=== PATIENT | female | born 1960 | race African-American/Black ===

== ENCOUNTER 2016-04-16 14:53 | Inpatient (IN) | payer MEDICARE, MEDICAID ==
[~2016-04-16] VITALS: Ht 165.1 cm; Wt 86.2 kg
[~2016-04-16 14:53] MED LIST: ALPR1TAB2 PO; AMLO5TAB4 PO; ASPI81TA9 PO; ATORVASTATIN CA80 MG PO; BENZ100C PO; CARV25TA PO; CLON0.1T PO; CLOP75TA PO; FURO40TA4 PO; HYDR-2869 PO; INSU100I13 SQ; INSU100I17 SQ; LEVO500T38 PO; LISI-334 PO; LISI1TAB5 PO; NAPR500T3 PO; NICO1PAT5 TD; OXYC5CAP3 PO; POLY17PO5 PO; PROM6.25 PO; TICA90TA PO
[2016-04-16] MEDS ORDERED: ONDANSETRON PF 4 MG/2 ML VIAL. IV ONE (15:45)
[2016-04-16] MEDS ORDERED: IPRATRPIUM/ALBUTEROL 0.5/2.5MG 3 ML NEBU. NEB ONE (15:45)
--- NOTE | 2016-04-16 15:47 | PHYS DOC ---
Past Medical History Past Medical History: Bronchitis, CHF, CVA, Diabetes-Type II, Hypertension, [place] , Sickle Cell Disease Additional Past Medical Histor: "peripheral vision is gone" Past Surgical History: Angioplasty, Hysterectomy, Other Additional Past Surgical Histo: Cardiac Stent Alcohol Use: Occasionally Drug Use: None Adult General Chief Complaint Chief Complaint: shortness of breath, chest pain HPI HPI Patient is a 55 year old female who presents with complaint of shortness of breath and chest pain. Patient states that she has been having symptoms for the past 3 weeks, however the past 3 days have been significantly worsening. Patient states that she is also had associated headaches, subjective fevers, chills, and body aches. Patient has history of congestive heart failure. Patient follows with Dr. Gardner of cardiology. The patient states that her chest pain has been substernal. Patient denies radiation of pain. Patient denies associated diaphoresis but has had nausea as well as shortness of breath. Review of Systems Review of Systems Constitutional: Subjective fever, chills [] Eyes: Denies change in visual acuity, redness, or eye pain [] HENT: Denies nasal congestion or sore throat [] Respiratory: Shortness of breath [] Cardiovascular: Chest pain [] GI: Denies abdominal pain, nausea, vomiting, bloody stools or diarrhea [] : Denies dysuria or hematuria [] Musculoskeletal: Body aches [] Integument: Denies rash or skin lesions [] Neurologic: Headache, denies focal weakness or sensory changes [] Current Medications Current Medications Current Medications Medications (Trade) Dose Ordered Sig/[place] Start Time Stop Time Status Last Admin Dose Admin Albuterol/ Ipratropium (Duoneb) 3 ml 1X ONCE 04/16/16 15:45 04/16/16 15:46 DC 04/16/16 16:04 3 ML Aspirin (Children'S Aspirin) 324 mg 1X ONCE 04/16/16 16:00 04/16/16 16:01 DC 04/16/16 16:17 324 MG Fentanyl Citrate (Fentanyl 2ml Vial) 50 mcg PRN Q15MIN PRN 04/16/16 15:45 04/17/16 15:44 04/16/16 17:41 50 MCG Hydralazine HCl (Apresoline) 10 mg 1X ONCE 04/16/16 16:45 04/16/16 16:46 DC 04/16/16 16:48 10 MG Ondansetron HCl (Zofran) 4 mg 1X ONCE 04/16/16 15:45 04/16/16 15:46 DC 04/16/16 16:17 4 MG Allergies Allergies Allergies Coded Allergies Type Severity Reaction Last Updated Verified sulfamethoxazole Allergy Intermediate 07/15/14 Yes trimethoprim Allergy Intermediate 07/15/14 Yes Physical Exam Physical Exam Constitutional: Alert, afebrile, appears in mild discomfort. [] HENT: Normocephalic, atraumatic, bilateral external ears normal, oropharynx moist, no oral exudates, nose normal. [] Eyes: PERRLA, EOMI, conjunctiva normal, no discharge. [] Neck: Normal range of motion, no tenderness, supple, no stridor. [] Cardiovascular:Heart rate regular rhythm, no murmur [] Lungs & Thorax: Mild to moderate restriction of air movement bilaterally, no wheezes or rales present, chest nontender to palpation Abdomen: Bowel sounds normal, soft, no tenderness, no masses, no pulsatile masses. [] Skin: Warm, dry, no erythema, no rash. [] Back: No tenderness, no CVA tenderness. [] Extremities: No tenderness, no cyanosis, no clubbing, ROM intact, trace pedal edema. [] Neurologic: Alert and oriented X 3, normal motor function, normal sensory function, no focal deficits noted. [] Current Patient Data Vital Signs Vital Signs Date Time Temp Pulse Resp B/P Pulse Ox O2 Delivery O2 Flow Rate FiO2 04/16/16 16:48 76 190/100 04/16/16 16:44 16 94 Room Air 04/16/16 15:31 98.7 98.7 Lab Values Laboratory Tests Test 04/16/16 16:02 White Blood Count 5.3x10^3/uL (4.0-11.0) Red Blood Count 4.69x10^6/uL (3.50-5.40) Hemoglobin 12.2g/dL (12.0-15.5) Hematocrit 38.6% (36.0-47.0) Mean Corpuscular Volume 82fL (79-100) Mean Corpuscular Hemoglobin 26pg (25-35) Mean Corpuscular Hemoglobin Concent 32g/dL (31-37) Red Cell Distribution Width 14.2% (11.5-14.5) Platelet Count 222x10^3/uL (140-400) Neutrophils (%) (Auto) 77% (31-73) H Lymphocytes (%) (Auto) 13% (24-48) L Monocytes (%) (Auto) 7% (0-9) Eosinophils (%) (Auto) 2% (0-3) Basophils (%) (Auto) 0% (0-3) Neutrophils # (Auto) 4.1x10^3uL (1.8-7.7) Lymphocytes # (Auto) 0.7x10^3/uL (1.0-4.8) L Monocytes # (Auto) 0.4x10^3/uL (0.0-1.1) Eosinophils # (Auto) 0.1x10^3/uL (0.0-0.7) Basophils # (Auto) 0.0x10^3/uL (0.0-0.2) Sodium Level 141mmol/L (136-145) Potassium Level 3.8mmol/L (3.5-5.1) Chloride Level 106mmol/L (98-107) Carbon Dioxide Level 27mmol/L (21-32) Anion Gap 8 (6-14) Blood Urea Nitrogen 18mg/dL (7-20) Creatinine 0.9mg/dL (0.6-1.0) Estimated GFR (Cockcroft-Gault) 79.3 BUN/Creatinine Ratio 20 (6-20) Glucose Level 121mg/dL (70-99) H Calcium Level 8.9mg/dL (8.5-10.1) Total Bilirubin 0.4mg/dL (0.2-1.0) Aspartate Amino Transferase (AST) 22U/L (15-37) Alanine Aminotransferase (ALT) 21U/L (14-59) Alkaline Phosphatase 157U/L (46-116) H Creatine Kinase 94U/L (26-192) Creatine Kinase MB (Mass) 1.4ng/mL (0.0-3.6) Creatine Kinase MB Relative Index 1.5% (0-4) Troponin I Quantitative < 0.017ng/mL (0.000-0.055) MB-Dic-S-Type Natriuretic Peptide 2263pg/mL (0-124) H Total Protein 6.9g/dL (6.4-8.2) Albumin 2.7g/dL (3.4-5.0) L Albumin/Globulin Ratio 0.6 (1.0-1.7) L Influenza Type A Antigen Negative (NEGATIVE) Influenza Type B Antigen Negative (NEGATIVE) Laboratory Tests 04/16/16 16:02 Laboratory Tests 04/16/16 16:02 EKG EKG Interpreted by me: Heart rate 78, sinus rhythm, prolonged QT interval, no acute ST/T-wave abnormalities present Radiology/Procedures Radiology/Procedures [facility] [address] [place] [address] IMAGING REPORT Signed PATIENT: ZORAN HONG ACCOUNT: [id number] : 1960 LOCATION: ER AGE: 55 SEX: F EXAM STATUS: REG ER ORD. PHYSICIAN: JANNET VANG MD REASON: chest pain, shortness of breath PROCEDURE: PORTABLE CHEST 1V INDICATION: chest pain, shortness of breath COMPARISON: 07/18/2014 FINDINGS: Single view of chest obtained. Enlarged cardiac silhouette. Probable calcified granuloma right midlung. Linear opacities lower lungs. Fullness of bilateral hilum again seen which could be from engorged pulmonary arteries. IMPRESSION: Enlarged cardiac silhouette and prominent hilum bilaterally is again seen. Mild linear opacities lower lungs could be atelectasis. DICTATED and SIGNED BY: HONG TEJADA MD DATE: 04/16/16 1614 CC: JANNET VANG MD; YOSELIN GARCÍA MD ~ [] Course & Med Decision Making Course & Med Decision Making Pertinent Labs and Imaging studies reviewed. (See chart for details) Patient was given fentanyl, Zofran, and hydralazine in the emergency department. The patient had a critically elevated blood pressure which may be the primary cause of patient's symptoms. Due to patient's history of coronary artery disease and presence of CHF, the patient will need to be admitted for further treatment and to rule out myocardial infarction. I spoke with Dr. Helm who accepted care patient in hospital. Dragon Disclaimer Dragon Disclaimer This electronic medical record was generated, in whole or in part, using a voice recognition dictation system. Departure Departure Impression: Primary Impression: Chest pain Additional Impressions: Acute on chronic diastolic CHF (congestive heart failure) Accelerated hypertension Disposition: 09 ADMITTED INPATIENT Admitting Physician: Lenora Helm Condition: STABLE Referrals: YOSELIN GARCÍA MD (PCP) Problem Qualifiers Primary Impression: Chest pain Chest pain type: unspecified Qualified Code: R07.9 - Chest pain, unspecified JANNET VANG MD Apr 16, 2016 15:47
[2016-04-16] MEDS ORDERED: ASPIRIN 81 MG TAB.CHEW PO ONE (16:00)
--- NOTE | 2016-04-16 16:00 | EKG ---
[facility] [address] [place] [address] Test Date: 2016-04-16 Test Time: 15:10:48 Pat Name: ZORAN HONG Department: Room: Gender: F [employer]: : 1960 Requested By: JANNET VANG Order Number: [id number] Reading MD: Measurements Intervals [place] Rate: 78 P: 31 AL: 168 QRS: 0 QRSD: 80 T: 145 QT: 430 QTc: 494 Interpretive Statements SINUS RHYTHM LEFTWARD AXIS R-S TRANSITION ZONE IN V LEADS DISPLACED TO THE LEFT QRS(T) CONTOUR ABNORMALITY CONSIDER ANTEROLATERAL MYOCARDIAL DAMAGE PROLONGED QT POSSIBLY ABNORMAL ECG RI6.01 No previous ECG available for comparison
[2016-04-16 16:10] LABS: BASO % 0 % (0-3); EOS % 2 % (0-3); HEMATOCRIT 38.6 % (36.0-47.0); HEMOGLOBIN 12.2 g/dL (12.0-15.5); LYMPH # 0.7 x10^3/uL (1.0-4.8); LYMPH % 13 % (24-48); MEAN CORPUSCULAR HEMOGLOBIN 26 pg (25-35); MEAN CORPUSCULAR HGB CONC 32 g/dL (31-37); MEAN CORPUSCULAR VOLUME 82 fL (79-100); MONO % 7 % (0-9); NEUT % 77 % (31-73); PLATELET COUNT 222 x10^3/uL (140-400); RED BLOOD COUNT 4.69 x10^6/uL (3.50-5.40); RED CELL DISTRIBUTION WIDTH 14.2 % (11.5-14.5); WHITE BLOOD COUNT 5.3 x10^3/uL (4.0-11.0)
[2016-04-16] MEDS: FENTANYL PF 100 MCG/2 ML VIAL. IV PRN ×2 (16:18→17:41)
--- NOTE | 2016-04-16 16:19 | RAD ---
INDICATION: chest pain, shortness of breath COMPARISON: 07/18/2014 FINDINGS: Single view of chest obtained. Enlarged cardiac silhouette. Probable calcified granuloma right midlung. Linear opacities lower lungs. Fullness of bilateral hilum again seen which could be from engorged pulmonary arteries. IMPRESSION: Enlarged cardiac silhouette and prominent hilum bilaterally is again seen. Mild linear opacities lower lungs could be atelectasis.
[2016-04-16 16:23] LABS: CALCIUM 8.9 mg/dL (8.5-10.1); CREATININE 0.9 mg/dL (0.6-1.0); GFR 79.3; POTASSIUM 3.8 mmol/L (3.5-5.1)
[2016-04-16 16:29] LABS: ALBUMIN 2.7 g/dL (3.4-5.0); ALBUMIN/GLOBULIN RATIO 0.6 (1.0-1.7); TOTAL BILIRUBIN 0.4 mg/dL (0.2-1.0); TOTAL PROTEIN 6.9 g/dL (6.4-8.2)
[2016-04-16 16:37] LABS: CKMB INDEX 1.5 % (0-4); CKMB MASS 1.4 ng/mL (0.0-3.6); OBC FLU VALID
[2016-04-16] MEDS ORDERED: hydrALAZINE 20 MG/ML VIAL. IVP ONE (16:45)
[2016-04-16] MEDS ORDERED: FENTANYL PF 100 MCG/2 ML VIAL. IV PRN (17:30)
[2016-04-16] MEDS ORDERED: ONDANSETRON PF 4 MG/2 ML VIAL. IV PRN (17:30)
[2016-04-16] MEDS ORDERED: ACETAMINOPHEN 325 MG TABLET. PO PRN (17:30)
[2016-04-16] MEDS ORDERED: FUROSEMIDE 40 MG/4 ML VIAL IVP ONE (17:30)
[2016-04-16] MEDS ORDERED: POLYETHYLENE GLYCOL 3350 17 GM PACKET. PO PRN (19:00)
[2016-04-16] MEDS ORDERED: AMLODIPINE BESYLATE 5 MG TABLET PO ONE (19:00)
[2016-04-16] MEDS ORDERED: DEXTROSE 50% 25 GM / 50ML DISP.SYRIN. IV PRN (19:00)
[2016-04-16] MEDS ORDERED: MAGNESIUM HYDROXIDE 2,400 MG/30 ML ORAL.SUSP. PO ONE (19:00)
--- NOTE | 2016-04-16 19:00 | PDOC1 ---
History and Physical Date of Admission Date of Admission DATE: 04/16/16 TIME: 18:51 Identification/Chief Complaint Chief Complaint dyspnea, myalgia, abd distention Source Source: Chart review, Patient History of Present Illness History of Present Illness Ms. Rogers, is a 55 year old female admit from ER, with worsening shortness of breath and chest pain. worsening for 3 weeks, however the past 3 days with myalgia, weakness, abd pain and nausea, abd distention, constipation and dyspnea She has many complaints, alsoo headaches, subjective fevers, chills, and body aches. FLU SWAB NEG in ER chest pain is substernal, not reproducible, not worse with exertion, right sided, Patient has history of congestive heart failure. Dr. Gardner She reported compliance with fluid and diet, but her elicited that she has been eating Doritos,. Past Medical History Cardiovascular: CAD, CHF, HTN, Hyperlipidemia Pulmonary: Pneumonia, Other CENTRAL NERVOUS SYSTEM: CVA GI: No pertinent hx Heme/Onc: Sickle cell disease Musculoskeletal: Osteoarthritis Renal/: No pertinent hx Endocrine: Diabetes Past Surgical History Past Surgical History: Hysterectomy, Other Family History Family History: Heart Disease Social History Smoke: Quit (?) ALCOHOL: none Drugs: None Current Medications Current Medications Current Medications Albuterol/ Ipratropium (Duoneb) 3 ml 1X ONCE NEB Last administered on 16:04; Start 04/16/16 at 15:45; Stop 04/16/16 at 15:46; Status DC Fentanyl Citrate (Fentanyl 2ml Vial) 50 mcg PRN Q15MIN PRN IV PAIN GREATER THAN 3/10 Last administered on 04/16/16 17:41; Start 04/16/16 at 15:45; Stop at 15:44 Ondansetron HCl (Zofran) 4 mg 1X ONCE IV Last administered on 04/16/16 16:17 ; Start 04/16/16 at 15:45; Stop 04/16/16 at 15:46; Status DC Aspirin (Children'S Aspirin) 324 mg 1X ONCE PO Last administered on 04/16/16 16:17; Start 04/16/16 at 16:00; Stop 04/16/16 at 16:01; Status DC Hydralazine HCl (Apresoline) 10 mg 1X ONCE IVP Last administered on 04/16/16 16:48; Start 04/16/16 at 16:45; Stop 04/16/16 at 16:46; Status DC Ondansetron HCl (Zofran) 4 mg PRN Q8HRS PRN IV NAUSEA/VOMITING; Start 04/16/16 at 17:30; Stop 04/17/16 at 17:29 Fentanyl Citrate (Fentanyl 2ml Vial) 50 mcg PRN Q2HR PRN IV PAIN; Start at 17:30; Stop 04/17/16 at 17:29 Acetaminophen (Tylenol) 650 mg PRN Q4HRS PRN PO FEVER; Start 04/16/16 at 17:30 ; Stop 04/17/16 at 17:29 Furosemide (Lasix) 60 mg 1X ONCE IVP Last administered on 04/16/16 18:30; Start 04/16/16 at 17:30; Stop 04/16/16 at 17:31; Status DC Active Scripts Active Reported Miralax (Polyethylene Glycol 3350) 17 Gm Powd.pack 1 Pkt PO PRN DAILY PRN Lantus Solostar (Insulin Glargine,Hum.rec.anlog) 100 Unit/1 Ml Insuln.pen 10 Unit SQ QHS Clonidine Hcl 0.1 Mg Tablet 0.1 Mg PO TID Nicotine Patch (Nicotine) 1 Each Patch.dysq 1 Each TD Oxycodone Hcl 5 Mg Capsule 5 Mg PO PRN Q6HRS PRN Aspirin Ec (Aspirin) 81 Mg Tablet.dr 81 Mg PO DAILY Atorvastatin Calcium 80 Mg Tablet 80 Mg PO HS Lisinopril 20 Mg Tablet 20 Mg PO BID Novolog Flexpen (Insulin Aspart) 100 Unit/1 Ml Insuln.pen 5 Unit SQ TIDAFTMEAL Coreg (Carvedilol) 25 Mg Tablet 25 Mg PO BIDWMEALS Xanax (Alprazolam) 1 Mg Tablet 1 Mg PO BID PRN Furosemide 40 Mg Tablet 40 Mg PO DAILY Allergies Allergies: Coded Allergies: sulfamethoxazole (Verified Allergy, Intermediate, 07/15/14) trimethoprim (Verified Allergy, Intermediate, 07/15/14) ROS General: YES: Appetite, Chills, Fatigue, Malaise, No: Night Sweats, Other PSYCHOLOGICAL ROS: YES: Irritablity, No: Anxiety, Behavioral Disorder, Concentration difficultie, Decreased libido , Depression, Disorientation, Hallucinations, Hostility, Memory difficulties, Mood Swings, Obsessive thoughts, Other, Physical abuse, Sexual abuse, Sleep disturbances, Suicidal ideation Eyes: No Blurry vision, No Decreased vision, No Double vision, No Dry eyes, No Excessive tearing, No Eye Pain, No Itchy Eyes, No Loss of vision, No Other, No Photophobia, No Scotomata, No Uses contacts, No Uses glasses HEENT: YES: Heacaches, Nasal congestion, Sneezing, No: Epistaxis, Hearing change, Nasal discharge, Oral lesions, Other, Sinus pain, Snoring, Sore Throat, Tinnitus, Vertigo, Visual Changes, Vocal changes Respiratory: YES: Cough, No: Hemoptysis, Orthopnea, Other, Pleuritic Pain, SOB with excertion, Shortness of breath, Sputum Changes, Stridor, Tachypnea, Wheezing Cardiovascular: yes Chest Pain, No Edema, No Lt Headedness, No Orthopnea, No Other, No Palpitations, No Paroxysmal Noc. Dyspnea Gastrointestinal: Yes Constipation, Yes Nausea, No Abdominal Pain, No Diarrhea, No Hematochezia, No Melena, No Other, No Vomiting Genitourinary: No , No , No , No , No , No , No , No Discharge, No Dysuria, No Flank Pain, No Frequency, No Hematuria, No Incontinence, No Other, No Pain, No Retention, No Urgency Musculoskeletal: Yes Joint Stiffness, No Gait Disturbance, No Joint Pain, No Joint Swelling, No Muscle Pain, No Muscular Weakness, No Other, No Pain In:, No Swelling In: Neurological: No Behavorial Changes, No Bowel/Bladder ControlChng, No Confusion , No Dizziness, No Gait Disturbance, No Headaches, No Impaired Coord/balance, No Memory Loss, No Numbness/Tingling, No Other, No Seizures, No Speech Problems , No Tremors, No Visual Changes, No Weakness Skin: Yes Dry Skin, No Acne, No Eczema, No Hair Changes, No Lumps, No Mole Changes, No Mottling, No Nail Changes, No Other, No Pruritus, No Rash, No Skin Lesion Changes Physical Exam General: Alert, Oriented X3, Cooperative, mild distress HEENT: EOMI, Mucous membr. moist/pink Lungs: Clear to auscultation Heart: S1S2, no gallops Abdomen: Normal bowel sounds, Soft, No tenderness (min, no stool palpable, ) Extremities: Other (some edema to thigh, almost no pedal or pretibial edema) Skin: No significant lesion Neuro: Normal speech, Normal tone, Sensation intact Psych/Mental Status: Mental status NL, Mood NL Vitals Vitals Vital Signs Date Time Temp Pulse Resp B/P Pulse Ox O2 Delivery O2 Flow Rate FiO2 04/16/16 16:48 76 190/100 04/16/16 16:27 21 97 Room Air 04/16/16 15:31 98.7 98.7 Labs Labs Laboratory Tests Test 04/16/16 16:02 White Blood Count 5.3x10^3/uL (4.0-11.0) Red Blood Count 4.69x10^6/uL (3.50-5.40) Hemoglobin 12.2g/dL (12.0-15.5) Hematocrit 38.6% (36.0-47.0) Mean Corpuscular Volume 82fL (79-100) Mean Corpuscular Hemoglobin 26pg (25-35) Mean Corpuscular Hemoglobin Concent 32g/dL (31-37) Red Cell Distribution Width 14.2% (11.5-14.5) Platelet Count 222x10^3/uL (140-400) Neutrophils (%) (Auto) 77% (31-73) Lymphocytes (%) (Auto) 13% (24-48) Monocytes (%) (Auto) 7% (0-9) Eosinophils (%) (Auto) 2% (0-3) Basophils (%) (Auto) 0% (0-3) Neutrophils # (Auto) 4.1x10^3uL (1.8-7.7) Lymphocytes # (Auto) 0.7x10^3/uL (1.0-4.8) Monocytes # (Auto) 0.4x10^3/uL (0.0-1.1) Eosinophils # (Auto) 0.1x10^3/uL (0.0-0.7) Basophils # (Auto) 0.0x10^3/uL (0.0-0.2) Sodium Level 141mmol/L (136-145) Potassium Level 3.8mmol/L (3.5-5.1) Chloride Level 106mmol/L (98-107) Carbon Dioxide Level 27mmol/L (21-32) Anion Gap 8 (6-14) Blood Urea Nitrogen 18mg/dL (7-20) Creatinine 0.9mg/dL (0.6-1.0) Estimated GFR (Cockcroft-Gault) 79.3 BUN/Creatinine Ratio 20 (6-20) Glucose Level 121mg/dL (70-99) Calcium Level 8.9mg/dL (8.5-10.1) Total Bilirubin 0.4mg/dL (0.2-1.0) Aspartate Amino Transf (AST/SGOT) 22U/L (15-37) Alanine Aminotransferase (ALT/SGPT) 21U/L (14-59) Alkaline Phosphatase 157U/L (46-116) Creatine Kinase 94U/L (26-192) Creatine Kinase MB (Mass) 1.4ng/mL (0.0-3.6) Creatine Kinase MB Relative Index 1.5% (0-4) Troponin I Quantitative < 0.017ng/mL (0.000-0.055) YO-Tyf-G-Type Natriuretic Peptide 2263pg/mL (0-124) Total Protein 6.9g/dL (6.4-8.2) Albumin 2.7g/dL (3.4-5.0) Albumin/Globulin Ratio 0.6 (1.0-1.7) Influenza Type A Antigen Negative (NEGATIVE) Influenza Type B Antigen Negative (NEGATIVE) Laboratory Tests Test 04/16/16 16:02 White Blood Count 5.3x10^3/uL (4.0-11.0) Red Blood Count 4.69x10^6/uL (3.50-5.40) Hemoglobin 12.2g/dL (12.0-15.5) Hematocrit 38.6% (36.0-47.0) Mean Corpuscular Volume 82fL (79-100) Mean Corpuscular Hemoglobin 26pg (25-35) Mean Corpuscular Hemoglobin Concent 32g/dL (31-37) Red Cell Distribution Width 14.2% (11.5-14.5) Platelet Count 222x10^3/uL (140-400) Neutrophils (%) (Auto) 77% (31-73) Lymphocytes (%) (Auto) 13% (24-48) Monocytes (%) (Auto) 7% (0-9) Eosinophils (%) (Auto) 2% (0-3) Basophils (%) (Auto) 0% (0-3) Neutrophils # (Auto) 4.1x10^3uL (1.8-7.7) Lymphocytes # (Auto) 0.7x10^3/uL (1.0-4.8) Monocytes # (Auto) 0.4x10^3/uL (0.0-1.1) Eosinophils # (Auto) 0.1x10^3/uL (0.0-0.7) Basophils # (Auto) 0.0x10^3/uL (0.0-0.2) Sodium Level 141mmol/L (136-145) Potassium Level 3.8mmol/L (3.5-5.1) Chloride Level 106mmol/L (98-107) Carbon Dioxide Level 27mmol/L (21-32) Anion Gap 8 (6-14) Blood Urea Nitrogen 18mg/dL (7-20) Creatinine 0.9mg/dL (0.6-1.0) Estimated GFR (Cockcroft-Gault) 79.3 BUN/Creatinine Ratio 20 (6-20) Glucose Level 121mg/dL (70-99) Calcium Level 8.9mg/dL (8.5-10.1) Total Bilirubin 0.4mg/dL (0.2-1.0) Aspartate Amino Transf (AST/SGOT) 22U/L (15-37) Alanine Aminotransferase (ALT/SGPT) 21U/L (14-59) Alkaline Phosphatase 157U/L (46-116) Creatine Kinase 94U/L (26-192) Creatine Kinase MB (Mass) 1.4ng/mL (0.0-3.6) Creatine Kinase MB Relative Index 1.5% (0-4) Troponin I Quantitative < 0.017ng/mL (0.000-0.055) PA-Dus-N-Type Natriuretic Peptide 2263pg/mL (0-124) Total Protein 6.9g/dL (6.4-8.2) Albumin 2.7g/dL (3.4-5.0) Albumin/Globulin Ratio 0.6 (1.0-1.7) Influenza Type A Antigen Negative (NEGATIVE) Influenza Type B Antigen Negative (NEGATIVE) VTE Prophylaxis Ordered VTE Prophylaxis Devices: No VTE Pharmacological Prophylaxi: Yes Assessment/Plan Assessment/Plan CHF exacerbation, acute diastolic failure, some swelling of thighs, not lalita anasarca Accelerated htn, start norvasc, coreg, lasix, Lasix, Htn meds chronic longstanding HTN, mult agents may benefit from norvasc for diastolic failure, will check echo, CV consult, Dr. Gardner follows nausea, abd distention, constipation, Miralax, milk of mag, colace, prior tobaccoism Dm, insulin req. ZARINA QUINTANILLA MD Apr 16, 2016 19:00
[2016-04-16] MEDS: MORPHINE SULFATE 4 MG/ML DISP.SYRIN. IV PRN ×2 (19:57→23:31)
--- NOTE | 2016-04-16 20:03 | ACF ---
Admission Forms Criteria HEART FAILURE: COMMON COMPLICATIONS Clinical Indications for Inpatient Care (Place 'X' for any and all applicable criteria): Ongoing inpatient care may be indicated for heart failure with ANY ONE of the following (1)(2)(3)(4)(5): [ ]I. Ongoing need for care for primary condition requiring frequent therapy adjustments because of changes in cardiac function (eg, drug dosage changes for drugs that are renally metabolized) [ ]II. New-onset heart failure [ ]III. Heart failure with decreased urine output not responsive to attempts to optimize volume status [ ]IV. Acute cardiac ischemia causing or associated with failure [X]V. Complications of heart failure, including ANY ONE of the following: [ ]a) Pericardial effusion [ ]b) Symptomatic pleural effusion [ ]c) O2 saturation <90% or PO2 < 60 mm Hg (8.0 kPa) on room air or require baseline supplemental O2 [ ]d) Tachypnea [X]e) Dyspnea [ ]f) Syncope [ ]g) Change in mental status [ ]h) Acute renal insufficiency that is severe (reduction of more than 50% in estimated glomerular filtration rate from baseline) or progressive reduction of more than 25% in estimated glomerular filtration rate from baseline, with creatinine continuing to rise) [ ]i) Hemodynamic instability [ ]j) Anasarca [ ]k) Clinically significant metabolic abnormalities due to heart failure (eg, new-onset metabolic acidosis) Extended stay beyond goal length of stay for primary condition may be needed until ALL of the following are present(1)(3): [ ]a) Stable and effective diuretic regimen established (or patient on stable dialysis regimen if in chronic renal failure) [ ]b) Breathing comfortably at rest [ ]c) Saturation of arterial oxygen greater than 90% or at acceptable baseline [ ]d) Pulmonary edema absent or improved [ ]e) Hemodynamic stability [ ]f) Volume status acceptable on oral medication [ ]g) Peripheral or sacral edema absent or improved [ ]h) Renal function stable and manageable at a lower level of care [ ]i) Complications (eg, pleural effusion) resolved or manageable at a lower level of care [ ]j) Patient or caregiver has received written discharge instructions or educational material addressing activity level, diet, discharge medications, follow-up appointment, weight monitoring, and what to do if symptoms worsen The original [employer] [facility] content created by [employer] has been revised. The portions of the content which have been revised are identified through the use of italic text or in bold, and [facility] has neither reviewed nor approved the modified material.All other unmodified content is copyright [facility]. Please see references footnoted in the original [facility] edition 2016 Admission Criteria Met?: Yes LASHA MARTINEZ Apr 16, 2016 20:03
[2016-04-16 20:51] VITALS: BP 172/97
[2016-04-16] MEDS: ALBUTEROL SULFATE 2.5 MG/3 ML NEBU. NEB SCH (21:49)
[2016-04-16] MEDS: ASPIRIN ENTERIC COATED 81 MG TABLET.DR. PO SCH (22:03)
[2016-04-16] MEDS: ATORVASTATIN CALCIUM 40 MG TABLET. PO SCH (22:03)
[2016-04-16] MEDS: FUROSEMIDE 40 MG TABLET PO SCH (22:04)
[2016-04-16] MEDS: ALPRAZOLAM 1 MG TABLET PO PRN (22:05)
[2016-04-16] MEDS: CLONIDINE HCL 0.1 MG TABLET PO SCH (22:05)
[2016-04-16] MEDS: LISINOPRIL 20 MG TABLET PO SCH (22:06)
[2016-04-16] MEDS: OXYCODONE IR 5 MG TABLET. PO PRN (22:06)
[2016-04-16] MEDS: DOCUSATE SODIUM 100 MG CAPSULE PO SCH (22:07)
[2016-04-16] MEDS: INSULIN DETEMIR 300 UNITS/3 ML INSULN.PEN. SQ SCH (22:17)
[2016-04-16] MEDS ORDERED: NICOTINE POLACRILEX 2MG GUM PACKAGE of 12. BC PRN (23:00)
[2016-04-16 23:11] VITALS: BP 172/97
[2016-04-16 23:19] VITALS: BP 129/100
[2016-04-16] MEDS: PROMETH/CODEINE 6.25/10MG 5 ML SYRUP. PO PRN (23:24)
[2016-04-17] MEDS: MORPHINE SULFATE 4 MG/ML DISP.SYRIN. IV PRN ×3 (03:03→23:04)
[2016-04-17 03:24] VITALS: BP 175/113
[2016-04-17 07:00] VITALS: BP 147/93
[2016-04-17] MEDS: ALBUTEROL SULFATE 2.5 MG/3 ML NEBU. NEB SCH ×4 (07:19→20:33)
[2016-04-17] MEDS: INSULIN ASPART 300 UNITS/3 ML INSULN.PEN SQ SCH ×6 (08:00→17:14)
[2016-04-17] MEDS: POLYETHYLENE GLYCOL 3350 17 GM PACKET. PO SCH (08:19)
[2016-04-17] MEDS: LISINOPRIL 20 MG TABLET PO SCH ×2 (08:20→20:51)
[2016-04-17] MEDS: CARVEDILOL 12.5 MG TABLET PO SCH ×2 (08:20→17:02)
[2016-04-17] MEDS: CLONIDINE HCL 0.1 MG TABLET PO SCH ×3 (08:21→20:50)
[2016-04-17] MEDS: FUROSEMIDE 40 MG TABLET PO SCH (08:21)
[2016-04-17] MEDS: ASPIRIN ENTERIC COATED 81 MG TABLET.DR. PO SCH (08:21)
[2016-04-17] MEDS: OXYCODONE IR 5 MG TABLET. PO PRN ×2 (08:21→17:02)
[2016-04-17] MEDS: DOCUSATE SODIUM 100 MG CAPSULE PO SCH ×3 (08:22→20:51)
[2016-04-17] MEDS: PROMETH/CODEINE 6.25/10MG 5 ML SYRUP. PO PRN ×3 (08:22→23:04)
--- NOTE | 2016-04-17 09:25 | PDOC2 ---
JEREMY RASHEED SPECIAL LIBRARIAN 04/17/16 0925: CARDIAC CONSULT DATE OF CONSULT Date of Consult DATE: 04/17/16 TIME: 09:21 REASON FOR CONSULT Reason for Consult: chest pain, CHF REFERRING PHYSICIAN Referring Physician: Dr. Tyree Owen SOURCE Source: Chart review, Patient HISTORY OF PRESENT ILLNESS HISTORY OF PRESENT ILLNESS 55 year old admitted through the ER with complaints of right sided chest pain associated with cough, dyspnea with exertion and cough, a bloated sensation and 9 pound weight gain in the last month. NT-proBNP was 2263 and patient readily admits to non-compliance with sodium restriction and has been eating Doritos. SBP > 190 POA. EKG without acute changes and troponin levels not consistent with AMI. Influenza negative. Reason for Visit: CP PAST MEDICAL HISTORY Cardiovascular: CAD (with PCI/ANISHA to LAD), CHF (diastolic), HTN, OR, Hyperlipidemia Pulmonary: Bronchitis CENTRAL NERVOUS SYSTEM: CVA GI: Diverticulosis Heme/Onc: No pertinent hx Hepatobiliary: No pertinent hx Psych: No pertinent hx Musculoskeletal: Osteoarthritis Rheumatologic: No pertinent hx Infectious disease: No pertinent hx ENT: No pertinent hx Renal/: No pertinent hx Endocrine: Diabetes (type II) Dermatology: No pertinent hx PAST SURGICAL HISTORY Past Surgical History: Hysterectomy FAMILY HISTORY Family History: Diabetes, Heart Disease, Hypertension SOCIAL HISTORY Smoke: <1 pack per day (states she quit but admits to smoking occasionally) ALCOHOL: occassional Drugs: None CURRENT MEDICATIONS CURRENT MEDICATIONS Current Medications Medications (Trade) Dose Ordered Sig/Grayson Route PRN Reason Start Time Stop Time Status Last Admin Dose Admin Albuterol/ Ipratropium (Duoneb) 3 ml 1X ONCE NEB 04/16/16 15:45 04/16/16 15:46 DC 04/16/16 16:04 Fentanyl Citrate (Fentanyl 2ml Vial) 50 mcg PRN Q15MIN PRN IV PAIN GREATER THAN 3/10 04/16/16 15:45 04/17/16 15:44 04/16/16 17:41 Ondansetron HCl (Zofran) 4 mg 1X ONCE IV 04/16/16 15:45 04/16/16 15:46 DC 04/16/16 16:17 Aspirin (Children'S Aspirin) 324 mg 1X ONCE PO 04/16/16 16:00 04/16/16 16:01 DC 04/16/16 16:17 Hydralazine HCl (Apresoline) 10 mg 1X ONCE IVP 04/16/16 16:45 04/16/16 16:46 DC 04/16/16 16:48 Furosemide (Lasix) 60 mg 1X ONCE IVP 04/16/16 17:30 04/16/16 17:31 DC 04/16/16 18:30 Docusate Sodium (Colace) 100 mg BID PO 04/16/16 21:00 04/17/16 08:22 Polyethylene Glycol (miraLAX PACKET) 17 gm DAILY PO 04/17/16 09:00 04/17/16 08:19 Magnesium Hydroxide (Milk Of Magnesia) 2,400 mg 1X ONCE PO 04/16/16 19:00 04/16/16 19:01 DC 04/16/16 22:02 Alprazolam (Xanax) 1 mg PRN BID PRN PO ANXIETY / AGITATION 04/16/16 19:00 04/16/16 22:05 Aspirin (Ecotrin) 81 mg DAILY08 PO 04/16/16 20:00 04/17/16 08:21 Clonidine HCl (Catapres) 0.1 mg TID PO 04/16/16 21:00 04/17/16 08:21 Furosemide (Lasix) 40 mg DAILY PO 04/16/16 20:00 04/17/16 08:21 Lisinopril (Prinivil) 20 mg BID PO 04/16/16 21:00 04/17/16 08:20 Atorvastatin Calcium (Lipitor) 80 mg QHS PO 04/16/16 21:00 04/16/16 22:03 Carvedilol (Coreg) 25 mg BIDWMEALS PO 04/17/16 08:00 04/17/16 08:20 Insulin Detemir (Levemir) 10 units QHS SQ 04/16/16 21:00 04/16/16 22:17 Oxycodone HCl (Roxicodone) 5 mg PRN Q6HRS PRN PO PAIN 04/16/16 20:00 04/17/16 08:21 Amlodipine Besylate (Norvasc) 5 mg 1X ONCE PO 04/16/16 19:00 04/16/16 19:44 DC 04/16/16 22:07 Morphine Sulfate 4 mg PRN Q2HR PRN IV pain 04/16/16 19:15 04/17/16 03:03 Albuterol Sulfate (Ventolin Neb Soln) 2.5 mg RTQID NEB 04/16/16 20:30 04/17/16 07:19 Nicotine Polacrilex (Nicorette Gum) 1 each PRN Q1HR PRN BC SMOKING CESSATION 04/16/16 23:00 04/16/16 23:24 Promethazine HCl/ Codeine (Phenergan With Codeine) 5 ml PRN Q6HRS PRN PO COUGH 04/16/16 23:15 04/17/16 08:22 ALLERGIES ALLERGIES: Coded Allergies: sulfamethoxazole (Verified Allergy, Intermediate, 07/15/14) trimethoprim (Verified Allergy, Intermediate, 07/15/14) ROS General: YES: Fatigue, Malaise PSYCHOLOGICAL ROS: No: Anxiety, Behavioral Disorder, Concentration difficultie , Decreased libido, Depression, Disorientation, Hallucinations, Hostility, Irritablity, Memory difficulties, Mood Swings, Obsessive thoughts, Other, Physical abuse, Sexual abuse, Sleep disturbances, Suicidal ideation Eyes: No Blurry vision, No Decreased vision, No Double vision, No Dry eyes, No Excessive tearing, No Eye Pain, No Itchy Eyes, No Loss of vision, No Other, No Photophobia, No Scotomata, No Uses contacts, No Uses glasses HEENT: YES: Nasal congestion, Visual Changes ALLERGY AND IMMUNOLOGY: No: Hives, Insect Bite Sensitivity, Itchy/Watery Eyes, Nasal Congestion, Other, Post Nasal Drip, Seasonal Allergies Hematological and Lymphatic: No: Bleeding Problems, Blood Clots, Blood Transfusions, Brusing, Night Sweats, Other, Pallor, Swollen Lymph Nodes ENDOCRINE: No: Breast Changes, Galactorrhea, Hair Pattern Changes, Hot Flashes , Malaise/lethargy, Mood Swings, Other, Palpitations, Polydipsia/polyuria, Skin Changes, Temperature Intolerance, Unexpected Weight Changes Respiratory: YES: Cough, Pleuritic Pain, SOB with excertion, Shortness of breath Cardiovascular: No Chest Pain, No Edema, No Lt Headedness, No Orthopnea, No Other, No Palpitations, No Paroxysmal Noc. Dyspnea Gastrointestinal: No Abdominal Pain, No Constipation, No Diarrhea, No Hematochezia, No Melena, No Nausea, No Other, No Vomiting Genitourinary: No , No , No , No , No , No , No , No Discharge, No Dysuria, No Flank Pain, No Frequency, No Hematuria, No Incontinence, No Other, No Pain, No Retention, No Urgency Musculoskeletal: Yes Joint Pain, Yes Other (fractures in LE bilaterally previously) Neurological: No Behavorial Changes, No Bowel/Bladder ControlChng, No Confusion , No Dizziness, No Gait Disturbance, No Headaches, No Impaired Coord/balance, No Memory Loss, No Numbness/Tingling, No Other, No Seizures, No Speech Problems , No Tremors, No Visual Changes, No Weakness Skin: No Acne, No Dry Skin, No Eczema, No Hair Changes, No Lumps, No Mole Changes, No Mottling, No Nail Changes, No Other, No Pruritus, No Rash, No Skin Lesion Changes PHYSICAL EXAM General: Alert, Oriented X3, Cooperative, No acute distress HEENT: Atraumatic, PERRLA Lungs: Clear to auscultation Heart: Regular rate, Normal S1, Normal S2, No murmurs, Other (no carotid bruits ) Abdomen: Normal bowel sounds, Soft, No tenderness Extremities: No edema, Normal pulses Skin: No rashes Neuro: Normal speech Psych/Mental Status: Mental status NL, Mood NL MUSCULOSKELETAL: No joint tenderness VITALS VITALS Vital Signs Date Time Temp Pulse Resp B/P Pulse Ox O2 Delivery O2 Flow Rate FiO2 04/17/16 08:21 Room Air 04/17/16 08:21 94 147/93 04/17/16 07:00 98.1 18 92 2.0 98.1 LABS Lab: Laboratory Tests Test 04/16/16 16:02 04/16/16 20:57 04/16/16 23:30 04/17/16 05:15 White Blood Count 5.3x10^3/uL (4.0-11.0) Red Blood Count 4.69x10^6/uL (3.50-5.40) Hemoglobin 12.2g/dL (12.0-15.5) Hematocrit 38.6% (36.0-47.0) Mean Corpuscular Volume 82fL (79-100) Mean Corpuscular Hemoglobin 26pg (25-35) Mean Corpuscular Hemoglobin Concent 32g/dL (31-37) Red Cell Distribution Width 14.2% (11.5-14.5) Platelet Count 222x10^3/uL (140-400) Neutrophils (%) (Auto) 77% (31-73) Lymphocytes (%) (Auto) 13% (24-48) Monocytes (%) (Auto) 7% (0-9) Eosinophils (%) (Auto) 2% (0-3) Basophils (%) (Auto) 0% (0-3) Neutrophils # (Auto) 4.1x10^3uL (1.8-7.7) Lymphocytes # (Auto) 0.7x10^3/uL (1.0-4.8) Monocytes # (Auto) 0.4x10^3/uL (0.0-1.1) Eosinophils # (Auto) 0.1x10^3/uL (0.0-0.7) Basophils # (Auto) 0.0x10^3/uL (0.0-0.2) Sodium Level 141mmol/L (136-145) Potassium Level 3.8mmol/L (3.5-5.1) Chloride Level 106mmol/L (98-107) Carbon Dioxide Level 27mmol/L (21-32) Anion Gap 8 (6-14) Blood Urea Nitrogen 18mg/dL (7-20) Creatinine 0.9mg/dL (0.6-1.0) Estimated GFR (Cockcroft-Gault) 79.3 BUN/Creatinine Ratio 20 (6-20) Glucose Level 121mg/dL (70-99) Calcium Level 8.9mg/dL (8.5-10.1) Total Bilirubin 0.4mg/dL (0.2-1.0) Aspartate Amino Transf (AST/SGOT) 22U/L (15-37) Alanine Aminotransferase (ALT/SGPT) 21U/L (14-59) Alkaline Phosphatase 157U/L (46-116) Creatine Kinase 94U/L (26-192) Creatine Kinase MB (Mass) 1.4ng/mL (0.0-3.6) Creatine Kinase MB Relative Index 1.5% (0-4) Troponin I Quantitative < 0.017ng/mL (0.000-0.055) < 0.017ng/mL (0.000-0.055) < 0.017ng/mL (0.000-0.055) RR-Ski-Y-Type Natriuretic Peptide 2263pg/mL (0-124) Total Protein 6.9g/dL (6.4-8.2) Albumin 2.7g/dL (3.4-5.0) Albumin/Globulin Ratio 0.6 (1.0-1.7) Influenza Type A Antigen Negative (NEGATIVE) Influenza Type B Antigen Negative (NEGATIVE) Glucose (Fingerstick) 230mg/dL (70-99) Test 04/17/16 08:30 Glucose (Fingerstick) 109mg/dL (70-99) IMAGES IMAGES CXR: Enlarged cardiac silhouette and prominent hilum bilaterally is again seen. Mild linear opacities lower lungs could be atelectasis. EKG EKG no acute changes ECHOCARDIOGRAM ECHOCARDIOGRAM 07/18/2014: TTE: The left ventricle is normal size. Left ventricle systolic function is normal. The Ejection Fraction is 50-55%. There is mild concentric left ventricular hypertrophy. There is no significant aortic valvular stenosis. Doppler and Color Flow revealed no significant aortic regurgitation. Doppler and Color Flow revealed trace to mild mitral regurgitation. Doppler and Color Flow revealed mild tricuspid regurgitation. The PA pressure was estimated at 32 mmHg. There is a small pericardial effusion with no hemodynamic significance. HEART CATH HEART CATH 02/28/2014: 1. Severe thrombotic 99% stenosis of the distal PDA with an 80% mid LAD stenosis as noted above. 2. Successful stent of the mid LAD with a 3.0 x 12 mm integrity drug-eluting stent. 3. Successful angioplasty of the distal PDA with a 2.25 x 12 mm angioplasty balloon. 4. No LV gram was performed in order to conserve contrast, however, LVEDP is mildly elevated at 14. 5. Angio-Seal of the right femoral artery. 6. The patient will be monitored on telemetry for overnight and will receive an 18-hour Integrilin infusion. She was initiated on Brilinta and received 180 mg and will be put on 90 mg twice daily. ASSESSMENT/PLAN ASSESSMENT/PLAN 1. acute diastolic HF secondary to medical non-compliance continue usual diuretics echo pending limit fluid and sodium intake 2. malignant HTN increased sodium intake now controlled with resumption of meds 3. CP, non-cardiac musculoskeletal and associated with cough no indication for aggressive cardiac evaluation 4. CAD with previous LAD stent continue secondary prevention - check FLP continue BB, ASA and statin therapy 5. Hyperlipidemia FLP pending continue statin therapy weight loss recommended Problems: FEI DAVIS MD 04/17/16 1710: CARDIAC CONSULT ALLERGIES ALLERGIES: Coded Allergies: sulfamethoxazole (Verified Allergy, Intermediate, 07/15/14) trimethoprim (Verified Allergy, Intermediate, 07/15/14) ASSESSMENT/PLAN ASSESSMENT/PLAN Patient seen and examined. Agree with CAPACITY PLANNING ENGINEER's assessment and plan. Continue diuresis for mild acute on chronic diastolic heart failure. Blood pressure better controlled since admission. Chest pain musculoskeletal. CAD status appears stable. Continue current medications. Thank you for your consultation. Problems: JEREMY RASHEED APRN Apr 17, 2016 09:25 FEI DAVIS MD Apr 17, 2016 17:10
[2016-04-17 11:01] LABS: BASO % 0 % (0-3); EOS % 1 % (0-3); HEMATOCRIT 38.9 % (36.0-47.0); HEMOGLOBIN 12.5 g/dL (12.0-15.5); LYMPH # 0.6 x10^3/uL (1.0-4.8); LYMPH % 9 % (24-48); MEAN CORPUSCULAR HEMOGLOBIN 26 pg (25-35); MEAN CORPUSCULAR HGB CONC 32 g/dL (31-37); MEAN CORPUSCULAR VOLUME 81 fL (79-100); MONO % 5 % (0-9); NEUT % 85 % (31-73); PLATELET COUNT 245 x10^3/uL (140-400); RED BLOOD COUNT 4.83 x10^6/uL (3.50-5.40); RED CELL DISTRIBUTION WIDTH 14.4 % (11.5-14.5); WHITE BLOOD COUNT 6.2 x10^3/uL (4.0-11.0)
[2016-04-17 11:02] VITALS: BP 150/90
--- NOTE | 2016-04-17 11:09 | CARD ---
APPROVED REPORT EXAM: Two-dimensional and M-mode echocardiogram with Doppler and color Doppler. Other Information Quality : Average Rhythm : NSR INDICATION Congestive Heart Failure 2D DIMENSIONS RVDd2.6 (2.9-3.5cm)Left Atrium(2D)5.1 (1.6-4.0cm) IVSd1.3 (0.7-1.1cm)Aortic Root(2D)2.8 (2.0-3.7cm) LVDd4.5 (3.9-5.9cm)LVOT Diameter2.0 (1.8-2.4cm) PWd1.3 (0.7-1.1cm)LVDs3.2 (2.5-4.0cm) FS (%) 28.5 %SV50.2 ml LVEF(%)55.2 (>50%) Aortic Valve AoV Peak Rey.187.9cm/sAoV VTI33.7cm AO Peak GR.14.1mmHgLVOT Peak Rey.126.8cm/s AO Mean GR.7mmHgAVA (VMAX)2.05cm2 JENNIE (VTI)2.00cm2 Mitral Valve MV E Ivihkyrk70.5cm/sMV E Peak Gr.8mmHg MV DECEL [id number] A Dtucklun56.4cm/s MV E Mean Gr.2mmHgMV [id number] E/A Ratio2.1MV A [id number] MVA (PHT)5.06cm2 Tricuspid Valve TR P. Ezreleyd534ol/sRAP [id number] TR Peak Gr.[id number] LEFT VENTRICLE The left ventricle is normal size. There is borderline to mild concentric left ventricular hypertroph y. Left ventricle systolic function is normal. The Ejection Fraction is 50-55%. There is normal LV se gmental wall motion. Tissue Doppler imaging reveals moderate left ventricular diastolic dysfunction. RIGHT VENTRICLE The right ventricle is normal size. The right ventricular systolic function is normal. ATRIA The left atrium is moderately dilated. The right atrium size is normal. The interatrial septum is int act with no evidence for an atrial septal defect or patent foramen ovale as noted on 2-D or Doppler i maging. AORTIC VALVE The aortic valve is normal in structure and function. The aortic valve is trileaflet. Doppler and Col or Flow revealed no significant aortic regurgitation. There is no significant aortic valvular stenosi s. MITRAL VALVE Mitral annular calcification is mild. There is no mitral valve stenosis. Doppler and Color Flow revea led mild mitral regurgitation. TRICUSPID VALVE The tricuspid valve is normal in structure and function. Doppler and Color Flow revealed moderate tri cuspid regurgitation.There is moderate pulmonary hypertension.The PA pressure was estimated at 65 mmH g. There is no tricuspid valve stenosis. PULMONIC VALVE Doppler and Color Flow revealed no pulmonic valvular regurgitation. There is no pulmonic valvular costa nosis. GREAT VESSELS The aortic root is normal in size. Normal pulmonary venous flow (Doppler). The IVC is dilated and col lapses <50% with inspiration consistent with volume overload. PERICARDIAL EFFUSION There is a trace pericardial effusion. Critical Notification Critical Value: No <Conclusion> Left ventricle systolic function is normal. The Ejection Fraction is 50-55%. There is normal LV segmental wall motion. There is borderline to mild concentric left ventricular hypertrophy. Doppler and Color Flow revealed moderate tricuspid regurgitation.There is moderate pulmonary hyperten jhon.The PA pressure was estimated at 65 mmHg. The IVC is dilated and collapses <50% with inspiration consistent with volume overload. There is a trace pericardial effusion.
[2016-04-17 11:21] LABS: CALCIUM 8.9 mg/dL (8.5-10.1); CREATININE 0.9 mg/dL (0.6-1.0); GFR 79.3; MAGNESIUM 1.9 mg/dL (1.8-2.4); POTASSIUM 3.5 mmol/L (3.5-5.1)
[2016-04-17 11:23] LABS: CHOLESTEROL/HDL RATIO 1.8
--- NOTE | 2016-04-17 11:58 | PDOC ---
PROGRESS NOTES Chief Complaint Chief Complaint CHF, diastolic, acute on chronic Obesity Psychiatric issues, diabetes, hypertension, myocardial infarction, sickle cell disease, bronchitis, hysterectomy, angioplasty, cardiac stents, and marijuana use. History of Present Illness History of Present Illness Feels bloated SLeepy from the meds Got lasix- ? UO NO leg edema NO JVD LUngs dec BS sec to inc ap diam and poor inspiratory effort NO BM despite mOM yesterday 2 bites and full - likely bec of constipation/bloatedness, dec mobility Minimal ambulation PLAN: MOM again today COnt miralax Start colace Await echo - dr arriaga is her cards Add pT/OT Known ton me from past admit for tibial fx,,, Vitals Vitals Vital Signs Date Time Temp Pulse Resp B/P Pulse Ox O2 Delivery O2 Flow Rate FiO2 04/17/16 11:26 93 Nasal Cannula 2.0 04/17/16 11:02 97.9 92 18 150/90 97.9 Physical Exam General: Alert, Oriented X3, Cooperative, No acute distress Heart: Regular rate, Normal S1, Normal S2, No murmurs, Other (no carotid bruits ) Lungs: Clear, Wheezing, Other Abdomen: Normal bowel sounds, Soft, No tenderness Extremities: No edema, Normal pulses Skin: No rashes Labs LABS Laboratory Tests Test 04/16/16 16:02 04/16/16 20:57 04/16/16 23:30 04/17/16 05:15 White Blood Count 5.3x10^3/uL (4.0-11.0) Red Blood Count 4.69x10^6/uL (3.50-5.40) Hemoglobin 12.2g/dL (12.0-15.5) Hematocrit 38.6% (36.0-47.0) Mean Corpuscular Volume 82fL (79-100) Mean Corpuscular Hemoglobin 26pg (25-35) Mean Corpuscular Hemoglobin Concent 32g/dL (31-37) Red Cell Distribution Width 14.2% (11.5-14.5) Platelet Count 222x10^3/uL (140-400) Neutrophils (%) (Auto) 77% (31-73) Lymphocytes (%) (Auto) 13% (24-48) Monocytes (%) (Auto) 7% (0-9) Eosinophils (%) (Auto) 2% (0-3) Basophils (%) (Auto) 0% (0-3) Neutrophils # (Auto) 4.1x10^3uL (1.8-7.7) Lymphocytes # (Auto) 0.7x10^3/uL (1.0-4.8) Monocytes # (Auto) 0.4x10^3/uL (0.0-1.1) Eosinophils # (Auto) 0.1x10^3/uL (0.0-0.7) Basophils # (Auto) 0.0x10^3/uL (0.0-0.2) Sodium Level 141mmol/L (136-145) Potassium Level 3.8mmol/L (3.5-5.1) Chloride Level 106mmol/L (98-107) Carbon Dioxide Level 27mmol/L (21-32) Anion Gap 8 (6-14) Blood Urea Nitrogen 18mg/dL (7-20) Creatinine 0.9mg/dL (0.6-1.0) Estimated GFR (Cockcroft-Gault) 79.3 BUN/Creatinine Ratio 20 (6-20) Glucose Level 121mg/dL (70-99) Calcium Level 8.9mg/dL (8.5-10.1) Total Bilirubin 0.4mg/dL (0.2-1.0) Aspartate Amino Transf (AST/SGOT) 22U/L (15-37) Alanine Aminotransferase (ALT/SGPT) 21U/L (14-59) Alkaline Phosphatase 157U/L (46-116) Creatine Kinase 94U/L (26-192) Creatine Kinase MB (Mass) 1.4ng/mL (0.0-3.6) Creatine Kinase MB Relative Index 1.5% (0-4) Troponin I Quantitative < 0.017ng/mL (0.000-0.055) < 0.017ng/mL (0.000-0.055) < 0.017ng/mL (0.000-0.055) WZ-Htp-D-Type Natriuretic Peptide 2263pg/mL (0-124) Total Protein 6.9g/dL (6.4-8.2) Albumin 2.7g/dL (3.4-5.0) Albumin/Globulin Ratio 0.6 (1.0-1.7) Influenza Type A Antigen Negative (NEGATIVE) Influenza Type B Antigen Negative (NEGATIVE) Glucose (Fingerstick) 230mg/dL (70-99) Test 04/17/16 07:52 04/17/16 08:30 04/17/16 10:50 04/17/16 10:59 Glucose (Fingerstick) 96mg/dL (70-99) 109mg/dL (70-99) 125mg/dL (70-99) White Blood Count 6.2x10^3/uL (4.0-11.0) Red Blood Count 4.83x10^6/uL (3.50-5.40) Hemoglobin 12.5g/dL (12.0-15.5) Hematocrit 38.9% (36.0-47.0) Mean Corpuscular Volume 81fL (79-100) Mean Corpuscular Hemoglobin 26pg (25-35) Mean Corpuscular Hemoglobin Concent 32g/dL (31-37) Red Cell Distribution Width 14.4% (11.5-14.5) Platelet Count 245x10^3/uL (140-400) Neutrophils (%) (Auto) 85% (31-73) Lymphocytes (%) (Auto) 9% (24-48) Monocytes (%) (Auto) 5% (0-9) Eosinophils (%) (Auto) 1% (0-3) Basophils (%) (Auto) 0% (0-3) Neutrophils # (Auto) 5.3x10^3uL (1.8-7.7) Lymphocytes # (Auto) 0.6x10^3/uL (1.0-4.8) Monocytes # (Auto) 0.3x10^3/uL (0.0-1.1) Eosinophils # (Auto) 0.1x10^3/uL (0.0-0.7) Basophils # (Auto) 0.0x10^3/uL (0.0-0.2) Sodium Level 143mmol/L (136-145) Potassium Level 3.5mmol/L (3.5-5.1) Chloride Level 103mmol/L (98-107) Carbon Dioxide Level 34mmol/L (21-32) Anion Gap 6 (6-14) Blood Urea Nitrogen 15mg/dL (7-20) Creatinine 0.9mg/dL (0.6-1.0) Estimated GFR (Cockcroft-Gault) 79.3 Glucose Level 142mg/dL (70-99) Calcium Level 8.9mg/dL (8.5-10.1) Magnesium Level 1.9mg/dL (1.8-2.4) Triglycerides Level 122mg/dL (0-150) Cholesterol Level 254mg/dL (0-200) LDL Cholesterol, Calculated 86mg/dL (0-100) VLDL Cholesterol, Calculated 24mg/dL (0-40) HDL Cholesterol 144mg/dL (40-60) Cholesterol/HDL Ratio 1.8 Thyroid Stimulating Hormone (TSH) 3.277uIU/mL (0.358-3.74) Review of Systems Review of Systems bloated, constipated no soa no cp Assessment and Plan Assessmemt and Plan Problems Medical Problems: (1) Accelerated hypertension Status: Acute (2) Acute on chronic diastolic CHF (congestive heart failure) Status: Acute (3) Chest pain Status: Acute Problems: Comment Review of Relevant I have reviewed the following items lilliana (where applicable) has been applied. Labs Laboratory Tests Test 04/16/16 16:02 04/16/16 20:57 04/16/16 23:30 04/17/16 05:15 White Blood Count 5.3x10^3/uL (4.0-11.0) Red Blood Count 4.69x10^6/uL (3.50-5.40) Hemoglobin 12.2g/dL (12.0-15.5) Hematocrit 38.6% (36.0-47.0) Mean Corpuscular Volume 82fL (79-100) Mean Corpuscular Hemoglobin 26pg (25-35) Mean Corpuscular Hemoglobin Concent 32g/dL (31-37) Red Cell Distribution Width 14.2% (11.5-14.5) Platelet Count 222x10^3/uL (140-400) Neutrophils (%) (Auto) 77% (31-73) Lymphocytes (%) (Auto) 13% (24-48) Monocytes (%) (Auto) 7% (0-9) Eosinophils (%) (Auto) 2% (0-3) Basophils (%) (Auto) 0% (0-3) Neutrophils # (Auto) 4.1x10^3uL (1.8-7.7) Lymphocytes # (Auto) 0.7x10^3/uL (1.0-4.8) Monocytes # (Auto) 0.4x10^3/uL (0.0-1.1) Eosinophils # (Auto) 0.1x10^3/uL (0.0-0.7) Basophils # (Auto) 0.0x10^3/uL (0.0-0.2) Sodium Level 141mmol/L (136-145) Potassium Level 3.8mmol/L (3.5-5.1) Chloride Level 106mmol/L (98-107) Carbon Dioxide Level 27mmol/L (21-32) Anion Gap 8 (6-14) Blood Urea Nitrogen 18mg/dL (7-20) Creatinine 0.9mg/dL (0.6-1.0) Estimated GFR (Cockcroft-Gault) 79.3 BUN/Creatinine Ratio 20 (6-20) Glucose Level 121mg/dL (70-99) Calcium Level 8.9mg/dL (8.5-10.1) Total Bilirubin 0.4mg/dL (0.2-1.0) Aspartate Amino Transf (AST/SGOT) 22U/L (15-37) Alanine Aminotransferase (ALT/SGPT) 21U/L (14-59) Alkaline Phosphatase 157U/L (46-116) Creatine Kinase 94U/L (26-192) Creatine Kinase MB (Mass) 1.4ng/mL (0.0-3.6) Creatine Kinase MB Relative Index 1.5% (0-4) Troponin I Quantitative < 0.017ng/mL (0.000-0.055) < 0.017ng/mL (0.000-0.055) < 0.017ng/mL (0.000-0.055) EH-Eqd-U-Type Natriuretic Peptide 2263pg/mL (0-124) Total Protein 6.9g/dL (6.4-8.2) Albumin 2.7g/dL (3.4-5.0) Albumin/Globulin Ratio 0.6 (1.0-1.7) Influenza Type A Antigen Negative (NEGATIVE) Influenza Type B Antigen Negative (NEGATIVE) Glucose (Fingerstick) 230mg/dL (70-99) Test 04/17/16 07:52 04/17/16 08:30 04/17/16 10:50 04/17/16 10:59 Glucose (Fingerstick) 96mg/dL (70-99) 109mg/dL (70-99) 125mg/dL (70-99) White Blood Count 6.2x10^3/uL (4.0-11.0) Red Blood Count 4.83x10^6/uL (3.50-5.40) Hemoglobin 12.5g/dL (12.0-15.5) Hematocrit 38.9% (36.0-47.0) Mean Corpuscular Volume 81fL (79-100) Mean Corpuscular Hemoglobin 26pg (25-35) Mean Corpuscular Hemoglobin Concent 32g/dL (31-37) Red Cell Distribution Width 14.4% (11.5-14.5) Platelet Count 245x10^3/uL (140-400) Neutrophils (%) (Auto) 85% (31-73) Lymphocytes (%) (Auto) 9% (24-48) Monocytes (%) (Auto) 5% (0-9) Eosinophils (%) (Auto) 1% (0-3) Basophils (%) (Auto) 0% (0-3) Neutrophils # (Auto) 5.3x10^3uL (1.8-7.7) Lymphocytes # (Auto) 0.6x10^3/uL (1.0-4.8) Monocytes # (Auto) 0.3x10^3/uL (0.0-1.1) Eosinophils # (Auto) 0.1x10^3/uL (0.0-0.7) Basophils # (Auto) 0.0x10^3/uL (0.0-0.2) Sodium Level 143mmol/L (136-145) Potassium Level 3.5mmol/L (3.5-5.1) Chloride Level 103mmol/L (98-107) Carbon Dioxide Level 34mmol/L (21-32) Anion Gap 6 (6-14) Blood Urea Nitrogen 15mg/dL (7-20) Creatinine 0.9mg/dL (0.6-1.0) Estimated GFR (Cockcroft-Gault) 79.3 Glucose Level 142mg/dL (70-99) Calcium Level 8.9mg/dL (8.5-10.1) Magnesium Level 1.9mg/dL (1.8-2.4) Triglycerides Level 122mg/dL (0-150) Cholesterol Level 254mg/dL (0-200) LDL Cholesterol, Calculated 86mg/dL (0-100) VLDL Cholesterol, Calculated 24mg/dL (0-40) HDL Cholesterol 144mg/dL (40-60) Cholesterol/HDL Ratio 1.8 Thyroid Stimulating Hormone (TSH) 3.277uIU/mL (0.358-3.74) Laboratory Tests Test 04/16/16 16:02 04/16/16 20:57 04/16/16 23:30 04/17/16 05:15 White Blood Count 5.3x10^3/uL (4.0-11.0) Red Blood Count 4.69x10^6/uL (3.50-5.40) Hemoglobin 12.2g/dL (12.0-15.5) Hematocrit 38.6% (36.0-47.0) Mean Corpuscular Volume 82fL (79-100) Mean Corpuscular Hemoglobin 26pg (25-35) Mean Corpuscular Hemoglobin Concent 32g/dL (31-37) Red Cell Distribution Width 14.2% (11.5-14.5) Platelet Count 222x10^3/uL (140-400) Neutrophils (%) (Auto) 77% (31-73) Lymphocytes (%) (Auto) 13% (24-48) Monocytes (%) (Auto) 7% (0-9) Eosinophils (%) (Auto) 2% (0-3) Basophils (%) (Auto) 0% (0-3) Neutrophils # (Auto) 4.1x10^3uL (1.8-7.7) Lymphocytes # (Auto) 0.7x10^3/uL (1.0-4.8) Monocytes # (Auto) 0.4x10^3/uL (0.0-1.1) Eosinophils # (Auto) 0.1x10^3/uL (0.0-0.7) Basophils # (Auto) 0.0x10^3/uL (0.0-0.2) Sodium Level 141mmol/L (136-145) Potassium Level 3.8mmol/L (3.5-5.1) Chloride Level 106mmol/L (98-107) Carbon Dioxide Level 27mmol/L (21-32) Anion Gap 8 (6-14) Blood Urea Nitrogen 18mg/dL (7-20) Creatinine 0.9mg/dL (0.6-1.0) Estimated GFR (Cockcroft-Gault) 79.3 BUN/Creatinine Ratio 20 (6-20) Glucose Level 121mg/dL (70-99) Calcium Level 8.9mg/dL (8.5-10.1) Total Bilirubin 0.4mg/dL (0.2-1.0) Aspartate Amino Transf (AST/SGOT) 22U/L (15-37) Alanine Aminotransferase (ALT/SGPT) 21U/L (14-59) Alkaline Phosphatase 157U/L (46-116) Creatine Kinase 94U/L (26-192) Creatine Kinase MB (Mass) 1.4ng/mL (0.0-3.6) Creatine Kinase MB Relative Index 1.5% (0-4) Troponin I Quantitative < 0.017ng/mL (0.000-0.055) < 0.017ng/mL (0.000-0.055) < 0.017ng/mL (0.000-0.055) IV-Fnp-O-Type Natriuretic Peptide 2263pg/mL (0-124) Total Protein 6.9g/dL (6.4-8.2) Albumin 2.7g/dL (3.4-5.0) Albumin/Globulin Ratio 0.6 (1.0-1.7) Influenza Type A Antigen Negative (NEGATIVE) Influenza Type B Antigen Negative (NEGATIVE) Glucose (Fingerstick) 230mg/dL (70-99) Test 04/17/16 07:52 04/17/16 08:30 04/17/16 10:50 04/17/16 10:59 Glucose (Fingerstick) 96mg/dL (70-99) 109mg/dL (70-99) 125mg/dL (70-99) White Blood Count 6.2x10^3/uL (4.0-11.0) Red Blood Count 4.83x10^6/uL (3.50-5.40) Hemoglobin 12.5g/dL (12.0-15.5) Hematocrit 38.9% (36.0-47.0) Mean Corpuscular Volume 81fL (79-100) Mean Corpuscular Hemoglobin 26pg (25-35) Mean Corpuscular Hemoglobin Concent 32g/dL (31-37) Red Cell Distribution Width 14.4% (11.5-14.5) Platelet Count 245x10^3/uL (140-400) Neutrophils (%) (Auto) 85% (31-73) Lymphocytes (%) (Auto) 9% (24-48) Monocytes (%) (Auto) 5% (0-9) Eosinophils (%) (Auto) 1% (0-3) Basophils (%) (Auto) 0% (0-3) Neutrophils # (Auto) 5.3x10^3uL (1.8-7.7) Lymphocytes # (Auto) 0.6x10^3/uL (1.0-4.8) Monocytes # (Auto) 0.3x10^3/uL (0.0-1.1) Eosinophils # (Auto) 0.1x10^3/uL (0.0-0.7) Basophils # (Auto) 0.0x10^3/uL (0.0-0.2) Sodium Level 143mmol/L (136-145) Potassium Level 3.5mmol/L (3.5-5.1) Chloride Level 103mmol/L (98-107) Carbon Dioxide Level 34mmol/L (21-32) Anion Gap 6 (6-14) Blood Urea Nitrogen 15mg/dL (7-20) Creatinine 0.9mg/dL (0.6-1.0) Estimated GFR (Cockcroft-Gault) 79.3 Glucose Level 142mg/dL (70-99) Calcium Level 8.9mg/dL (8.5-10.1) Magnesium Level 1.9mg/dL (1.8-2.4) Triglycerides Level 122mg/dL (0-150) Cholesterol Level 254mg/dL (0-200) LDL Cholesterol, Calculated 86mg/dL (0-100) VLDL Cholesterol, Calculated 24mg/dL (0-40) HDL Cholesterol 144mg/dL (40-60) Cholesterol/HDL Ratio 1.8 Thyroid Stimulating Hormone (TSH) 3.277uIU/mL (0.358-3.74) Medications Current Medications Albuterol/ Ipratropium (Duoneb) 3 ml 1X ONCE NEB Last administered on 16:04; Start 04/16/16 at 15:45; Stop 04/16/16 at 15:46; Status DC Fentanyl Citrate (Fentanyl 2ml Vial) 50 mcg PRN Q15MIN PRN IV PAIN GREATER THAN 3/10 Last administered on 04/16/16 17:41; Start 04/16/16 at 15:45; Stop at 15:44 Ondansetron HCl (Zofran) 4 mg 1X ONCE IV Last administered on 04/16/16 16:17 ; Start 04/16/16 at 15:45; Stop 04/16/16 at 15:46; Status DC Aspirin (Children'S Aspirin) 324 mg 1X ONCE PO Last administered on 04/16/16 16:17; Start 04/16/16 at 16:00; Stop 04/16/16 at 16:01; Status DC Hydralazine HCl (Apresoline) 10 mg 1X ONCE IVP Last administered on 04/16/16 16:48; Start 04/16/16 at 16:45; Stop 04/16/16 at 16:46; Status DC Ondansetron HCl (Zofran) 4 mg PRN Q8HRS PRN IV NAUSEA/VOMITING; Start 04/16/16 at 17:30; Stop 04/17/16 at 17:29 Fentanyl Citrate (Fentanyl 2ml Vial) 50 mcg PRN Q2HR PRN IV PAIN; Start at 17:30; Stop 04/17/16 at 17:29 Acetaminophen (Tylenol) 650 mg PRN Q4HRS PRN PO FEVER; Start 04/16/16 at 17:30 ; Stop 04/17/16 at 17:29 Furosemide (Lasix) 60 mg 1X ONCE IVP Last administered on 04/16/16 18:30; Start 04/16/16 at 17:30; Stop 04/16/16 at 17:31; Status DC Docusate Sodium (Colace) 100 mg BID PO Last administered on 04/17/16 08:22; Start 04/16/16 at 21:00 Polyethylene Glycol (miraLAX PACKET) 17 gm DAILY PO Last administered on 08:19; Start 04/17/16 at 09:00 Magnesium Hydroxide (Milk Of Magnesia) 2,400 mg 1X ONCE PO Last administered on 04/16/16 22:02; Start 04/16/16 at 19:00; Stop 04/16/16 at 19:01; Status DC Alprazolam (Xanax) 1 mg PRN BID PRN PO ANXIETY / AGITATION Last administered on 04/16/16 22:05; Start 04/16/16 at 19:00 Aspirin (Ecotrin) 81 mg DAILY08 PO Last administered on 04/17/16 08:21; Start 04/16/16 at 20:00 Clonidine HCl (Catapres) 0.1 mg TID PO Last administered on 04/17/16 08:21; Start 04/16/16 at 21:00 Furosemide (Lasix) 40 mg DAILY PO Last administered on 04/17/16 08:21; Start 04/16/16 at 20:00 Insulin Aspart (Novolog) 5 units TIDWMEALS SQ ; Start 04/17/16 at 08:00 Lisinopril (Prinivil) 20 mg BID PO Last administered on 04/17/16 08:20; Start 04/16/16 at 21:00 Polyethylene Glycol (miraLAX PACKET) 17 gm PRN DAILY PRN PO CONSTIPATION; Start 04/16/16 at 19:00 Atorvastatin Calcium (Lipitor) 80 mg QHS PO Last administered on 04/16/16 22: 03; Start 04/16/16 at 21:00 Carvedilol (Coreg) 25 mg BIDWMEALS PO Last administered on 04/17/16 08:20; Start 04/17/16 at 08:00 Insulin Detemir (Levemir) 10 units QHS SQ Last administered on 04/16/16 22:17 ; Start 04/16/16 at 21:00 Oxycodone HCl (Roxicodone) 5 mg PRN Q6HRS PRN PO PAIN Last administered on 04/17 08:21; Start 04/16/16 at 20:00 Insulin Aspart (Novolog) 0-5 UNITS TIDWMEALS SQ ; Start 04/17/16 at 08:00 Dextrose 12.5 gm PRN Q15MIN PRN IV SEE COMMENTS; Start 04/16/16 at 19:00 Amlodipine Besylate (Norvasc) 5 mg 1X ONCE PO Last administered on 04/16/16 22:07; Start 04/16/16 at 19:00; Stop 04/16/16 at 19:44; Status DC Morphine Sulfate 4 mg PRN Q2HR PRN IV pain Last administered on 04/17/16 03:03 ; Start 04/16/16 at 19:15 Albuterol Sulfate (Ventolin Neb Soln) 2.5 mg RTQID NEB Last administered on 11:26; Start 04/16/16 at 20:30 Nicotine Polacrilex (Nicorette Gum) 1 each PRN Q1HR PRN BC SMOKING CESSATION Last administered on 04/16/16 23:24; Start 04/16/16 at 23:00 Promethazine HCl/ Codeine (Phenergan With Codeine) 5 ml PRN Q6HRS PRN PO COUGH Last administered on 04/17/16 08:22; Start 04/16/16 at 23:15 Active Scripts Active Reported Miralax (Polyethylene Glycol 3350) 17 Gm Powd.pack 1 Pkt PO PRN DAILY PRN Lantus Solostar (Insulin Glargine,Hum.rec.anlog) 100 Unit/1 Ml Insuln.pen 10 Unit SQ QHS Clonidine Hcl 0.1 Mg Tablet 0.1 Mg PO TID Nicotine Patch (Nicotine) 1 Each Patch.dysq 1 Each TD Oxycodone Hcl 5 Mg Capsule 5 Mg PO PRN Q6HRS PRN Aspirin Ec (Aspirin) 81 Mg Tablet.dr 81 Mg PO DAILY Atorvastatin Calcium 80 Mg Tablet 80 Mg PO HS Lisinopril 20 Mg Tablet 20 Mg PO BID Novolog Flexpen (Insulin Aspart) 100 Unit/1 Ml Insuln.pen 5 Unit SQ TIDAFTMEAL Coreg (Carvedilol) 25 Mg Tablet 25 Mg PO BIDWMEALS Xanax (Alprazolam) 1 Mg Tablet 1 Mg PO BID PRN Furosemide 40 Mg Tablet 40 Mg PO DAILY Vitals/I & O Vital Sign - Last 24 Hours 04/16/16 04/16/16 04/16/16 04/16/16 15:31 16:05 16:14 16:27 Temp 98.7 98.7 Pulse 77 74 78 Resp 18 22 21 B/P 197/107 188/112 196/111 Pulse Ox 96 97 97 O2 Delivery Room Air Room Air Room Air Room Air 04/16/16 04/16/16 04/16/16 04/16/16 16:44 16:48 17:37 18:47 Pulse 78 76 98 94 Resp 16 20 20 B/P 190/100 190/100 168/116 165/95 Pulse Ox 94 94 95 O2 Delivery Room Air Room Air Room Air 04/16/16 04/16/16 04/16/16 04/16/16 19:15 19:43 19:57 20:13 Pulse 104 94 94 Resp 25 24 20 22 B/P 184/90 177/82 170/95 Pulse Ox 91 96 94 93 O2 Delivery Room Air Room Air Room Air 04/16/16 04/16/16 04/16/16 04/16/16 20:51 21:53 22:05 22:06 Temp 99.2 99.2 Pulse 91 91 91 Resp 20 B/P 172/97 172/97 172/97 Pulse Ox 95 94 O2 Delivery Room Air Room Air 04/16/16 04/16/16 04/16/16 04/16/16 22:06 22:07 22:53 23:06 Pulse 91 Resp 20 20 B/P 172/97 O2 Delivery Room Air Room Air Room Air 04/16/16 04/16/16 04/16/16 04/17/16 23:11 23:19 23:31 03:03 Temp 98.7 98.4 98.7 98.4 Pulse 91 88 Resp 20 20 20 B/P 172/97 129/100 Pulse Ox 94 97 O2 Delivery Room Air Room Air Room Air Room Air 04/17/16 04/17/16 04/17/16 04/17/16 03:24 07:00 07:19 08:10 Temp 98.0 98.1 98.0 98.1 Pulse 81 94 Resp 20 18 B/P 175/113 147/93 Pulse Ox 93 92 O2 Delivery Room Air Nasal Cannula Room Air Room Air O2 Flow Rate 2.0 2.0 04/17/16 04/17/16 04/17/16 04/17/16 08:20 08:20 08:21 08:21 Pulse 94 94 94 B/P 147/93 147/93 147/93 O2 Delivery Room Air 04/17/16 04/17/16 11:02 11:26 Temp 97.9 97.9 Pulse 92 Resp 18 B/P 150/90 Pulse Ox 93 93 O2 Delivery Nasal Cannula Nasal Cannula O2 Flow Rate 2.0 2.0 Intake and Output 04/16/16 04/16/16 04/17/16 15:00 23:00 07:00 Intake Total 300 ml Output Total 650 ml Balance -350 ml BOGDAN WITT MD Apr 17, 2016 11:58
[2016-04-17] MEDS ORDERED: MAGNESIUM HYDROXIDE 2,400 MG/30 ML ORAL.SUSP. PO ONE (12:00)
[2016-04-17] MEDS: FENTANYL PF 100 MCG/2 ML VIAL. IV PRN (12:40)
[2016-04-17 14:40] VITALS: BP_SYST 115; BP_SYST 152; BP_DIAS 70; BP_DIAS 91
[2016-04-17 19:00] VITALS: BP 128/85
[2016-04-17] MEDS: ATORVASTATIN CALCIUM 40 MG TABLET. PO SCH (20:50)
[2016-04-17] MEDS: ALPRAZOLAM 1 MG TABLET PO PRN (20:56)
[2016-04-17] MEDS: INSULIN DETEMIR 300 UNITS/3 ML INSULN.PEN. SQ SCH (21:00)
[2016-04-17 23:52] VITALS: BP 134/84
[2016-04-18 03:00] VITALS: BP 136/79
[2016-04-18 06:27] LABS: CHOLESTEROL/HDL RATIO 1.8
[2016-04-18] MEDS: ALBUTEROL SULFATE 2.5 MG/3 ML NEBU. NEB SCH ×4 (06:49→20:03)
[2016-04-18 07:00] VITALS: BP 140/81
[2016-04-18] MEDS: DOCUSATE SODIUM 100 MG CAPSULE PO SCH ×2 (07:58→20:38)
[2016-04-18] MEDS: LISINOPRIL 20 MG TABLET PO SCH ×2 (07:58→20:39)
[2016-04-18] MEDS: CARVEDILOL 12.5 MG TABLET PO SCH ×2 (07:58→15:42)
[2016-04-18] MEDS: CLONIDINE HCL 0.1 MG TABLET PO SCH ×3 (07:59→20:38)
[2016-04-18] MEDS: ASPIRIN ENTERIC COATED 81 MG TABLET.DR. PO SCH (07:59)
[2016-04-18] MEDS: FUROSEMIDE 40 MG TABLET PO SCH (07:59)
[2016-04-18] MEDS: INSULIN ASPART 300 UNITS/3 ML INSULN.PEN SQ SCH ×6 (08:04→17:00)
[2016-04-18] MEDS: POLYETHYLENE GLYCOL 3350 17 GM PACKET. PO SCH (08:33)
[2016-04-18 11:00] VITALS: BP 141/79
[2016-04-18] MEDS ORDERED: MINERAL OIL 133 ML ENEMA. PR ONE (11:00)
--- NOTE | 2016-04-18 11:04 | PDOC ---
JEREMY RASHEED CONTROL OFFICER 04/18/16 1104: CARDIO Progress Notes Date and Time Date of Service 04/18/2016 Time of Evaluation 1101 Subjective Subjective: No Chest Pain, No shortness of breath, No Palpitations, No Dizziness Vitals Vitals Vital Signs Date Time Temp Pulse Resp B/P Pulse Ox O2 Delivery O2 Flow Rate FiO2 04/18/16 08:20 Room Air 04/18/16 07:59 66 140/81 04/18/16 07:00 97.9 18 93 2.0 97.9 Weight Weight [ ] Stability Assessment Stability Assess.: other (agreeable with discharge when planned by other services) Input and Output Intake and Output Intake and Output 04/18/16 07:00 Intake Total 480 ml Balance 480 ml Intake Oral 480 ml # Voids 4 Laboratory Labs Laboratory Tests Test 04/17/16 17:03 04/17/16 20:34 04/18/16 05:45 04/18/16 07:23 Glucose (Fingerstick) 246mg/dL (70-99) 85mg/dL (70-99) 228mg/dL (70-99) Triglycerides Level 84mg/dL (0-150) Cholesterol Level 219mg/dL (0-200) LDL Cholesterol, Calculated 82mg/dL (0-100) VLDL Cholesterol, Calculated 17mg/dL (0-40) HDL Cholesterol 120mg/dL (40-60) Cholesterol/HDL Ratio 1.8 Physical Exam Heart: S1S2, no gallops Diagnostic Tests Echocardiogram: Normal LVEF (50-55) Assessment Assessment 1. acute diastolic HF secondary to medical non-compliance continue usual diuretics LVEF preserved @ 50-55% with borderline LVH and moderate to severe pulm HTN with PA of 65 I and O inaccurate; ? weight gain of 20 # overnight no acute symptoms on physical exam 2. malignant HTN controlled 3. CP, non-cardiac musculoskeletal and associated with cough no indication for aggressive cardiac evaluation 4. CAD with previous LAD stent continue secondary prevention - check FLP continue BB, ASA and statin therapy 5. Hyperlipidemia LDLs = 82 continue statin therapy weight loss recommended 6. drug seeking behavior re: narcotics may discharge from cardiac perspective f/u in office in 4 weeks FEI DAVIS MD 04/19/16 0544: CARDIO Progress Notes Assessment Assessment Patient seen and examined 04/18/16. Agree with [facility] [employer] INTELLIGENCE OFFICER CHIEF's assessment and plan. Acute on chronic diast HF better compensated. BP better controlled. CAD stable. 2D echo showed normal LV function. Continue current medical regimen. JEREMY RASHEED APRN Apr 18, 2016 11:04 FEI DAVIS MD Apr 19, 2016 05:44
--- NOTE | 2016-04-18 11:06 | PDOC ---
PROGRESS NOTES Chief Complaint Chief Complaint CHF, diastolic, acute on chronic Pulm hTN Obesity Psychiatric issues, diabetes, hypertension, myocardial infarction, sickle cell disease, bronchitis, hysterectomy, angioplasty, cardiac stents, and marijuana use. Obstipation Obesity History of Present Illness History of Present Illness Feels bloated still HAs had 3 MOM, no BM yet LAst BM 2 weeks ago HAd c scope for same issues, > 5 yrs ago - neg findings Pt feels bloated, cant eat bec of it Ambulated fine with PT yesterday Echo done, shows high PA pressures 65, normal EF 50-55% and signs of vol overload with inspiratory collapse PLAn: Trial of linzess Finally agreeable to fleet enema GI consult COnt PO lasix and all home meds SIgnif counselling today, 30 mins in room alone re GI issues and heart issues/ meds Vitals Vitals Vital Signs Date Time Temp Pulse Resp B/P Pulse Ox O2 Delivery O2 Flow Rate FiO2 04/18/16 08:20 Room Air 04/18/16 07:59 66 140/81 04/18/16 07:00 97.9 18 93 2.0 97.9 Physical Exam General: Alert, Oriented X3, Cooperative, No acute distress Heart: Regular rate, Normal S1, Normal S2, No murmurs, Other (no carotid bruits ) Lungs: Clear, Wheezing, Other Abdomen: Normal bowel sounds, Soft, No tenderness Extremities: No edema, Normal pulses Skin: No rashes Labs LABS Laboratory Tests Test 04/17/16 17:03 04/17/16 20:34 04/18/16 05:45 04/18/16 07:23 Glucose (Fingerstick) 246mg/dL (70-99) 85mg/dL (70-99) 228mg/dL (70-99) Triglycerides Level 84mg/dL (0-150) Cholesterol Level 219mg/dL (0-200) LDL Cholesterol, Calculated 82mg/dL (0-100) VLDL Cholesterol, Calculated 17mg/dL (0-40) HDL Cholesterol 120mg/dL (40-60) Cholesterol/HDL Ratio 1.8 Review of Systems Review of Systems Blaoted, constipated, no inc in soa or cp Assessment and Plan Assessmemt and Plan Problems Medical Problems: (1) Accelerated hypertension Status: Acute (2) Acute on chronic diastolic CHF (congestive heart failure) Status: Acute (3) Chest pain Status: Acute Problems: Comment Review of Relevant I have reviewed the following items lilliana (where applicable) has been applied. Labs Laboratory Tests Test 04/16/16 16:02 04/16/16 20:57 04/16/16 23:30 04/17/16 05:15 White Blood Count 5.3x10^3/uL (4.0-11.0) Red Blood Count 4.69x10^6/uL (3.50-5.40) Hemoglobin 12.2g/dL (12.0-15.5) Hematocrit 38.6% (36.0-47.0) Mean Corpuscular Volume 82fL (79-100) Mean Corpuscular Hemoglobin 26pg (25-35) Mean Corpuscular Hemoglobin Concent 32g/dL (31-37) Red Cell Distribution Width 14.2% (11.5-14.5) Platelet Count 222x10^3/uL (140-400) Neutrophils (%) (Auto) 77% (31-73) Lymphocytes (%) (Auto) 13% (24-48) Monocytes (%) (Auto) 7% (0-9) Eosinophils (%) (Auto) 2% (0-3) Basophils (%) (Auto) 0% (0-3) Neutrophils # (Auto) 4.1x10^3uL (1.8-7.7) Lymphocytes # (Auto) 0.7x10^3/uL (1.0-4.8) Monocytes # (Auto) 0.4x10^3/uL (0.0-1.1) Eosinophils # (Auto) 0.1x10^3/uL (0.0-0.7) Basophils # (Auto) 0.0x10^3/uL (0.0-0.2) Sodium Level 141mmol/L (136-145) Potassium Level 3.8mmol/L (3.5-5.1) Chloride Level 106mmol/L (98-107) Carbon Dioxide Level 27mmol/L (21-32) Anion Gap 8 (6-14) Blood Urea Nitrogen 18mg/dL (7-20) Creatinine 0.9mg/dL (0.6-1.0) Estimated GFR (Cockcroft-Gault) 79.3 BUN/Creatinine Ratio 20 (6-20) Glucose Level 121mg/dL (70-99) Calcium Level 8.9mg/dL (8.5-10.1) Total Bilirubin 0.4mg/dL (0.2-1.0) Aspartate Amino Transf (AST/SGOT) 22U/L (15-37) Alanine Aminotransferase (ALT/SGPT) 21U/L (14-59) Alkaline Phosphatase 157U/L (46-116) Creatine Kinase 94U/L (26-192) Creatine Kinase MB (Mass) 1.4ng/mL (0.0-3.6) Creatine Kinase MB Relative Index 1.5% (0-4) Troponin I Quantitative < 0.017ng/mL (0.000-0.055) < 0.017ng/mL (0.000-0.055) < 0.017ng/mL (0.000-0.055) BK-Gws-Z-Type Natriuretic Peptide 2263pg/mL (0-124) Total Protein 6.9g/dL (6.4-8.2) Albumin 2.7g/dL (3.4-5.0) Albumin/Globulin Ratio 0.6 (1.0-1.7) Influenza Type A Antigen Negative (NEGATIVE) Influenza Type B Antigen Negative (NEGATIVE) Glucose (Fingerstick) 230mg/dL (70-99) Test 04/17/16 07:52 04/17/16 08:30 04/17/16 10:50 04/17/16 10:59 Glucose (Fingerstick) 96mg/dL (70-99) 109mg/dL (70-99) 125mg/dL (70-99) White Blood Count 6.2x10^3/uL (4.0-11.0) Red Blood Count 4.83x10^6/uL (3.50-5.40) Hemoglobin 12.5g/dL (12.0-15.5) Hematocrit 38.9% (36.0-47.0) Mean Corpuscular Volume 81fL (79-100) Mean Corpuscular Hemoglobin 26pg (25-35) Mean Corpuscular Hemoglobin Concent 32g/dL (31-37) Red Cell Distribution Width 14.4% (11.5-14.5) Platelet Count 245x10^3/uL (140-400) Neutrophils (%) (Auto) 85% (31-73) Lymphocytes (%) (Auto) 9% (24-48) Monocytes (%) (Auto) 5% (0-9) Eosinophils (%) (Auto) 1% (0-3) Basophils (%) (Auto) 0% (0-3) Neutrophils # (Auto) 5.3x10^3uL (1.8-7.7) Lymphocytes # (Auto) 0.6x10^3/uL (1.0-4.8) Monocytes # (Auto) 0.3x10^3/uL (0.0-1.1) Eosinophils # (Auto) 0.1x10^3/uL (0.0-0.7) Basophils # (Auto) 0.0x10^3/uL (0.0-0.2) Sodium Level 143mmol/L (136-145) Potassium Level 3.5mmol/L (3.5-5.1) Chloride Level 103mmol/L (98-107) Carbon Dioxide Level 34mmol/L (21-32) Anion Gap 6 (6-14) Blood Urea Nitrogen 15mg/dL (7-20) Creatinine 0.9mg/dL (0.6-1.0) Estimated GFR (Cockcroft-Gault) 79.3 Glucose Level 142mg/dL (70-99) Calcium Level 8.9mg/dL (8.5-10.1) Magnesium Level 1.9mg/dL (1.8-2.4) Triglycerides Level 122mg/dL (0-150) Cholesterol Level 254mg/dL (0-200) LDL Cholesterol, Calculated 86mg/dL (0-100) VLDL Cholesterol, Calculated 24mg/dL (0-40) HDL Cholesterol 144mg/dL (40-60) Cholesterol/HDL Ratio 1.8 Thyroid Stimulating Hormone (TSH) 3.277uIU/mL (0.358-3.74) Test 04/17/16 17:03 04/17/16 20:34 04/18/16 05:45 04/18/16 07:23 Glucose (Fingerstick) 246mg/dL (70-99) 85mg/dL (70-99) 228mg/dL (70-99) Triglycerides Level 84mg/dL (0-150) Cholesterol Level 219mg/dL (0-200) LDL Cholesterol, Calculated 82mg/dL (0-100) VLDL Cholesterol, Calculated 17mg/dL (0-40) HDL Cholesterol 120mg/dL (40-60) Cholesterol/HDL Ratio 1.8 Laboratory Tests Test 04/17/16 17:03 04/17/16 20:34 04/18/16 05:45 04/18/16 07:23 Glucose (Fingerstick) 246mg/dL (70-99) 85mg/dL (70-99) 228mg/dL (70-99) Triglycerides Level 84mg/dL (0-150) Cholesterol Level 219mg/dL (0-200) LDL Cholesterol, Calculated 82mg/dL (0-100) VLDL Cholesterol, Calculated 17mg/dL (0-40) HDL Cholesterol 120mg/dL (40-60) Cholesterol/HDL Ratio 1.8 Medications Current Medications Albuterol/ Ipratropium (Duoneb) 3 ml 1X ONCE NEB Last administered on 16:04; Start 04/16/16 at 15:45; Stop 04/16/16 at 15:46; Status DC Fentanyl Citrate (Fentanyl 2ml Vial) 50 mcg PRN Q15MIN PRN IV PAIN GREATER THAN 3/10 Last administered on 04/17/16 12:40; Start 04/16/16 at 15:45; Stop at 15:44; Status DC Ondansetron HCl (Zofran) 4 mg 1X ONCE IV Last administered on 04/16/16 16:17 ; Start 04/16/16 at 15:45; Stop 04/16/16 at 15:46; Status DC Aspirin (Children'S Aspirin) 324 mg 1X ONCE PO Last administered on 04/16/16 16:17; Start 04/16/16 at 16:00; Stop 04/16/16 at 16:01; Status DC Hydralazine HCl (Apresoline) 10 mg 1X ONCE IVP Last administered on 04/16/16 16:48; Start 04/16/16 at 16:45; Stop 04/16/16 at 16:46; Status DC Ondansetron HCl (Zofran) 4 mg PRN Q8HRS PRN IV NAUSEA/VOMITING; Start 04/16/16 at 17:30; Stop 04/17/16 at 17:29; Status DC Fentanyl Citrate (Fentanyl 2ml Vial) 50 mcg PRN Q2HR PRN IV PAIN; Start at 17:30; Stop 04/17/16 at 17:29; Status DC Acetaminophen (Tylenol) 650 mg PRN Q4HRS PRN PO FEVER; Start 04/16/16 at 17:30 ; Stop 04/17/16 at 17:29; Status DC Furosemide (Lasix) 60 mg 1X ONCE IVP Last administered on 04/16/16 18:30; Start 04/16/16 at 17:30; Stop 04/16/16 at 17:31; Status DC Docusate Sodium (Colace) 100 mg BID PO Last administered on 04/17/16 08:22; Start 04/16/16 at 21:00; Stop 04/17/16 at 12:00; Status DC Polyethylene Glycol (miraLAX PACKET) 17 gm DAILY PO Last administered on 08:19; Start 04/17/16 at 09:00 Magnesium Hydroxide (Milk Of Magnesia) 2,400 mg 1X ONCE PO Last administered on 04/16/16 22:02; Start 04/16/16 at 19:00; Stop 04/16/16 at 19:01; Status DC Alprazolam (Xanax) 1 mg PRN BID PRN PO ANXIETY / AGITATION Last administered on 04/17/16 20:56; Start 04/16/16 at 19:00 Aspirin (Ecotrin) 81 mg DAILY08 PO Last administered on 04/18/16 07:59; Start 04/16/16 at 20:00 Clonidine HCl (Catapres) 0.1 mg TID PO Last administered on 04/18/16 07:59; Start 04/16/16 at 21:00 Furosemide (Lasix) 40 mg DAILY PO Last administered on 04/18/16 07:59; Start 04/16/16 at 20:00 Insulin Aspart (Novolog) 5 units TIDWMEALS SQ Last administered on 04/18/16 08 :04; Start 04/17/16 at 08:00 Lisinopril (Prinivil) 20 mg BID PO Last administered on 04/18/16 07:58; Start 04/16/16 at 21:00 Polyethylene Glycol (miraLAX PACKET) 17 gm PRN DAILY PRN PO CONSTIPATION; Start 04/16/16 at 19:00; Stop 04/17/16 at 11:55; Status DC Atorvastatin Calcium (Lipitor) 80 mg QHS PO Last administered on 04/17/16 20: 50; Start 04/16/16 at 21:00 Carvedilol (Coreg) 25 mg BIDWMEALS PO Last administered on 04/18/16 07:58; Start 04/17/16 at 08:00 Insulin Detemir (Levemir) 10 units QHS SQ Last administered on 04/16/16 22:17 ; Start 04/16/16 at 21:00 Oxycodone HCl (Roxicodone) 5 mg PRN Q6HRS PRN PO PAIN Last administered on 04/17 17:02; Start 04/16/16 at 20:00 Insulin Aspart (Novolog) 0-5 UNITS TIDWMEALS SQ Last administered on 04/18/16 08:05; Start 04/17/16 at 08:00 Dextrose 12.5 gm PRN Q15MIN PRN IV SEE COMMENTS; Start 04/16/16 at 19:00 Amlodipine Besylate (Norvasc) 5 mg 1X ONCE PO Last administered on 04/16/16 22:07; Start 04/16/16 at 19:00; Stop 04/16/16 at 19:44; Status DC Morphine Sulfate 4 mg PRN Q2HR PRN IV pain Last administered on 04/17/16 23:04 ; Start 04/16/16 at 19:15 Albuterol Sulfate (Ventolin Neb Soln) 2.5 mg RTQID NEB Last administered on 06:49; Start 04/16/16 at 20:30 Nicotine Polacrilex (Nicorette Gum) 1 each PRN Q1HR PRN BC SMOKING CESSATION Last administered on 04/16/16 23:24; Start 04/16/16 at 23:00 Promethazine HCl/ Codeine (Phenergan With Codeine) 5 ml PRN Q6HRS PRN PO COUGH Last administered on 04/17/16 23:04; Start 04/16/16 at 23:15 Magnesium Hydroxide (Milk Of Magnesia) 2,400 mg 1X ONCE PO Last administered on 04/17/16 12:33; Start 04/17/16 at 12:00; Stop 04/17/16 at 12:01; Status DC Docusate Sodium (Colace) 100 mg BID PO Last administered on 04/18/16 07:58; Start 04/17/16 at 12:00 Active Scripts Active Reported Miralax (Polyethylene Glycol 3350) 17 Gm Powd.pack 1 Pkt PO PRN DAILY PRN Lantus Solostar (Insulin Glargine,Hum.rec.anlog) 100 Unit/1 Ml Insuln.pen 10 Unit SQ QHS Clonidine Hcl 0.1 Mg Tablet 0.1 Mg PO TID Nicotine Patch (Nicotine) 1 Each Patch.dysq 1 Each TD Oxycodone Hcl 5 Mg Capsule 5 Mg PO PRN Q6HRS PRN Aspirin Ec (Aspirin) 81 Mg Tablet.dr 81 Mg PO DAILY Atorvastatin Calcium 80 Mg Tablet 80 Mg PO HS Lisinopril 20 Mg Tablet 20 Mg PO BID Novolog Flexpen (Insulin Aspart) 100 Unit/1 Ml Insuln.pen 5 Unit SQ TIDAFTMEAL Coreg (Carvedilol) 25 Mg Tablet 25 Mg PO BIDWMEALS Xanax (Alprazolam) 1 Mg Tablet 1 Mg PO BID PRN Furosemide 40 Mg Tablet 40 Mg PO DAILY Vitals/I & O Vital Sign - Last 24 Hours 04/17/16 04/17/16 04/17/16 04/17/16 11:26 12:34 12:40 13:10 Pulse 92 B/P 150/90 Pulse Ox 93 93 93 O2 Delivery Nasal Cannula Room Air Room Air O2 Flow Rate 2.0 2.0 2.0 04/17/16 04/17/16 04/17/16 04/17/16 14:40 15:10 17:02 17:02 Temp 97.7 97.7 Pulse 92 92 Resp 18 B/P 152/91 152/91 Pulse Ox 93 93 O2 Delivery Nasal Cannula Room Air Room Air O2 Flow Rate 2.0 2.0 04/17/16 04/17/16 04/17/16 04/17/16 17:08 17:38 19:00 20:00 Temp 96.6 96.6 Pulse 68 Resp 18 B/P 128/85 Pulse Ox 93 93 99 O2 Delivery Room Air Room Air Room Air O2 Flow Rate 2.0 2.0 04/17/16 04/17/16 04/17/16 04/17/16 20:35 20:50 20:51 23:04 Pulse 92 92 Resp 18 B/P 152/91 152/91 Pulse Ox 95 O2 Delivery Room Air Room Air 04/17/16 04/17/16 04/18/16 04/18/16 23:34 23:52 03:00 06:51 Temp 98.2 97.0 98.2 97.0 Pulse 66 72 Resp 20 18 18 B/P 134/84 136/79 Pulse Ox 94 92 98 O2 Delivery Nasal Cannula Room Air Room Air Room Air 04/18/16 04/18/16 04/18/16 04/18/16 07:00 07:58 07:58 07:59 Temp 97.9 97.9 Pulse 66 66 66 66 Resp 18 B/P 140/81 140/81 140/81 140/81 Pulse Ox 93 O2 Delivery Nasal Cannula O2 Flow Rate 2.0 04/18/16 08:20 O2 Delivery Room Air Intake and Output 04/17/16 04/17/16 04/18/16 15:00 23:00 07:00 Intake Total 240 ml 240 ml Balance 240 ml 240 ml BOGDAN WITT MD Apr 18, 2016 11:06
[2016-04-18] MEDS: PROMETH/CODEINE 6.25/10MG 5 ML SYRUP. PO PRN ×2 (12:41→21:18)
[2016-04-18] MEDS: LINACLOTIDE 145 MCG CAPSULE. PO SCH (12:41)
--- NOTE | 2016-04-18 14:07 | PDOC2 ---
GI CONSULT Reason For Consult: Constipation HPI: HPI: 55 y/o AA female admitted 04/16/16 w/ multiple complaints. Has been followed by cardiology for CP w/ h/o CAD, CHF, and HTN. Was going to [place] home today but now complaining more of constipation and bloating. She reports a h/o constipation for >10 years. She says a colonoscopy was normal at ~10 years ago. Her normal bowel pattern is 1 stool every 4-7 days. On this occasion, she says she has not had a BM in 2 weeks. At home, she's "supposed to take" Miralax BID + Dulcolax; she says Miralax causes too much cramping so she doesn't like to take it. (Denies abd pain other than these occasional cramps.) She has also tried Senokot w/o relief. Here, she has tried docusate, Miralax (refused today), and Milk of Mag w/o relief. An enema was ordered earlier which she declined; however, she did take Linzess this afternoon. Regarding bloating, she's not sure when this started, but she is only about to eat a small amount (says "a couple bites") before feeling really bloated and full. Denies weight loss. She has vomited a few times (says last yesterday evening although not witnessed by staff) which might be related to coughing; emesis is usually clear. H/o GERD which has not been bothersome for awhile until last night. She previously took an Rx medication for this but has not continued. No previous EGD. Does takes ibuprofen most days for arthritis type pain in her hands and ankle. Has seen "some blood" in stools previously, none recently. Asks for a colon cleanse "with a tube to put up there." During my visit, her daughter called and the patient asked me to talk with her. Her daughter is concerned that "not all the fluid is gone" and feels the patient is too weak and sick to be discharged. She asked me to write her phone number down. PMH: PMH: CAD s/p PCI, CHF, HTN, NE, HLD, bronchitis, CVA, OA, CTS, DM, right leg fracture , left ankle fracture, hysterectomy FH: Family History: No pertinent hx (denies GI cancers), Other (father and sister have diverticulosis) Social History: Smoke: <1 pack per day ALCOHOL: occassional Drugs: None ROS: GEN: Denies fevers, chills, sweats HEENT: Denies blurred vision, sore throat CV: Denies chest pain RESP: +cough GI: Per HPI : Denies hematuria, dysuria ENDO: Denies weight changes NEURO: Denies confusion, dizziness MSK: +joint pain SKIN: Denies jaundice, pruritus VItals: Vitals: Vital Signs Date Time Temp Pulse Resp B/P Pulse Ox O2 Delivery O2 Flow Rate FiO2 04/18/16 11:24 Room Air 04/18/16 11:00 97.9 67 18 141/79 93 2.0 97.9 Labs: Labs: Laboratory Tests Test 04/17/16 17:03 04/17/16 20:34 04/18/16 05:45 04/18/16 07:23 Glucose (Fingerstick) 246mg/dL (70-99) 85mg/dL (70-99) 228mg/dL (70-99) Triglycerides Level 84mg/dL (0-150) Cholesterol Level 219mg/dL (0-200) LDL Cholesterol, Calculated 82mg/dL (0-100) VLDL Cholesterol, Calculated 17mg/dL (0-40) HDL Cholesterol 120mg/dL (40-60) Cholesterol/HDL Ratio 1.8 Test 04/18/16 11:15 Glucose (Fingerstick) 69mg/dL (70-99) Allergies: Coded Allergies: sulfamethoxazole (Verified Allergy, Intermediate, 07/15/14) trimethoprim (Verified Allergy, Intermediate, 07/15/14) Medications: Current Medications Medications (Trade) Dose Ordered Sig/Grayson Route PRN Reason Start Time Stop Time Status Last Admin Dose Admin Linaclotide (Linzess) 145 mcg DAILY07 PO 04/18/16 11:00 04/18/16 12:41 Imaging: Imaging: IMPRESSION: Enlarged cardiac silhouette and prominent hilum bilaterally is again seen. Mild linear opacities lower lungs could be atelectasis. PE: GEN: NAD HEENT: Atraumatic, PERRL LUNGS: insp wheezing bilaterally, dry coughing HEART: S1S2 ABD: BS+, non-tender, soft, some distention EXTREMITY: No edema SKIN: No rashes, no jaundice NEURO/PSYCH: A & O 3 A/P: A/P: Constipation ->10 year h/o constipation, previously advised to use Miralax BID at home which she doesn't like 2/2 cramping -last BM 2 weeks ago, normally 1 stool every 4-7 days -declined enema, tried Linzess this afternoon -reports normal colonoscopy for similar symptoms >10 years ago Post-prandial bloating -says only able to eat a few bites before feeling full -h/o GERD previously treated, but no longer bothersome off meds, no previous EGD -has had occasional vomiting of clear fluid, possibly related to coughing CAD, CHF, DM NSAID use -- Daughter had questions about heart issues - will defer to primary/cardiology. Will check KUB, await response to Linzess which seems like a good choice for her. Re: bloating and h/o GERD, might try PPI or H2 tiffany. Dr. Hopson will see this afternoon. TATY PAYTON Apr 18, 2016 14:07
--- NOTE | 2016-04-18 14:30 | RAD ---
Portable abdomen, 04/18/2016: History: Constipation, bloating There is gas and stool in the colon a nonspecific pattern. There is a moderate amount of stool in the right colon. There is no evidence of organomegaly. The right flank region and lower pelvis are not completely included on this exam. IMPRESSION: No acute abdominal abnormality is detected.
[2016-04-18 15:00] VITALS: BP 140/75
[2016-04-18] MEDS: OXYCODONE IR 5 MG TABLET. PO PRN ×2 (15:43→21:19)
[2016-04-18] MEDS: PANTOPRAZOLE 40 MG TABLET. PO SCH (16:30)
[2016-04-18 19:59] VITALS: BP 134/83
[2016-04-18] MEDS: ATORVASTATIN CALCIUM 40 MG TABLET. PO SCH (20:38)
[2016-04-18] MEDS: ALPRAZOLAM 1 MG TABLET PO PRN (20:38)
[2016-04-18] MEDS: INSULIN DETEMIR 300 UNITS/3 ML INSULN.PEN. SQ SCH (21:25)
[2016-04-18 23:00] VITALS: BP 154/94
[2016-04-19 03:59] VITALS: BP 120/80
[2016-04-19] MEDS: LINACLOTIDE 145 MCG CAPSULE. PO SCH (04:55)
[2016-04-19] MEDS: ALPRAZOLAM 1 MG TABLET PO PRN (04:55)
[2016-04-19] MEDS: PROMETH/CODEINE 6.25/10MG 5 ML SYRUP. PO PRN (04:55)
[2016-04-19] MEDS: OXYCODONE IR 5 MG TABLET. PO PRN (04:56)
[2016-04-19 07:00] VITALS: BP 158/94
[2016-04-19] MEDS: ALBUTEROL SULFATE 2.5 MG/3 ML NEBU. NEB SCH ×2 (07:10→11:36)
[2016-04-19] MEDS: POLYETHYLENE GLYCOL 3350 17 GM PACKET. PO SCH (08:26)
[2016-04-19] MEDS: DOCUSATE SODIUM 100 MG CAPSULE PO SCH (08:27)
[2016-04-19] MEDS: PANTOPRAZOLE 40 MG TABLET. PO SCH (08:27)
[2016-04-19] MEDS: FUROSEMIDE 40 MG TABLET PO SCH (08:27)
[2016-04-19] MEDS: ASPIRIN ENTERIC COATED 81 MG TABLET.DR. PO SCH (08:27)
[2016-04-19] MEDS: LISINOPRIL 20 MG TABLET PO SCH (08:28)
[2016-04-19] MEDS: CLONIDINE HCL 0.1 MG TABLET PO SCH ×2 (08:28→14:45)
[2016-04-19] MEDS: CARVEDILOL 12.5 MG TABLET PO SCH (08:36)
[2016-04-19] MEDS: INSULIN ASPART 300 UNITS/3 ML INSULN.PEN SQ SCH ×4 (08:43→11:51)
[2016-04-19 11:19] VITALS: BP 106/65
[2016-04-19] MEDS ORDERED: IPRATRPIUM/ALBUTEROL 0.5/2.5MG 3 ML NEBU. NEB ONE (13:30)
[2016-04-19] MEDS ORDERED: LINA145C PO (13:36)
--- NOTE | 2016-04-19 13:40 | PDOC3 ---
Discharge Summary Visit Information Date of Admission: Apr 16, 2016 Date of Discharge: Apr 19, 2016 Admitting Diagnosis Comment: CHF, diastolic, acute on chronic Pulm hTN Obesity Psychiatric issues, diabetes, hypertension, myocardial infarction, sickle cell disease, bronchitis, hysterectomy, angioplasty, cardiac stents, and marijuana use. Obstipation Obesity Final Diagnosis Problems Medical Problems: (1) Accelerated hypertension Status: Acute (2) Acute on chronic diastolic CHF (congestive heart failure) Status: Acute (3) Chest pain Status: Acute Brief Hospital Course Allergies Allergies Coded Allergies Type Severity Reaction Last Updated Verified sulfamethoxazole Allergy Intermediate 07/15/14 Yes trimethoprim Allergy Intermediate 07/15/14 Yes Vital Signs Vital Signs Date Time Temp Pulse Resp B/P Pulse Ox O2 Delivery O2 Flow Rate FiO2 04/19/16 11:39 Room Air 04/19/16 11:19 97.5 59 16 106/65 92 97.5 04/18/16 16:43 2.0 Lab Results Laboratory Tests Test 04/17/16 17:03 04/17/16 20:34 04/18/16 05:45 04/18/16 07:23 Glucose (Fingerstick) 246mg/dL (70-99) 85mg/dL (70-99) 228mg/dL (70-99) Triglycerides Level 84mg/dL (0-150) Cholesterol Level 219mg/dL (0-200) LDL Cholesterol, Calculated 82mg/dL (0-100) VLDL Cholesterol, Calculated 17mg/dL (0-40) HDL Cholesterol 120mg/dL (40-60) Cholesterol/HDL Ratio 1.8 Test 04/18/16 11:15 04/18/16 16:27 04/18/16 21:07 04/19/16 08:01 Glucose (Fingerstick) 69mg/dL (70-99) 130mg/dL (70-99) 296mg/dL (70-99) 172mg/dL (70-99) Test 04/19/16 11:02 04/19/16 11:34 04/19/16 12:38 Glucose (Fingerstick) 65mg/dL (70-99) 63mg/dL (70-99) 135mg/dL (70-99) Laboratory Tests Test 04/18/16 16:27 04/18/16 21:07 04/19/16 08:01 04/19/16 11:02 Glucose (Fingerstick) 130mg/dL (70-99) 296mg/dL (70-99) 172mg/dL (70-99) 65mg/dL (70-99) Test 04/19/16 11:34 04/19/16 12:38 Glucose (Fingerstick) 63mg/dL (70-99) 135mg/dL (70-99) Brief Hospital Course Ms. 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 Calmed down when offered robitussin with codeine, Claims gets headaches with coughing,. Heavy discussion about PCP and criteria to be inpt. Dw and RN at bedside Rx provided Pt left unhappy Consults: cards - has signed off 2 days prior to dc GI - trial of linzess- pt claims no BM per enema but does not want any other treatment Pt just lays around in bed, more mobility can be achieved at home Discharge Information Condition at Discharge: Improved, Stable Disposition/Orders: D/C to Home Scheduled Aspirin (Aspirin Ec) 81 MG PO DAILY (Reported) Atorvastatin Calcium (Atorvastatin Calcium) 80 MG PO HS (Reported) Carvedilol (Coreg) 25 MG PO BIDWMEALS (Reported) Clonidine Hcl (Clonidine Hcl) 0.1 MG PO TID (Reported) Furosemide (Furosemide) 40 MG PO DAILY (Reported) Insulin Aspart (Novolog Flexpen) 5 UNIT SQ TIDAFTMEAL (Reported) Insulin Glargine,Hum.rec.anlog (Lantus Solostar) 10 UNIT SQ QHS (Reported) Lisinopril (Lisinopril) 20 MG PO BID (Reported) Scheduled PRN Alprazolam (Xanax) 1 MG PO BID PRN PRN ANXIETY / AGITATION (Reported) Oxycodone Hcl (Oxycodone Hcl) 5 MG PO PRN Q6HRS PRN PRN PAIN (Reported) Polyethylene Glycol 3350 (Miralax) 1 PKT PO PRN DAILY PRN PRN CONSTIPATION ( Reported) Miscellaneous Medications Nicotine (Nicotine Patch) 1 EACH TD (Reported) BOGDAN WITT MD Apr 19, 2016 13:39
[2016-04-19 15:00] VITALS: BP 128/84
== END 2016-04-19 14:50 | disposition home or self-care (01) | DRG 292 ==
LOC: ER 14:53 → 5 SOUTH 17:00
PROVIDERS: ADMIT Internal Medicine; ATTEND Internal Medicine
DX: I50.33 Acute on chronic diastolic (congestive) heart failure (principal); E44.0 Moderate protein-calorie malnutrition; I11.0 Hypertensive heart disease with heart failure; E11.9 Type 2 diabetes mellitus without complications; E66.9 Obesity, unspecified; Z68.31 Body mass index [BMI] 31.0-31.9, adult; E78.5 Hyperlipidemia, unspecified; F17.200 Nicotine dependence, unspecified, uncomplicated; I25.10 Atherosclerotic heart disease of native coronary artery without angina pectoris; I27.2 Other secondary pulmonary hypertension; K21.9 Gastro-esophageal reflux disease without esophagitis; K59.00 Constipation, unspecified; M19.90 Unspecified osteoarthritis, unspecified site; Z79.899 Other long term (current) drug therapy; Z82.49 Family history of ischemic heart disease and other diseases of the circulatory system; Z88.8 Allergy status to other drugs, medicaments and biological substances; Z86.73 Personal history of transient ischemic attack (TIA), and cerebral infarction without residual deficits; Z83.3 Family history of diabetes mellitus; Z91.19 Patient's noncompliance with other medical treatment and regimen; Z95.5 Presence of coronary angioplasty implant and graft; Z90.710 Acquired absence of both cervix and uterus; D57.1 Sickle-cell disease without crisis; J40 Bronchitis, not specified as acute or chronic; R07.89 Other chest pain
CPT/HCPCS: 36415; 71010; 74000; 80048; 80053; 80061; 82553; 82947; 83735; 83880; 84443; 84484; 85027; 87804; 93005; 93306; 94250; 94640; 94760; 96374; 96375; J0360; J1815; J1940; J2270; J2405; J3010; J7620; 99285-25

== ENCOUNTER 2016-04-28 21:28 | Inpatient (IN) | payer MEDICARE, MEDICAID ==
[~2016-04-28] VITALS: Ht 165.1 cm; Wt 77.2 kg
[~2016-04-28 21:28] MED LIST changes: +LINA145C PO
[2016-04-28] MEDS ORDERED: IPRATRPIUM/ALBUTEROL 0.5/2.5MG 3 ML NEBU. NEB ONE (22:30)
[2016-04-28] MEDS ORDERED: LIDOCAINE 5% TOPICAL OINTMENT 35GM TUBE. TP ONE (22:30)
[2016-04-28 22:48] LABS: BASO # 0.1 x10^3/uL (0.0-0.2); BASO % 1 % (0-3); EOS % 2 % (0-3); HEMATOCRIT 34.3 % (36.0-47.0); HEMOGLOBIN 10.8 g/dL (12.0-15.5); LYMPH # 1.2 x10^3/uL (1.0-4.8); LYMPH % 21 % (24-48); MEAN CORPUSCULAR HEMOGLOBIN 26 pg (25-35); MEAN CORPUSCULAR HGB CONC 31 g/dL (31-37); MEAN CORPUSCULAR VOLUME 82 fL (79-100); MONO % 6 % (0-9); NEUT % 71 % (31-73); PLATELET COUNT 235 x10^3/uL (140-400); RED BLOOD COUNT 4.18 x10^6/uL (3.50-5.40); RED CELL DISTRIBUTION WIDTH 14.7 % (11.5-14.5); WHITE BLOOD COUNT 5.8 x10^3/uL (4.0-11.0)
[2016-04-28 22:57] LABS: CALCIUM 8.4 mg/dL (8.5-10.1); GFR 70.2; POTASSIUM 3.4 mmol/L (3.5-5.1)
[2016-04-28] MEDS ORDERED: LIDOCAINE 4% KIT 4 ML SOLUTION. TP ONE (23:15)
[2016-04-28] MEDS ORDERED: LIDOCAINE 1% PF 2 ML VIAL. NEB ONE (23:30)
[2016-04-29] MEDS ORDERED: ONDANSETRON PF 4 MG/2 ML VIAL. IV PRN ×2 (00:15→09:13)
[2016-04-29] MEDS ORDERED: FUROSEMIDE 40 MG/4 ML VIAL IVP ONE ×2 (00:30→13:00)
[2016-04-29] MEDS ORDERED: ACETAMINOPHEN 325 MG TABLET. PO ONE (00:30)
[2016-04-29 01:42] VITALS: BP 122/60
--- NOTE | 2016-04-29 02:01 | PHYS DOC ---
Past Medical History Past Medical History: Bronchitis, CHF, CVA, Diabetes-Type II, Hypertension, CO , Sickle Cell Disease Additional Past Medical Histor: "peripheral vision is gone" Past Surgical History: Angioplasty, Hysterectomy, Other Additional Past Surgical Histo: Cardiac Stent Alcohol Use: Occasionally Drug Use: None Adult General Chief Complaint Chief Complaint: COUGH HPI HPI 55-year-old female who's had worsening cough and mild shortness of breath for the last several days. Patient was recently just admitted for a CHF exacerbation. Patient states she has not really felt much better. She states she has had a flulike illness for the last several days as well. She states she still has continued swelling to her lower extremities that has not resolved. She denies any chest pain. She denies any myalgias. Review of Systems Review of Systems Constitutional: Denies fever or chills [] Eyes: Denies change in visual acuity, redness, or eye pain [] HENT: Denies nasal congestion or sore throat [] Respiratory: Has cough, has shortness of breath [] Cardiovascular: No additional information not addressed in HPI [] GI: Denies abdominal pain, nausea, vomiting, bloody stools or diarrhea [] : Denies dysuria or hematuria [] Musculoskeletal: Denies back pain or joint pain [] Integument: Denies rash or skin lesions [] Neurologic: Denies headache, focal weakness or sensory changes [] Endocrine: Denies polyuria or polydipsia [] Current Medications Current Medications Current Medications Medications (Trade) Dose Ordered Sig/Grayson Start Time Stop Time Status Last Admin Dose Admin Albuterol/ Ipratropium (Duoneb) 3 ml 1X ONCE 04/28/16 22:30 04/28/16 22:31 DC 04/28/16 23:35 3 ML Lidocaine (Xylocaine) 1 horace 1X ONCE 04/28/16 22:30 04/28/16 22:31 DC Lidocaine HCl (Lta Kit) 4 ml 1X ONCE 04/28/16 23:15 04/28/16 23:28 DC Lidocaine HCl (Xylocaine-Mpf 1% Vial) 2 ml ONCE ONCE 04/28/16 23:30 04/28/16 23:31 DC 04/28/16 23:34 2 ML Allergies Allergies Allergies Coded Allergies Type Severity Reaction Last Updated Verified sulfamethoxazole Allergy Intermediate 07/15/14 Yes trimethoprim Allergy Intermediate 07/15/14 Yes Physical Exam Physical Exam Constitutional: Well developed, well nourished, no acute distress, non-toxic appearance. [] HENT: Normocephalic, atraumatic, bilateral external ears normal, oropharynx moist, no oral exudates, nose normal. [] Eyes: PERRLA, EOMI, conjunctiva normal, no discharge. [] Neck: Normal range of motion, no tenderness, supple, no stridor. [] Cardiovascular:Heart rate regular rhythm, no murmur [] Lungs & Thorax: Bilateral breath sounds decreased bilaterally, no acute distress [] Abdomen: Bowel sounds normal, soft, no tenderness, no masses, no pulsatile masses. [] Skin: Warm, dry, no erythema, no rash. [] Back: No tenderness, no CVA tenderness. [] Extremities: No tenderness, no cyanosis, no clubbing, ROM intact, 2+ edema to bilateral lower extremities. [] Neurologic: Alert and oriented X 3, normal motor function, normal sensory function, no focal deficits noted. [] Psychologic: Affect normal, judgement normal, mood normal. [] Current Patient Data Vital Signs Vital Signs Date Time Temp Pulse Resp B/P Pulse Ox O2 Delivery O2 Flow Rate FiO2 04/28/16 23:38 72 20 155/89 100 Room Air 04/28/16 21:35 98.7 98.7 Lab Values Laboratory Tests Test 04/28/16 22:40 White Blood Count 5.8x10^3/uL (4.0-11.0) Red Blood Count 4.18x10^6/uL (3.50-5.40) Hemoglobin 10.8g/dL (12.0-15.5) L Hematocrit 34.3% (36.0-47.0) L Mean Corpuscular Volume 82fL (79-100) Mean Corpuscular Hemoglobin 26pg (25-35) Mean Corpuscular Hemoglobin Concent 31g/dL (31-37) Red Cell Distribution Width 14.7% (11.5-14.5) H Platelet Count 235x10^3/uL (140-400) Neutrophils (%) (Auto) 71% (31-73) Lymphocytes (%) (Auto) 21% (24-48) L Monocytes (%) (Auto) 6% (0-9) Eosinophils (%) (Auto) 2% (0-3) Basophils (%) (Auto) 1% (0-3) Neutrophils # (Auto) 4.1x10^3uL (1.8-7.7) Lymphocytes # (Auto) 1.2x10^3/uL (1.0-4.8) Monocytes # (Auto) 0.3x10^3/uL (0.0-1.1) Eosinophils # (Auto) 0.1x10^3/uL (0.0-0.7) Basophils # (Auto) 0.1x10^3/uL (0.0-0.2) Sodium Level 144mmol/L (136-145) Potassium Level 3.4mmol/L (3.5-5.1) L Chloride Level 106mmol/L (98-107) Carbon Dioxide Level 26mmol/L (21-32) Anion Gap 12 (6-14) Blood Urea Nitrogen 18mg/dL (7-20) Creatinine 1.0mg/dL (0.6-1.0) Estimated GFR (Cockcroft-Gault) 70.2 Glucose Level 326mg/dL (70-99) H Calcium Level 8.4mg/dL (8.5-10.1) L Troponin I Quantitative 0.028ng/mL (0.000-0.055) AZ-[id number]-T-Type Natriuretic Peptide 3145pg/mL (0-124) H Laboratory Tests 04/28/16 22:40 Laboratory Tests 04/28/16 22:40 EKG EKG EKG as interpreted by me shows a sinus rhythm with rate of 69 bpm. There are some T-wave inversions noted to the high lateral leads. EKG does not meet STEMI criteria. Radiology/Procedures Radiology/Procedures One view of the chest as interpreted by me continues to show some vascular congestion and cardiomegaly Course & Med Decision Making Course & Med Decision Making Pertinent Labs and Imaging studies reviewed. (See chart for details) 64-year-old female with continued cough and fast or congestion on her chest film has a BNP of 3145. This is much higher than her previous BNP on her last admission. I will be admitting her to the hospital for her persisting cough and CHF. A dose of Lasix was given. Patient was also given a nebulized lidocaine treatment. The patient is afebrile and has no elevated WBC count so antibiotics were withheld. Need for hospitalization was discussed with the hospitalist, Dr. Rose, who agreed to accept for further evaluation and treatment with cardiology consult placed. She was admitted without incident. Dragon Disclaimer Dragon Disclaimer This electronic medical record was generated, in whole or in part, using a voice recognition dictation system. Departure Departure Impression: Primary Impression: CHF exacerbation Additional Impression: Cough Disposition: ADMITTED INPATIENT Admitting Physician: Nora Rose Condition: STABLE Referrals: YOSELIN GARCÍA MD (PCP) Problem Qualifiers VANITA MENDEZ DO Apr 29, 2016 02:01
[2016-04-29 03:02] VITALS: BP 122/60
--- NOTE | 2016-04-29 05:15 | ACF ---
Admit Criteria Forms Admit Criteria Forms Admit Criteria Forms HEART FAILURE: COMMON COMPLICATIONS Clinical Indications for Inpatient Care (Place 'X' for any and all applicable criteria): Ongoing inpatient care may be indicated for heart failure with ANY ONE of the following (1)(2)(3)(4)(5): [ ]I. Ongoing need for care for primary condition requiring frequent therapy adjustments because of changes in cardiac function (eg, drug dosage changes for drugs that are renally metabolized) [ ]II. New-onset heart failure [ ]III. Heart failure with decreased urine output not responsive to attempts to optimize volume status [ ]IV. Acute cardiac ischemia causing or associated with failure [X]V. Complications of heart failure, including ANY ONE of the following: [ ]a) Pericardial effusion [ ]b) Symptomatic pleural effusion [ ]c) O2 saturation <90% or PO2 < 60 mm Hg (8.0 kPa) on room air or require baseline supplemental O2 [ ]d) Tachypnea [X]e) Dyspnea [ ]f) Syncope [ ]g) Change in mental status [ ]h) Acute renal insufficiency that is severe (reduction of more than 50% in estimated glomerular filtration rate from baseline) or progressive reduction of more than 25% in estimated glomerular filtration rate from baseline, with creatinine continuing to rise) [ ]i) Hemodynamic instability [ ]j) Anasarca [ ]k) Clinically significant metabolic abnormalities due to heart failure (eg, new-onset metabolic acidosis) Extended stay beyond goal length of stay for primary condition may be needed until ALL of the following are present(1)(3): [ ]a) Stable and effective diuretic regimen established (or patient on stable dialysis regimen if in chronic renal failure) [ ]b) Breathing comfortably at rest [ ]c) Saturation of arterial oxygen greater than 90% or at acceptable baseline [ ]d) Pulmonary edema absent or improved [ ]e) Hemodynamic stability [ ]f) Volume status acceptable on oral medication [ ]g) Peripheral or sacral edema absent or improved [ ]h) Renal function stable and manageable at a lower level of care [ ]i) Complications (eg, pleural effusion) resolved or manageable at a lower level of care [ ]j) Patient or caregiver has received written discharge instructions or educational material addressing activity level, diet, discharge medications, follow-up appointment, weight monitoring, and what to do if symptoms worsen The original [employer] content created by Millim[employer] Kaur has been revised. The portions of the content which have been revised are identified through the use of italic text or in bold, and [facility] has neither reviewed nor approved the modified material.All other unmodified content is copyright [facility]. Please see references footnoted in the original [facility] [employer] edition 2016 LUIS CARLOS ALEMAN Apr 29, 2016 05:15
--- NOTE | 2016-04-29 07:26 | EKG ---
[facility] [address] [place] [address] Test Date: 2016-04-28 Test Time: 21:38:31 Pat Name: ZORAN HOGN Department: Room: Gender: F Peg Driver: : 1960 Requested By: VANITA MENDEZ Order Number: [id number] Reading MD: Measurements Intervals [place] Rate: 69 P: 37 WV: 158 QRS: -4 QRSD: 80 T: 127 QT: 424 QTc: 456 Interpretive Statements No previous ECG available for comparison
[2016-04-29 07:50] VITALS: BP 138/83
--- NOTE | 2016-04-29 07:53 | RAD ---
Exam performed: One view chest. History: Chest pain, history of CHF. Date of service: 04/28/16. Comparison: 04/16/16. Single AP upright portable view chest findings: Mild cardiomegaly is stable. Pulmonary vascularity is unremarkable of the bilateral pulmonary arteries are somewhat prominent, however stable since previous exam. Linear opacities are seen in both lung bases without interval change since previous exam. Probable trace left pleural effusion. Calcified granulomata in the right lung. Impression: 1. Stable mild cardiomegaly and prominence of pulmonary arteries. 2. Linear bibasal opacities likely bibasilar atelectasis
[2016-04-29 08:27] LABS: BARBITURATES NEG (NEG); BENZODIAZEPINES NEG (NEG); CANNABINOIDS NEG (NEG); COCAINE NEG (NEG); METHADONE NEG (NEG); OPIATES NEG (NEG); PHENCYCLIDINE NEG (NEG)
[2016-04-29 08:33] LABS: ETHANOL, URINE POS (NEG)
[2016-04-29] MEDS ORDERED: POLYETHYLENE GLYCOL 3350 17 GM PACKET. PO PRN (09:15)
[2016-04-29] MEDS ORDERED: ACETAMINOPHEN 500 MG TABLET PO PRN (09:15)
[2016-04-29] MEDS ORDERED: NICOTINE 21MG PATCH. TD PRN (09:15)
[2016-04-29] MEDS ORDERED: ALPRAZOLAM 1 MG TABLET PO PRN (09:15)
[2016-04-29] MEDS ORDERED: DEXTROSE 50% 25 GM / 50ML DISP.SYRIN. IV PRN (09:15)
[2016-04-29] MEDS ORDERED: OXYCODONE IR 5 MG TABLET. PO PRN (09:30)
[2016-04-29] MEDS ORDERED: POTASSIUM CHLORIDE 20 MEQ TABLET.ER. PO ONE (10:00)
[2016-04-29] MEDS ORDERED: CARVEDILOL 12.5 MG TABLET PO SCH (10:00)
[2016-04-29] MEDS ORDERED: LISINOPRIL 20 MG TABLET PO SCH (10:00)
[2016-04-29] MEDS ORDERED: FUROSEMIDE 40 MG TABLET PO SCH (10:00)
[2016-04-29] MEDS ORDERED: CLONIDINE HCL 0.1 MG TABLET PO SCH (10:00)
[2016-04-29] MEDS ORDERED: ASPIRIN ENTERIC COATED 81 MG TABLET.DR. PO SCH (10:00)
[2016-04-29] MEDS ORDERED: LINACLOTIDE 145 MCG CAPSULE. PO SCH (10:00)
[2016-04-29 10:49] LABS: BILIRUBIN,URINE NEGATIVE (NEG); GLUCOSE,URINE 100 mg/dL (NEG); NITRITE,URINE NEGATIVE (NEG); PH,URINE 6.5; PROTEIN,URINE >=300 mg/dL (NEG-TRACE); UROBILINOGEN,URINE 0.2 mg/dL (0.2 mg/dL)
[2016-04-29 10:57] VITALS: BP 142/83
[2016-04-29 11:08] LABS: BACTERIA,URINE FEW /HPF (0-FEW); RBC,URINE RARE /HPF (0-2); SQUAMOUS EPITHELIAL CELL,UR MANY /LPF; WBC,URINE RARE /HPF (0-4)
[2016-04-29 11:32] VITALS: BP 142/83
[2016-04-29] MEDS: INSULIN ASPART 300 UNITS/3 ML INSULN.PEN SQ SCH ×2 (11:36→13:10)
--- NOTE | 2016-04-29 11:48 | PDOC2 ---
ERMA CASTRO OPERATING ROOM TECHNOLOGIST 04/29/16 1148: CARDIAC CONSULT DATE OF CONSULT Date of Consult DATE: 04/29/16 TIME: 11:38 REASON FOR CONSULT Reason for Consult: CHF exacerbation REFERRING PHYSICIAN Referring Physician: Khushi SOURCE Source: Chart review, Patient HISTORY OF PRESENT ILLNESS HISTORY OF PRESENT ILLNESS This is a 55 yo female admitted for complains of SOA. Reports of orthopnea and PND. Pt was recently discharged and verbalized that she has been taking her medications with compliance but denies any lasix prescription. She drinks ETOH occasionally but denies any further tobacco use. Denies any CP, palpitations. She does however has been feeling congested as well nasally and has been having intermittent coughing. Denies any fever or chills. Currently he is has been asking her PRN opioids for DC which she has been receiving and wanting morphine and fentanyl. She was noted in the past for drug seeking behavior. PAST MEDICAL HISTORY Past Medical History Cardiovascular: CAD (with PCI/ANISHA to LAD), CHF (diastolic), HTN, NH, Hyperlipidemia Pulmonary: Bronchitis CENTRAL NERVOUS SYSTEM: CVA GI: Diverticulosis Heme/Onc: No pertinent hx Hepatobiliary: No pertinent hx Psych: No pertinent hx Musculoskeletal: Osteoarthritis Rheumatologic: No pertinent hx Infectious disease: No pertinent hx ENT: No pertinent hx Renal/: No pertinent hx Endocrine: Diabetes (type II) Dermatology: No pertinent hx PAST SURGICAL HISTORY Past Surgical History: Hysterectomy, Other (PCI/ANISHA) FAMILY HISTORY Family History Diabetes, Heart Disease, Hypertension SOCIAL HISTORY Smoke: <1 pack per day Drugs: None Lives: with Family CURRENT MEDICATIONS CURRENT MEDICATIONS Current Medications Medications (Trade) Dose Ordered Sig/Grayson Route PRN Reason Start Time Stop Time Status Last Admin Dose Admin Albuterol/ Ipratropium (Duoneb) 3 ml 1X ONCE NEB 04/28/16 22:30 04/28/16 22:31 DC 04/28/16 23:35 Lidocaine HCl (Xylocaine-Mpf 1% Vial) 2 ml ONCE ONCE NEB 04/28/16 23:30 04/28/16 23:31 DC 04/28/16 23:34 Furosemide (Lasix) 40 mg 1X ONCE IVP 04/29/16 00:30 04/29/16 00:31 DC 04/29/16 01:00 Acetaminophen (Tylenol) 650 mg 1X ONCE PO 04/29/16 00:30 04/29/16 00:31 DC 04/29/16 01:00 ALLERGIES ALLERGIES: Coded Allergies: sulfamethoxazole (Verified Allergy, Intermediate, 07/15/14) trimethoprim (Verified Allergy, Intermediate, 07/15/14) ROS Review of System 14 point ROS evaluated with pertinent positives noted per HPI PHYSICAL EXAM General: Alert, Oriented X3, Cooperative, No acute distress HEENT: Atraumatic, Mucous membr. moist/pink, Other (nasal congestion) Lungs: Other (faint crackles) Heart: Regular rate (SR no significant ectopies), Normal S1, Normal S2, Other ( 3/6 systolic murmur to LLS border) Abdomen: Soft, No tenderness Extremities: No cyanosis, Other (1-2+ bilateral LE pitting edema) Skin: No breakdown, No significant lesion Neuro: Normal speech, Sensation intact Psych/Mental Status: Mood NL MUSCULOSKELETAL: Osteoarthritic changes both hands VITALS VITALS Vital Signs Date Time Temp Pulse Resp B/P Pulse Ox O2 Delivery O2 Flow Rate FiO2 04/29/16 10:57 98.3 70 18 142/83 97 Room Air 98.3 LABS Lab: Laboratory Tests Test 04/28/16 22:40 04/29/16 00:01 White Blood Count 5.8x10^3/uL (4.0-11.0) Red Blood Count 4.18x10^6/uL (3.50-5.40) Hemoglobin 10.8g/dL (12.0-15.5) Hematocrit 34.3% (36.0-47.0) Mean Corpuscular Volume 82fL (79-100) Mean Corpuscular Hemoglobin 26pg (25-35) Mean Corpuscular Hemoglobin Concent 31g/dL (31-37) Red Cell Distribution Width 14.7% (11.5-14.5) Platelet Count 235x10^3/uL (140-400) Neutrophils (%) (Auto) 71% (31-73) Lymphocytes (%) (Auto) 21% (24-48) Monocytes (%) (Auto) 6% (0-9) Eosinophils (%) (Auto) 2% (0-3) Basophils (%) (Auto) 1% (0-3) Neutrophils # (Auto) 4.1x10^3uL (1.8-7.7) Lymphocytes # (Auto) 1.2x10^3/uL (1.0-4.8) Monocytes # (Auto) 0.3x10^3/uL (0.0-1.1) Eosinophils # (Auto) 0.1x10^3/uL (0.0-0.7) Basophils # (Auto) 0.1x10^3/uL (0.0-0.2) Sodium Level 144mmol/L (136-145) Potassium Level 3.4mmol/L (3.5-5.1) Chloride Level 106mmol/L (98-107) Carbon Dioxide Level 26mmol/L (21-32) Anion Gap 12 (6-14) Blood Urea Nitrogen 18mg/dL (7-20) Creatinine 1.0mg/dL (0.6-1.0) Estimated GFR (Cockcroft-Gault) 70.2 Glucose Level 326mg/dL (70-99) Calcium Level 8.4mg/dL (8.5-10.1) Troponin I Quantitative 0.028ng/mL (0.000-0.055) ZQ-[id number]-A-Type Natriuretic Peptide 3145pg/mL (0-124) Urine Collection Type Unknown Urine Color Yellow Urine Clarity Clear Urine pH 6.5 Urine Specific [place] 1.015 Urine Protein >=300mg/dL (NEG-TRACE) Urine Glucose (UA) 100mg/dL (NEG) Urine Ketones (Stick) Negativemg/dL (NEG) Urine Blood Moderate (NEG) Urine Nitrite Negative (NEG) Urine Bilirubin Negative (NEG) Urine Urobilinogen Dipstick 0.2mg/dL (0.2 mg/dL) Urine Leukocyte Esterase Negative (NEG) Urine RBC Rare/HPF (0-2) Urine WBC Rare/HPF (0-4) Urine Squamous Epithelial Cells Many/LPF Urine Bacteria Few/HPF (0-FEW) Urine Hyaline Casts Many/HPF Urine Opiates Screen Neg (NEG) Urine Methadone Screen Neg (NEG) Urine Barbiturates Neg (NEG) Urine Phencyclidine Screen Neg (NEG) Urine Amphetamine/Methamphetamine Neg (NEG) Urine Benzodiazepines Screen Neg (NEG) Urine Cocaine Screen Neg (NEG) Urine Cannabinoids Screen Neg (NEG) Urine Ethyl Alcohol Pos (NEG) ECHOCARDIOGRAM ECHOCARDIOGRAM <Conclusion> Left ventricle systolic function is normal. The Ejection Fraction is 50-55%. There is normal LV segmental wall motion. There is borderline to mild concentric left ventricular hypertrophy. Doppler and Color Flow revealed moderate tricuspid regurgitation.There is moderate pulmonary hypertension.The PA pressure was estimated at 65 mmHg. The IVC is dilated and collapses <50% with inspiration consistent with volume overload. There is a trace pericardial effusion. DATE: 04/17/16 1109 HEART CATH HEART CATH CONCLUSIONS: PCI 1. Severe thrombotic 99% stenosis of the distal PDA with an 80% mid LAD stenosis as noted above. 2. Successful stent of the mid LAD with a 3.0 x 12 mm integrity drug-eluting stent. 3. Successful angioplasty of the distal PDA with a 2.25 x 12 mm angioplasty balloon. 4. No LV gram was performed in order to conserve contrast, however, LVEDP is mildly elevated at 14. 5. Angio-Seal of the right femoral artery. 02/28/2014 ASSESSMENT/PLAN ASSESSMENT/PLAN 1. Acute on chronic diastolic CHF: contributing noncompliance with missed lasix doses. Currently improved 2. URI with post nasal drip syndrome 3. CAD: PCI/stent 2013. stable 4. Positive for ETOH 5. HTN: controlled 6. HLP 7. DM2: uncontrolled 8. Drug seeking behavior 9. CKD2 Recommendations 1. Continue with po lasix therapy, lasix IV x1. 2. Maintain antiHTN control 3. Discussed adherence 4. Continue with secondary prevention. ASA 5. Replace K. 6. Lifestyle modification Problems: FEI DAVIS MD 04/30/16 0554: CARDIAC CONSULT ALLERGIES ALLERGIES: Coded Allergies: sulfamethoxazole (Verified Allergy, Intermediate, 07/15/14) trimethoprim (Verified Allergy, Intermediate, 07/15/14) ASSESSMENT/PLAN ASSESSMENT/PLAN Patient seen and examined 04/29/16. Agree with MANAGER CASH's assessment and plan. Acute on chronic diastolic HF prob from non compliance and improved since admission. CAD status stable. Replace K. Continue current medical regimen. Thank you for your consultation. Problems: ERMA CASTRO OPERATING ROOM TECHNOLOGIST Apr 29, 2016 11:48 FEI DAVIS MD Apr 30, 2016 05:54
[2016-04-29] MEDS ORDERED: INSULIN ASPART 300 UNITS/3 ML INSULN.PEN SQ SCH (12:00)
[2016-04-29 12:25] LABS: CALCIUM 8.6 mg/dL (8.5-10.1); GFR 70.2; MAGNESIUM 1.8 mg/dL (1.8-2.4)
--- NOTE | 2016-04-29 13:43 | PDOC ---
Provider Note Provider Note 23 hr note, [id number] nm today\NO change in meds'Take your lasix pls BOGDAN WITT MD Apr 29, 2016 13:42
--- NOTE | 2016-04-29 16:51 | SSS ---
ADMIT DATE: SUBJECTIVE: Chronic cough. HISTORY OF PRESENT ILLNESS: The patient is a 55-year-old -[place] female known to me because I just discharged her from 04/16/2016 to 04/19/2016 for CHF diastolic, acute on chronic, pulmonary hypertension, obesity, psych issues, diabetes, hypertension, GA, sickle cell, bronchitis, hysterectomy, angioplasty, cardiac stents, marijuana use, obesity, obstipation, chronic narcotic dependence. She comes in and was admitted because of "CHF." She is on Lasix 40 p.o. daily, but labs do not support an active flare up or decompensated CHF. Cardiology consulted. No change in meds. She already has complete workup recently and emphasized compliance. She blames that nobody gave her Lasix script that is why she is back again, doubt this. In any case, we wrote Lasix script. She requests some hydrocodone scripts for her headache. She requests some Phenergan with codeine. Multiple times discussing, she complains of a chronic cough. A chest x-ray has been normal. We did talk to her that sometimes CHF can do that, so she has to take her Lasix. I did give her a script for Phenergan with codeine. I did talk to her about seeing a factory laborer as an outpatient. Unfortunately, this patient loves the hospital. Case discussed with the patient and with the RN at the bedside. Finally, agreed to being discharged after we discussed with her that there is no more treatment or evaluation here at the hospital level. PAST MEDICAL HISTORY: CHF diastolic, pulmonary hypertension, obesity, diabetes, hypertension, GA, sickle cell, bronchitis. PAST SURGICAL HISTORY: Hysterectomy, angioplasty and cardiac stents. SOCIAL HISTORY: Previous smoker, occasional drinker and marijuana use in the past. ALLERGIES: OXYCODONE GETS HEADACHES, TRIMETHOPRIM AND SULFAMETHOXAZOLE. FAMILY HISTORY: Reviewed. Heart disease. REVIEW OF SYSTEMS: All 14-point system reviewed, admits only to chronic cough, irritability, fatigue, malaise, headache, nasal congestion and sneezing. PHYSICAL EXAMINATION: GENERAL: Awake, alert, oriented x 3, cooperative, not in acute distress. EOMI. Mucous membranes moist, pink. LUNGS: Clear to auscultation bilaterally. CARDIOVASCULAR: S1, S2. No gallops. ABDOMEN: Normal bowel sounds. Soft, nontender. No palpable masses. EXTREMITIES: Negative edema. Pulses full and equal. No pallor, cyanosis noted. SKIN: No significant lesions. NEUROLOGIC: Normal speech. Normal tone. Sensation intact. PSYCHIATRIC: Mental status, mood within normal limits. ASSESSMENT AND PLAN: 1. Congestive heart failure, diastolic, chronic, stable. 2. Pulmonary hypertension. 3. Obesity. 4. Hypertension. 5. GA, sickle cell, bronchitis, hysterectomy, angioplasty, cardiac stents, marijuana use, obstipation, obesity, narcotic dependence. PLAN OF CARE: Cardiology saw the patient. No further workup, home today with no new meds, I emphasized compliance with Lasix. HOSPITAL COURSE: The patient was admitted overnight. Loves the hospital, narcotic dependence. Some Scripts were given as per patient's request. I emphasized compliance to Lasix 40 p.o. daily, given also some KCl supplement as her potassium is low after she got Lasix at the ER. Significant time 40 minutes. Discussed with RN at the bedside. BOGDAN WITT MD DR: /nts JOB#: [id number] / [id number]
[2016-04-29] MEDS ORDERED: INSULIN DETEMIR 300 UNITS/3 ML INSULN.PEN. SQ SCH (21:00)
[2016-04-29] MEDS ORDERED: ATORVASTATIN CALCIUM 40 MG TABLET. PO SCH (21:00)
== END 2016-04-29 14:53 | disposition home or self-care (01) | DRG 292 ==
LOC: ER 21:28 → CVICU 23:49
PROVIDERS: ADMIT Internal Medicine; ATTEND Internal Medicine
DX: I50.33 Acute on chronic diastolic (congestive) heart failure (principal); I13.0 Hypertensive heart and chronic kidney disease with heart failure and stage 1 through stage 4 chronic kidney disease, or unspecified chronic kidney disease; F11.20 Opioid dependence, uncomplicated; N18.2 Chronic kidney disease, stage 2 (mild); F12.90 Cannabis use, unspecified, uncomplicated; D57.1 Sickle-cell disease without crisis; E11.65 Type 2 diabetes mellitus with hyperglycemia; E66.9 Obesity, unspecified; E11.22 Type 2 diabetes mellitus with diabetic chronic kidney disease; E78.5 Hyperlipidemia, unspecified; K57.90 Diverticulosis of intestine, part unspecified, without perforation or abscess without bleeding; M19.90 Unspecified osteoarthritis, unspecified site; J06.9 Acute upper respiratory infection, unspecified; K59.00 Constipation, unspecified; I25.10 Atherosclerotic heart disease of native coronary artery without angina pectoris; I27.2 Other secondary pulmonary hypertension; I25.2 Old myocardial infarction; Z86.73 Personal history of transient ischemic attack (TIA), and cerebral infarction without residual deficits; Z90.710 Acquired absence of both cervix and uterus; Z87.891 Personal history of nicotine dependence; Z95.5 Presence of coronary angioplasty implant and graft; Z88.2 Allergy status to sulfonamides; Z88.8 Allergy status to other drugs, medicaments and biological substances; Z88.5 Allergy status to narcotic agent; Z72.89 Other problems related to lifestyle; Z82.49 Family history of ischemic heart disease and other diseases of the circulatory system; Z83.3 Family history of diabetes mellitus; Z91.19 Patient's noncompliance with other medical treatment and regimen; Z91.14 Patient's other noncompliance with medication regimen; Z68.28 Body mass index [BMI] 28.0-28.9, adult; Z79.899 Other long term (current) drug therapy; Z79.82 Long term (current) use of aspirin
CPT/HCPCS: 36415; 71010; 80048; 81001; 82947; 83735; 83880; 84484; 85027; 93005; 94640; 96374; G0481; J1815; J1940; J7620; 99285-25

== ENCOUNTER 2016-05-31 14:17 | Emergency (ER) | payer MEDICARE, MEDICAID ==
[~2016-05-31] VITALS: Ht 165.1 cm; Wt 73.5 kg
[~2016-05-31 14:17] MED LIST changes: +ASPI-612 PO; -ASPI81TA9 PO; -LEVO500T38 PO; +LEVO500T59 PO; +OXYC5CAP PO; -OXYC5CAP3 PO; +POLY17PO29 PO; -POLY17PO5 PO
--- NOTE | 2016-05-31 15:02 | PHYS DOC ---
Past Medical History Past Medical History: Bronchitis, CHF, CVA, Diabetes-Type II, Hypertension, [place] , Sickle Cell Disease Additional Past Medical Histor: "peripheral vision is gone" Past Surgical History: Angioplasty, Hysterectomy, Other Additional Past Surgical Histo: Cardiac Stent Alcohol Use: Occasionally Drug Use: None Adult General Chief Complaint Chief Complaint: BLOOD SUGAR PROBLEM HPI HPI Patient is a 56 year old female brought by EMS from home with the complaint of low blood sugar. Patient was not acting right and family members called 911. EMS reported that blood sugar was 23 by fingerstick in the field. She was given IV D50 and on arrival to the ED the patient states she is fine. Patient states that she did take her insulin today but she has not eaten anything today. She's been on insulin about 15 years, she knows that when she takes insulin she is supposed to eat. It's unclear why she didn't eat anything today. She's had no nausea or vomiting, no abdominal pain. She feels constipated, has had no diarrhea. She lives at home with her parents and daughter. She does have food in the house. She has no kidney problems that she is aware of. She does have 2 complaints, #1 is that since yesterday she's had some urinary difficulty and pain. A couple of times yesterday she felt like she wanted to urinate but felt like she couldn't urinate. She ended up getting in the shower and was able to urinate. Also she has had some pain with urination. #2 is that she has some swelling and pain of her right upper eyelid on the medial aspect. PCP Dr. Amalia García Review of Systems Review of Systems Constitutional: Denies fever, she has had chills Eyes: As in history of present illness for right upper eyelid stye HENT: Denies nasal congestion or sore throat [] Respiratory: Denies cough or shortness of breath [] Cardiovascular: Denies chest pain GI: Denies abdominal pain, nausea, vomiting, bloody stools or diarrhea [] : As in history of present illness Musculoskeletal: She had a broken leg about 6 months ago and is really just getting over it. Integument: Denies rash or skin lesions [] Neurologic: Denies headache, focal weakness or sensory changes [] Allergies Allergies Allergies Coded Allergies Type Severity Reaction Last Updated Verified sulfamethoxazole Allergy Intermediate 07/15/14 Yes trimethoprim Allergy Intermediate 07/15/14 Yes Physical Exam Physical Exam Constitutional: Well developed, well nourished, no acute distress, non-toxic appearance. Alert, mentating normally on arrival to ED. HENT: Normocephalic, atraumatic, bilateral external ears normal, oropharynx moist, no oral exudates, nose normal. [] Eyes: Right eye has mild swelling of the upper lid on the medial aspect, appearance consistent with a stye, small amount of discharge. Neck: Normal range of motion, no stridor. [] Cardiovascular:Heart rate regular rhythm, no murmur [] Lungs & Thorax: Bilateral breath sounds clear to auscultation [] Abdomen: Bowel sounds normal, soft, no tenderness, no masses, no pulsatile masses. [] Skin: Warm, dry, no erythema, no rash. [] Extremities: No tenderness, no cyanosis, no clubbing, ROM intact, no edema. [] Neurologic: Alert and oriented X 3, normal motor function, normal sensory function, no focal deficits noted. [] Current Patient Data Vital Signs Vital Signs Date Time Temp Pulse Resp B/P Pulse Ox O2 Delivery O2 Flow Rate FiO2 05/31/16 14:17 97.5 62 13 126/84 100 Room Air 97.5 Lab Values Laboratory Tests Test 05/31/16 14:37 Glucose (Fingerstick) 78mg/dL (70-99) EKG EKG [] Radiology/Procedures Radiology/Procedures [] Course & Med Decision Making Course & Med Decision Making Pertinent Labs and Imaging studies reviewed. (See chart for details) 56-year-old female with a 15 year history of diabetes on insulin resents with hypoglycemia treated with D50 by EMS. She was never fully unresponsive, no report of seizure activity, she was just "out of it" by report at home. The reason for her hypoglycemia is that she took her insulin but did not eat although there is no GI disturbance to blame for that. On arrival to the ED, she was given a sandwich tray and a soda. She was able to eat without difficulty. She also complains of dysuria and urinalysis will be ordered. Also complains of right eye stye and I advised her to use warm compresses on that. I turned over care of the patient to at change of shift, he will check her labs, watch her after she eats, and check her urinalysis. [] Dragon Disclaimer Dragon Disclaimer This electronic medical record was generated, in whole or in part, using a voice recognition dictation system. Departure Departure Impression: Primary Impression: Hypoglycemia associated with diabetes Referrals: YOSELIN GARCÍA MD (PCP) MICHAEL COLLIER MD May 31, 2016 15:01
[2016-05-31 15:12] LABS: BASO % 1 % (0-3); EOS % 1 % (0-3); HEMATOCRIT 42.2 % (36.0-47.0); HEMOGLOBIN 13.5 g/dL (12.0-15.5); LYMPH # 0.7 x10^3/uL (1.0-4.8); LYMPH % 9 % (24-48); MEAN CORPUSCULAR HEMOGLOBIN 25 pg (25-35); MEAN CORPUSCULAR HGB CONC 32 g/dL (31-37); MEAN CORPUSCULAR VOLUME 79 fL (79-100); MONO % 3 % (0-9); NEUT % 87 % (31-73); PLATELET COUNT 182 x10^3/uL (140-400); RED BLOOD COUNT 5.32 x10^6/uL (3.50-5.40); RED CELL DISTRIBUTION WIDTH 14.7 % (11.5-14.5); WHITE BLOOD COUNT 7.6 x10^3/uL (4.0-11.0)
[2016-05-31 15:14] LABS: BILIRUBIN,URINE NEGATIVE (NEG); GLUCOSE,URINE NEGATIVE (NEG); NITRITE,URINE NEGATIVE (NEG); PROTEIN,URINE 100 mg/dL (NEG-TRACE); UROBILINOGEN,URINE 0.2 mg/dL (0.2 mg/dL)
[2016-05-31 15:20] LABS: BACTERIA,URINE FEW /HPF (0-FEW); RBC,URINE OCC /HPF (0-2); SQUAMOUS EPITHELIAL CELL,UR MANY /LPF; WBC,URINE RARE /HPF (0-4)
[2016-05-31 15:25] LABS: CALCIUM 8.9 mg/dL (8.5-10.1); CREATININE 0.9 mg/dL (0.6-1.0); POTASSIUM 3.9 mmol/L (3.5-5.1)
[2016-05-31 15:29] LABS: % BASOS 2 % (0-3)
[2016-05-31 15:31] LABS: ALBUMIN 2.5 g/dL (3.4-5.0); ALBUMIN/GLOBULIN RATIO 0.6 (1.0-1.7); PLT ESTIMATE ADEQUATE (ADEQUATE); TOTAL BILIRUBIN 0.1 mg/dL (0.2-1.0); TOTAL PROTEIN 6.9 g/dL (6.4-8.2)
[2016-05-31] MEDS ORDERED: CIPR500T94 PO (15:54)
[2016-05-31 16:09] VITALS: BP 144/85
[2016-06-09] MEDS ORDERED: PRED50TA PO (17:25)
[2016-06-09] MEDS ORDERED: PROAIR RESPICL90 MCG IH (17:25)
== END 2016-05-31 16:11 | disposition home or self-care (01) ==
LOC: ER 14:17
DX: E11.649 Type 2 diabetes mellitus with hypoglycemia without coma (principal); I11.0 Hypertensive heart disease with heart failure; I50.9 Heart failure, unspecified; Z79.4 Long term (current) use of insulin; Z86.73 Personal history of transient ischemic attack (TIA), and cerebral infarction without residual deficits; Z95.5 Presence of coronary angioplasty implant and graft; Z90.710 Acquired absence of both cervix and uterus; Z88.2 Allergy status to sulfonamides; Z88.8 Allergy status to other drugs, medicaments and biological substances
CPT/HCPCS: 36415; 80053; 81001; 82962; 85007; 85027; 99284

== ENCOUNTER 2016-07-11 08:52 | Outpatient (CLI) | payer MEDICARE ==
[~2016-07-11] VITALS: Ht 166.4 cm; Wt 76.2 kg
[2016-07-11] VITALS (12 sets, daily range): BP systolic 107–141; BP diastolic 67–92
[~2016-07-11 08:52] MED LIST changes: -ASPI-612 PO; +ASPI81TA9 PO; +CIPR500T94 PO; +LEVO500T38 PO; -LEVO500T59 PO; -OXYC5CAP PO; +OXYC5CAP3 PO; +PRED50TA PO; +PROAIR RESPICL90 MCG IH
[2016-07-11 09:30] LABS: HEMATOCRIT 34.6 % (36.0-47.0); HEMOGLOBIN 11.4 g/dL (12.0-15.5); RED BLOOD COUNT 4.45 x10^6/uL (3.50-5.40); RED CELL DISTRIBUTION WIDTH 16.2 % (11.5-14.5); WHITE BLOOD COUNT 6.7 x10^3/uL (4.0-11.0)
[2016-07-11 09:43] LABS: CALCIUM 9.1 mg/dL (8.5-10.1); CREATININE 1.2 mg/dL (0.6-1.0); GFR 56.6; INR 0.9 (0.8-1.1); POTASSIUM 3.9 mmol/L (3.5-5.1); PROTHROMBIN TIME PATIENT 11.8 SEC (11.7-14.0)
[2016-07-11] MEDS ORDERED: QUET200T4 PO (09:57)
[2016-07-11] MEDS ORDERED: POTA20TA4 PO (09:57)
[2016-07-11] MEDS ORDERED: METO5TAB4 PO (09:57)
[2016-07-11] MEDS ORDERED: HYDR-2762 PO (09:57)
[2016-07-11] MEDS ORDERED: CLOP75TA PO (09:57)
[2016-07-11] MEDS ORDERED: AMLO5TAB2 PO (09:57)
[2016-07-11] MEDS ORDERED: NITROGLYCERIN 200 MCG/2 ML SYRINGE FOR CATH/VASC LAB. ONE (10:11)
[2016-07-11] MEDS ORDERED: MIDAZOLAM HCL/PF 5 MG/5 ML VIAL. ONE (10:11)
[2016-07-11] MEDS ORDERED: fentaNYL PF VIAL 100 MCG/2 ML VIAL ONE (10:11)
[2016-07-11] MEDS ORDERED: VERAPAMIL 5 MG/2 ML VIAL. ONE (10:11)
[2016-07-11] MEDS ORDERED: HEPARIN for IV BOLUS 10,000 UNIT/10 ML VIAL. ONE (10:11)
[2016-07-11] MEDS ORDERED: IOHEXOL 300 MG/ML 100ML VIAL. ONE (10:17)
[2016-07-11] MEDS ORDERED: LIDOCAINE 2% 20 ML VIAL. ONE (10:17)
[2016-07-11] MEDS ORDERED: VERAPAMIL 5 MG/2 ML VIAL. IART ONE (10:30)
[2016-07-11] MEDS ORDERED: fentaNYL PF VIAL 100 MCG/2 ML VIAL IV ONE (10:30)
[2016-07-11] MEDS ORDERED: MIDAZOLAM HCL/PF 5 MG/5 ML VIAL. IV ONE (10:30)
[2016-07-11] MEDS ORDERED: IOHEXOL 300 MG/ML 100ML VIAL. IART ONE (10:30)
[2016-07-11] MEDS ORDERED: LIDOCAINE 2% 20 ML VIAL. IJ ONE (10:30)
[2016-07-11] MEDS ORDERED: HEPARIN for IV BOLUS 10,000 UNIT/10 ML VIAL. IART ONE (10:30)
[2016-07-11] MEDS ORDERED: NITROGLYCERIN 200 MCG/2 ML SYRINGE FOR CATH/VASC LAB. IART ONE (10:30)
--- NOTE | 2016-07-11 10:45 | PDOC ---
MODERATE SEDATION ASSESSMENT RISKS/ALTERNATIVES Risks/Alternatives Risks and alternatives of this type of sedation and procedure discussed with: RISK/ALTERNATIVES: Patient H & P ON CHART H & P H & P on chart and reviewed for co-morbid conditions and appropriate labs. H&P ON CHART: Yes STATUS PREG STATUS ASSESSED: N/A MEDS/ALLERGIES REVIEWED Meds/Allergies Reviewed Medications and Allergies including time and route of recently administered narcotics and sedatives. MEDS/ALLERGIES REVIEWED: Yes ASA RATING ASA RATING: II AIRWAY ASSESSMENT Airway Assessment Airway patency, oral function limitations, presence of caps, crowns, dentures, partials, and ability to extend neck assessed. AIRWAY ASSESSMENT: Yes MALLAMPATI SCORE MALLAMPATI SCORE: II PRE-SEDATION ASSESSMENT PRE-SEDATION ASSESSMENT: Yes FEI DAVIS MD July 11, 2016 10:45
[2016-07-11] MEDS ORDERED: IV 1/2 NORMAL SALINE 1,000 ML IV SCH (10:46)
--- NOTE | 2016-07-11 10:52 | CARD ---
APPROVED REPORT Procedure(s) performed: Left Heart Catheterization, selective coronary angiography and left ventricul ography via right transradial approach INDICATION The indication(s) include : unstable angina . PROCEDURE NARRATIVE After explaining the risks, benefits and alternative options, informed consent was obtained from hayley ent. Patient was brought to the cardiac Junior Marketing Associate and right wrist was prepped and draped in the usual fashion after confirming a positive modified Navin's test. Arterial access was obtained in the [facility] radial artery and a 6 Danish sheath was inserted. 6 Danish Mark catheter was used to perform shelly ective angiography of the left and right coronary arteries. 6 Danish pigtail catheter was used to pe rform left ventriculography. Patient tolerated the procedure well. Hemostasis was achieved using TR band. There were no immediate complications. The following findings were noted. FINDINGS 1. Hemodynamics: Left ventricular end-diastolic pressure of 20 mmHg. No pullback gradient across th e aortic valve. 2. Left ventriculography: Normal left ventricle systolic function with ejection fraction estimated at 70%. No significant mitral regurgitation seen. 3. Coronary angiography: a. The left main coronary artery arose from the left sinus of Valsalva, gave rise to the left anteri or descending and left circumflex arteries and did not show any significant stenosis. b. The left anterior descending artery widely patent stent in the midsegment. c. The left circumflex artery did not show any significant stenosis. d. The right coronary artery was a large and dominant vessel arising from the right sinus of Valsalv a that showed 40% stenosis in the mid to distal segment of the posterior descending branch. Conclusion 1. No significant coronary artery disease with widely patent previously placed stent in left anterio r descending artery 2. Normal left ventricle systolic function with ejection fraction estimated at 70% Recommendations Medical Therapy
== END 2016-07-11 13:12 | disposition home or self-care (01) ==
LOC: CCL 08:52
PROVIDERS: ATTEND Internal Medicine Cardiovascular Disease
DX: I20.0 Unstable angina (principal); I25.10 Atherosclerotic heart disease of native coronary artery without angina pectoris; Z86.73 Personal history of transient ischemic attack (TIA), and cerebral infarction without residual deficits; E78.00 Pure hypercholesterolemia, unspecified; I10 Essential (primary) hypertension; J44.9 Chronic obstructive pulmonary disease, unspecified; K21.9 Gastro-esophageal reflux disease without esophagitis; D64.9 Anemia, unspecified; M19.90 Unspecified osteoarthritis, unspecified site; F41.9 Anxiety disorder, unspecified; F32.9 Major depressive disorder, single episode, unspecified; Z90.710 Acquired absence of both cervix and uterus; Z87.01 Personal history of pneumonia (recurrent); Z72.0 Tobacco use
CPT/HCPCS: 36415; 80048; 85027; 85610; 93458; C1769; C1892; J2250; J3010; J3490; Q9967

== ENCOUNTER 2017-11-11 13:09 | Inpatient (IN) | payer MEDICARE ==
[~2017-11-11] VITALS: Ht 165.1 cm; Wt 91.4 kg
[~2017-11-11 13:09] MED LIST changes: +ALPR1TAB6 PO; +AMLO5TAB7 PO; +AMOX1TAB61 PO; +ASPI-612 PO; -ASPI81TA9 PO; +ATOR40TA59 PO; +CARV25TA2 PO; +HYDR-2762 PO; +HYDR25TA9 PO; -LEVO500T38 PO; +LEVO500T59 PO; +METF500T16 PO; +METO5TAB4 PO; +NAPR-514 PO; -NAPR500T3 PO; +OXYC10TA PO; +OXYC5CAP PO; -OXYC5CAP3 PO; +POTA20TA4 PO; +PRED20TA PO; -PROM6.25 PO; +PROM6.257 PO; +QUET200T4 PO
[2017-11-11] MEDS ORDERED: methylPREDNISolone SOD SUCC PF 125 MG/2 ML VIAL. IV ONE (13:15)
[2017-11-11] MEDS ORDERED: IPRATRPIUM/ALBUTEROL 0.5/2.5MG 3 ML NEBU. NEB ONE (13:15)
[2017-11-11 13:43] LABS: BASO % 0 % (0-3); EOS # 0.1 x10^3/uL (0.0-0.7); EOS % 2 % (0-3); HEMATOCRIT 34.5 % (36.0-47.0); HEMOGLOBIN 11.5 g/dL (12.0-15.5); LYMPH # 0.7 x10^3/uL (1.0-4.8); LYMPH % 17 % (24-48); MEAN CORPUSCULAR HEMOGLOBIN 28 pg (25-35); MEAN CORPUSCULAR HGB CONC 33 g/dL (31-37); MEAN CORPUSCULAR VOLUME 83 fL (79-100); MONO # 0.2 x10^3/uL (0.0-1.1); MONO % 5 % (0-9); NEUT # 2.9 x10^3uL (1.8-7.7); NEUT % 76 % (31-73); PLATELET COUNT 180 x10^3/uL (140-400); RED BLOOD COUNT 4.15 x10^6/uL (3.50-5.40); RED CELL DISTRIBUTION WIDTH 13.9 % (11.5-14.5); WHITE BLOOD COUNT 3.8 x10^3/uL (4.0-11.0)
--- NOTE | 2017-11-11 13:55 | RAD ---
Portable chest, 11/11/2017: HISTORY: Shortness of breath Comparison is made to a study from 06/12/2016. The heart is enlarged. The pulmonary vascularity appears congested. There are granulomatous calcifications in the right chest. No acute infiltrate is seen. There is no evidence of pleural fluid. IMPRESSION: Cardiomegaly with mild vascular congestion. Electronically signed by: Parag Munoz MD (11/11/2017 1:52 PM) [facility]
[2017-11-11 13:58] LABS: ALBUMIN/GLOBULIN RATIO 0.5 (1.0-1.7); CALCIUM 8.7 mg/dL (8.5-10.1); CREATININE 1.3 mg/dL (0.6-1.0); GFR 51.5; TOTAL BILIRUBIN 0.2 mg/dL (0.2-1.0); TOTAL PROTEIN 6.1 g/dL (6.4-8.2)
[2017-11-11 14:01] LABS: POTASSIUM 2.7 mmol/L (3.5-5.1)
--- NOTE | 2017-11-11 14:05 | PHYS DOC ---
Past Medical History Past Medical History: CAD, CHF, COPD, Diabetes-Type II, [place], Stroke Additional Past Medical Histor: Enlarged heart Past Surgical History: Angioplasty, Hysterectomy, Other Additional Past Surgical Histo: Broken (SPIRAL) RIGHT LEG; heart stent Alcohol Use: Occasionally Drug Use: Marijuana Adult General Chief Complaint Chief Complaint: DYSPNEA/RESPIRATOY DISTRESS HPI HPI 57-year-old female with a history of COPD and CHF presents with a 24-hour history of progressive shortness of breath. Nebulizer machine broke yesterday and she's not been able to use it and she is concerned that this is what made her worse. Today it got so bad that she called EMS and on EMS arrival her oxygen saturation was 82%. She was then started on CPAP by EMS and seemed to get better. She denied any fever chills or sweats. She's not had any hemoptysis. She denies any significant chest discomfort. She states she is unsure whether or not this is COPD or CHF.[] Review of Systems Review of Systems Constitutional: Denies fever or chills [] Eyes: Denies change in visual acuity, redness, or eye pain [] HENT: Denies nasal congestion or sore throat [] Respiratory: Per history of present illness] Cardiovascular: No additional information not addressed in HPI [] GI: Denies abdominal pain, nausea, vomiting, bloody stools or diarrhea [] : Denies dysuria or hematuria [] Musculoskeletal: Denies back pain or joint pain [] Integument: Denies rash or skin lesions [] Neurologic: Denies headache, focal weakness or sensory changes [] Endocrine: Denies polyuria or polydipsia [] All other systems were reviewed and found to be within normal limits, except as documented in this note. Current Medications Current Medications Current Medications Medications (Trade) Dose Ordered Sig/Grayson Start Time Stop Time Status Last Admin Dose Admin Albuterol/ Ipratropium (Duoneb) 6 ml 1X ONCE 11/11/17 13:15 11/11/17 13:18 DC 11/11/17 13:56 6 ML Methylprednisolone Sodium Succinate (SOLU-Medrol 125MG VIAL) 125 mg 1X ONCE 11/11/17 13:15 11/11/17 13:18 DC 11/11/17 13:35 125 MG Allergies Allergies Allergies Coded Allergies Type Severity Reaction Last Updated Verified sulfamethoxazole Allergy Intermediate 06/09/16 Yes trimethoprim Allergy Intermediate 06/09/16 Yes Physical Exam Physical Exam Constitutional: Well developed, well nourished, moderate distress, non-toxic appearance. [] HENT: Normocephalic, atraumatic, bilateral external ears normal, oropharynx moist, no oral exudates, nose normal. [] Eyes: PERRLA, EOMI, conjunctiva normal, no discharge. [] Neck: Normal range of motion, no tenderness, supple, no stridor. [] Cardiovascular:Heart rate regular rhythm, no murmur [] Lungs & Thorax: Bibasilar rales no wheezes[] Abdomen: Bowel sounds normal, soft, no tenderness, no masses, no pulsatile masses. [] Skin: Warm, dry, no erythema, no rash. [] Back: No tenderness, no CVA tenderness. [] Extremities: No tenderness, no cyanosis, no clubbing, ROM intact, no edema. [] Neurologic: Alert and oriented X 3, normal motor function, normal sensory function, no focal deficits noted. [] Psychologic: Anxious. [] Current Patient Data Vital Signs Vital Signs Date Time Temp Pulse Resp B/P (MAP) Pulse Ox O2 Delivery O2 Flow Rate FiO2 11/11/17 13:58 BiPAP/CPAP 11/11/17 13:27 97.5 87 22 167/94 (118) 95 97.5 Lab Values Laboratory Tests Test 11/11/17 13:35 White Blood Count 3.8 x10^3/uL (4.0-11.0) L Red Blood Count 4.15 x10^6/uL (3.50-5.40) Hemoglobin 11.5 g/dL (12.0-15.5) L Hematocrit 34.5 % (36.0-47.0) L Mean Corpuscular Volume 83 fL (79-100) Mean Corpuscular Hemoglobin 28 pg (25-35) Mean Corpuscular Hemoglobin Concent 33 g/dL (31-37) Red Cell Distribution Width 13.9 % (11.5-14.5) Platelet Count 180 x10^3/uL (140-400) Neutrophils (%) (Auto) 76 % (31-73) H Lymphocytes (%) (Auto) 17 % (24-48) L Monocytes (%) (Auto) 5 % (0-9) Eosinophils (%) (Auto) 2 % (0-3) Basophils (%) (Auto) 0 % (0-3) Neutrophils # (Auto) 2.9 x10^3uL (1.8-7.7) Lymphocytes # (Auto) 0.7 x10^3/uL (1.0-4.8) L Monocytes # (Auto) 0.2 x10^3/uL (0.0-1.1) Eosinophils # (Auto) 0.1 x10^3/uL (0.0-0.7) Basophils # (Auto) 0.0 x10^3/uL (0.0-0.2) Sodium Level 144 mmol/L (136-145) Potassium Level 2.7 mmol/L (3.5-5.1) *L Chloride Level 108 mmol/L (98-107) H Carbon Dioxide Level 26 mmol/L (21-32) Anion Gap 10 (6-14) Blood Urea Nitrogen 28 mg/dL (7-20) H Creatinine 1.3 mg/dL (0.6-1.0) H Estimated GFR (Cockcroft-Gault) 51.5 BUN/Creatinine Ratio 22 (6-20) H Glucose Level 192 mg/dL (70-99) H Calcium Level 8.7 mg/dL (8.5-10.1) Total Bilirubin 0.2 mg/dL (0.2-1.0) Aspartate Amino Transferase (AST) 19 U/L (15-37) Alanine Aminotransferase (ALT) 21 U/L (14-59) Alkaline Phosphatase 136 U/L (46-116) H Troponin I Quantitative 0.062 ng/mL (0.000-0.055) EL-Jyn-I-Type Natriuretic Peptide 3931 pg/mL (0-124) H Total Protein 6.1 g/dL (6.4-8.2) L Albumin 2.0 g/dL (3.4-5.0) L Albumin/Globulin Ratio 0.5 (1.0-1.7) L Laboratory Tests 11/11/17 13:35 Laboratory Tests 11/11/17 13:35 EKG EKG [] Radiology/Procedures Radiology/Procedures [] Impressions: REASON: SOA PROCEDURE: CHEST AP ONLY Portable chest, 11/11/2017: HISTORY: Shortness of breath Comparison is made to a study from 06/12/2016. The heart is enlarged. The pulmonary vascularity appears congested. There are granulomatous calcifications in the right chest. No acute infiltrate is seen. There is no evidence of pleural fluid. IMPRESSION: Cardiomegaly with mild vascular congestion. Course & Med Decision Making Course & Med Decision Making Pertinent Labs and Imaging studies reviewed. (See chart for details) [ED course: Evaluation reveals a 57-year-old female in moderate to severe respiratory distress. She was placed on BiPAP in the emergency department and did improve. She was also given 80 mg of Lasix and 40 mEq of potassium along with 125 Solu-Medrol and rwtt-ke-chmn DuoNeb's. I believe her symptoms are related to a combination of both COPD and CHF. Patient's oxygen saturation improved on BiPAP to the mid 90s and her effort was markedly decreased. I spoke with Dr. Murillo who agreed to admit the patient for further evaluation.] CRITICAL CARE: Time spent was 35 minutes. This includes medical management, evaluation, reevaluation, discussion with consultants and family. Critical Care does NOT include time spent on separately billed procedures. Dragon Disclaimer Dragon Disclaimer This electronic medical record was generated, in whole or in part, using a voice recognition dictation system. Departure Departure Impression: Primary Impression: Acute on chronic diastolic CHF (congestive heart failure) Additional Impressions: COPD exacerbation Hypokalemia Disposition: ADMITTED INPATIENT Admitting Physician: Racheal Murillo Condition: STABLE Referrals: HENNY GARCÍA MD (PCP) Problem Qualifiers ATTILA VIDAL DO Nov 11, 2017 14:05
--- NOTE | 2017-11-11 14:09 | EKG ---
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
[2017-11-11] MEDS ORDERED: POTASSIUM CHLORIDE 20 MEQ TABLET.ER. PO ONE ×2 (14:30→20:00)
[2017-11-11] MEDS ORDERED: FUROSEMIDE 100 MG/10 ML VIAL. IVP ONE (14:30)
[2017-11-11 14:35] LABS: BASE EXCESS ABG -3 mmol/L (-3-3); HCO3 ABG 23 mmol/L (21-28); PCO2 ABG 44 mmHg (35-46); PO2 ABG 105 mmHg (75-108); SAT O2 ABG 97 % (92-99)
[2017-11-11] MEDS ORDERED: QUET100T PO (15:03)
[2017-11-11] MEDS ORDERED: IBUP-1007 PO (15:06)
[2017-11-11] MEDS ORDERED: PROM25TA10 PO (15:08)
[2017-11-11] MEDS ORDERED: BUPR150T6 PO (15:09)
[2017-11-11] MEDS ORDERED: CYCL10TA2 PO (15:12)
[2017-11-11] MEDS: fentaNYL PF VIAL 100 MCG/2 ML VIAL IV PRN ×4 (15:13→23:43)
[2017-11-11] MEDS ORDERED: MAGNESIUM SULFATE 2GM 50 ML IV ONE (15:45)
--- NOTE | 2017-11-11 16:08 | PDOC2 ---
WILIJEREMY Jama CALL TAKER 11/11/17 1608: CARDIAC CONSULT DATE OF CONSULT Date of Consult DATE: 11/11/17 TIME: 15:48 REASON FOR CONSULT Reason for Consult: CHF REFERRING PHYSICIAN Referring Physician: Kishore SOURCE Source: Chart review, Patient HISTORY OF PRESENT ILLNESS HISTORY OF PRESENT ILLNESS 57 year old female admitted through ER with c/o dyspnea starting yesterday and becoming worse today. Was smoking cigars and thinks that is why she got worse. NT-proBNP > 3K with CXR demonstrating mild CHF. ? 21 # weight gain recently with lower extremity edema. + PND and orthopnea as well. Occasional right sided chest pain with normal troponin level in ER and no acute changes in EKG. Reason for Visit: CHF PAST MEDICAL HISTORY Cardiovascular: CAD (PCI/ANISHA to LAD), HTN, [place], Hyperlipidemia Pulmonary: COPD CENTRAL NERVOUS SYSTEM: CVA GI: No pertinent hx Heme/Onc: No pertinent hx Hepatobiliary: No pertinent hx Psych: No pertinent hx Musculoskeletal: No pain Rheumatologic: No pertinent hx Infectious disease: No pertinent hx ENT: No pertinent hx Renal/: No pertinent hx Endocrine: Diabetes PAST SURGICAL HISTORY Past Surgical History: Hysterectomy FAMILY HISTORY Family History: Diabetes, Heart Disease, Hypertension SOCIAL HISTORY Smoke: 2 packs per day (+ cigars) CURRENT MEDICATIONS CURRENT MEDICATIONS Current Medications Medications (Trade) Dose Ordered Sig/Grayson Route PRN Reason Start Time Stop Time Status Last Admin Dose Admin Albuterol/ Ipratropium (Duoneb) 6 ml 1X ONCE NEB 11/11/17 13:15 11/11/17 13:18 DC 11/11/17 13:56 Methylprednisolone Sodium Succinate (SOLU-Medrol 125MG VIAL) 125 mg 1X ONCE IV 11/11/17 13:15 11/11/17 13:18 DC 11/11/17 13:35 Potassium Chloride (Klor-Con) 40 meq 1X ONCE PO 11/11/17 14:30 11/11/17 14:31 DC 11/11/17 15:07 Furosemide (Lasix) 80 mg 1X ONCE IVP 11/11/17 14:30 11/11/17 14:31 DC 11/11/17 15:07 Fentanyl Citrate (Fentanyl 2ml Vial) 50 mcg PRN Q2HR PRN IV PAIN 11/11/17 14:30 11/12/17 14:29 9/12/18 15:13 ALLERGIES ALLERGIES: Coded Allergies: sulfamethoxazole (Verified Allergy, Intermediate, 06/09/16) trimethoprim (Verified Allergy, Intermediate, 06/09/16) ROS Review of System 10 point review with pertinent positives in HPI PHYSICAL EXAM General: Alert, Oriented X3, Cooperative HEENT: Atraumatic Lungs: Clear to auscultation, Other (no crackles posteriorly) Heart: Normal S1, Normal S2, No murmurs Abdomen: Normal bowel sounds, Soft Extremities: No edema, Normal pulses Skin: No rashes Neuro: Normal speech Psych/Mental Status: Mental status NL, Mood NL MUSCULOSKELETAL: No deformity VITALS VITALS Vital Signs Date Time Temp Pulse Resp B/P (MAP) Pulse Ox O2 Delivery O2 Flow Rate FiO2 11/11/17 15:00 72 24 155/90 (111) 98 BiPAP/CPAP 11/11/17 13:27 97.5 97.5 LABS Lab: Laboratory Tests Test 11/11/17 13:35 11/11/17 14:30 White Blood Count 3.8 x10^3/uL (4.0-11.0) Red Blood Count 4.15 x10^6/uL (3.50-5.40) Hemoglobin 11.5 g/dL (12.0-15.5) Hematocrit 34.5 % (36.0-47.0) Mean Corpuscular Volume 83 fL (79-100) Mean Corpuscular Hemoglobin 28 pg (25-35) Mean Corpuscular Hemoglobin Concent 33 g/dL (31-37) Red Cell Distribution Width 13.9 % (11.5-14.5) Platelet Count 180 x10^3/uL (140-400) Neutrophils (%) (Auto) 76 % (31-73) Lymphocytes (%) (Auto) 17 % (24-48) Monocytes (%) (Auto) 5 % (0-9) Eosinophils (%) (Auto) 2 % (0-3) Basophils (%) (Auto) 0 % (0-3) Neutrophils # (Auto) 2.9 x10^3uL (1.8-7.7) Lymphocytes # (Auto) 0.7 x10^3/uL (1.0-4.8) Monocytes # (Auto) 0.2 x10^3/uL (0.0-1.1) Eosinophils # (Auto) 0.1 x10^3/uL (0.0-0.7) Basophils # (Auto) 0.0 x10^3/uL (0.0-0.2) Sodium Level 144 mmol/L (136-145) Potassium Level 2.7 mmol/L (3.5-5.1) Chloride Level 108 mmol/L (98-107) Carbon Dioxide Level 26 mmol/L (21-32) Anion Gap 10 (6-14) Blood Urea Nitrogen 28 mg/dL (7-20) Creatinine 1.3 mg/dL (0.6-1.0) Estimated GFR (Cockcroft-Gault) 51.5 BUN/Creatinine Ratio 22 (6-20) Glucose Level 192 mg/dL (70-99) Calcium Level 8.7 mg/dL (8.5-10.1) Magnesium Level 1.7 mg/dL (1.8-2.4) Total Bilirubin 0.2 mg/dL (0.2-1.0) Aspartate Amino Transf (AST/SGOT) 19 U/L (15-37) Alanine Aminotransferase (ALT/SGPT) 21 U/L (14-59) Alkaline Phosphatase 136 U/L (46-116) Troponin I Quantitative 0.062 ng/mL (0.000-0.055) VX-Kqs-M-Type Natriuretic Peptide 3931 pg/mL (0-124) Total Protein 6.1 g/dL (6.4-8.2) Albumin 2.0 g/dL (3.4-5.0) Albumin/Globulin Ratio 0.5 (1.0-1.7) Thyroid Stimulating Hormone (TSH) 2.102 uIU/mL (0.358-3.74) O2 Saturation 97 % (92-99) Arterial Blood pH 7.34 (7.35-7.45) Arterial Blood pCO2 at Patient Temp 44 mmHg (35-46) Arterial Blood pO2 at Patient Temp 105 mmHg (75-108) Arterial Blood HCO3 23 mmol/L (21-28) Arterial Blood Base Excess -3 mmol/L (-3-3) FiO2 40.0 IMAGES IMAGES mild CHF EKG EKG no acute changes ECHOCARDIOGRAM ECHOCARDIOGRAM 04/2016: TTE: Left ventricle systolic function is normal. The Ejection Fraction is 50-55%. There is normal LV segmental wall motion. There is borderline to mild concentric left ventricular hypertrophy. Doppler and Color Flow revealed moderate tricuspid regurgitation.There is moderate pulmonary hypertension.The PA pressure was estimated at 65 mmHg. The IVC is dilated and collapses <50% with inspiration consistent with volume overload. There is a trace pericardial effusion. HEART CATH HEART CATH 06/2016: FINDINGS 1. Hemodynamics: Left ventricular end-diastolic pressure of 20 mmHg. No pullback gradient across the aortic valve. 2. Left ventriculography: Normal left ventricle systolic function with ejection fraction estimated at 70%. No significant mitral regurgitation seen. 3. Coronary angiography: a. The left main coronary artery arose from the left sinus of Valsalva, gave rise to the left anterior descending and left circumflex arteries and did not show any significant stenosis. b. The left anterior descending artery widely patent stent in the midsegment. c. The left circumflex artery did not show any significant stenosis. d. The right coronary artery was a large and dominant vessel arising from the right sinus of Valsalva that showed 40% stenosis in the mid to distal segment of the posterior descending branch. Conclusion 1. No significant coronary artery disease with widely patent previously placed stent in left anterior descending artery 2. Normal left ventricle systolic function with ejection fraction estimated at 70% ASSESSMENT/PLAN ASSESSMENT/PLAN 1. acute on chronic diastolic HF --LVEF preserved 04/2016; repeat echo tomorrow to re-evaluate --IV diuretics --suspect symptoms exacerbated by recent diagnosis of COPD 2. COPD --recent diagnosis by PCP --may benefit from pulm evaluation 3. hypokalemia and hypomagnesemia --both to repleted --re-evaluation in a.m 4. HTN --continue home meds 5. HLD --continue statin therapy 5. CAD --atypical CP --treated with DAPT & asking about d/c plavix; will need to research date of last stent implant --continue secondary prevention 6. DM, II --per primary service FEI DAVIS MD 11/11/17 1633: CARDIAC CONSULT ASSESSMENT/PLAN ASSESSMENT/PLAN Patient seen and examined. Agree with GRANULATING BLENDER's assessment and plan. Acute respiratory failure probably secondary to combination of acute on chronic diastolic heart failure and acute COPD exacerbation Symptoms improved with diuresis Check 2-D echo to assess LV systolic function Chest pain with atypical features CAD status clinically stable Replace potassium and magnesium levels Thank you for your consultation JEREMY RASHEED APRN Nov 11, 2017 16:08 FEI DAVIS MD Nov 11, 2017 16:33
[2017-11-11] MEDS: IPRATRPIUM/ALBUTEROL 0.5/2.5MG 3 ML NEBU. NEB SCH ×2 (16:19→20:00)
[2017-11-11] MEDS ORDERED: INSU100I13 SQ (16:42)
[2017-11-11 19:00] VITALS: BP 144/104
[2017-11-11] MEDS ORDERED: DEXTROSE 50% 25 GM / 50ML DISP.SYRIN. IV PRN (21:15)
[2017-11-11] MEDS: methylPREDNISolone SOD SUCC PF 40 MG/ML VIAL. IV SCH (21:26)
[2017-11-11] MEDS: ATORVASTATIN CALCIUM 40 MG TABLET. PO SCH (21:27)
[2017-11-11] MEDS: cloNIDine HCL 0.1 MG TABLET PO SCH (21:30)
[2017-11-11] MEDS ORDERED: PROMETHAZINE 12.5 MG TABLET. PO PRN (21:30)
[2017-11-11] MEDS ORDERED: INSULIN LISPRO 300 UNITS/3 ML INSULN.PEN. SQ ONE (21:30)
[2017-11-11] MEDS: INSULIN GLARGINE 300 UNITS/3 ML INSULN.PEN. SQ SCH (21:31)
[2017-11-11] MEDS: CYCLOBENZAPRINE 10 MG TABLET. PO SCH (21:32)
[2017-11-11] MEDS: QUEtiapine 100 MG TABLET. PO SCH (21:32)
[2017-11-11 23:00] VITALS: BP 183/110
[2017-11-12] MEDS ORDERED: METOPROLOL TART IMMED RELEASE 50 MG TABLET. PO ONE (01:00)
[2017-11-12] MEDS ORDERED: METOPROLOL TART IMMED RELEASE 50 MG TABLET. PO SCH (01:00)
--- NOTE | 2017-11-12 01:30 | HP ---
ADMIT DATE: 11/11/2017 CHIEF COMPLAINT: Shortness of breath and cough. HISTORY OF PRESENT ILLNESS: The patient is a pleasant 57-year-old female who I admitted several times in the past. She keeps telling me she has quit smoking, but then when she comes back in, she states she never could quite quit. We have been trying to help her. Now, she is smoking cigars. Again, she presents with shortness of breath and cough. Chest x-ray is showing vascular congestion. She also has COPD exacerbation. I have discussed the case with ER physician. We are going to admit the patient and consult Cardiology and Pulmonary. PAST MEDICAL HISTORY: Continued tobacco abuse, CAD, noncompliance, hyperlipidemia, myocardial infarction, hypertension, CAD drug-eluting stent, stroke, diabetes. ALLERGIES: BACTRIM. FAMILY HISTORY: Diabetes. SOCIAL HISTORY: She smokes. Drinks socially. No drugs. MEDICATIONS: Reviewed, please refer to the MRAD. REVIEW OF SYSTEMS: GENERAL: No history of weight change, weakness or fevers. SKIN: No bruising, hair changes or rashes. EYES: No blurred, double or loss of vision. NOSE AND THROAT: No history of nosebleeds, hoarseness or sore throat. HEART: No history of palpitations, chest pain or shortness of breath on exertion. LUNGS: She complains of shortness of breath and cough. GASTROINTESTINAL: Denies changes in appetite, nausea, vomiting, diarrhea or constipation. GENITOURINARY: No history of frequency, urgency, hesitancy or nocturia. NEUROLOGIC: Denies history of numbness, tingling, tremor or weakness. PSYCHIATRIC: No history of panic, anxiety or depression. ENDOCRINE: No history of heat or cold intolerance, polyuria or polydipsia. EXTREMITIES: Denies muscle weakness, joint pain, pain on walking or stiffness. PHYSICAL EXAMINATION: VITAL SIGNS: Temperature afebrile, pulse 80, respirations 20, blood pressure 144/104. GENERAL: She is alert, cooperative. HEART: Tachycardic, S1, S2 with a soft S3. LUNGS: Coarse. ABDOMEN: Soft. EXTREMITIES: Trace edema. SKIN: No rashes. ENDOCRINE: No thyromegaly. LYMPHATICS: No cervical nodes. HEMATOPOIETIC: No bruising. LABORATORY DATA: White count 3.8, hemoglobin 11.5. Electrolytes are pending. Troponin is 0.05. Chest x-ray shows vascular congestion and cardiomegaly. ASSESSMENT AND PLAN: Acute on chronic systolic and diastolic heart failure, cardiomegaly and chronic obstructive pulmonary disease exacerbation and overall respiratory failure. The patient is being admitted. We will start IV Lasix, DuoNeb, IV steroids, O2 per nasal cannula, p.r.n. BiPAP. Continue home meds, cigarette cessation education and I did talk to her about this, frequent labs. PROGNOSIS: Guarded. VIMAL FERNÁNDEZ DO DR: BHUMI/kim JOB#: [id number] / [id number]
[2017-11-12] MEDS: fentaNYL PF VIAL 100 MCG/2 ML VIAL IV PRN ×3 (02:51→12:28)
[2017-11-12 03:02] VITALS: BP 150/89
[2017-11-12 06:01] LABS: CALCIUM 8.6 mg/dL (8.5-10.1); CREATININE 1.4 mg/dL (0.6-1.0); GFR 47.2; MAGNESIUM 2.1 mg/dL (1.8-2.4); POTASSIUM 3.1 mmol/L (3.5-5.1)
[2017-11-12 06:03] LABS: CHOLESTEROL/HDL RATIO 2.4
[2017-11-12 07:00] VITALS: BP 142/98
[2017-11-12] MEDS: IPRATRPIUM/ALBUTEROL 0.5/2.5MG 3 ML NEBU. NEB SCH ×3 (07:54→19:30)
[2017-11-12] MEDS ORDERED: POTASSIUM CHLORIDE 20 MEQ TABLET.ER. PO ONE ×2 (08:00→13:00)
[2017-11-12] MEDS: INSULIN LISPRO 300 UNITS/3 ML INSULN.PEN. SQ SCH ×4 (08:18→22:02)
[2017-11-12] MEDS: CARVEDILOL 12.5 MG TABLET. PO SCH ×2 (08:22→16:30)
[2017-11-12] MEDS: methylPREDNISolone SOD SUCC PF 40 MG/ML VIAL. IV SCH ×2 (08:23→21:52)
[2017-11-12] MEDS: cloNIDine HCL 0.1 MG TABLET PO SCH ×3 (08:24→21:52)
[2017-11-12] MEDS: CYCLOBENZAPRINE 10 MG TABLET. PO SCH ×3 (08:24→21:00)
[2017-11-12] MEDS: CLOPIDOGREL BISULFATE 75 MG TABLET PO SCH (08:25)
[2017-11-12] MEDS: QUEtiapine 100 MG TABLET. PO SCH ×3 (08:27→21:00)
[2017-11-12] MEDS: LISINOPRIL 20 MG TABLET PO SCH (08:27)
[2017-11-12] MEDS: buPROPion XL 150 MG TAB.ER.24H. PO SCH (08:27)
[2017-11-12] MEDS: metOLazone 2.5 MG TABLET PO SCH (08:28)
[2017-11-12] MEDS ORDERED: hydroCHLOROthiazide 25 MG TABLET PO SCH (09:00)
[2017-11-12 11:00] VITALS: BP 155/99
[2017-11-12] MEDS ORDERED: FUROSEMIDE 40 MG TABLET. PO ONE (11:15)
--- NOTE | 2017-11-12 11:17 | PDOC ---
ERMA CASTRO LEASE ANALYST 11/12/17 1117: CARDIO Progress Notes Date and Time Date of Service 11/12/2017 Time of Evaluation 1040 Subjective Subjective: No Chest Pain, No Palpitations, No Dizziness, Other (SOA better) Vitals Vitals Vital Signs Date Time Temp Pulse Resp B/P (MAP) Pulse Ox O2 Delivery O2 Flow Rate FiO2 11/12/17 08:27 71 149/98 11/12/17 07:55 Room Air 11/12/17 07:00 97.4 20 100 97.4 Weight Weight [ ] Input and Output Intake and Output Intake and Output 11/12/17 07:00 Intake Total 2030 ml Balance 2030 ml Intake Oral 1980 ml IV Total 50 ml # Voids 2 Laboratory Labs Laboratory Tests Test 11/11/17 13:35 11/11/17 14:30 11/11/17 17:16 11/11/17 17:20 White Blood Count 3.8 x10^3/uL (4.0-11.0) Red Blood Count 4.15 x10^6/uL (3.50-5.40) Hemoglobin 11.5 g/dL (12.0-15.5) Hematocrit 34.5 % (36.0-47.0) Mean Corpuscular Volume 83 fL (79-100) Mean Corpuscular Hemoglobin 28 pg (25-35) Mean Corpuscular Hemoglobin Concent 33 g/dL (31-37) Red Cell Distribution Width 13.9 % (11.5-14.5) Platelet Count 180 x10^3/uL (140-400) Neutrophils (%) (Auto) 76 % (31-73) Lymphocytes (%) (Auto) 17 % (24-48) Monocytes (%) (Auto) 5 % (0-9) Eosinophils (%) (Auto) 2 % (0-3) Basophils (%) (Auto) 0 % (0-3) Neutrophils # (Auto) 2.9 x10^3uL (1.8-7.7) Lymphocytes # (Auto) 0.7 x10^3/uL (1.0-4.8) Monocytes # (Auto) 0.2 x10^3/uL (0.0-1.1) Eosinophils # (Auto) 0.1 x10^3/uL (0.0-0.7) Basophils # (Auto) 0.0 x10^3/uL (0.0-0.2) Sodium Level 144 mmol/L (136-145) Potassium Level 2.7 mmol/L (3.5-5.1) Chloride Level 108 mmol/L (98-107) Carbon Dioxide Level 26 mmol/L (21-32) Anion Gap 10 (6-14) Blood Urea Nitrogen 28 mg/dL (7-20) Creatinine 1.3 mg/dL (0.6-1.0) Estimated GFR (Cockcroft-Gault) 51.5 BUN/Creatinine Ratio 22 (6-20) Glucose Level 192 mg/dL (70-99) Calcium Level 8.7 mg/dL (8.5-10.1) Magnesium Level 1.7 mg/dL (1.8-2.4) Total Bilirubin 0.2 mg/dL (0.2-1.0) Aspartate Amino Transf (AST/SGOT) 19 U/L (15-37) Alanine Aminotransferase (ALT/SGPT) 21 U/L (14-59) Alkaline Phosphatase 136 U/L (46-116) Troponin I Quantitative 0.062 ng/mL (0.000-0.055) 0.055 ng/mL (0.000-0.055) LQ-Eiz-L-Type Natriuretic Peptide 3931 pg/mL (0-124) Total Protein 6.1 g/dL (6.4-8.2) Albumin 2.0 g/dL (3.4-5.0) Albumin/Globulin Ratio 0.5 (1.0-1.7) Thyroid Stimulating Hormone (TSH) 2.102 uIU/mL (0.358-3.74) O2 Saturation 97 % (92-99) Arterial Blood pH 7.34 (7.35-7.45) Arterial Blood pCO2 at Patient Temp 44 mmHg (35-46) Arterial Blood pO2 at Patient Temp 105 mmHg (75-108) Arterial Blood HCO3 23 mmol/L (21-28) Arterial Blood Base Excess -3 mmol/L (-3-3) FiO2 40.0 Glucose (Fingerstick) 111 mg/dL (70-99) Test 11/11/17 20:30 11/11/17 20:35 11/12/17 04:05 11/12/17 07:30 Troponin I Quantitative 0.023 ng/mL (0.000-0.055) Glucose (Fingerstick) 392 mg/dL (70-99) 294 mg/dL (70-99) Sodium Level 135 mmol/L (136-145) Potassium Level 3.1 mmol/L (3.5-5.1) Chloride Level 98 mmol/L (98-107) Carbon Dioxide Level 24 mmol/L (21-32) Anion Gap 13 (6-14) Blood Urea Nitrogen 28 mg/dL (7-20) Creatinine 1.4 mg/dL (0.6-1.0) Estimated GFR (Cockcroft-Gault) 47.2 Glucose Level 399 mg/dL (70-99) Calcium Level 8.6 mg/dL (8.5-10.1) Magnesium Level 2.1 mg/dL (1.8-2.4) Triglycerides Level 94 mg/dL (0-150) Cholesterol Level 254 mg/dL (0-200) LDL Cholesterol, Calculated 129 mg/dL (0-100) VLDL Cholesterol, Calculated 19 mg/dL (0-40) Non-HDL Cholesterol Calculated 148 mg/dL (0-129) HDL Cholesterol 106 mg/dL (40-60) Cholesterol/HDL Ratio 2.4 Physical Exam HEENT: Neck Supple W Full Motion Chest: Symmetric LUNGS: Other (faint basilar crackles) Heart: RRR (SR) Abdomen: Soft N/T Extremities: No Edema, No Calf Tenderness Neurology: alert, oriented, follow commands Assessment Assessment 1. Acute on chronic diastolic CHF: induced by uncontrolled HTN/DM, ETOH abuse and diet noncompliance. 2. COPD with continued tobaccoism 3. Hypokalemia and hypomagnesemia 4. HTN: improved 5. HLD: not on goal 6. CAD: clinically stable. Recent C 06/2016 with patent LAD stent 7. DM2: BG uncontrolled per PCP and noncompliant with diet. 8. Hx of CVA 9. ETOH abuse: (2 beer, 2 glasses of wine and gin at times daily) Recommendations 1. Continue with ASA and plavix. 2. Discussed treatment compliance. Continue secondary prevention measures. 3. Replaced K. TTE pending 4. Smoking cessation. Decrease ETOH ingestion. 5. Continue lasix therapy. Dietitian consult 6. Noted with 198/110 at home, Discussed home BP daily monitoring and parameters. PASNOORI,FEI R MD 11/12/17 1614: CARDIO Progress Notes Assessment Assessment Patient seen and examined. Agree with [employer]'s assessment and plan. Acute on chronic diastolic heart failure better compensated with diuresis 2-D echo showed normal LV function without any wall motion abnormalities Continue current medical regimen ERMA CASTRO APRN Nov 12, 2017 11:17 FEI DAVIS MD Nov 12, 2017 16:14
--- NOTE | 2017-11-12 11:30 | PDOC ---
PROGRESS NOTES History of Present Illness History of Present Illness ASSESSMENT AND PLAN: Acute on chronic systolic and diastolic heart failure, cardiomegaly chronic obstructive pulmonary disease exacerbation respiratory failure. hypokalemia plan admitted. replace k IV Lasix, DuoNeb, IV steroids, O2 support BiPAP. cigarette cessation education done cardiology consult pulm consult. Vitals Vitals Vital Signs Date Time Temp Pulse Resp B/P (MAP) Pulse Ox O2 Delivery O2 Flow Rate FiO2 11/12/17 08:27 71 149/98 11/12/17 07:55 Room Air 11/12/17 07:00 97.4 20 100 97.4 Physical Exam General: Alert, Oriented X3, Cooperative, mild distress Heart: Normal S1, Normal S2, No murmurs Lungs: Clear, Other Abdomen: Normal bowel sounds, Soft Extremities: No cyanosis, No edema, Normal pulses Skin: No rashes Labs LABS Portable chest, 11/11/2017: HISTORY: Shortness of breath Comparison is made to a study from 06/12/2016. The heart is enlarged. The pulmonary vascularity appears congested. There are granulomatous calcifications in the right chest. No acute infiltrate is seen. There is no evidence of pleural fluid. IMPRESSION: Cardiomegaly with mild vascular congestion. Electronically signed by: Parag Munoz MD (11/11/2017 1:52 PM) [facility] Laboratory Tests Test 11/11/17 13:35 11/11/17 14:30 11/11/17 17:16 11/11/17 17:20 White Blood Count 3.8 x10^3/uL (4.0-11.0) Red Blood Count 4.15 x10^6/uL (3.50-5.40) Hemoglobin 11.5 g/dL (12.0-15.5) Hematocrit 34.5 % (36.0-47.0) Mean Corpuscular Volume 83 fL (79-100) Mean Corpuscular Hemoglobin 28 pg (25-35) Mean Corpuscular Hemoglobin Concent 33 g/dL (31-37) Red Cell Distribution Width 13.9 % (11.5-14.5) Platelet Count 180 x10^3/uL (140-400) Neutrophils (%) (Auto) 76 % (31-73) Lymphocytes (%) (Auto) 17 % (24-48) Monocytes (%) (Auto) 5 % (0-9) Eosinophils (%) (Auto) 2 % (0-3) Basophils (%) (Auto) 0 % (0-3) Neutrophils # (Auto) 2.9 x10^3uL (1.8-7.7) Lymphocytes # (Auto) 0.7 x10^3/uL (1.0-4.8) Monocytes # (Auto) 0.2 x10^3/uL (0.0-1.1) Eosinophils # (Auto) 0.1 x10^3/uL (0.0-0.7) Basophils # (Auto) 0.0 x10^3/uL (0.0-0.2) Sodium Level 144 mmol/L (136-145) Potassium Level 2.7 mmol/L (3.5-5.1) Chloride Level 108 mmol/L (98-107) Carbon Dioxide Level 26 mmol/L (21-32) Anion Gap 10 (6-14) Blood Urea Nitrogen 28 mg/dL (7-20) Creatinine 1.3 mg/dL (0.6-1.0) Estimated GFR (Cockcroft-Gault) 51.5 BUN/Creatinine Ratio 22 (6-20) Glucose Level 192 mg/dL (70-99) Calcium Level 8.7 mg/dL (8.5-10.1) Magnesium Level 1.7 mg/dL (1.8-2.4) Total Bilirubin 0.2 mg/dL (0.2-1.0) Aspartate Amino Transf (AST/SGOT) 19 U/L (15-37) Alanine Aminotransferase (ALT/SGPT) 21 U/L (14-59) Alkaline Phosphatase 136 U/L (46-116) Troponin I Quantitative 0.062 ng/mL (0.000-0.055) 0.055 ng/mL (0.000-0.055) HI-Xsz-J-Type Natriuretic Peptide 3931 pg/mL (0-124) Total Protein 6.1 g/dL (6.4-8.2) Albumin 2.0 g/dL (3.4-5.0) Albumin/Globulin Ratio 0.5 (1.0-1.7) Thyroid Stimulating Hormone (TSH) 2.102 uIU/mL (0.358-3.74) O2 Saturation 97 % (92-99) Arterial Blood pH 7.34 (7.35-7.45) Arterial Blood pCO2 at Patient Temp 44 mmHg (35-46) Arterial Blood pO2 at Patient Temp 105 mmHg (75-108) Arterial Blood HCO3 23 mmol/L (21-28) Arterial Blood Base Excess -3 mmol/L (-3-3) FiO2 40.0 Glucose (Fingerstick) 111 mg/dL (70-99) Test 11/11/17 20:30 11/11/17 20:35 11/12/17 04:05 11/12/17 07:30 Troponin I Quantitative 0.023 ng/mL (0.000-0.055) Glucose (Fingerstick) 392 mg/dL (70-99) 294 mg/dL (70-99) Sodium Level 135 mmol/L (136-145) Potassium Level 3.1 mmol/L (3.5-5.1) Chloride Level 98 mmol/L (98-107) Carbon Dioxide Level 24 mmol/L (21-32) Anion Gap 13 (6-14) Blood Urea Nitrogen 28 mg/dL (7-20) Creatinine 1.4 mg/dL (0.6-1.0) Estimated GFR (Cockcroft-Gault) 47.2 Glucose Level 399 mg/dL (70-99) Calcium Level 8.6 mg/dL (8.5-10.1) Magnesium Level 2.1 mg/dL (1.8-2.4) Triglycerides Level 94 mg/dL (0-150) Cholesterol Level 254 mg/dL (0-200) LDL Cholesterol, Calculated 129 mg/dL (0-100) VLDL Cholesterol, Calculated 19 mg/dL (0-40) Non-HDL Cholesterol Calculated 148 mg/dL (0-129) HDL Cholesterol 106 mg/dL (40-60) Cholesterol/HDL Ratio 2.4 Assessment and Plan Assessmemt and Plan Problems Medical Problems: (1) Acute on chronic diastolic CHF (congestive heart failure) Status: Acute (2) COPD exacerbation Status: Acute (3) Hypokalemia Status: Acute Comment Review of Relevant I have reviewed the following items lilliana (where applicable) has been applied. Labs Laboratory Tests Test 11/11/17 13:35 11/11/17 14:30 11/11/17 17:16 11/11/17 17:20 White Blood Count 3.8 x10^3/uL (4.0-11.0) Red Blood Count 4.15 x10^6/uL (3.50-5.40) Hemoglobin 11.5 g/dL (12.0-15.5) Hematocrit 34.5 % (36.0-47.0) Mean Corpuscular Volume 83 fL (79-100) Mean Corpuscular Hemoglobin 28 pg (25-35) Mean Corpuscular Hemoglobin Concent 33 g/dL (31-37) Red Cell Distribution Width 13.9 % (11.5-14.5) Platelet Count 180 x10^3/uL (140-400) Neutrophils (%) (Auto) 76 % (31-73) Lymphocytes (%) (Auto) 17 % (24-48) Monocytes (%) (Auto) 5 % (0-9) Eosinophils (%) (Auto) 2 % (0-3) Basophils (%) (Auto) 0 % (0-3) Neutrophils # (Auto) 2.9 x10^3uL (1.8-7.7) Lymphocytes # (Auto) 0.7 x10^3/uL (1.0-4.8) Monocytes # (Auto) 0.2 x10^3/uL (0.0-1.1) Eosinophils # (Auto) 0.1 x10^3/uL (0.0-0.7) Basophils # (Auto) 0.0 x10^3/uL (0.0-0.2) Sodium Level 144 mmol/L (136-145) Potassium Level 2.7 mmol/L (3.5-5.1) Chloride Level 108 mmol/L (98-107) Carbon Dioxide Level 26 mmol/L (21-32) Anion Gap 10 (6-14) Blood Urea Nitrogen 28 mg/dL (7-20) Creatinine 1.3 mg/dL (0.6-1.0) Estimated GFR (Cockcroft-Gault) 51.5 BUN/Creatinine Ratio 22 (6-20) Glucose Level 192 mg/dL (70-99) Calcium Level 8.7 mg/dL (8.5-10.1) Magnesium Level 1.7 mg/dL (1.8-2.4) Total Bilirubin 0.2 mg/dL (0.2-1.0) Aspartate Amino Transf (AST/SGOT) 19 U/L (15-37) Alanine Aminotransferase (ALT/SGPT) 21 U/L (14-59) Alkaline Phosphatase 136 U/L (46-116) Troponin I Quantitative 0.062 ng/mL (0.000-0.055) 0.055 ng/mL (0.000-0.055) YG-Uqj-P-Type Natriuretic Peptide 3931 pg/mL (0-124) Total Protein 6.1 g/dL (6.4-8.2) Albumin 2.0 g/dL (3.4-5.0) Albumin/Globulin Ratio 0.5 (1.0-1.7) Thyroid Stimulating Hormone (TSH) 2.102 uIU/mL (0.358-3.74) O2 Saturation 97 % (92-99) Arterial Blood pH 7.34 (7.35-7.45) Arterial Blood pCO2 at Patient Temp 44 mmHg (35-46) Arterial Blood pO2 at Patient Temp 105 mmHg (75-108) Arterial Blood HCO3 23 mmol/L (21-28) Arterial Blood Base Excess -3 mmol/L (-3-3) FiO2 40.0 Glucose (Fingerstick) 111 mg/dL (70-99) Test 11/11/17 20:30 11/11/17 20:35 11/12/17 04:05 11/12/17 07:30 Troponin I Quantitative 0.023 ng/mL (0.000-0.055) Glucose (Fingerstick) 392 mg/dL (70-99) 294 mg/dL (70-99) Sodium Level 135 mmol/L (136-145) Potassium Level 3.1 mmol/L (3.5-5.1) Chloride Level 98 mmol/L (98-107) Carbon Dioxide Level 24 mmol/L (21-32) Anion Gap 13 (6-14) Blood Urea Nitrogen 28 mg/dL (7-20) Creatinine 1.4 mg/dL (0.6-1.0) Estimated GFR (Cockcroft-Gault) 47.2 Glucose Level 399 mg/dL (70-99) Calcium Level 8.6 mg/dL (8.5-10.1) Magnesium Level 2.1 mg/dL (1.8-2.4) Triglycerides Level 94 mg/dL (0-150) Cholesterol Level 254 mg/dL (0-200) LDL Cholesterol, Calculated 129 mg/dL (0-100) VLDL Cholesterol, Calculated 19 mg/dL (0-40) Non-HDL Cholesterol Calculated 148 mg/dL (0-129) HDL Cholesterol 106 mg/dL (40-60) Cholesterol/HDL Ratio 2.4 Laboratory Tests Test 11/11/17 13:35 11/11/17 14:30 11/11/17 17:16 11/11/17 17:20 White Blood Count 3.8 x10^3/uL (4.0-11.0) Red Blood Count 4.15 x10^6/uL (3.50-5.40) Hemoglobin 11.5 g/dL (12.0-15.5) Hematocrit 34.5 % (36.0-47.0) Mean Corpuscular Volume 83 fL (79-100) Mean Corpuscular Hemoglobin 28 pg (25-35) Mean Corpuscular Hemoglobin Concent 33 g/dL (31-37) Red Cell Distribution Width 13.9 % (11.5-14.5) Platelet Count 180 x10^3/uL (140-400) Neutrophils (%) (Auto) 76 % (31-73) Lymphocytes (%) (Auto) 17 % (24-48) Monocytes (%) (Auto) 5 % (0-9) Eosinophils (%) (Auto) 2 % (0-3) Basophils (%) (Auto) 0 % (0-3) Neutrophils # (Auto) 2.9 x10^3uL (1.8-7.7) Lymphocytes # (Auto) 0.7 x10^3/uL (1.0-4.8) Monocytes # (Auto) 0.2 x10^3/uL (0.0-1.1) Eosinophils # (Auto) 0.1 x10^3/uL (0.0-0.7) Basophils # (Auto) 0.0 x10^3/uL (0.0-0.2) Sodium Level 144 mmol/L (136-145) Potassium Level 2.7 mmol/L (3.5-5.1) Chloride Level 108 mmol/L (98-107) Carbon Dioxide Level 26 mmol/L (21-32) Anion Gap 10 (6-14) Blood Urea Nitrogen 28 mg/dL (7-20) Creatinine 1.3 mg/dL (0.6-1.0) Estimated GFR (Cockcroft-Gault) 51.5 BUN/Creatinine Ratio 22 (6-20) Glucose Level 192 mg/dL (70-99) Calcium Level 8.7 mg/dL (8.5-10.1) Magnesium Level 1.7 mg/dL (1.8-2.4) Total Bilirubin 0.2 mg/dL (0.2-1.0) Aspartate Amino Transf (AST/SGOT) 19 U/L (15-37) Alanine Aminotransferase (ALT/SGPT) 21 U/L (14-59) Alkaline Phosphatase 136 U/L (46-116) Troponin I Quantitative 0.062 ng/mL (0.000-0.055) 0.055 ng/mL (0.000-0.055) TX-Fxm-N-Type Natriuretic Peptide 3931 pg/mL (0-124) Total Protein 6.1 g/dL (6.4-8.2) Albumin 2.0 g/dL (3.4-5.0) Albumin/Globulin Ratio 0.5 (1.0-1.7) Thyroid Stimulating Hormone (TSH) 2.102 uIU/mL (0.358-3.74) O2 Saturation 97 % (92-99) Arterial Blood pH 7.34 (7.35-7.45) Arterial Blood pCO2 at Patient Temp 44 mmHg (35-46) Arterial Blood pO2 at Patient Temp 105 mmHg (75-108) Arterial Blood HCO3 23 mmol/L (21-28) Arterial Blood Base Excess -3 mmol/L (-3-3) FiO2 40.0 Glucose (Fingerstick) 111 mg/dL (70-99) Test 11/11/17 20:30 11/11/17 20:35 11/12/17 04:05 11/12/17 07:30 Troponin I Quantitative 0.023 ng/mL (0.000-0.055) Glucose (Fingerstick) 392 mg/dL (70-99) 294 mg/dL (70-99) Sodium Level 135 mmol/L (136-145) Potassium Level 3.1 mmol/L (3.5-5.1) Chloride Level 98 mmol/L (98-107) Carbon Dioxide Level 24 mmol/L (21-32) Anion Gap 13 (6-14) Blood Urea Nitrogen 28 mg/dL (7-20) Creatinine 1.4 mg/dL (0.6-1.0) Estimated GFR (Cockcroft-Gault) 47.2 Glucose Level 399 mg/dL (70-99) Calcium Level 8.6 mg/dL (8.5-10.1) Magnesium Level 2.1 mg/dL (1.8-2.4) Triglycerides Level 94 mg/dL (0-150) Cholesterol Level 254 mg/dL (0-200) LDL Cholesterol, Calculated 129 mg/dL (0-100) VLDL Cholesterol, Calculated 19 mg/dL (0-40) Non-HDL Cholesterol Calculated 148 mg/dL (0-129) HDL Cholesterol 106 mg/dL (40-60) Cholesterol/HDL Ratio 2.4 Medications Current Medications Albuterol/ Ipratropium (Duoneb) 6 ml 1X ONCE NEB Last administered on at 13:56; Start 11/11/17 at 13:15; Stop 11/11/17 at 13:18; Status DC Methylprednisolone Sodium Succinate (SOLU-Medrol 125MG VIAL) 125 mg 1X ONCE IV Last administered on 11/11/17at 13:35; Start 11/11/17 at 13:15; Stop 11/11/17 at 13:18; Status DC Potassium Chloride (Klor-Con) 40 meq 1X ONCE PO Last administered on at 15:07; Start 11/11/17 at 14:30; Stop 11/11/17 at 14:31; Status DC Furosemide (Lasix) 80 mg 1X ONCE IVP Last administered on 11/11/17at 15:07; Start 11/11/17 at 14:30; Stop 11/11/17 at 14:31; Status DC Fentanyl Citrate (Fentanyl 2ml Vial) 50 mcg PRN Q2HR PRN IV PAIN Last administered on 11/12/17at 06:28; Start 11/11/17 at 14:30; Stop 11/12/17 at 14:29 Albuterol/ Ipratropium (Duoneb) 3 ml RTQID NEB Last administered on 11/12/17at 07:54; Start 11/11/17 at 16:00; Stop 11/12/17 at 15:59 Potassium Chloride (Klor-Con) 40 meq 1X ONCE PO Last administered on at 20:36; Start 11/11/17 at 20:00; Stop 11/11/17 at 20:01; Status DC Magnesium Sulfate 50 ml @ 25 mls/hr 1X ONCE IV Last administered on 11/11/17at 17:35; Start 11/11/17 at 15:45; Stop 11/11/17 at 17:44; Status DC Methylprednisolone Sodium Succinate (SOLU-Medrol 40MG VIAL) 30 mg Q12HR IV Last administered on 11/12/17 08:23; Start 11/11/17 at 21:30 Insulin Human Lispro (HumaLOG) 0-9 UNITS TIDACHC SQ Last administered on 08:18; Start 11/12/17 at 07:30 Dextrose (Dextrose 50%-Water Syringe) 12.5 gm PRN Q15MIN PRN IV SEE COMMENTS; Start 11/11/17 at 21:15 Insulin Human Lispro (HumaLOG) 10 units 1X ONCE SQ Last administered on at 21:32; Start 11/11/17 at 21:30; Stop 11/11/17 at 21:31; Status DC Insulin Glargine (Lantus) 15 units QHS SQ Last administered on 11/11/17at 21:31 ; Start 11/11/17 at 21:30 Atorvastatin Calcium (Lipitor) 40 mg QHS PO Last administered on 11/11/17at 21: 27; Start 11/11/17 at 22:00 Bupropion HCl (Wellbutrin Xl) 150 mg DAILY PO Last administered on 11/12/17 08 :27; Start 11/12/17 at 09:00 Clonidine HCl (Catapres) 0.1 mg TID PO Last administered on 11/12/17 08:24; Start 11/11/17 at 22:00 Clopidogrel Bisulfate (Plavix) 75 mg DAILY PO Last administered on 11/12/17 08 :25; Start 11/12/17 at 09:00 Cyclobenzaprine HCl (Flexeril) 10 mg TID PO Last administered on 11/12/17at 08: 24; Start 11/11/17 at 22:00 Hydrochlorothiazide (Hydrodiuril) 37.5 mg DAILY PO ; Start 11/12/17 at 09:00; Stop 11/12/17 at 09:00; Status DC Insulin Glargine (Lantus) 15 units QHS SQ ; Start 11/12/17 at 21:00; Status UNV Lisinopril (Prinivil) 40 mg DAILY PO Last administered on 11/12/17at 08:27; Start 11/12/17 at 09:00 Carvedilol (Coreg) 25 mg BIDWMEALS PO Last administered on 11/12/17at 08:22; Start 11/12/17 at 08:00 Ibuprofen (Motrin) 600 mg PRN Q8HRS PRN PO INFLAMMATION; Start 11/11/17 at 21: 30 Metolazone (Zaroxolyn) 5 mg DAILY PO Last administered on 11/12/17at 08:28; Start 11/12/17 at 09:00 Promethazine HCl (Phenergan) 25 mg PRN TID PRN PO NAUSEA/VOMITING 1ST CHOICE; Start 11/11/17 at 21:30 Quetiapine Fumarate (SEROquel) 100 mg TID PO Last administered on 11/12/17at 08: 27; Start 11/11/17 at 21:30 Albuterol Sulfate (Ventolin Neb Soln) 2.5 mg PRN Q4HRS PRN NEB SHORTNESS OF BREATH; Start 11/11/17 at 23:00 Metoprolol Tartrate (Lopressor) 50 mg BID PO ; Start 11/12/17 at 01:00; Stop at 01:00; Status DC Metoprolol Tartrate (Lopressor) 50 mg 1X ONCE PO Last administered on at 00:49; Start 11/12/17 at 01:00; Stop 11/12/17 at 01:01; Status DC Potassium Chloride (Klor-Con) 40 meq 1X ONCE PO Last administered on at 08:22; Start 11/12/17 at 08:00; Stop 11/12/17 at 08:01; Status DC Furosemide (Lasix) 40 mg DAILY PO ; Start 11/13/17 at 09:00 Furosemide (Lasix) 40 mg 1X ONCE PO ; Start 11/12/17 at 11:15; Stop 11/12/17 at 11:23; Status DC Potassium Chloride (Klor-Con) 20 meq DAILYWBKFT PO ; Start 11/13/17 at 08:00 Potassium Chloride (Klor-Con) 40 meq 1X ONCE PO ; Start 11/12/17 at 13:00; Stop 11/12/17 at 13:01 Active Scripts Active Reported Lantus Solostar (Insulin Glargine,Hum.rec.anlog) 100 Unit/1 Ml Insuln.pen 15 Unit SQ QHS Cyclobenzaprine Hcl 10 Mg Tablet 10 Mg PO TID Bupropion Xl (Bupropion Hcl) 150 Mg Tab.er.24h 150 Mg PO Promethazine Hcl 25 Mg Tablet 25 Mg PO TID PRN Ibuprofen 600 Mg Tablet 600 Mg PO PRN Q8HRS PRN Quetiapine Fumarate 100 Mg Tablet 100 Mg PO TID Metolazone 5 Mg Tablet 5 Mg PO DAILY Carvedilol 25 Mg Tablet 1 Tab PO BID Hydrochlorothiazide Tablet (Hydrochlorothiazide) 25 Mg Tablet 1.5 Tab PO DAILY Atorvastatin Calcium 40 Mg Tablet 1 Tab PO QHS Clopidogrel (Clopidogrel Bisulfate) 75 Mg Tablet 1 Tab PO DAILY Clonidine Hcl 0.1 Mg Tablet 0.1 Mg PO TID Lisinopril 20 Mg Tablet 40 Mg PO DAILY Vitals/I & O Vital Sign - Last 24 Hours 11/11/17 11/11/17 11/11/17 11/11/17 13:15 13:27 13:58 14:00 Temp 97.5 97.5 Pulse 87 70 Resp 22 26 B/P (MAP) 167/94 (118) 176/89 (118) Pulse Ox 99 95 100 O2 Delivery BiPAP/CPAP BiPAP/CPAP BiPAP/CPAP BiPAP/CPAP 11/11/17 11/11/17 11/11/17 11/11/17 14:30 15:00 16:48 19:00 Temp 97.1 97.1 Pulse 78 72 86 Resp 28 24 20 B/P (MAP) 177/89 (118) 155/90 (111) 144/104 (117) Pulse Ox 100 98 95 O2 Delivery BiPAP/CPAP BiPAP/CPAP Room Air Room Air 11/11/17 11/11/17 11/11/17 11/11/17 19:13 20:05 21:26 21:30 Pulse 86 B/P (MAP) 144/104 Pulse Ox 98 98 O2 Delivery Room Air Room Air Room Air 11/11/17 11/11/17 11/12/17 11/12/17 23:00 23:43 00:49 02:51 Temp 97.5 97.5 Pulse 61 61 Resp 20 B/P (MAP) 183/110 (134) 183/110 Pulse Ox 94 94 O2 Delivery Nasal Cannula Room Air Room Air 11/12/17 11/12/17 11/12/17 11/12/17 03:02 06:28 06:58 07:00 Temp 97.0 97.4 97.0 97.4 Pulse 78 71 Resp 20 20 B/P (MAP) 150/89 (109) 142/98 (113) Pulse Ox 99 99 99 100 O2 Delivery Nasal Cannula Room Air Room Air Nasal Cannula 11/12/17 11/12/17 11/12/17 11/12/17 07:55 08:22 08:24 08:27 Pulse 71 71 71 B/P (MAP) 149/98 149/98 149/98 O2 Delivery Room Air Intake and Output 11/11/17 11/11/17 11/12/17 15:00 23:00 07:00 Intake Total 300 ml 1730 ml Balance 300 ml 1730 ml SUSAN WHITE MD Nov 12, 2017 11:30
[2017-11-12] MEDS ORDERED: INSULIN LISPRO 300 UNITS/3 ML INSULN.PEN. SQ ONE ×2 (12:30→17:15)
[2017-11-12] MEDS ORDERED: cloNIDine HCL 0.1 MG TABLET PO PRN (13:15)
[2017-11-12] MEDS ORDERED: LORazepam 1 MG TABLET PO PRN (13:15)
[2017-11-12] MEDS ORDERED: diphenhydrAMINE 50 MG/ML VIAL IVP PRN (13:15)
[2017-11-12] MEDS ORDERED: HALOPERIDOL LACTATE 5 MG/ML VIAL. IVP PRN (13:15)
[2017-11-12] MEDS: LORazepam 1 MG TABLET PO SCH ×2 (14:01→19:00)
[2017-11-12 15:00] VITALS: BP 102/81
[2017-11-12] MEDS: MULTIVIT INFUSN,ADULT 4,VIT K 10 ML, THIAMINE INJ 100 MG, FOLIC ACID INJ 1 MG in IV NOR... IV SCH (15:34)
[2017-11-12] MEDS: ALBUTEROL SULFATE 2.5 MG/3 ML NEBU. NEB PRN (15:41)
--- NOTE | 2017-11-12 15:56 | CARD ---
MR#: [id number] Date of Study: 11/12/2017 Ordering Physician: ERMA CASTRO, Referring Physician: Fernanda IGNACIO: ROBI Rosen APPROVED REPORT EXAM: Two-dimensional and M-mode echocardiogram with Doppler and color Doppler. Other Information Quality : AverageHR: 76bpm INDICATION Congestive Heart Failure 2D DIMENSIONS RVDd3.2 (2.9-3.5cm)Left Atrium(2D)4.0 (1.6-4.0cm) IVSd1.5 (0.7-1.1cm)Aortic Root(2D)3.1 (2.0-3.7cm) LVDd4.6 (3.9-5.9cm)LVOT Diameter1.9 (1.8-2.4cm) PWd1.3 (0.7-1.1cm)IVSs1.8 (0.8-1.2cm) LVDs3.2 (2.5-4.0cm)FS (%) 31.4 % PWs1.8 (0.8-1.2cm)SV57.4 ml LVEF(%)59.3 (>50%) M-Mode DIMENSIONS Left Atrium(MM)5.40 (2.5-4.0cm)IVSd1.56 (0.7-1.1cm) Aortic Root3.24 (2.2-3.7cm)LVDd3.91 (4.0-5.6cm) PWd1.81 (0.7-1.1cm)IVSs1.85 cm FS (%) 40 %LVDs2.35 (2.0-3.8cm) PWs2.35 cmLVEF(%)71 (>50%) Aortic Valve AoV Peak Rey.147.5cm/sAoV VTI27.1cm AO Peak GR.8.7mmHgLVOT Peak Rey.96.2cm/s LVOT VTI 17.49cmAO Mean GR.5mmHg JENNIE (VMAX)1.84vf0RXV (VTI)1.87cm2 Mitral Valve MV DECEL [id number] NKT56yj MVA (PHT)3.50cm2 Pulmonary Valve PV Peak Svyqjnfa282.6cm/sPV Peak Grad.7mmHg Tricuspid Valve TR P. Pfhgsfsp268pa/sRAP THPBZPEM45msSo TR Peak Gr.12mpEpLIHH87msIb LEFT VENTRICLE The left ventricle is normal size. There is mild to moderate concentric left ventricular hypertrophy. The left ventricular systolic function is normal. The ejection fraction is estimated at 60-65%. Ther e is normal LV segmental wall motion. RIGHT VENTRICLE The right ventricle is normal size. The right ventricular systolic function is normal. ATRIA The left atrium is borderline dilated. The right atrium size is normal. The interatrial septum is int act with no evidence for an atrial septal defect or patent foramen ovale as noted on 2-D or Doppler i maging. AORTIC VALVE The aortic valve is mildly thickened but opens well. Doppler and Color Flow revealed no significant a ortic regurgitation. There is no significant aortic valvular stenosis. There is no aortic valvular ve getation. MITRAL VALVE The mitral valve is thickened but opens well. There is no evidence of mitral valve prolapse. There is no mitral valve stenosis. Doppler and Color-flow revealed trace mitral regurgitation. TRICUSPID VALVE The tricuspid valve is not well visualized. Doppler and Color Flow revealed trace to mild tricuspid r egurgitation. There is no tricuspid valve prolapse or vegetation. There is no tricuspid valve stenosi s. PULMONIC VALVE The pulmonic valve is not well visualized. Doppler and Color Flow revealed mild pulmonic valvular reg urgitation. There is no pulmonic valvular stenosis. GREAT VESSELS The aortic root is normal in size. The IVC is dilated and collapses <50% with inspiration. PERICARDIAL EFFUSION There is no pleural effusion. There is no evidence of significant pericardial effusion. Critical Notification Critical Value: No <Conclusion> The left ventricular systolic function is normal. The ejection fraction is estimated at 60-65%. There is mild to moderate concentric left ventricular hypertrophy. There is normal LV segmental wall motion. Trace mitral regurgitation. Trace to mild tricuspid regurgitation. There is no evidence of significant pericardial effusion. Signed by : Justice Gardner, Electronically Approved : 11/12/2017 15:55:45
--- NOTE | 2017-11-12 17:00 | PDOC ---
PULMONARY PROGRESS NOTES Vitals Vital Signs Date Time Temp Pulse Resp B/P (MAP) Pulse Ox O2 Delivery O2 Flow Rate FiO2 11/12/17 16:30 64 155/99 11/12/17 15:42 Room Air 11/12/17 12:58 16 96 11/12/17 11:00 93.0 93.0 General: Alert Lungs: Clear, Other Cardiovascular: S1, S2 Abdomen: Soft Extremities: No Edema Labs Laboratory Tests Test 11/11/17 13:35 11/11/17 14:30 11/11/17 17:16 11/11/17 17:20 White Blood Count 3.8 x10^3/uL (4.0-11.0) Red Blood Count 4.15 x10^6/uL (3.50-5.40) Hemoglobin 11.5 g/dL (12.0-15.5) Hematocrit 34.5 % (36.0-47.0) Mean Corpuscular Volume 83 fL (79-100) Mean Corpuscular Hemoglobin 28 pg (25-35) Mean Corpuscular Hemoglobin Concent 33 g/dL (31-37) Red Cell Distribution Width 13.9 % (11.5-14.5) Platelet Count 180 x10^3/uL (140-400) Neutrophils (%) (Auto) 76 % (31-73) Lymphocytes (%) (Auto) 17 % (24-48) Monocytes (%) (Auto) 5 % (0-9) Eosinophils (%) (Auto) 2 % (0-3) Basophils (%) (Auto) 0 % (0-3) Neutrophils # (Auto) 2.9 x10^3uL (1.8-7.7) Lymphocytes # (Auto) 0.7 x10^3/uL (1.0-4.8) Monocytes # (Auto) 0.2 x10^3/uL (0.0-1.1) Eosinophils # (Auto) 0.1 x10^3/uL (0.0-0.7) Basophils # (Auto) 0.0 x10^3/uL (0.0-0.2) Sodium Level 144 mmol/L (136-145) Potassium Level 2.7 mmol/L (3.5-5.1) Chloride Level 108 mmol/L (98-107) Carbon Dioxide Level 26 mmol/L (21-32) Anion Gap 10 (6-14) Blood Urea Nitrogen 28 mg/dL (7-20) Creatinine 1.3 mg/dL (0.6-1.0) Estimated GFR (Cockcroft-Gault) 51.5 BUN/Creatinine Ratio 22 (6-20) Glucose Level 192 mg/dL (70-99) Calcium Level 8.7 mg/dL (8.5-10.1) Magnesium Level 1.7 mg/dL (1.8-2.4) Total Bilirubin 0.2 mg/dL (0.2-1.0) Aspartate Amino Transf (AST/SGOT) 19 U/L (15-37) Alanine Aminotransferase (ALT/SGPT) 21 U/L (14-59) Alkaline Phosphatase 136 U/L (46-116) Troponin I Quantitative 0.062 ng/mL (0.000-0.055) 0.055 ng/mL (0.000-0.055) AO-Ywt-X-Type Natriuretic Peptide 3931 pg/mL (0-124) Total Protein 6.1 g/dL (6.4-8.2) Albumin 2.0 g/dL (3.4-5.0) Albumin/Globulin Ratio 0.5 (1.0-1.7) Thyroid Stimulating Hormone (TSH) 2.102 uIU/mL (0.358-3.74) O2 Saturation 97 % (92-99) Arterial Blood pH 7.34 (7.35-7.45) Arterial Blood pCO2 at Patient Temp 44 mmHg (35-46) Arterial Blood pO2 at Patient Temp 105 mmHg (75-108) Arterial Blood HCO3 23 mmol/L (21-28) Arterial Blood Base Excess -3 mmol/L (-3-3) FiO2 40.0 Glucose (Fingerstick) 111 mg/dL (70-99) Test 11/11/17 20:30 11/11/17 20:35 11/12/17 04:05 11/12/17 07:30 Troponin I Quantitative 0.023 ng/mL (0.000-0.055) Glucose (Fingerstick) 392 mg/dL (70-99) 294 mg/dL (70-99) Sodium Level 135 mmol/L (136-145) Potassium Level 3.1 mmol/L (3.5-5.1) Chloride Level 98 mmol/L (98-107) Carbon Dioxide Level 24 mmol/L (21-32) Anion Gap 13 (6-14) Blood Urea Nitrogen 28 mg/dL (7-20) Creatinine 1.4 mg/dL (0.6-1.0) Estimated GFR (Cockcroft-Gault) 47.2 Glucose Level 399 mg/dL (70-99) Calcium Level 8.6 mg/dL (8.5-10.1) Magnesium Level 2.1 mg/dL (1.8-2.4) Triglycerides Level 94 mg/dL (0-150) Cholesterol Level 254 mg/dL (0-200) LDL Cholesterol, Calculated 129 mg/dL (0-100) VLDL Cholesterol, Calculated 19 mg/dL (0-40) Non-HDL Cholesterol Calculated 148 mg/dL (0-129) HDL Cholesterol 106 mg/dL (40-60) Cholesterol/HDL Ratio 2.4 Test 11/12/17 11:52 11/12/17 16:25 Glucose (Fingerstick) 423 mg/dL (70-99) 374 mg/dL (70-99) Laboratory Tests Test 11/11/17 17:16 11/11/17 17:20 11/11/17 20:30 11/11/17 20:35 Glucose (Fingerstick) 111 mg/dL (70-99) 392 mg/dL (70-99) Troponin I Quantitative 0.055 ng/mL (0.000-0.055) 0.023 ng/mL (0.000-0.055) Test 11/12/17 04:05 11/12/17 07:30 11/12/17 11:52 11/12/17 16:25 Sodium Level 135 mmol/L (136-145) Potassium Level 3.1 mmol/L (3.5-5.1) Chloride Level 98 mmol/L (98-107) Carbon Dioxide Level 24 mmol/L (21-32) Anion Gap 13 (6-14) Blood Urea Nitrogen 28 mg/dL (7-20) Creatinine 1.4 mg/dL (0.6-1.0) Estimated GFR (Cockcroft-Gault) 47.2 Glucose Level 399 mg/dL (70-99) Calcium Level 8.6 mg/dL (8.5-10.1) Magnesium Level 2.1 mg/dL (1.8-2.4) Triglycerides Level 94 mg/dL (0-150) Cholesterol Level 254 mg/dL (0-200) LDL Cholesterol, Calculated 129 mg/dL (0-100) VLDL Cholesterol, Calculated 19 mg/dL (0-40) Non-HDL Cholesterol Calculated 148 mg/dL (0-129) HDL Cholesterol 106 mg/dL (40-60) Cholesterol/HDL Ratio 2.4 Glucose (Fingerstick) 294 mg/dL (70-99) 423 mg/dL (70-99) 374 mg/dL (70-99) Medications Active Scripts Medications Dose Route/Sig Max Daily Dose Days Date Category Lantus Solostar (Insulin Glargine,Hum.rec.anlog) 100 Unit/1 Ml Insuln.pen 15 Unit SQ QHS 11/11/17 Reported Cyclobenzaprine Hcl 10 Mg Tablet 10 Mg PO TID 11/11/17 Reported Bupropion Xl (Bupropion Hcl) 150 Mg Tab.er.24h 150 Mg PO 11/11/17 Reported Promethazine Hcl 25 Mg Tablet 25 Mg PO TID PRN 11/11/17 Reported Ibuprofen 600 Mg Tablet 600 Mg PO PRN Q8HRS PRN 11/11/17 Reported Quetiapine Fumarate 100 Mg Tablet 100 Mg PO TID 11/11/17 Reported Metolazone 5 Mg Tablet 5 Mg PO DAILY 07/11/16 Reported Carvedilol 25 Mg Tablet 1 Tab PO BID 04/15/15 Reported Hydrochlorothiazide Tablet (Hydrochlorothiazide) 25 Mg Tablet 1.5 Tab PO DAILY 04/15/15 Reported Atorvastatin Calcium 40 Mg Tablet 1 Tab PO QHS 04/15/15 Reported Clopidogrel (Clopidogrel Bisulfate) 75 Mg Tablet 1 Tab PO DAILY 04/15/15 Reported Clonidine Hcl 0.1 Mg Tablet 0.1 Mg PO TID 04/01/14 Reported Lisinopril 20 Mg Tablet 40 Mg PO DAILY 03/01/14 Reported Impression . ACUTE RESP FAILURE SEC TO CHF AND AECOPD CONCUR WITH MANAGEMENT THANKS MAICO YANG MD Nov 12, 2017 17:00
[2017-11-12 19:00] VITALS: BP 144/92
--- NOTE | 2017-11-12 20:59 | CONS ---
DATE OF CONSULTATION: 11/12/2017 ATTENDING PHYSICIAN: Racheal Murillo D.O. CONSULTING PHYSICIAN: Maico Yang M.D. REASON FOR CONSULTATION: The patient is seen in Pulmonary consultation at the request of Dr. Murillo for progressive dyspnea and shortness of breath. HISTORY OF PRESENT ILLNESS: The patient is a 57-year-old with a history of chronic diastolic heart failure, who presented with increasing shortness of breath and cough productive of discolored sputum. She continues to smoke. She was severely short of breath and found to have oxygen saturation in the Emergency Room of 82%. She was placed on CPAP, was transported to the floor. I reviewed her x-ray revealing vascular congestion. PAST MEDICAL HISTORY: Remarkable for COPD, chronic bronchitis, tobacco dependence, chronic heart failure, CVA, type 2 diabetes, hypertension and sickle cell trait. PAST SURGICAL HISTORY: Status post hysterectomy. She has had previous cardiac stenting. ALLERGIES: Listed to SULFAMETHOXAZOLE and TRIMETHOPRIM. REVIEW OF SYSTEMS: CONSTITUTIONAL: No fever or chills. EYES: No change in visual acuity. HEENT: No nasal congestion. No sore throat. PULMONARY: As indicated above. CARDIOVASCULAR: As indicated above. GASTROINTESTINAL: No nausea, vomiting or diarrhea. GENITOURINARY: No dysuria or frequency. MUSCULOSKELETAL: No localized muscle aches or joint pains. SKIN: No new skin rashes. NEUROLOGICAL: No headaches, diplopia or blurred vision. MEDICATIONS: List was reviewed. HOME MEDICATIONS: List was reviewed. SOCIAL HISTORY: Socially, she smokes and occasionally uses marijuana. PHYSICAL EXAMINATION: GENERAL: The patient was in no respiratory distress. VITAL SIGNS: Stable. O2 saturation currently on room air was 96%. HEENT: Eyes, the sclerae were nonicteric. NECK: Jugular venous distention was not elevated. No lymphadenopathy. CHEST: Full expansion. LUNGS: Crackles throughout both lung [place]. CARDIOVASCULAR: Regular rate and rhythm with S1 and S2. No S3. ABDOMEN: Soft, nontender and nondistended. EXTREMITIES: No clubbing or cyanosis. Some edema. NEUROLOGICAL: The patient was awake, alert and following commands. A detailed neuro exam was not performed. LABORATORY DATA: Arterial blood gas revealed a pH of 7.34, PaCO2 of 44 and pO2 of 105. White count was slightly low. Electrolytes were noted. BUN and creatinine was elevated. BNP was elevated. Albumin was low. RADIOLOGICAL DATA: Chest x-ray as indicated above. IMPRESSION: 1. Acute respiratory failure secondary to [id number]-ht-qkchbwg diastolic heart failure. 2. Acute exacerbation of chronic obstructive pulmonary disease. 3. Tobacco dependent. 4. Acute nonspecific bronchitis. 5. Hypertension. 6. Hypokalemia. 7. Chronic kidney disease/acute kidney injury. 8. Atypical chest pain. 9. Moderate protein malnutrition, present upon admission. PLAN: 1. Continue IV Lasix. 2. Steroids. 3. Nebulized treatments. 4. Follow Cardiology input. 5. Replace potassium and magnesium. 6. The patient instructed on the importance of discontinuing her tobacco use. 7. Discontinue all illicit drugs. 8. Consult dietitian for nutritional support. MAICO YANG MD DR: CARIDAD/nts JOB#: [id number] / [id number]
[2017-11-12] MEDS ORDERED: INSULIN GLARGINE 300 UNITS/3 ML INSULN.PEN. SQ SCH (21:00)
[2017-11-12] MEDS: ATORVASTATIN CALCIUM 40 MG TABLET. PO SCH (21:52)
[2017-11-12] MEDS: INSULIN GLARGINE 300 UNITS/3 ML INSULN.PEN. SQ SCH (22:03)
[2017-11-12 23:00] VITALS: BP 122/78
[2017-11-13] MEDS: LORazepam 1 MG TABLET PO SCH ×3 (01:00→08:36)
[2017-11-13 03:00] VITALS: BP 135/70
[2017-11-13] MEDS: IBUPROFEN 600 MG TABLET. PO PRN ×2 (03:09→21:01)
[2017-11-13 07:00] VITALS: BP 144/93
[2017-11-13] MEDS: IPRATRPIUM/ALBUTEROL 0.5/2.5MG 3 ML NEBU. NEB SCH ×4 (08:00→19:31)
[2017-11-13] MEDS: CYCLOBENZAPRINE 10 MG TABLET. PO SCH (08:33)
[2017-11-13] MEDS: buPROPion XL 150 MG TAB.ER.24H. PO SCH (08:33)
[2017-11-13] MEDS: LISINOPRIL 20 MG TABLET PO SCH (08:34)
[2017-11-13] MEDS: QUEtiapine 100 MG TABLET. PO SCH (08:34)
[2017-11-13] MEDS: CLOPIDOGREL BISULFATE 75 MG TABLET PO SCH (08:34)
[2017-11-13] MEDS: FUROSEMIDE 40 MG TABLET. PO SCH (08:34)
[2017-11-13] MEDS: POTASSIUM CHLORIDE 20 MEQ TABLET.ER. PO SCH (08:34)
[2017-11-13] MEDS: cloNIDine HCL 0.1 MG TABLET PO SCH ×3 (08:35→21:01)
[2017-11-13] MEDS: CARVEDILOL 12.5 MG TABLET. PO SCH ×2 (08:36→17:57)
[2017-11-13] MEDS: methylPREDNISolone SOD SUCC PF 40 MG/ML VIAL. IV SCH ×2 (08:36→21:00)
[2017-11-13] MEDS: metOLazone 2.5 MG TABLET PO SCH (08:36)
--- NOTE | 2017-11-13 08:46 | PDOC ---
PULMONARY PROGRESS NOTES Subjective SLEEPY NOT MORE SOA Vitals Vital Signs Date Time Temp Pulse Resp B/P (MAP) Pulse Ox O2 Delivery O2 Flow Rate FiO2 11/13/17 07:00 97.3 63 17 144/93 (110) 95 Nasal Cannula 97.3 11/12/17 20:00 2.0 ROS: No Nausea, No Chest Pain, No Abdominal Pain, No Increase Cough General: Alert Lungs: Clear, Other Cardiovascular: S1, S2 Abdomen: Soft Neuro Exam: Alert Extremities: No Edema Skin: Warm Labs Laboratory Tests Test 11/11/17 13:35 11/11/17 14:30 11/11/17 17:16 11/11/17 17:20 White Blood Count 3.8 x10^3/uL (4.0-11.0) Red Blood Count 4.15 x10^6/uL (3.50-5.40) Hemoglobin 11.5 g/dL (12.0-15.5) Hematocrit 34.5 % (36.0-47.0) Mean Corpuscular Volume 83 fL (79-100) Mean Corpuscular Hemoglobin 28 pg (25-35) Mean Corpuscular Hemoglobin Concent 33 g/dL (31-37) Red Cell Distribution Width 13.9 % (11.5-14.5) Platelet Count 180 x10^3/uL (140-400) Neutrophils (%) (Auto) 76 % (31-73) Lymphocytes (%) (Auto) 17 % (24-48) Monocytes (%) (Auto) 5 % (0-9) Eosinophils (%) (Auto) 2 % (0-3) Basophils (%) (Auto) 0 % (0-3) Neutrophils # (Auto) 2.9 x10^3uL (1.8-7.7) Lymphocytes # (Auto) 0.7 x10^3/uL (1.0-4.8) Monocytes # (Auto) 0.2 x10^3/uL (0.0-1.1) Eosinophils # (Auto) 0.1 x10^3/uL (0.0-0.7) Basophils # (Auto) 0.0 x10^3/uL (0.0-0.2) Sodium Level 144 mmol/L (136-145) Potassium Level 2.7 mmol/L (3.5-5.1) Chloride Level 108 mmol/L (98-107) Carbon Dioxide Level 26 mmol/L (21-32) Anion Gap 10 (6-14) Blood Urea Nitrogen 28 mg/dL (7-20) Creatinine 1.3 mg/dL (0.6-1.0) Estimated GFR (Cockcroft-Gault) 51.5 BUN/Creatinine Ratio 22 (6-20) Glucose Level 192 mg/dL (70-99) Calcium Level 8.7 mg/dL (8.5-10.1) Magnesium Level 1.7 mg/dL (1.8-2.4) Total Bilirubin 0.2 mg/dL (0.2-1.0) Aspartate Amino Transf (AST/SGOT) 19 U/L (15-37) Alanine Aminotransferase (ALT/SGPT) 21 U/L (14-59) Alkaline Phosphatase 136 U/L (46-116) Troponin I Quantitative 0.062 ng/mL (0.000-0.055) 0.055 ng/mL (0.000-0.055) SC-Hfe-Y-Type Natriuretic Peptide 3931 pg/mL (0-124) Total Protein 6.1 g/dL (6.4-8.2) Albumin 2.0 g/dL (3.4-5.0) Albumin/Globulin Ratio 0.5 (1.0-1.7) Thyroid Stimulating Hormone (TSH) 2.102 uIU/mL (0.358-3.74) O2 Saturation 97 % (92-99) Arterial Blood pH 7.34 (7.35-7.45) Arterial Blood pCO2 at Patient Temp 44 mmHg (35-46) Arterial Blood pO2 at Patient Temp 105 mmHg (75-108) Arterial Blood HCO3 23 mmol/L (21-28) Arterial Blood Base Excess -3 mmol/L (-3-3) FiO2 40.0 Glucose (Fingerstick) 111 mg/dL (70-99) Test 11/11/17 20:30 11/11/17 20:35 11/12/17 04:05 11/12/17 07:30 Troponin I Quantitative 0.023 ng/mL (0.000-0.055) Glucose (Fingerstick) 392 mg/dL (70-99) 294 mg/dL (70-99) Sodium Level 135 mmol/L (136-145) Potassium Level 3.1 mmol/L (3.5-5.1) Chloride Level 98 mmol/L (98-107) Carbon Dioxide Level 24 mmol/L (21-32) Anion Gap 13 (6-14) Blood Urea Nitrogen 28 mg/dL (7-20) Creatinine 1.4 mg/dL (0.6-1.0) Estimated GFR (Cockcroft-Gault) 47.2 Glucose Level 399 mg/dL (70-99) Calcium Level 8.6 mg/dL (8.5-10.1) Magnesium Level 2.1 mg/dL (1.8-2.4) Triglycerides Level 94 mg/dL (0-150) Cholesterol Level 254 mg/dL (0-200) LDL Cholesterol, Calculated 129 mg/dL (0-100) VLDL Cholesterol, Calculated 19 mg/dL (0-40) Non-HDL Cholesterol Calculated 148 mg/dL (0-129) HDL Cholesterol 106 mg/dL (40-60) Cholesterol/HDL Ratio 2.4 Test 11/12/17 11:52 11/12/17 16:25 11/12/17 19:47 11/13/17 07:52 Glucose (Fingerstick) 423 mg/dL (70-99) 374 mg/dL (70-99) 203 mg/dL (70-99) 302 mg/dL (70-99) Laboratory Tests Test 11/12/17 11:52 11/12/17 16:25 11/12/17 19:47 11/13/17 07:52 Glucose (Fingerstick) 423 mg/dL (70-99) 374 mg/dL (70-99) 203 mg/dL (70-99) 302 mg/dL (70-99) Medications Active Scripts Medications Dose Route/Sig Max Daily Dose Days Date Category Lantus Solostar (Insulin Glargine,Hum.rec.anlog) 100 Unit/1 Ml Insuln.pen 15 Unit SQ QHS 11/11/17 Reported Cyclobenzaprine Hcl 10 Mg Tablet 10 Mg PO TID 11/11/17 Reported Bupropion Xl (Bupropion Hcl) 150 Mg Tab.er.24h 150 Mg PO 11/11/17 Reported Promethazine Hcl 25 Mg Tablet 25 Mg PO TID PRN 11/11/17 Reported Ibuprofen 600 Mg Tablet 600 Mg PO PRN Q8HRS PRN 11/11/17 Reported Quetiapine Fumarate 100 Mg Tablet 100 Mg PO TID 11/11/17 Reported Metolazone 5 Mg Tablet 5 Mg PO DAILY 07/11/16 Reported Carvedilol 25 Mg Tablet 1 Tab PO BID 04/15/15 Reported Hydrochlorothiazide Tablet (Hydrochlorothiazide) 25 Mg Tablet 1.5 Tab PO DAILY 04/15/15 Reported Atorvastatin Calcium 40 Mg Tablet 1 Tab PO QHS 04/15/15 Reported Clopidogrel (Clopidogrel Bisulfate) 75 Mg Tablet 1 Tab PO DAILY 04/15/15 Reported Clonidine Hcl 0.1 Mg Tablet 0.1 Mg PO TID 04/01/14 Reported Lisinopril 20 Mg Tablet 40 Mg PO DAILY 03/01/14 Reported Impression . IMPRESSION: 1. Acute respiratory failure secondary to xombl-qg-tesobar diastolic heart failure. 2. Acute exacerbation of chronic obstructive pulmonary disease. 3. Tobacco dependent. 4. Acute nonspecific bronchitis. 5. Hypertension. 6. Hypokalemia. 7. Chronic kidney disease/acute kidney injury. 8. Atypical chest pain. 9. Moderate protein malnutrition, present upon admission. Plan . PRN BIPAP AVOID EXCESSIVE SEDATION 1. Continue IV Lasix. 2. Steroids. 3. Nebulized treatments. 4. Follow Cardiology input. 5. Replace potassium and magnesium. 6. The patient instructed on the importance of discontinuing her tobacco use. 7. Discontinue all illicit drugs. 8. Consult dietitian for nutritional support. MAICO YANG MD Nov 13, 2017 08:46
[2017-11-13] MEDS: INSULIN LISPRO 300 UNITS/3 ML INSULN.PEN. SQ SCH ×7 (08:52→21:10)
[2017-11-13] MEDS ORDERED: THIAMINE INJ 100 MG in IV DEXTROSE 5% 50 ML IV SCH (09:00)
[2017-11-13] MEDS ORDERED: guaiFENesin DM 200MG/20MG 10 ML SYRUP PO PRN (09:15)
[2017-11-13] MEDS: MULTIVIT INFUSN,ADULT 4,VIT K 10 ML, THIAMINE INJ 100 MG, FOLIC ACID INJ 1 MG in IV NOR... IV SCH (09:30)
[2017-11-13 09:40] LABS: BASO % 0 % (0-3); EOS % 0 % (0-3); HEMATOCRIT 36.8 % (36.0-47.0); HEMOGLOBIN 12.3 g/dL (12.0-15.5); LYMPH # 0.9 x10^3/uL (1.0-4.8); LYMPH % 8 % (24-48); MEAN CORPUSCULAR HEMOGLOBIN 28 pg (25-35); MEAN CORPUSCULAR HGB CONC 34 g/dL (31-37); MEAN CORPUSCULAR VOLUME 84 fL (79-100); MONO # 0.3 x10^3/uL (0.0-1.1); MONO % 3 % (0-9); NEUT # 9.5 x10^3uL (1.8-7.7); NEUT % 89 % (31-73); PLATELET COUNT 204 x10^3/uL (140-400); RED BLOOD COUNT 4.39 x10^6/uL (3.50-5.40); RED CELL DISTRIBUTION WIDTH 14.3 % (11.5-14.5); WHITE BLOOD COUNT 10.6 x10^3/uL (4.0-11.0)
[2017-11-13 09:56] LABS: ALBUMIN 2.1 g/dL (3.4-5.0); ALBUMIN/GLOBULIN RATIO 0.5 (1.0-1.7); CALCIUM 8.7 mg/dL (8.5-10.1); POTASSIUM 4.1 mmol/L (3.5-5.1); TOTAL BILIRUBIN 0.2 mg/dL (0.2-1.0); TOTAL PROTEIN 6.3 g/dL (6.4-8.2)
[2017-11-13 10:01] LABS: CREATININE 1.4 mg/dL (0.6-1.0); GFR 47.2
[2017-11-13 11:00] VITALS: BP 165/103
--- NOTE | 2017-11-13 11:08 | PDOC ---
ERMA CASTRO BIOFUELS RESEARCH SCIENTIST 11/13/17 1108: CARDIO Progress Notes Date and Time Date of Service 11/13/2017 Time of Evaluation 1030 Subjective Subjective: No Chest Pain, No shortness of breath, No Palpitations, Other ( drowsy) Vitals Vitals Vital Signs Date Time Temp Pulse Resp B/P (MAP) Pulse Ox O2 Delivery O2 Flow Rate FiO2 11/13/17 08:36 63 144/93 11/13/17 07:00 97.3 17 95 Nasal Cannula 97.3 11/12/17 20:00 2.0 Weight Weight [ ] Input and Output Intake and Output Intake and Output 11/13/17 07:00 Intake Total 300 ml Balance 300 ml Intake Oral 300 ml # Voids 6 Laboratory Labs Laboratory Tests Test 11/12/17 11:52 11/12/17 16:25 11/12/17 19:47 11/13/17 07:52 Glucose (Fingerstick) 423 mg/dL (70-99) 374 mg/dL (70-99) 203 mg/dL (70-99) 302 mg/dL (70-99) Test 11/13/17 09:10 White Blood Count 10.6 x10^3/uL (4.0-11.0) Red Blood Count 4.39 x10^6/uL (3.50-5.40) Hemoglobin 12.3 g/dL (12.0-15.5) Hematocrit 36.8 % (36.0-47.0) Mean Corpuscular Volume 84 fL (79-100) Mean Corpuscular Hemoglobin 28 pg (25-35) Mean Corpuscular Hemoglobin Concent 34 g/dL (31-37) Red Cell Distribution Width 14.3 % (11.5-14.5) Platelet Count 204 x10^3/uL (140-400) Neutrophils (%) (Auto) 89 % (31-73) Lymphocytes (%) (Auto) 8 % (24-48) Monocytes (%) (Auto) 3 % (0-9) Eosinophils (%) (Auto) 0 % (0-3) Basophils (%) (Auto) 0 % (0-3) Neutrophils # (Auto) 9.5 x10^3uL (1.8-7.7) Lymphocytes # (Auto) 0.9 x10^3/uL (1.0-4.8) Monocytes # (Auto) 0.3 x10^3/uL (0.0-1.1) Eosinophils # (Auto) 0.0 x10^3/uL (0.0-0.7) Basophils # (Auto) 0.0 x10^3/uL (0.0-0.2) Sodium Level 136 mmol/L (136-145) Potassium Level 4.1 mmol/L (3.5-5.1) Chloride Level 103 mmol/L (98-107) Carbon Dioxide Level 22 mmol/L (21-32) Anion Gap 11 (6-14) Blood Urea Nitrogen 36 mg/dL (7-20) Creatinine 1.4 mg/dL (0.6-1.0) Estimated GFR (Cockcroft-Gault) 47.2 BUN/Creatinine Ratio 26 (6-20) Glucose Level 319 mg/dL (70-99) Calcium Level 8.7 mg/dL (8.5-10.1) Magnesium Level 2.2 mg/dL (1.8-2.4) Total Bilirubin 0.2 mg/dL (0.2-1.0) Aspartate Amino Transf (AST/SGOT) 18 U/L (15-37) Alanine Aminotransferase (ALT/SGPT) 21 U/L (14-59) Alkaline Phosphatase 127 U/L (46-116) Total Protein 6.3 g/dL (6.4-8.2) Albumin 2.1 g/dL (3.4-5.0) Albumin/Globulin Ratio 0.5 (1.0-1.7) Physical Exam HEENT: Neck Supple W Full Motion Chest: Symmetric LUNGS: Other (upper wheeze) Heart: RRR (off monitor HR 60s) Abdomen: Soft N/T Extremities: No Calf Tenderness, Other (trace LE edema) Neurology: oriented, follow commands, other (lethargic/drowsy, periods of confusion overnight) Assessment Assessment 1. Encephalopathy: occurred overnight. No arrhythmias and O2 sat within mean at 95% 2. Acute on chronic diastolic CHF: induced by uncontrolled HTN/DM, ETOH abuse and diet noncompliance. EF and WM nml with LVH. 2. COPD with continued tobaccoism 3. Hypokalemia and hypomagnesemia: resolved 4. HTN: controlled 5. HLD: not on goal 6. CAD: clinically stable. Recent [facility] 06/2016 with patent LAD stent 7. DM2: BG uncontrolled per PCP and noncompliant with diet. 8. Hx of CVA 9. ETOH abuse: (2 beer, 2 glasses of wine and gin at times daily), per PCP 10. CKD3: Cr stable Recommendations 1. CT without contrast. NH3 level. PCXR. Albuterol treatment. UDS pending. Hold flexeril, benzo. 2. Continue secondary prevention measures. May hold clonidine if adding to decreased mentation. Hydralazine PO PRN. 3. Smoking cessation. Decrease ETOH ingestion. 4. Continue lasix therapy. Dietitian consult. Replace heart monitor 5. Consult neurology FEI DAVIS MD 11/13/17 1319: CARDIO Progress Notes Assessment Assessment Patient seen and examined. Agree with [facility]ONE DERRICKMAN AND RIGGER's assessment and plan. Acute on chronic diastolic heart failure better compensated 2-D echo showed normal LV systolic function Continue workup and treatment for mental status changes per primary team ERMA CASTRO APRN Nov 13, 2017 11:08 FEI DAVIS MD Nov 13, 2017 13:19
[2017-11-13 11:23] LABS: % LYMPHS 5 % (24-48); % MONOS 1 % (0-10); % SEGS 94 % (35-66); PLT ESTIMATE ADEQUATE (ADEQUATE)
--- NOTE | 2017-11-13 11:48 | RAD ---
Portable chest, 11/13/2017: HISTORY: Congestive heart failure Comparison is made to a study from 11/11/2017. The heart is enlarged. The pulmonary vascularity has improved with better visualization of the vascular margins. There is minimal linear atelectasis or scarring laterally in the left lower chest. Granulomatous calcifications are again noted in the right chest. No pulmonary consolidation is seen. There is no evidence of pleural fluid. IMPRESSION: 1. Cardiomegaly with resolution of the previously seen vascular congestion. 2. No acute infiltrates. Electronically signed by: Parag Munoz MD (11/13/2017 11:44 AM) [facility]
--- NOTE | 2017-11-13 11:58 | PDOC ---
PROGRESS NOTES Chief Complaint Chief Complaint Acute on chronic systolic and diastolic heart failure, cardiomegaly chronic obstructive pulmonary disease exacerbation respiratory failure. hypokalemia obesity hx of alcoholism History of Present Illness History of Present Illness Being treated for COPD, with 30 IV every 12 steroids - BS high 300s Being treated for diastolic heart failure with Lasix when necessary However very drowsy today, unable to even eat at bedside Blood sugars in the 300s Sats was 82% on arrival, needing CPAP, comanage with pulmonary Plan: Hold Seroquel and Wellbutrin for now, can be resumed once mentation improves DC scheduled Ativan Continue the rest of Ativan which is when necessary for the CIWA - hx etoh Start some NovoLog 10 3 times a day with meals Increase Levemir to 15 units at bedtime secondary to hyperglycemia at bedtime PT/OT Vitals Vitals Vital Signs Date Time Temp Pulse Resp B/P (MAP) Pulse Ox O2 Delivery O2 Flow Rate FiO2 11/13/17 11:29 97 Room Air 11/13/17 08:36 63 144/93 11/13/17 07:00 97.3 17 97.3 11/12/17 20:00 2.0 Physical Exam General: mild distress, Other (drowsy) Heart: Normal S1, Normal S2, No murmurs Lungs: Clear, Other Abdomen: Normal bowel sounds, Soft Extremities: No cyanosis, No edema, Normal pulses Skin: No rashes Labs LABS Laboratory Tests Test 11/12/17 16:25 11/12/17 19:47 11/13/17 07:52 11/13/17 09:10 Glucose (Fingerstick) 374 mg/dL (70-99) 203 mg/dL (70-99) 302 mg/dL (70-99) White Blood Count 10.6 x10^3/uL (4.0-11.0) Red Blood Count 4.39 x10^6/uL (3.50-5.40) Hemoglobin 12.3 g/dL (12.0-15.5) Hematocrit 36.8 % (36.0-47.0) Mean Corpuscular Volume 84 fL (79-100) Mean Corpuscular Hemoglobin 28 pg (25-35) Mean Corpuscular Hemoglobin Concent 34 g/dL (31-37) Red Cell Distribution Width 14.3 % (11.5-14.5) Platelet Count 204 x10^3/uL (140-400) Neutrophils (%) (Auto) 89 % (31-73) Lymphocytes (%) (Auto) 8 % (24-48) Monocytes (%) (Auto) 3 % (0-9) Eosinophils (%) (Auto) 0 % (0-3) Basophils (%) (Auto) 0 % (0-3) Neutrophils # (Auto) 9.5 x10^3uL (1.8-7.7) Lymphocytes # (Auto) 0.9 x10^3/uL (1.0-4.8) Monocytes # (Auto) 0.3 x10^3/uL (0.0-1.1) Eosinophils # (Auto) 0.0 x10^3/uL (0.0-0.7) Basophils # (Auto) 0.0 x10^3/uL (0.0-0.2) Segmented Neutrophils % 94 % (35-66) Lymphocytes % 5 % (24-48) Monocytes % 1 % (0-10) Platelet Estimate Adequate (ADEQUATE) Sodium Level 136 mmol/L (136-145) Potassium Level 4.1 mmol/L (3.5-5.1) Chloride Level 103 mmol/L (98-107) Carbon Dioxide Level 22 mmol/L (21-32) Anion Gap 11 (6-14) Blood Urea Nitrogen 36 mg/dL (7-20) Creatinine 1.4 mg/dL (0.6-1.0) Estimated GFR (Cockcroft-Gault) 47.2 BUN/Creatinine Ratio 26 (6-20) Glucose Level 319 mg/dL (70-99) Calcium Level 8.7 mg/dL (8.5-10.1) Magnesium Level 2.2 mg/dL (1.8-2.4) Total Bilirubin 0.2 mg/dL (0.2-1.0) Aspartate Amino Transf (AST/SGOT) 18 U/L (15-37) Alanine Aminotransferase (ALT/SGPT) 21 U/L (14-59) Alkaline Phosphatase 127 U/L (46-116) Total Protein 6.3 g/dL (6.4-8.2) Albumin 2.1 g/dL (3.4-5.0) Albumin/Globulin Ratio 0.5 (1.0-1.7) Test 9/14/18 11:36 Glucose (Fingerstick) 199 mg/dL (70-99) Review of Systems Review of Systems Drowsy limited ROS Assessment and Plan Assessmemt and Plan Problems Medical Problems: (1) Acute on chronic diastolic CHF (congestive heart failure) Status: Acute (2) COPD exacerbation Status: Acute (3) Hypokalemia Status: Acute Comment Review of Relevant I have reviewed the following items lilliana (where applicable) has been applied. Labs Laboratory Tests Test 11/11/17 13:35 11/11/17 14:30 11/11/17 17:16 11/11/17 17:20 White Blood Count 3.8 x10^3/uL (4.0-11.0) Red Blood Count 4.15 x10^6/uL (3.50-5.40) Hemoglobin 11.5 g/dL (12.0-15.5) Hematocrit 34.5 % (36.0-47.0) Mean Corpuscular Volume 83 fL (79-100) Mean Corpuscular Hemoglobin 28 pg (25-35) Mean Corpuscular Hemoglobin Concent 33 g/dL (31-37) Red Cell Distribution Width 13.9 % (11.5-14.5) Platelet Count 180 x10^3/uL (140-400) Neutrophils (%) (Auto) 76 % (31-73) Lymphocytes (%) (Auto) 17 % (24-48) Monocytes (%) (Auto) 5 % (0-9) Eosinophils (%) (Auto) 2 % (0-3) Basophils (%) (Auto) 0 % (0-3) Neutrophils # (Auto) 2.9 x10^3uL (1.8-7.7) Lymphocytes # (Auto) 0.7 x10^3/uL (1.0-4.8) Monocytes # (Auto) 0.2 x10^3/uL (0.0-1.1) Eosinophils # (Auto) 0.1 x10^3/uL (0.0-0.7) Basophils # (Auto) 0.0 x10^3/uL (0.0-0.2) Sodium Level 144 mmol/L (136-145) Potassium Level 2.7 mmol/L (3.5-5.1) Chloride Level 108 mmol/L (98-107) Carbon Dioxide Level 26 mmol/L (21-32) Anion Gap 10 (6-14) Blood Urea Nitrogen 28 mg/dL (7-20) Creatinine 1.3 mg/dL (0.6-1.0) Estimated GFR (Cockcroft-Gault) 51.5 BUN/Creatinine Ratio 22 (6-20) Glucose Level 192 mg/dL (70-99) Calcium Level 8.7 mg/dL (8.5-10.1) Magnesium Level 1.7 mg/dL (1.8-2.4) Total Bilirubin 0.2 mg/dL (0.2-1.0) Aspartate Amino Transf (AST/SGOT) 19 U/L (15-37) Alanine Aminotransferase (ALT/SGPT) 21 U/L (14-59) Alkaline Phosphatase 136 U/L (46-116) Troponin I Quantitative 0.062 ng/mL (0.000-0.055) 0.055 ng/mL (0.000-0.055) IC-Gvl-K-Type Natriuretic Peptide 3931 pg/mL (0-124) Total Protein 6.1 g/dL (6.4-8.2) Albumin 2.0 g/dL (3.4-5.0) Albumin/Globulin Ratio 0.5 (1.0-1.7) Thyroid Stimulating Hormone (TSH) 2.102 uIU/mL (0.358-3.74) O2 Saturation 97 % (92-99) Arterial Blood pH 7.34 (7.35-7.45) Arterial Blood pCO2 at Patient Temp 44 mmHg (35-46) Arterial Blood pO2 at Patient Temp 105 mmHg (75-108) Arterial Blood HCO3 23 mmol/L (21-28) Arterial Blood Base Excess -3 mmol/L (-3-3) FiO2 40.0 Glucose (Fingerstick) 111 mg/dL (70-99) Test 11/11/17 20:30 11/11/17 20:35 11/12/17 04:05 11/12/17 07:30 Troponin I Quantitative 0.023 ng/mL (0.000-0.055) Glucose (Fingerstick) 392 mg/dL (70-99) 294 mg/dL (70-99) Sodium Level 135 mmol/L (136-145) Potassium Level 3.1 mmol/L (3.5-5.1) Chloride Level 98 mmol/L (98-107) Carbon Dioxide Level 24 mmol/L (21-32) Anion Gap 13 (6-14) Blood Urea Nitrogen 28 mg/dL (7-20) Creatinine 1.4 mg/dL (0.6-1.0) Estimated GFR (Cockcroft-Gault) 47.2 Glucose Level 399 mg/dL (70-99) Calcium Level 8.6 mg/dL (8.5-10.1) Magnesium Level 2.1 mg/dL (1.8-2.4) Triglycerides Level 94 mg/dL (0-150) Cholesterol Level 254 mg/dL (0-200) LDL Cholesterol, Calculated 129 mg/dL (0-100) VLDL Cholesterol, Calculated 19 mg/dL (0-40) Non-HDL Cholesterol Calculated 148 mg/dL (0-129) HDL Cholesterol 106 mg/dL (40-60) Cholesterol/HDL Ratio 2.4 Test 11/12/17 11:52 11/12/17 16:25 11/12/17 19:47 11/13/17 07:52 Glucose (Fingerstick) 423 mg/dL (70-99) 374 mg/dL (70-99) 203 mg/dL (70-99) 302 mg/dL (70-99) Test 11/13/17 09:10 11/13/17 11:36 White Blood Count 10.6 x10^3/uL (4.0-11.0) Red Blood Count 4.39 x10^6/uL (3.50-5.40) Hemoglobin 12.3 g/dL (12.0-15.5) Hematocrit 36.8 % (36.0-47.0) Mean Corpuscular Volume 84 fL (79-100) Mean Corpuscular Hemoglobin 28 pg (25-35) Mean Corpuscular Hemoglobin Concent 34 g/dL (31-37) Red Cell Distribution Width 14.3 % (11.5-14.5) Platelet Count 204 x10^3/uL (140-400) Neutrophils (%) (Auto) 89 % (31-73) Lymphocytes (%) (Auto) 8 % (24-48) Monocytes (%) (Auto) 3 % (0-9) Eosinophils (%) (Auto) 0 % (0-3) Basophils (%) (Auto) 0 % (0-3) Neutrophils # (Auto) 9.5 x10^3uL (1.8-7.7) Lymphocytes # (Auto) 0.9 x10^3/uL (1.0-4.8) Monocytes # (Auto) 0.3 x10^3/uL (0.0-1.1) Eosinophils # (Auto) 0.0 x10^3/uL (0.0-0.7) Basophils # (Auto) 0.0 x10^3/uL (0.0-0.2) Segmented Neutrophils % 94 % (35-66) Lymphocytes % 5 % (24-48) Monocytes % 1 % (0-10) Platelet Estimate Adequate (ADEQUATE) Sodium Level 136 mmol/L (136-145) Potassium Level 4.1 mmol/L (3.5-5.1) Chloride Level 103 mmol/L (98-107) Carbon Dioxide Level 22 mmol/L (21-32) Anion Gap 11 (6-14) Blood Urea Nitrogen 36 mg/dL (7-20) Creatinine 1.4 mg/dL (0.6-1.0) Estimated GFR (Cockcroft-Gault) 47.2 BUN/Creatinine Ratio 26 (6-20) Glucose Level 319 mg/dL (70-99) Calcium Level 8.7 mg/dL (8.5-10.1) Magnesium Level 2.2 mg/dL (1.8-2.4) Total Bilirubin 0.2 mg/dL (0.2-1.0) Aspartate Amino Transf (AST/SGOT) 18 U/L (15-37) Alanine Aminotransferase (ALT/SGPT) 21 U/L (14-59) Alkaline Phosphatase 127 U/L (46-116) Total Protein 6.3 g/dL (6.4-8.2) Albumin 2.1 g/dL (3.4-5.0) Albumin/Globulin Ratio 0.5 (1.0-1.7) Glucose (Fingerstick) 199 mg/dL (70-99) Laboratory Tests Test 11/12/17 16:25 11/12/17 19:47 11/13/17 07:52 11/13/17 09:10 Glucose (Fingerstick) 374 mg/dL (70-99) 203 mg/dL (70-99) 302 mg/dL (70-99) White Blood Count 10.6 x10^3/uL (4.0-11.0) Red Blood Count 4.39 x10^6/uL (3.50-5.40) Hemoglobin 12.3 g/dL (12.0-15.5) Hematocrit 36.8 % (36.0-47.0) Mean Corpuscular Volume 84 fL (79-100) Mean Corpuscular Hemoglobin 28 pg (25-35) Mean Corpuscular Hemoglobin Concent 34 g/dL (31-37) Red Cell Distribution Width 14.3 % (11.5-14.5) Platelet Count 204 x10^3/uL (140-400) Neutrophils (%) (Auto) 89 % (31-73) Lymphocytes (%) (Auto) 8 % (24-48) Monocytes (%) (Auto) 3 % (0-9) Eosinophils (%) (Auto) 0 % (0-3) Basophils (%) (Auto) 0 % (0-3) Neutrophils # (Auto) 9.5 x10^3uL (1.8-7.7) Lymphocytes # (Auto) 0.9 x10^3/uL (1.0-4.8) Monocytes # (Auto) 0.3 x10^3/uL (0.0-1.1) Eosinophils # (Auto) 0.0 x10^3/uL (0.0-0.7) Basophils # (Auto) 0.0 x10^3/uL (0.0-0.2) Segmented Neutrophils % 94 % (35-66) Lymphocytes % 5 % (24-48) Monocytes % 1 % (0-10) Platelet Estimate Adequate (ADEQUATE) Sodium Level 136 mmol/L (136-145) Potassium Level 4.1 mmol/L (3.5-5.1) Chloride Level 103 mmol/L (98-107) Carbon Dioxide Level 22 mmol/L (21-32) Anion Gap 11 (6-14) Blood Urea Nitrogen 36 mg/dL (7-20) Creatinine 1.4 mg/dL (0.6-1.0) Estimated GFR (Cockcroft-Gault) 47.2 BUN/Creatinine Ratio 26 (6-20) Glucose Level 319 mg/dL (70-99) Calcium Level 8.7 mg/dL (8.5-10.1) Magnesium Level 2.2 mg/dL (1.8-2.4) Total Bilirubin 0.2 mg/dL (0.2-1.0) Aspartate Amino Transf (AST/SGOT) 18 U/L (15-37) Alanine Aminotransferase (ALT/SGPT) 21 U/L (14-59) Alkaline Phosphatase 127 U/L (46-116) Total Protein 6.3 g/dL (6.4-8.2) Albumin 2.1 g/dL (3.4-5.0) Albumin/Globulin Ratio 0.5 (1.0-1.7) Test 11/13/17 11:36 Glucose (Fingerstick) 199 mg/dL (70-99) Medications Current Medications Albuterol/ Ipratropium (Duoneb) 6 ml 1X ONCE NEB Last administered on at 13:56; Start 11/11/17 at 13:15; Stop 11/11/17 at 13:18; Status DC Methylprednisolone Sodium Succinate (SOLU-Medrol 125MG VIAL) 125 mg 1X ONCE IV Last administered on 11/11/17at 13:35; Start 11/11/17 at 13:15; Stop 11/11/17 at 13:18; Status DC Potassium Chloride (Klor-Con) 40 meq 1X ONCE PO Last administered on at 15:07; Start 11/11/17 at 14:30; Stop 11/11/17 at 14:31; Status DC Furosemide (Lasix) 80 mg 1X ONCE IVP Last administered on 11/11/17at 15:07; Start 11/11/17 at 14:30; Stop 11/11/17 at 14:31; Status DC Fentanyl Citrate (Fentanyl 2ml Vial) 50 mcg PRN Q2HR PRN IV PAIN Last administered on 11/12/17at 12:28; Start 11/11/17 at 14:30; Stop 11/12/17 at 14:29 ; Status DC Albuterol/ Ipratropium (Duoneb) 3 ml RTQID NEB Last administered on 11/12/17at 11:33; Start 11/11/17 at 16:00; Stop 11/12/17 at 15:59; Status DC Potassium Chloride (Klor-Con) 40 meq 1X ONCE PO Last administered on 20:36; Start 11/11/17 at 20:00; Stop 11/11/17 at 20:01; Status DC Magnesium Sulfate 50 ml @ 25 mls/hr 1X ONCE IV Last administered on 11/11/17at 17:35; Start 11/11/17 at 15:45; Stop 11/11/17 at 17:44; Status DC Methylprednisolone Sodium Succinate (SOLU-Medrol 40MG VIAL) 30 mg Q12HR IV Last administered on 11/13/17at 08:36; Start 11/11/17 at 21:30 Insulin Human Lispro (HumaLOG) 0-9 UNITS TIDACHC SQ Last administered on 08:52; Start 11/12/17 at 07:30 Dextrose (Dextrose 50%-Water Syringe) 12.5 gm PRN Q15MIN PRN IV SEE COMMENTS; Start 11/11/17 at 21:15 Insulin Human Lispro (HumaLOG) 10 units 1X ONCE SQ Last administered on at 21:32; Start 11/11/17 at 21:30; Stop 11/11/17 at 21:31; Status DC Insulin Glargine (Lantus) 15 units QHS SQ Last administered on 11/12/17at 22:03 ; Start 11/11/17 at 21:30; Stop 11/13/17 at 09:09; Status DC Atorvastatin Calcium (Lipitor) 40 mg QHS PO Last administered on 11/12/17at 21: 52; Start 11/11/17 at 22:00 Bupropion HCl (Wellbutrin Xl) 150 mg DAILY PO Last administered on 11/13/17at 08 :33; Start 11/12/17 at 09:00 Clonidine HCl (Catapres) 0.1 mg TID PO Last administered on 11/13/17 08:35; Start 11/11/17 at 22:00 Clopidogrel Bisulfate (Plavix) 75 mg DAILY PO Last administered on 11/13/17at 08 :34; Start 11/12/17 at 09:00 Cyclobenzaprine HCl (Flexeril) 10 mg TID PO Last administered on 11/13/17at 08: 33; Start 11/11/17 at 22:00 Hydrochlorothiazide (Hydrodiuril) 37.5 mg DAILY PO ; Start 11/12/17 at 09:00; Stop 11/12/17 at 09:00; Status DC Insulin Glargine (Lantus) 15 units QHS SQ ; Start 11/12/17 at 21:00; Status UNV Lisinopril (Prinivil) 40 mg DAILY PO Last administered on 11/13/17at 08:34; Start 11/12/17 at 09:00 Carvedilol (Coreg) 25 mg BIDWMEALS PO Last administered on 11/13/17at 08:36; Start 11/12/17 at 08:00 Ibuprofen (Motrin) 600 mg PRN Q8HRS PRN PO INFLAMMATION Last administered on at 03:09; Start 11/11/17 at 21:30 Metolazone (Zaroxolyn) 5 mg DAILY PO Last administered on 11/13/17at 08:36; Start 11/12/17 at 09:00 Promethazine HCl (Phenergan) 25 mg PRN TID PRN PO NAUSEA/VOMITING 1ST CHOICE; Start 11/11/17 at 21:30 Quetiapine Fumarate (SEROquel) 100 mg TID PO Last administered on 11/13/17at 08: 34; Start 11/11/17 at 21:30 Albuterol Sulfate (Ventolin Neb Soln) 2.5 mg PRN Q4HRS PRN NEB SHORTNESS OF BREATH Last administered on 11/12/17at 15:41; Start 11/11/17 at 23:00 Metoprolol Tartrate (Lopressor) 50 mg BID PO ; Start 11/12/17 at 01:00; Stop at 01:00; Status DC Metoprolol Tartrate (Lopressor) 50 mg 1X ONCE PO Last administered on at 00:49; Start 11/12/17 at 01:00; Stop 11/12/17 at 01:01; Status DC Potassium Chloride (Klor-Con) 40 meq 1X ONCE PO Last administered on at 08:22; Start 11/12/17 at 08:00; Stop 11/12/17 at 08:01; Status DC Furosemide (Lasix) 40 mg DAILY PO Last administered on 11/13/17at 08:34; Start 11/13/17 at 09:00 Furosemide (Lasix) 40 mg 1X ONCE PO Last administered on 11/12/17at 12:10; Start 11/12/17 at 11:15; Stop 11/12/17 at 11:23; Status DC Potassium Chloride (Klor-Con) 20 meq DAILYWBKFT PO Last administered on at 08:34; Start 11/13/17 at 08:00 Potassium Chloride (Klor-Con) 40 meq 1X ONCE PO Last administered on at 12:11; Start 11/12/17 at 13:00; Stop 11/12/17 at 13:01; Status DC Insulin Human Lispro (HumaLOG) 3 units 1X ONCE SQ Last administered on at 12:35; Start 11/12/17 at 12:30; Stop 11/12/17 at 12:31; Status DC Multivitamins 10 ml/Thiamine HCl 100 mg/Folic Acid 1 mg/Sodium Chloride 1,011.2 ml @ 100 mls/ hr DAILY IV Last administered on 11/13/17at 09:30; Start at 14:00; Stop 11/16/17 at 19:07 Multivitamins (Thera M Plus) 1 tab DAILY PO ; Start 11/17/17 at 09:00 Folic Acid (Folic Acid) 1 mg DAILY PO ; Start 11/17/17 at 09:00 Thiamine HCl 100 mg/Dextrose 51 ml @ 100 mls/hr DAILY IV ; Start 11/13/17 at 09 :00; Stop 11/13/17 at 09:00; Status DC Lorazepam (Ativan) 2 mg Q6H PO Last administered on 11/13/17at 08:36; Start at 13:00; Stop 11/13/17 at 19:01 Lorazepam (Ativan) 4 mg PRN Q1HR PRN PO For CIWA 8-14; Start 11/12/17 at 13:15 Haloperidol Lactate (Haldol Inj) 5 mg PRN Q4HRS PRN IVP Hallucinatns,Confusn, Delirium; Start 11/12/17 at 13:15 Diphenhydramine HCl (Benadryl) 25 mg PRN Q15MIN PRN IVP EPS symptoms 2'Haldol admin; Start 11/12/17 at 13:15 Clonidine HCl (Catapres) 0.1 mg PRN Q1HR PRN PO SBP > 180 or DBP > 100, MRX3; Start 11/12/17 at 13:15 Lorazepam (Ativan) 2 mg PRN Q15MIN PRN IV ANXIETY / AGITATION; Start 11/12/17 at 13:15 Thiamine Mononitrate (Vitamin B-1) 100 mg DAILY PO ; Start 11/17/17 at 09:00 Albuterol/ Ipratropium (Duoneb) 3 ml RTQID NEB Last administered on 11/13/17at 11:29; Start 11/12/17 at 20:00 Insulin Human Lispro (HumaLOG) 12 units 1X ONCE SQ Last administered on at 17:10; Start 11/12/17 at 17:15; Stop 11/12/17 at 17:16; Status DC Insulin Glargine (Lantus) 25 units QHS SQ ; Start 11/13/17 at 21:00 Insulin Human Lispro (HumaLOG) 10 units TIDWMEALS SQ ; Start 11/13/17 at 09:30 Guaifenesin (Robitussin Dm) 10 ml PRN Q6HRS PRN PO COUGH; Start 11/13/17 at 09: 15 Active Scripts Active Reported Lantus Solostar (Insulin Glargine,Hum.rec.anlog) 100 Unit/1 Ml Insuln.pen 15 Unit SQ QHS Cyclobenzaprine Hcl 10 Mg Tablet 10 Mg PO TID Bupropion Xl (Bupropion Hcl) 150 Mg Tab.er.24h 150 Mg PO Promethazine Hcl 25 Mg Tablet 25 Mg PO TID PRN Ibuprofen 600 Mg Tablet 600 Mg PO PRN Q8HRS PRN Quetiapine Fumarate 100 Mg Tablet 100 Mg PO TID Metolazone 5 Mg Tablet 5 Mg PO DAILY Carvedilol 25 Mg Tablet 1 Tab PO BID Hydrochlorothiazide Tablet (Hydrochlorothiazide) 25 Mg Tablet 1.5 Tab PO DAILY Atorvastatin Calcium 40 Mg Tablet 1 Tab PO QHS Clopidogrel (Clopidogrel Bisulfate) 75 Mg Tablet 1 Tab PO DAILY Clonidine Hcl 0.1 Mg Tablet 0.1 Mg PO TID Lisinopril 20 Mg Tablet 40 Mg PO DAILY Vitals/I & O Vital Sign - Last 24 Hours 11/12/17 11/12/17 11/12/17 11/12/17 12:28 12:58 14:02 15:00 Temp 98.1 98.1 Pulse 69 69 Resp 20 16 20 B/P (MAP) 155/99 102/81 (88) Pulse Ox 97 96 97 O2 Delivery Room Air Room Air Nasal Cannula 11/12/17 11/12/17 11/12/17 11/12/17 15:42 16:30 19:00 19:17 Temp 97.5 97.5 Pulse 64 65 Resp 20 B/P (MAP) 155/99 144/92 (109) Pulse Ox 99 97 O2 Delivery Room Air Nasal Cannula Room Air 11/12/17 11/12/17 11/12/17 11/13/17 20:00 21:52 23:00 03:00 Temp 97.5 97.5 97.5 97.5 Pulse 65 67 59 Resp 20 20 B/P (MAP) 144/92 122/78 (93) 135/70 (91) Pulse Ox 98 96 O2 Delivery Nasal Cannula Nasal Cannula Nasal Cannula O2 Flow Rate 2.0 11/13/17 11/13/17 11/13/17 11/13/17 07:00 08:34 08:35 08:36 Temp 97.3 97.3 Pulse 63 63 63 63 Resp 17 B/P (MAP) 144/93 (110) 144/93 144/93 144/93 Pulse Ox 95 O2 Delivery Nasal Cannula 11/13/17 11:29 Pulse Ox 97 O2 Delivery Room Air Intake and Output 11/12/17 11/12/17 11/13/17 15:00 23:00 07:00 Intake Total 300 ml Balance 300 ml BOGDAN WITT MD Nov 13, 2017 11:58
--- NOTE | 2017-11-13 12:11 | RAD ---
CT of the head without contrast, 11/13/2017: HISTORY: Encephalopathy Comparison is made to a study from 04/01/2014. There is unchanged encephalomalacia medially in the right occipital lobe compatible with an old infarct. There are minimal additional patchy lucencies in the deep white matter bilaterally compatible with chronic ischemic change. The ventricles are within normal limits in size. There is no shift of the midline structures. There is no evidence of acute intracranial hemorrhage or mass effect. There is a new low density focus in the left cerebellar hemisphere suggesting an interval infarct. It was probably acute at the time of the 04/02/2014 MR study. IMPRESSION: 1. 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 2. Minimal bilateral deep white matter lucencies compatible with chronic ischemic change. PQRS Compliance Statement: One or more of the following individualized dose reduction techniques were utilized for this examination: 1. Automated exposure control 2. Adjustment of the mA and/or kV according to patient size 3. Use of iterative reconstruction technique Electronically signed by: Parag Munoz MD (11/13/2017 12:08 PM) [facility]
[2017-11-13 15:00] VITALS: BP 178/151
[2017-11-13] MEDS: LACTULOSE 20 GM/30 ML SOLUTION. PO SCH ×2 (15:32→21:02)
--- NOTE | 2017-11-13 15:33 | PDOC2 ---
NEUROLOGY CONSULT Date of Admission Date of Admission DATE: 11/13/17 TIME: 15:20 Reason for Consult Reason for Consult: IMPRESSION: Metabolic encephalopathy. Acute sleep deprivation x 2 nights per her boyfriend. [place] sleepiness on 11/13/17. Hyperglycemia. DM. HTN. HLD. COPD. Renal insufficiency. 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 Obesity. RECOMMENDATIONS/PLAN: Continue Plavix 75 md daily. Continue Lipitor HS. EEG. Lab: see orders. OT/PT. HCT: No acute findings. HISTORY OF THE PRESENT ILLNESS: 57-y-old AA female patient with above medical diseases was admitted on 11/11 due to respiratory distress/failure, decreased 02 saturation. Her boyfriend stated that she has not sleep had normal sleep for 2 days since hospitalizes and he believed some of her medications kept her awake. She felt sleep on 11/13 after received some sedative meds. No focalized motor or sensory deficits noted. PAST MEDICAL HISTORY Cardiovascular: CAD (PCI/ANISHA to LAD), HTN, ME, Hyperlipidemia Pulmonary: COPD CENTRAL NERVOUS SYSTEM: CVA GI: No pertinent hx Heme/Onc: No pertinent hx Hepatobiliary: No pertinent hx Psych: No pertinent hx Musculoskeletal: No pain Rheumatologic: No pertinent hx Infectious disease: No pertinent hx ENT: No pertinent hx Renal/: No pertinent hx Endocrine: Diabetes PAST SURGICAL HISTORY Hysterectomy FAMILY HISTORY Diabetes, Heart Disease, Hypertension SOCIAL HISTORY Smoke: 2 packs per day (+ cigars) ALLERGIES Coded Allergies: Sulfamethoxazole (Verified Allergy, Intermediate, 06/09/16) Trimethoprim (Verified Allergy, Intermediate, 06/09/16) MEDICATIONS: Refer to [facility] REVIEW OF SYSTEMS: Constitutional: Obesity. Head: No traumatic brain or head injury. Skin: No edema, or rash. Ear: No infection. Eyes: No vision loss or color blindness. Nose: No bleeding or purulent discharges. Hearing: No hearing decrease. Neck: No injury. Breast: No history of cancer, masses,or discharges. Cardiac: CAD, HTN, HLD. Pulmonary: COPD. GI: No GI ulcer, GI bleeding. Urinary/genital: UTI. Endocrinologic: Diabetes Mellitus, obesity. Skeletomuscular: No muscular atrophy, deformity. Neurological: see HP. Psychiatric: Denies drug use/abuse. Otherwise, not [id number] review of systems. PHYSICAL EXAMINATION: General appearance is sleepiness. HEENT: Normocephalic and nontraumatic. Eyes, nose, ears, and throat are unremarkable. Neck is supple. No lymphadenopathy. No crepitus. Cardiovascular: S1, S2, regular rate and rhythm. Pulmonary: Clear to auscultation bilaterally. Abdomen: Bowel sounds are positive. Abdomen is soft, nontender, and nondistended. Extremities: No rash, lesions, or edema. No restriction of range of motion NEUROLOGICAL EXAMINATION: Sleepiness, but arousable. Not know if she is oriented to time, but she knows place and person. PERRL. EOMI. CN: no focal findings. Muscle tone: within normal. Muscle strength: 5- DTR: 1+ due to obesity. Plantar reflex: Flexor response bilaterally Gait: not examined in bed. Sensory exam: no abnormal findings. No cerebellar signs elicited. F-T-N test not performed due to not follow commands. Current Medications Current Medications Current Medications Albuterol/ Ipratropium (Duoneb) 6 ml 1X ONCE NEB Last administered on at 13:56; Start 11/11/17 at 13:15; Stop 11/11/17 at 13:18; Status DC Methylprednisolone Sodium Succinate (SOLU-Medrol 125MG VIAL) 125 mg 1X ONCE IV Last administered on 11/11/17at 13:35; Start 11/11/17 at 13:15; Stop 11/11/17 at 13:18; Status DC Potassium Chloride (Klor-Con) 40 meq 1X ONCE PO Last administered on at 15:07; Start 11/11/17 at 14:30; Stop 11/11/17 at 14:31; Status DC Furosemide (Lasix) 80 mg 1X ONCE IVP Last administered on 11/11/17at 15:07; Start 11/11/17 at 14:30; Stop 11/11/17 at 14:31; Status DC Fentanyl Citrate (Fentanyl 2ml Vial) 50 mcg PRN Q2HR PRN IV PAIN Last administered on 11/12/17at 12:28; Start 11/11/17 at 14:30; Stop 11/12/17 at 14:29 ; Status DC Albuterol/ Ipratropium (Duoneb) 3 ml RTQID NEB Last administered on 11/12/17at 11:33; Start 11/11/17 at 16:00; Stop 11/12/17 at 15:59; Status DC Potassium Chloride (Klor-Con) 40 meq 1X ONCE PO Last administered on at 20:36; Start 11/11/17 at 20:00; Stop 11/11/17 at 20:01; Status DC Magnesium Sulfate 50 ml @ 25 mls/hr 1X ONCE IV Last administered on 11/11/17at 17:35; Start 11/11/17 at 15:45; Stop 11/11/17 at 17:44; Status DC Methylprednisolone Sodium Succinate (SOLU-Medrol 40MG VIAL) 30 mg Q12HR IV Last administered on 11/13/17at 08:36; Start 11/11/17 at 21:30 Insulin Human Lispro (HumaLOG) 0-9 UNITS TIDACHC SQ Last administered on at 12:21; Start 11/12/17 at 07:30 Dextrose (Dextrose 50%-Water Syringe) 12.5 gm PRN Q15MIN PRN IV SEE COMMENTS; Start 11/11/17 at 21:15 Insulin Human Lispro (HumaLOG) 10 units 1X ONCE SQ Last administered on at 21:32; Start 11/11/17 at 21:30; Stop 11/11/17 at 21:31; Status DC Insulin Glargine (Lantus) 15 units QHS SQ Last administered on 11/12/17at 22:03 ; Start 11/11/17 at 21:30; Stop 11/13/17 at 09:09; Status DC Atorvastatin Calcium (Lipitor) 40 mg QHS PO Last administered on 11/12/17at 21: 52; Start 11/11/17 at 22:00 Bupropion HCl (Wellbutrin Xl) 150 mg DAILY PO Last administered on 11/13/17at 08 :33; Start 11/12/17 at 09:00; Stop 11/13/17 at 11:55; Status DC Clonidine HCl (Catapres) 0.1 mg TID PO Last administered on 11/13/17at 08:35; Start 11/11/17 at 22:00 Clopidogrel Bisulfate (Plavix) 75 mg DAILY PO Last administered on 11/13/17at 08 :34; Start 11/12/17 at 09:00 Cyclobenzaprine HCl (Flexeril) 10 mg TID PO Last administered on 11/13/17at 08: 33; Start 11/11/17 at 22:00; Stop 11/13/17 at 11:55; Status DC Hydrochlorothiazide (Hydrodiuril) 37.5 mg DAILY PO ; Start 11/12/17 at 09:00; Stop 11/12/17 at 09:00; Status DC Insulin Glargine (Lantus) 15 units QHS SQ ; Start 11/12/17 at 21:00; Status UNV Lisinopril (Prinivil) 40 mg DAILY PO Last administered on 11/13/17at 08:34; Start 11/12/17 at 09:00 Carvedilol (Coreg) 25 mg BIDWMEALS PO Last administered on 11/13/17at 08:36; Start 11/12/17 at 08:00 Ibuprofen (Motrin) 600 mg PRN Q8HRS PRN PO INFLAMMATION Last administered on at 03:09; Start 11/11/17 at 21:30 Metolazone (Zaroxolyn) 5 mg DAILY PO Last administered on 11/13/17at 08:36; Start 11/12/17 at 09:00 Promethazine HCl (Phenergan) 25 mg PRN TID PRN PO NAUSEA/VOMITING 1ST CHOICE; Start 11/11/17 at 21:30 Quetiapine Fumarate (SEROquel) 100 mg TID PO Last administered on 11/13/17at 08: 34; Start 11/11/17 at 21:30; Stop 11/13/17 at 11:55; Status DC Albuterol Sulfate (Ventolin Neb Soln) 2.5 mg PRN Q4HRS PRN NEB SHORTNESS OF BREATH Last administered on 11/12/17at 15:41; Start 11/11/17 at 23:00 Metoprolol Tartrate (Lopressor) 50 mg BID PO ; Start 11/12/17 at 01:00; Stop at 01:00; Status DC Metoprolol Tartrate (Lopressor) 50 mg 1X ONCE PO Last administered on at 00:49; Start 11/12/17 at 01:00; Stop 11/12/17 at 01:01; Status DC Potassium Chloride (Klor-Con) 40 meq 1X ONCE PO Last administered on at 08:22; Start 11/12/17 at 08:00; Stop 11/12/17 at 08:01; Status DC Furosemide (Lasix) 40 mg DAILY PO Last administered on 11/13/17at 08:34; Start 11/13/17 at 09:00 Furosemide (Lasix) 40 mg 1X ONCE PO Last administered on 11/12/17at 12:10; Start 11/12/17 at 11:15; Stop 11/12/17 at 11:23; Status DC Potassium Chloride (Klor-Con) 20 meq DAILYWBKFT PO Last administered on at 08:34; Start 11/13/17 at 08:00 Potassium Chloride (Klor-Con) 40 meq 1X ONCE PO Last administered on at 12:11; Start 11/12/17 at 13:00; Stop 11/12/17 at 13:01; Status DC Insulin Human Lispro (HumaLOG) 3 units 1X ONCE SQ Last administered on at 12:35; Start 11/12/17 at 12:30; Stop 11/12/17 at 12:31; Status DC Multivitamins 10 ml/Thiamine HCl 100 mg/Folic Acid 1 mg/Sodium Chloride 1,011.2 ml @ 100 mls/ hr DAILY IV Last administered on 11/13/17at 09:30; Start at 14:00; Stop 11/16/17 at 19:07 Multivitamins (Thera M Plus) 1 tab DAILY PO ; Start 11/17/17 at 09:00 Folic Acid (Folic Acid) 1 mg DAILY PO ; Start 11/17/17 at 09:00 Thiamine HCl 100 mg/Dextrose 51 ml @ 100 mls/hr DAILY IV ; Start 11/13/17 at 09 :00; Stop 11/13/17 at 09:00; Status DC Lorazepam (Ativan) 2 mg Q6H PO Last administered on 11/13/17at 08:36; Start at 13:00; Stop 11/13/17 at 11:55; Status DC Lorazepam (Ativan) 4 mg PRN Q1HR PRN PO For CIWA 8-14; Start 11/12/17 at 13:15 Haloperidol Lactate (Haldol Inj) 5 mg PRN Q4HRS PRN IVP Hallucinatns,Confusn, Delirium; Start 11/12/17 at 13:15 Diphenhydramine HCl (Benadryl) 25 mg PRN Q15MIN PRN IVP EPS symptoms 2'Haldol admin; Start 11/12/17 at 13:15 Clonidine HCl (Catapres) 0.1 mg PRN Q1HR PRN PO SBP > 180 or DBP > 100, MRX3; Start 11/12/17 at 13:15 Lorazepam (Ativan) 2 mg PRN Q15MIN PRN IV ANXIETY / AGITATION; Start 11/12/17 at 13:15 Thiamine Mononitrate (Vitamin B-1) 100 mg DAILY PO ; Start 11/17/17 at 09:00 Albuterol/ Ipratropium (Duoneb) 3 ml RTQID NEB Last administered on 11/13/17at 11:29; Start 11/12/17 at 20:00 Insulin Human Lispro (HumaLOG) 12 units 1X ONCE SQ Last administered on at 17:10; Start 11/12/17 at 17:15; Stop 11/12/17 at 17:16; Status DC Insulin Glargine (Lantus) 25 units QHS SQ ; Start 11/13/17 at 21:00 Insulin Human Lispro (HumaLOG) 10 units TIDWMEALS SQ Last administered on at 12:20; Start 11/13/17 at 09:30 Guaifenesin (Robitussin Dm) 10 ml PRN Q6HRS PRN PO COUGH; Start 11/13/17 at 09: 15 Hydralazine HCl (Apresoline) 50 mg PRN Q6HRS PRN PO ELEVATED BP, SEE COMMENTS; Start 11/13/17 at 13:15 Lactulose (Lactulose) 20 gm BID PO ; Start 11/13/17 at 13:30 Active Scripts Active Reported Lantus Solostar (Insulin Glargine,Hum.rec.anlog) 100 Unit/1 Ml Insuln.pen 15 Unit SQ QHS Cyclobenzaprine Hcl 10 Mg Tablet 10 Mg PO TID Bupropion Xl (Bupropion Hcl) 150 Mg Tab.er.24h 150 Mg PO Promethazine Hcl 25 Mg Tablet 25 Mg PO TID PRN Ibuprofen 600 Mg Tablet 600 Mg PO PRN Q8HRS PRN Quetiapine Fumarate 100 Mg Tablet 100 Mg PO TID Metolazone 5 Mg Tablet 5 Mg PO DAILY Carvedilol 25 Mg Tablet 1 Tab PO BID Hydrochlorothiazide Tablet (Hydrochlorothiazide) 25 Mg Tablet 1.5 Tab PO DAILY Atorvastatin Calcium 40 Mg Tablet 1 Tab PO QHS Clopidogrel (Clopidogrel Bisulfate) 75 Mg Tablet 1 Tab PO DAILY Clonidine Hcl 0.1 Mg Tablet 0.1 Mg PO TID Lisinopril 20 Mg Tablet 40 Mg PO DAILY Allergies Allergies: Allergies Coded Allergies Type Severity Reaction Last Updated Verified sulfamethoxazole Allergy Intermediate 06/09/16 Yes trimethoprim Allergy Intermediate 06/09/16 Yes ROS Review of System The patient denies any associated fevers, chills, headache, ear pain, rhinorrhea , sore throat, stiff neck, productive cough, chest pain, shortness of breath, back or flank pain, abdominal pain, nausea, vomiting, diarrhea, constipation, dysuria, rash, numbness, weakness, tingling, incontinence, difficulty ambulating, or diaphoresis. Physical Exam Physical Exam General: Well developed, well nourished, no acute distress, well appearing HEENT: Pupils equally round and reactive to light, EOMI, no discharge, normal conjunctiva Neck: Supple, no nuchal rigidity, no JVD, trachea midline, no tenderness Cardiac: RRR, no murmurs, no gallops, no rubs Chest/Lungs: CTAB, no wheeze, no rhonchi, no crackles Abdomen: soft, non-distended, no guarding, no peritoneal signs, non-tender Back: No tenderness Extremities: no edema, pulses intact, non-tender,capillary refill <3 sec bilateral upper and lower extremities, Neuro: Alert and oriented x 4, no focal deficits, normal speech Vitals Vitals: Vital Signs Date Time Temp Pulse Resp B/P (MAP) Pulse Ox O2 Delivery O2 Flow Rate FiO2 11/13/17 11:29 97 Room Air 11/13/17 11:00 97.3 60 165/103 (123) 97.3 11/13/17 07:00 17 11/12/17 20:00 2.0 Labs Labs Laboratory Tests Test 11/11/17 17:16 11/11/17 17:20 11/11/17 20:30 11/11/17 20:35 Glucose (Fingerstick) 111 mg/dL (70-99) 392 mg/dL (70-99) Troponin I Quantitative 0.055 ng/mL (0.000-0.055) 0.023 ng/mL (0.000-0.055) Test 11/12/17 04:05 11/12/17 07:30 11/12/17 11:52 11/12/17 16:25 Sodium Level 135 mmol/L (136-145) Potassium Level 3.1 mmol/L (3.5-5.1) Chloride Level 98 mmol/L (98-107) Carbon Dioxide Level 24 mmol/L (21-32) Anion Gap 13 (6-14) Blood Urea Nitrogen 28 mg/dL (7-20) Creatinine 1.4 mg/dL (0.6-1.0) Estimated GFR (Cockcroft-Gault) 47.2 Glucose Level 399 mg/dL (70-99) Calcium Level 8.6 mg/dL (8.5-10.1) Magnesium Level 2.1 mg/dL (1.8-2.4) Triglycerides Level 94 mg/dL (0-150) Cholesterol Level 254 mg/dL (0-200) LDL Cholesterol, Calculated 129 mg/dL (0-100) VLDL Cholesterol, Calculated 19 mg/dL (0-40) Non-HDL Cholesterol Calculated 148 mg/dL (0-129) HDL Cholesterol 106 mg/dL (40-60) Cholesterol/HDL Ratio 2.4 Glucose (Fingerstick) 294 mg/dL (70-99) 423 mg/dL (70-99) 374 mg/dL (70-99) Test 11/12/17 19:47 11/13/17 07:52 11/13/17 09:10 11/13/17 11:36 Glucose (Fingerstick) 203 mg/dL (70-99) 302 mg/dL (70-99) 199 mg/dL (70-99) White Blood Count 10.6 x10^3/uL (4.0-11.0) Red Blood Count 4.39 x10^6/uL (3.50-5.40) Hemoglobin 12.3 g/dL (12.0-15.5) Hematocrit 36.8 % (36.0-47.0) Mean Corpuscular Volume 84 fL (79-100) Mean Corpuscular Hemoglobin 28 pg (25-35) Mean Corpuscular Hemoglobin Concent 34 g/dL (31-37) Red Cell Distribution Width 14.3 % (11.5-14.5) Platelet Count 204 x10^3/uL (140-400) Neutrophils (%) (Auto) 89 % (31-73) Lymphocytes (%) (Auto) 8 % (24-48) Monocytes (%) (Auto) 3 % (0-9) Eosinophils (%) (Auto) 0 % (0-3) Basophils (%) (Auto) 0 % (0-3) Neutrophils # (Auto) 9.5 x10^3uL (1.8-7.7) Lymphocytes # (Auto) 0.9 x10^3/uL (1.0-4.8) Monocytes # (Auto) 0.3 x10^3/uL (0.0-1.1) Eosinophils # (Auto) 0.0 x10^3/uL (0.0-0.7) Basophils # (Auto) 0.0 x10^3/uL (0.0-0.2) Segmented Neutrophils % 94 % (35-66) Lymphocytes % 5 % (24-48) Monocytes % 1 % (0-10) Platelet Estimate Adequate (ADEQUATE) Sodium Level 136 mmol/L (136-145) Potassium Level 4.1 mmol/L (3.5-5.1) Chloride Level 103 mmol/L (98-107) Carbon Dioxide Level 22 mmol/L (21-32) Anion Gap 11 (6-14) Blood Urea Nitrogen 36 mg/dL (7-20) Creatinine 1.4 mg/dL (0.6-1.0) Estimated GFR (Cockcroft-Gault) 47.2 BUN/Creatinine Ratio 26 (6-20) Glucose Level 319 mg/dL (70-99) Calcium Level 8.7 mg/dL (8.5-10.1) Magnesium Level 2.2 mg/dL (1.8-2.4) Total Bilirubin 0.2 mg/dL (0.2-1.0) Aspartate Amino Transf (AST/SGOT) 18 U/L (15-37) Alanine Aminotransferase (ALT/SGPT) 21 U/L (14-59) Alkaline Phosphatase 127 U/L (46-116) Total Protein 6.3 g/dL (6.4-8.2) Albumin 2.1 g/dL (3.4-5.0) Albumin/Globulin Ratio 0.5 (1.0-1.7) Test 11/13/17 12:10 Ammonia 50 mcmol/L (11-34) Laboratory Tests Test 11/12/17 16:25 11/12/17 19:47 11/13/17 07:52 11/13/17 09:10 Glucose (Fingerstick) 374 mg/dL (70-99) 203 mg/dL (70-99) 302 mg/dL (70-99) White Blood Count 10.6 x10^3/uL (4.0-11.0) Red Blood Count 4.39 x10^6/uL (3.50-5.40) Hemoglobin 12.3 g/dL (12.0-15.5) Hematocrit 36.8 % (36.0-47.0) Mean Corpuscular Volume 84 fL (79-100) Mean Corpuscular Hemoglobin 28 pg (25-35) Mean Corpuscular Hemoglobin Concent 34 g/dL (31-37) Red Cell Distribution Width 14.3 % (11.5-14.5) Platelet Count 204 x10^3/uL (140-400) Neutrophils (%) (Auto) 89 % (31-73) Lymphocytes (%) (Auto) 8 % (24-48) Monocytes (%) (Auto) 3 % (0-9) Eosinophils (%) (Auto) 0 % (0-3) Basophils (%) (Auto) 0 % (0-3) Neutrophils # (Auto) 9.5 x10^3uL (1.8-7.7) Lymphocytes # (Auto) 0.9 x10^3/uL (1.0-4.8) Monocytes # (Auto) 0.3 x10^3/uL (0.0-1.1) Eosinophils # (Auto) 0.0 x10^3/uL (0.0-0.7) Basophils # (Auto) 0.0 x10^3/uL (0.0-0.2) Segmented Neutrophils % 94 % (35-66) Lymphocytes % 5 % (24-48) Monocytes % 1 % (0-10) Platelet Estimate Adequate (ADEQUATE) Sodium Level 136 mmol/L (136-145) Potassium Level 4.1 mmol/L (3.5-5.1) Chloride Level 103 mmol/L (98-107) Carbon Dioxide Level 22 mmol/L (21-32) Anion Gap 11 (6-14) Blood Urea Nitrogen 36 mg/dL (7-20) Creatinine 1.4 mg/dL (0.6-1.0) Estimated GFR (Cockcroft-Gault) 47.2 BUN/Creatinine Ratio 26 (6-20) Glucose Level 319 mg/dL (70-99) Calcium Level 8.7 mg/dL (8.5-10.1) Magnesium Level 2.2 mg/dL (1.8-2.4) Total Bilirubin 0.2 mg/dL (0.2-1.0) Aspartate Amino Transf (AST/SGOT) 18 U/L (15-37) Alanine Aminotransferase (ALT/SGPT) 21 U/L (14-59) Alkaline Phosphatase 127 U/L (46-116) Total Protein 6.3 g/dL (6.4-8.2) Albumin 2.1 g/dL (3.4-5.0) Albumin/Globulin Ratio 0.5 (1.0-1.7) Test 11/13/17 11:36 11/13/17 12:10 Glucose (Fingerstick) 199 mg/dL (70-99) Ammonia 50 mcmol/L (11-34) ROLA OLIVER MD Nov 13, 2017 15:33
[2017-11-13 19:00] VITALS: BP 164/96
[2017-11-13] MEDS ORDERED: NICOTINE POLACRILEX 2MG GUM PACKAGE of 12. BC PRN (20:15)
[2017-11-13] MEDS: ATORVASTATIN CALCIUM 40 MG TABLET. PO SCH (21:01)
[2017-11-13] MEDS: INSULIN GLARGINE 300 UNITS/3 ML INSULN.PEN. SQ SCH (21:10)
[2017-11-13 23:00] VITALS: BP 146/85
[2017-11-14 00:48] LABS: BILIRUBIN,URINE NEGATIVE (NEG); CLARITY,URINE CLEAR; COLOR,URINE YELLOW; NITRITE,URINE NEGATIVE (NEG); PH,URINE 5.5; PROTEIN,URINE >=300 mg/dL (NEG-TRACE); UROBILINOGEN,URINE 0.2 mg/dL (0.2 mg/dL)
[2017-11-14 01:01] LABS: BARBITURATES NEG (NEG); BENZODIAZEPINES NEG (NEG); CANNABINOIDS NEG (NEG); COCAINE NEG (NEG); METHADONE NEG (NEG); OPIATES NEG (NEG); PHENCYCLIDINE NEG (NEG)
[2017-11-14 01:07] LABS: BACTERIA,URINE FEW /HPF (0-FEW); HYALINE CASTS, URINE FEW /HPF; SQUAMOUS EPITHELIAL CELL,UR MOD /LPF
[2017-11-14 01:09] LABS: HEMOGLOBIN A1C 7.8 % (4.8-5.6)
[2017-11-14 01:09] LABS: AMPHETAMINE/METHAMPHETAMINE NEG (NEG)
[2017-11-14 03:04] VITALS: BP 146/95
[2017-11-14 06:41] LABS: BASO % 0 % (0-3); EOS % 0 % (0-3); HEMATOCRIT 33.7 % (36.0-47.0); HEMOGLOBIN 11.2 g/dL (12.0-15.5); LYMPH # 1.5 x10^3/uL (1.0-4.8); LYMPH % 19 % (24-48); MEAN CORPUSCULAR HEMOGLOBIN 27 pg (25-35); MEAN CORPUSCULAR HGB CONC 33 g/dL (31-37); MEAN CORPUSCULAR VOLUME 83 fL (79-100); MONO # 0.5 x10^3/uL (0.0-1.1); MONO % 6 % (0-9); NEUT # 6.1 x10^3uL (1.8-7.7); NEUT % 75 % (31-73); PLATELET COUNT 208 x10^3/uL (140-400); RED BLOOD COUNT 4.07 x10^6/uL (3.50-5.40); RED CELL DISTRIBUTION WIDTH 14.6 % (11.5-14.5); WHITE BLOOD COUNT 8.1 x10^3/uL (4.0-11.0)
[2017-11-14 06:55] LABS: CALCIUM 8.5 mg/dL (8.5-10.1); CREATININE 1.3 mg/dL (0.6-1.0); GFR 51.5; POTASSIUM 3.2 mmol/L (3.5-5.1)
[2017-11-14 07:00] VITALS: BP 131/80
[2017-11-14] MEDS: INSULIN LISPRO 300 UNITS/3 ML INSULN.PEN. SQ SCH ×7 (07:30→21:00)
--- NOTE | 2017-11-14 07:58 | PDOC ---
PULMONARY PROGRESS NOTES Subjective sob better, has cough, has hip pain Vitals Vital Signs Date Time Temp Pulse Resp B/P (MAP) Pulse Ox O2 Delivery O2 Flow Rate FiO2 11/14/17 07:00 98.0 60 18 131/80 (97) 94 Room Air 98.0 ROS: No Nausea, No Chest Pain, No Abdominal Pain, No Increase Cough General: Alert Lungs: Crackles Cardiovascular: S1, S2 Abdomen: Soft, Non-tender Neuro Exam: Alert Extremities: No Edema Skin: Warm Labs Laboratory Tests Test 11/12/17 11:52 11/12/17 16:25 11/12/17 19:47 11/13/17 07:52 Glucose (Fingerstick) 423 mg/dL (70-99) 374 mg/dL (70-99) 203 mg/dL (70-99) 302 mg/dL (70-99) Test 11/13/17 09:10 11/13/17 11:36 11/13/17 12:10 11/13/17 16:26 White Blood Count 10.6 x10^3/uL (4.0-11.0) Red Blood Count 4.39 x10^6/uL (3.50-5.40) Hemoglobin 12.3 g/dL (12.0-15.5) Hematocrit 36.8 % (36.0-47.0) Mean Corpuscular Volume 84 fL (79-100) Mean Corpuscular Hemoglobin 28 pg (25-35) Mean Corpuscular Hemoglobin Concent 34 g/dL (31-37) Red Cell Distribution Width 14.3 % (11.5-14.5) Platelet Count 204 x10^3/uL (140-400) Neutrophils (%) (Auto) 89 % (31-73) Lymphocytes (%) (Auto) 8 % (24-48) Monocytes (%) (Auto) 3 % (0-9) Eosinophils (%) (Auto) 0 % (0-3) Basophils (%) (Auto) 0 % (0-3) Neutrophils # (Auto) 9.5 x10^3uL (1.8-7.7) Lymphocytes # (Auto) 0.9 x10^3/uL (1.0-4.8) Monocytes # (Auto) 0.3 x10^3/uL (0.0-1.1) Eosinophils # (Auto) 0.0 x10^3/uL (0.0-0.7) Basophils # (Auto) 0.0 x10^3/uL (0.0-0.2) Segmented Neutrophils % 94 % (35-66) Lymphocytes % 5 % (24-48) Monocytes % 1 % (0-10) Platelet Estimate Adequate (ADEQUATE) Sodium Level 136 mmol/L (136-145) Potassium Level 4.1 mmol/L (3.5-5.1) Chloride Level 103 mmol/L (98-107) Carbon Dioxide Level 22 mmol/L (21-32) Anion Gap 11 (6-14) Blood Urea Nitrogen 36 mg/dL (7-20) Creatinine 1.4 mg/dL (0.6-1.0) Estimated GFR (Cockcroft-Gault) 47.2 BUN/Creatinine Ratio 26 (6-20) Glucose Level 319 mg/dL (70-99) Hemoglobin A1c 7.8 % (4.8-5.6) Calcium Level 8.7 mg/dL (8.5-10.1) Magnesium Level 2.2 mg/dL (1.8-2.4) Total Bilirubin 0.2 mg/dL (0.2-1.0) Aspartate Amino Transf (AST/SGOT) 18 U/L (15-37) Alanine Aminotransferase (ALT/SGPT) 21 U/L (14-59) Alkaline Phosphatase 127 U/L (46-116) Total Protein 6.3 g/dL (6.4-8.2) Albumin 2.1 g/dL (3.4-5.0) Albumin/Globulin Ratio 0.5 (1.0-1.7) Vitamin B12 Level 319 pg/mL (247-911) Glucose (Fingerstick) 199 mg/dL (70-99) 91 mg/dL (70-99) Ammonia 50 mcmol/L (11-34) Test 11/13/17 19:45 11/13/17 20:13 11/14/17 00:27 11/14/17 06:15 Glucose (Fingerstick) 255 mg/dL (70-99) 269 mg/dL (70-99) Urine Collection Type Unknown Urine Color Yellow Urine Clarity Clear Urine pH 5.5 Urine Specific [place] 1.015 Urine Protein >=300 mg/dL (NEG-TRACE) Urine Glucose (UA) 250 mg/dL (NEG) Urine Ketones (Stick) Negative mg/dL (NEG) Urine Blood Trace (NEG) Urine Nitrite Negative (NEG) Urine Bilirubin Negative (NEG) Urine Urobilinogen Dipstick 0.2 mg/dL (0.2 mg/dL) Urine Leukocyte Esterase Negative (NEG) Urine RBC 1-2 /HPF (0-2) Urine WBC 1-4 /HPF (0-4) Urine Squamous Epithelial Cells Mod /LPF Urine Bacteria Few /HPF (0-FEW) Urine Hyaline Casts Few /HPF Urine Mucus Slight /LPF Urine Opiates Screen Neg (NEG) Urine Methadone Screen Neg (NEG) Urine Barbiturates Neg (NEG) Urine Phencyclidine Screen Neg (NEG) Urine Amphetamine/Methamphetamine Neg (NEG) Urine Benzodiazepines Screen Neg (NEG) Urine Cocaine Screen Neg (NEG) Urine Cannabinoids Screen Neg (NEG) Urine Ethyl Alcohol Neg (NEG) White Blood Count 8.1 x10^3/uL (4.0-11.0) Red Blood Count 4.07 x10^6/uL (3.50-5.40) Hemoglobin 11.2 g/dL (12.0-15.5) Hematocrit 33.7 % (36.0-47.0) Mean Corpuscular Volume 83 fL (79-100) Mean Corpuscular Hemoglobin 27 pg (25-35) Mean Corpuscular Hemoglobin Concent 33 g/dL (31-37) Red Cell Distribution Width 14.6 % (11.5-14.5) Platelet Count 208 x10^3/uL (140-400) Neutrophils (%) (Auto) 75 % (31-73) Lymphocytes (%) (Auto) 19 % (24-48) Monocytes (%) (Auto) 6 % (0-9) Eosinophils (%) (Auto) 0 % (0-3) Basophils (%) (Auto) 0 % (0-3) Neutrophils # (Auto) 6.1 x10^3uL (1.8-7.7) Lymphocytes # (Auto) 1.5 x10^3/uL (1.0-4.8) Monocytes # (Auto) 0.5 x10^3/uL (0.0-1.1) Eosinophils # (Auto) 0.0 x10^3/uL (0.0-0.7) Basophils # (Auto) 0.0 x10^3/uL (0.0-0.2) Sodium Level 140 mmol/L (136-145) Potassium Level 3.2 mmol/L (3.5-5.1) Chloride Level 106 mmol/L (98-107) Carbon Dioxide Level 27 mmol/L (21-32) Anion Gap 7 (6-14) Blood Urea Nitrogen 35 mg/dL (7-20) Creatinine 1.3 mg/dL (0.6-1.0) Estimated GFR (Cockcroft-Gault) 51.5 Glucose Level 157 mg/dL (70-99) Calcium Level 8.5 mg/dL (8.5-10.1) Ammonia 35 mcmol/L (11-34) Test 11/14/17 07:26 Glucose (Fingerstick) 134 mg/dL (70-99) Laboratory Tests Test 11/13/17 09:10 11/13/17 11:36 11/13/17 12:10 11/13/17 16:26 White Blood Count 10.6 x10^3/uL (4.0-11.0) Red Blood Count 4.39 x10^6/uL (3.50-5.40) Hemoglobin 12.3 g/dL (12.0-15.5) Hematocrit 36.8 % (36.0-47.0) Mean Corpuscular Volume 84 fL (79-100) Mean Corpuscular Hemoglobin 28 pg (25-35) Mean Corpuscular Hemoglobin Concent 34 g/dL (31-37) Red Cell Distribution Width 14.3 % (11.5-14.5) Platelet Count 204 x10^3/uL (140-400) Neutrophils (%) (Auto) 89 % (31-73) Lymphocytes (%) (Auto) 8 % (24-48) Monocytes (%) (Auto) 3 % (0-9) Eosinophils (%) (Auto) 0 % (0-3) Basophils (%) (Auto) 0 % (0-3) Neutrophils # (Auto) 9.5 x10^3uL (1.8-7.7) Lymphocytes # (Auto) 0.9 x10^3/uL (1.0-4.8) Monocytes # (Auto) 0.3 x10^3/uL (0.0-1.1) Eosinophils # (Auto) 0.0 x10^3/uL (0.0-0.7) Basophils # (Auto) 0.0 x10^3/uL (0.0-0.2) Segmented Neutrophils % 94 % (35-66) Lymphocytes % 5 % (24-48) Monocytes % 1 % (0-10) Platelet Estimate Adequate (ADEQUATE) Sodium Level 136 mmol/L (136-145) Potassium Level 4.1 mmol/L (3.5-5.1) Chloride Level 103 mmol/L (98-107) Carbon Dioxide Level 22 mmol/L (21-32) Anion Gap 11 (6-14) Blood Urea Nitrogen 36 mg/dL (7-20) Creatinine 1.4 mg/dL (0.6-1.0) Estimated GFR (Cockcroft-Gault) 47.2 BUN/Creatinine Ratio 26 (6-20) Glucose Level 319 mg/dL (70-99) Hemoglobin A1c 7.8 % (4.8-5.6) Calcium Level 8.7 mg/dL (8.5-10.1) Magnesium Level 2.2 mg/dL (1.8-2.4) Total Bilirubin 0.2 mg/dL (0.2-1.0) Aspartate Amino Transf (AST/SGOT) 18 U/L (15-37) Alanine Aminotransferase (ALT/SGPT) 21 U/L (14-59) Alkaline Phosphatase 127 U/L (46-116) Total Protein 6.3 g/dL (6.4-8.2) Albumin 2.1 g/dL (3.4-5.0) Albumin/Globulin Ratio 0.5 (1.0-1.7) Vitamin B12 Level 319 pg/mL (247-911) Glucose (Fingerstick) 199 mg/dL (70-99) 91 mg/dL (70-99) Ammonia 50 mcmol/L (11-34) Test 11/13/17 19:45 11/13/17 20:13 11/14/17 00:27 11/14/17 06:15 Glucose (Fingerstick) 255 mg/dL (70-99) 269 mg/dL (70-99) Urine Collection Type Unknown Urine Color Yellow Urine Clarity Clear Urine pH 5.5 Urine Specific [place] 1.015 Urine Protein >=300 mg/dL (NEG-TRACE) Urine Glucose (UA) 250 mg/dL (NEG) Urine Ketones (Stick) Negative mg/dL (NEG) Urine Blood Trace (NEG) Urine Nitrite Negative (NEG) Urine Bilirubin Negative (NEG) Urine Urobilinogen Dipstick 0.2 mg/dL (0.2 mg/dL) Urine Leukocyte Esterase Negative (NEG) Urine RBC 1-2 /HPF (0-2) Urine WBC 1-4 /HPF (0-4) Urine Squamous Epithelial Cells Mod /LPF Urine Bacteria Few /HPF (0-FEW) Urine Hyaline Casts Few /HPF Urine Mucus Slight /LPF Urine Opiates Screen Neg (NEG) Urine Methadone Screen Neg (NEG) Urine Barbiturates Neg (NEG) Urine Phencyclidine Screen Neg (NEG) Urine Amphetamine/Methamphetamine Neg (NEG) Urine Benzodiazepines Screen Neg (NEG) Urine Cocaine Screen Neg (NEG) Urine Cannabinoids Screen Neg (NEG) Urine Ethyl Alcohol Neg (NEG) White Blood Count 8.1 x10^3/uL (4.0-11.0) Red Blood Count 4.07 x10^6/uL (3.50-5.40) Hemoglobin 11.2 g/dL (12.0-15.5) Hematocrit 33.7 % (36.0-47.0) Mean Corpuscular Volume 83 fL (79-100) Mean Corpuscular Hemoglobin 27 pg (25-35) Mean Corpuscular Hemoglobin Concent 33 g/dL (31-37) Red Cell Distribution Width 14.6 % (11.5-14.5) Platelet Count 208 x10^3/uL (140-400) Neutrophils (%) (Auto) 75 % (31-73) Lymphocytes (%) (Auto) 19 % (24-48) Monocytes (%) (Auto) 6 % (0-9) Eosinophils (%) (Auto) 0 % (0-3) Basophils (%) (Auto) 0 % (0-3) Neutrophils # (Auto) 6.1 x10^3uL (1.8-7.7) Lymphocytes # (Auto) 1.5 x10^3/uL (1.0-4.8) Monocytes # (Auto) 0.5 x10^3/uL (0.0-1.1) Eosinophils # (Auto) 0.0 x10^3/uL (0.0-0.7) Basophils # (Auto) 0.0 x10^3/uL (0.0-0.2) Sodium Level 140 mmol/L (136-145) Potassium Level 3.2 mmol/L (3.5-5.1) Chloride Level 106 mmol/L (98-107) Carbon Dioxide Level 27 mmol/L (21-32) Anion Gap 7 (6-14) Blood Urea Nitrogen 35 mg/dL (7-20) Creatinine 1.3 mg/dL (0.6-1.0) Estimated GFR (Cockcroft-Gault) 51.5 Glucose Level 157 mg/dL (70-99) Calcium Level 8.5 mg/dL (8.5-10.1) Ammonia 35 mcmol/L (11-34) Test 11/14/17 07:26 Glucose (Fingerstick) 134 mg/dL (70-99) Medications Active Scripts Medications Dose Route/Sig Max Daily Dose Days Date Category Lantus Solostar (Insulin Glargine,Hum.rec.anlog) 100 Unit/1 Ml Insuln.pen 15 Unit SQ QHS 11/11/17 Reported Cyclobenzaprine Hcl 10 Mg Tablet 10 Mg PO TID 11/11/17 Reported Bupropion Xl (Bupropion Hcl) 150 Mg Tab.er.24h 150 Mg PO 11/11/17 Reported Promethazine Hcl 25 Mg Tablet 25 Mg PO TID PRN 11/11/17 Reported Ibuprofen 600 Mg Tablet 600 Mg PO PRN Q8HRS PRN 11/11/17 Reported Quetiapine Fumarate 100 Mg Tablet 100 Mg PO TID 11/11/17 Reported Metolazone 5 Mg Tablet 5 Mg PO DAILY 07/11/16 Reported Carvedilol 25 Mg Tablet 1 Tab PO BID 04/15/15 Reported Hydrochlorothiazide Tablet (Hydrochlorothiazide) 25 Mg Tablet 1.5 Tab PO DAILY 04/15/15 Reported Atorvastatin Calcium 40 Mg Tablet 1 Tab PO QHS 04/15/15 Reported Clopidogrel (Clopidogrel Bisulfate) 75 Mg Tablet 1 Tab PO DAILY 04/15/15 Reported Clonidine Hcl 0.1 Mg Tablet 0.1 Mg PO TID 04/01/14 Reported Lisinopril 20 Mg Tablet 40 Mg PO DAILY 03/01/14 Reported Impression . IMPRESSION: 1. Acute respiratory failure secondary to [id number] diastolic heart failure. 2. Acute exacerbation of chronic obstructive pulmonary disease. 3. Tobacco dependent. 4. Acute nonspecific bronchitis. 5. Hypertension. 6. Hypokalemia. 7. Chronic kidney disease/acute kidney injury. 8. Atypical chest pain. 9. ? fanny Plan . PRN BIPAP AVOID oversedation 1. Continue Lasix, keep I<O, monitor k, cr. 2. change solumedrol to prednisone 30 mg daily 3. Nebulized treatments. 4. Follow Cardiology input. 5. Replace potassium and magnesium. 6. The patient instructed on the importance of discontinuing her tobacco use. 7. Discontinue all illicit drugs. 8. sleep study as out pt discussed w pt and ROSEANN Carbajal MD Nov 14, 2017 07:58
[2017-11-14] MEDS: IPRATRPIUM/ALBUTEROL 0.5/2.5MG 3 ML NEBU. NEB SCH ×4 (08:45→19:58)
[2017-11-14] MEDS: predniSONE 10 MG TABLET PO SCH (09:00)
[2017-11-14] MEDS: CLOPIDOGREL BISULFATE 75 MG TABLET PO SCH (09:52)
[2017-11-14] MEDS: LISINOPRIL 20 MG TABLET PO SCH (09:53)
[2017-11-14] MEDS: metOLazone 2.5 MG TABLET PO SCH (09:53)
[2017-11-14] MEDS: FUROSEMIDE 40 MG TABLET. PO SCH (09:54)
[2017-11-14] MEDS: POTASSIUM CHLORIDE 20 MEQ TABLET.ER. PO SCH (09:54)
[2017-11-14] MEDS: CARVEDILOL 12.5 MG TABLET. PO SCH ×2 (09:55→16:57)
[2017-11-14] MEDS: cloNIDine HCL 0.1 MG TABLET PO SCH ×3 (09:55→22:23)
[2017-11-14] MEDS: IBUPROFEN 600 MG TABLET. PO PRN (09:56)
[2017-11-14] MEDS: LACTULOSE 20 GM/30 ML SOLUTION. PO SCH ×2 (09:56→22:23)
[2017-11-14] MEDS: MULTIVIT INFUSN,ADULT 4,VIT K 10 ML, THIAMINE INJ 100 MG, FOLIC ACID INJ 1 MG in IV NOR... IV SCH (10:13)
[2017-11-14 11:00] VITALS: BP 145/104
--- NOTE | 2017-11-14 11:17 | PDOC ---
PROGRESS NOTES Chief Complaint Chief Complaint Acute on chronic systolic and diastolic heart failure, cardiomegaly chronic obstructive pulmonary disease exacerbation respiratory failure. hypokalemia obesity hx of alcoholism History of Present Illness History of Present Illness Being treated for COPD, with 30 IV every 12 steroids -sugars are better with my adjustments of insulin yesterday Also being treated for diastolic heart failure with Lasix when necessary Mentation is much better, I did taper off some sedating medications yesterday Now she is out, watching the fountain Discussed with at bedside, I'm still awaiting for PT OT assessment Target discharge tomorrow Plan: Await PT OT today, target discharge home tomorrow Need to watch out her narcotics or sedative medications Lasix when necessary Vitals Vitals Vital Signs Date Time Temp Pulse Resp B/P (MAP) Pulse Ox O2 Delivery O2 Flow Rate FiO2 11/14/17 09:55 60 131/80 11/14/17 08:47 97 Room Air 11/14/17 07:00 98.0 18 98.0 Physical Exam General: Alert, Oriented X3, Cooperative, mild distress, Other (drowsy) Heart: Normal S1, Normal S2, No murmurs Lungs: Crackles Abdomen: Normal bowel sounds, Soft Extremities: No cyanosis, No edema, Normal pulses Skin: No rashes Labs LABS Laboratory Tests Test 11/13/17 11:36 11/13/17 12:10 11/13/17 16:26 11/13/17 19:45 Glucose (Fingerstick) 199 mg/dL (70-99) 91 mg/dL (70-99) 255 mg/dL (70-99) Ammonia 50 mcmol/L (11-34) Test 11/13/17 20:13 11/14/17 00:27 11/14/17 06:15 11/14/17 07:26 Glucose (Fingerstick) 269 mg/dL (70-99) 134 mg/dL (70-99) Urine Collection Type Unknown Urine Color Yellow Urine Clarity Clear Urine pH 5.5 Urine Specific [place] 1.015 Urine Protein >=300 mg/dL (NEG-TRACE) Urine Glucose (UA) 250 mg/dL (NEG) Urine Ketones (Stick) Negative mg/dL (NEG) Urine Blood Trace (NEG) Urine Nitrite Negative (NEG) Urine Bilirubin Negative (NEG) Urine Urobilinogen Dipstick 0.2 mg/dL (0.2 mg/dL) Urine Leukocyte Esterase Negative (NEG) Urine RBC 1-2 /HPF (0-2) Urine WBC 1-4 /HPF (0-4) Urine Squamous Epithelial Cells Mod /LPF Urine Bacteria Few /HPF (0-FEW) Urine Hyaline Casts Few /HPF Urine Mucus Slight /LPF Urine Opiates Screen Neg (NEG) Urine Methadone Screen Neg (NEG) Urine Barbiturates Neg (NEG) Urine Phencyclidine Screen Neg (NEG) Urine Amphetamine/Methamphetamine Neg (NEG) Urine Benzodiazepines Screen Neg (NEG) Urine Cocaine Screen Neg (NEG) Urine Cannabinoids Screen Neg (NEG) Urine Ethyl Alcohol Neg (NEG) White Blood Count 8.1 x10^3/uL (4.0-11.0) Red Blood Count 4.07 x10^6/uL (3.50-5.40) Hemoglobin 11.2 g/dL (12.0-15.5) Hematocrit 33.7 % (36.0-47.0) Mean Corpuscular Volume 83 fL (79-100) Mean Corpuscular Hemoglobin 27 pg (25-35) Mean Corpuscular Hemoglobin Concent 33 g/dL (31-37) Red Cell Distribution Width 14.6 % (11.5-14.5) Platelet Count 208 x10^3/uL (140-400) Neutrophils (%) (Auto) 75 % (31-73) Lymphocytes (%) (Auto) 19 % (24-48) Monocytes (%) (Auto) 6 % (0-9) Eosinophils (%) (Auto) 0 % (0-3) Basophils (%) (Auto) 0 % (0-3) Neutrophils # (Auto) 6.1 x10^3uL (1.8-7.7) Lymphocytes # (Auto) 1.5 x10^3/uL (1.0-4.8) Monocytes # (Auto) 0.5 x10^3/uL (0.0-1.1) Eosinophils # (Auto) 0.0 x10^3/uL (0.0-0.7) Basophils # (Auto) 0.0 x10^3/uL (0.0-0.2) Sodium Level 140 mmol/L (136-145) Potassium Level 3.2 mmol/L (3.5-5.1) Chloride Level 106 mmol/L (98-107) Carbon Dioxide Level 27 mmol/L (21-32) Anion Gap 7 (6-14) Blood Urea Nitrogen 35 mg/dL (7-20) Creatinine 1.3 mg/dL (0.6-1.0) Estimated GFR (Cockcroft-Gault) 51.5 Glucose Level 157 mg/dL (70-99) Calcium Level 8.5 mg/dL (8.5-10.1) Ammonia 35 mcmol/L (11-34) Test 11/14/17 11:07 Glucose (Fingerstick) 181 mg/dL (70-99) Review of Systems Review of Systems A 14 point ROS was completed with the following noted as positive: Other systems reviewed and negative. \CONSTITUTIONAL: No fever or chills EYES: No recent changes SKIN: No rash or itching CARDIOVASCULAR: No chest pain, syncope, palpitations, or edema RESPIRATORY: No SOB or cough GASTROINTESTINAL: No nausea, vomiting or abdominal pain NEUROLOGICAL: No headaches or weakness ENDOCRINE: No cold or heat intolerance GENITOURINARY: No urgency or frequency of urination MUSCULOSKELETAL: No back pain or joint pain LYMPHATICS: No enlarged lymph nodes PSYCHIATRIC: No anxiety or depression Assessment and Plan Assessmemt and Plan Problems Medical Problems: (1) Acute on chronic diastolic CHF (congestive heart failure) Status: Acute (2) COPD exacerbation Status: Acute (3) Hypokalemia Status: Acute Comment Review of Relevant I have reviewed the following items lilliana (where applicable) has been applied. Labs Laboratory Tests Test 11/12/17 11:52 11/12/17 16:25 11/12/17 19:47 11/13/17 07:52 Glucose (Fingerstick) 423 mg/dL (70-99) 374 mg/dL (70-99) 203 mg/dL (70-99) 302 mg/dL (70-99) Test 11/13/17 09:10 11/13/17 11:36 11/13/17 12:10 11/13/17 16:26 White Blood Count 10.6 x10^3/uL (4.0-11.0) Red Blood Count 4.39 x10^6/uL (3.50-5.40) Hemoglobin 12.3 g/dL (12.0-15.5) Hematocrit 36.8 % (36.0-47.0) Mean Corpuscular Volume 84 fL (79-100) Mean Corpuscular Hemoglobin 28 pg (25-35) Mean Corpuscular Hemoglobin Concent 34 g/dL (31-37) Red Cell Distribution Width 14.3 % (11.5-14.5) Platelet Count 204 x10^3/uL (140-400) Neutrophils (%) (Auto) 89 % (31-73) Lymphocytes (%) (Auto) 8 % (24-48) Monocytes (%) (Auto) 3 % (0-9) Eosinophils (%) (Auto) 0 % (0-3) Basophils (%) (Auto) 0 % (0-3) Neutrophils # (Auto) 9.5 x10^3uL (1.8-7.7) Lymphocytes # (Auto) 0.9 x10^3/uL (1.0-4.8) Monocytes # (Auto) 0.3 x10^3/uL (0.0-1.1) Eosinophils # (Auto) 0.0 x10^3/uL (0.0-0.7) Basophils # (Auto) 0.0 x10^3/uL (0.0-0.2) Segmented Neutrophils % 94 % (35-66) Lymphocytes % 5 % (24-48) Monocytes % 1 % (0-10) Platelet Estimate Adequate (ADEQUATE) Sodium Level 136 mmol/L (136-145) Potassium Level 4.1 mmol/L (3.5-5.1) Chloride Level 103 mmol/L (98-107) Carbon Dioxide Level 22 mmol/L (21-32) Anion Gap 11 (6-14) Blood Urea Nitrogen 36 mg/dL (7-20) Creatinine 1.4 mg/dL (0.6-1.0) Estimated GFR (Cockcroft-Gault) 47.2 BUN/Creatinine Ratio 26 (6-20) Glucose Level 319 mg/dL (70-99) Hemoglobin A1c 7.8 % (4.8-5.6) Calcium Level 8.7 mg/dL (8.5-10.1) Magnesium Level 2.2 mg/dL (1.8-2.4) Total Bilirubin 0.2 mg/dL (0.2-1.0) Aspartate Amino Transf (AST/SGOT) 18 U/L (15-37) Alanine Aminotransferase (ALT/SGPT) 21 U/L (14-59) Alkaline Phosphatase 127 U/L (46-116) Total Protein 6.3 g/dL (6.4-8.2) Albumin 2.1 g/dL (3.4-5.0) Albumin/Globulin Ratio 0.5 (1.0-1.7) Vitamin B12 Level 319 pg/mL (247-911) Glucose (Fingerstick) 199 mg/dL (70-99) 91 mg/dL (70-99) Ammonia 50 mcmol/L (11-34) Test 11/13/17 19:45 11/13/17 20:13 11/14/17 00:27 11/14/17 06:15 Glucose (Fingerstick) 255 mg/dL (70-99) 269 mg/dL (70-99) Urine Collection Type Unknown Urine Color Yellow Urine Clarity Clear Urine pH 5.5 Urine Specific [place] 1.015 Urine Protein >=300 mg/dL (NEG-TRACE) Urine Glucose (UA) 250 mg/dL (NEG) Urine Ketones (Stick) Negative mg/dL (NEG) Urine Blood Trace (NEG) Urine Nitrite Negative (NEG) Urine Bilirubin Negative (NEG) Urine Urobilinogen Dipstick 0.2 mg/dL (0.2 mg/dL) Urine Leukocyte Esterase Negative (NEG) Urine RBC 1-2 /HPF (0-2) Urine WBC 1-4 /HPF (0-4) Urine Squamous Epithelial Cells Mod /LPF Urine Bacteria Few /HPF (0-FEW) Urine Hyaline Casts Few /HPF Urine Mucus Slight /LPF Urine Opiates Screen Neg (NEG) Urine Methadone Screen Neg (NEG) Urine Barbiturates Neg (NEG) Urine Phencyclidine Screen Neg (NEG) Urine Amphetamine/Methamphetamine Neg (NEG) Urine Benzodiazepines Screen Neg (NEG) Urine Cocaine Screen Neg (NEG) Urine Cannabinoids Screen Neg (NEG) Urine Ethyl Alcohol Neg (NEG) White Blood Count 8.1 x10^3/uL (4.0-11.0) Red Blood Count 4.07 x10^6/uL (3.50-5.40) Hemoglobin 11.2 g/dL (12.0-15.5) Hematocrit 33.7 % (36.0-47.0) Mean Corpuscular Volume 83 fL (79-100) Mean Corpuscular Hemoglobin 27 pg (25-35) Mean Corpuscular Hemoglobin Concent 33 g/dL (31-37) Red Cell Distribution Width 14.6 % (11.5-14.5) Platelet Count 208 x10^3/uL (140-400) Neutrophils (%) (Auto) 75 % (31-73) Lymphocytes (%) (Auto) 19 % (24-48) Monocytes (%) (Auto) 6 % (0-9) Eosinophils (%) (Auto) 0 % (0-3) Basophils (%) (Auto) 0 % (0-3) Neutrophils # (Auto) 6.1 x10^3uL (1.8-7.7) Lymphocytes # (Auto) 1.5 x10^3/uL (1.0-4.8) Monocytes # (Auto) 0.5 x10^3/uL (0.0-1.1) Eosinophils # (Auto) 0.0 x10^3/uL (0.0-0.7) Basophils # (Auto) 0.0 x10^3/uL (0.0-0.2) Sodium Level 140 mmol/L (136-145) Potassium Level 3.2 mmol/L (3.5-5.1) Chloride Level 106 mmol/L (98-107) Carbon Dioxide Level 27 mmol/L (21-32) Anion Gap 7 (6-14) Blood Urea Nitrogen 35 mg/dL (7-20) Creatinine 1.3 mg/dL (0.6-1.0) Estimated GFR (Cockcroft-Gault) 51.5 Glucose Level 157 mg/dL (70-99) Calcium Level 8.5 mg/dL (8.5-10.1) Ammonia 35 mcmol/L (11-34) Test 11/14/17 07:26 11/14/17 11:07 Glucose (Fingerstick) 134 mg/dL (70-99) 181 mg/dL (70-99) Laboratory Tests Test 11/13/17 11:36 11/13/17 12:10 11/13/17 16:26 11/13/17 19:45 Glucose (Fingerstick) 199 mg/dL (70-99) 91 mg/dL (70-99) 255 mg/dL (70-99) Ammonia 50 mcmol/L (11-34) Test 11/13/17 20:13 11/14/17 00:27 11/14/17 06:15 11/14/17 07:26 Glucose (Fingerstick) 269 mg/dL (70-99) 134 mg/dL (70-99) Urine Collection Type Unknown Urine Color Yellow Urine Clarity Clear Urine pH 5.5 Urine Specific [place] 1.015 Urine Protein >=300 mg/dL (NEG-TRACE) Urine Glucose (UA) 250 mg/dL (NEG) Urine Ketones (Stick) Negative mg/dL (NEG) Urine Blood Trace (NEG) Urine Nitrite Negative (NEG) Urine Bilirubin Negative (NEG) Urine Urobilinogen Dipstick 0.2 mg/dL (0.2 mg/dL) Urine Leukocyte Esterase Negative (NEG) Urine RBC 1-2 /HPF (0-2) Urine WBC 1-4 /HPF (0-4) Urine Squamous Epithelial Cells Mod /LPF Urine Bacteria Few /HPF (0-FEW) Urine Hyaline Casts Few /HPF Urine Mucus Slight /LPF Urine Opiates Screen Neg (NEG) Urine Methadone Screen Neg (NEG) Urine Barbiturates Neg (NEG) Urine Phencyclidine Screen Neg (NEG) Urine Amphetamine/Methamphetamine Neg (NEG) Urine Benzodiazepines Screen Neg (NEG) Urine Cocaine Screen Neg (NEG) Urine Cannabinoids Screen Neg (NEG) Urine Ethyl Alcohol Neg (NEG) White Blood Count 8.1 x10^3/uL (4.0-11.0) Red Blood Count 4.07 x10^6/uL (3.50-5.40) Hemoglobin 11.2 g/dL (12.0-15.5) Hematocrit 33.7 % (36.0-47.0) Mean Corpuscular Volume 83 fL (79-100) Mean Corpuscular Hemoglobin 27 pg (25-35) Mean Corpuscular Hemoglobin Concent 33 g/dL (31-37) Red Cell Distribution Width 14.6 % (11.5-14.5) Platelet Count 208 x10^3/uL (140-400) Neutrophils (%) (Auto) 75 % (31-73) Lymphocytes (%) (Auto) 19 % (24-48) Monocytes (%) (Auto) 6 % (0-9) Eosinophils (%) (Auto) 0 % (0-3) Basophils (%) (Auto) 0 % (0-3) Neutrophils # (Auto) 6.1 x10^3uL (1.8-7.7) Lymphocytes # (Auto) 1.5 x10^3/uL (1.0-4.8) Monocytes # (Auto) 0.5 x10^3/uL (0.0-1.1) Eosinophils # (Auto) 0.0 x10^3/uL (0.0-0.7) Basophils # (Auto) 0.0 x10^3/uL (0.0-0.2) Sodium Level 140 mmol/L (136-145) Potassium Level 3.2 mmol/L (3.5-5.1) Chloride Level 106 mmol/L (98-107) Carbon Dioxide Level 27 mmol/L (21-32) Anion Gap 7 (6-14) Blood Urea Nitrogen 35 mg/dL (7-20) Creatinine 1.3 mg/dL (0.6-1.0) Estimated GFR (Cockcroft-Gault) 51.5 Glucose Level 157 mg/dL (70-99) Calcium Level 8.5 mg/dL (8.5-10.1) Ammonia 35 mcmol/L (11-34) Test 11/14/17 11:07 Glucose (Fingerstick) 181 mg/dL (70-99) Medications Current Medications Albuterol/ Ipratropium (Duoneb) 6 ml 1X ONCE NEB Last administered on at 13:56; Start 11/11/17 at 13:15; Stop 11/11/17 at 13:18; Status DC Methylprednisolone Sodium Succinate (SOLU-Medrol 125MG VIAL) 125 mg 1X ONCE IV Last administered on 11/11/17at 13:35; Start 11/11/17 at 13:15; Stop 11/11/17 at 13:18; Status DC Potassium Chloride (Klor-Con) 40 meq 1X ONCE PO Last administered on at 15:07; Start 11/11/17 at 14:30; Stop 11/11/17 at 14:31; Status DC Furosemide (Lasix) 80 mg 1X ONCE IVP Last administered on 11/11/17at 15:07; Start 11/11/17 at 14:30; Stop 11/11/17 at 14:31; Status DC Fentanyl Citrate (Fentanyl 2ml Vial) 50 mcg PRN Q2HR PRN IV PAIN Last administered on 11/12/17 12:28; Start 11/11/17 at 14:30; Stop 11/12/17 at 14:29 ; Status DC Albuterol/ Ipratropium (Duoneb) 3 ml RTQID NEB Last administered on 11/12/17at 11:33; Start 11/11/17 at 16:00; Stop 11/12/17 at 15:59; Status DC Potassium Chloride (Klor-Con) 40 meq 1X ONCE PO Last administered on at 20:36; Start 11/11/17 at 20:00; Stop 11/11/17 at 20:01; Status DC Magnesium Sulfate 50 ml @ 25 mls/hr 1X ONCE IV Last administered on 11/11/17at 17:35; Start 11/11/17 at 15:45; Stop 11/11/17 at 17:44; Status DC Methylprednisolone Sodium Succinate (SOLU-Medrol 40MG VIAL) 30 mg Q12HR IV Last administered on 11/13/17at 08:36; Start 11/11/17 at 21:30; Stop 11/14/17 at 07:59; Status DC Insulin Human Lispro (HumaLOG) 0-9 UNITS TIDACHC SQ Last administered on at 21:10; Start 11/12/17 at 07:30 Dextrose (Dextrose 50%-Water Syringe) 12.5 gm PRN Q15MIN PRN IV SEE COMMENTS; Start 11/11/17 at 21:15 Insulin Human Lispro (HumaLOG) 10 units 1X ONCE SQ Last administered on at 21:32; Start 11/11/17 at 21:30; Stop 11/11/17 at 21:31; Status DC Insulin Glargine (Lantus) 15 units QHS SQ Last administered on 11/12/17at 22:03 ; Start 11/11/17 at 21:30; Stop 11/13/17 at 09:09; Status DC Atorvastatin Calcium (Lipitor) 40 mg QHS PO Last administered on 11/13/17at 21: 01; Start 11/11/17 at 22:00 Bupropion HCl (Wellbutrin Xl) 150 mg DAILY PO Last administered on 11/13/17at 08 :33; Start 11/12/17 at 09:00; Stop 11/13/17 at 11:55; Status DC Clonidine HCl (Catapres) 0.1 mg TID PO Last administered on 11/14/17 09:55; Start 11/11/17 at 22:00 Clopidogrel Bisulfate (Plavix) 75 mg DAILY PO Last administered on 11/14/17 09 :52; Start 11/12/17 at 09:00 Cyclobenzaprine HCl (Flexeril) 10 mg TID PO Last administered on 11/13/17 08: 33; Start 11/11/17 at 22:00; Stop 11/13/17 at 11:55; Status DC Hydrochlorothiazide (Hydrodiuril) 37.5 mg DAILY PO ; Start 11/12/17 at 09:00; Stop 11/12/17 at 09:00; Status DC Insulin Glargine (Lantus) 15 units QHS SQ ; Start 11/12/17 at 21:00; Status UNV Lisinopril (Prinivil) 40 mg DAILY PO Last administered on 11/14/17at 09:53; Start 11/12/17 at 09:00 Carvedilol (Coreg) 25 mg BIDWMEALS PO Last administered on 11/14/17 09:55; Start 11/12/17 at 08:00 Ibuprofen (Motrin) 600 mg PRN Q8HRS PRN PO INFLAMMATION Last administered on 09:56; Start 11/11/17 at 21:30 Metolazone (Zaroxolyn) 5 mg DAILY PO Last administered on 11/14/17at 09:53; Start 11/12/17 at 09:00 Promethazine HCl (Phenergan) 25 mg PRN TID PRN PO NAUSEA/VOMITING 1ST CHOICE; Start 11/11/17 at 21:30 Quetiapine Fumarate (SEROquel) 100 mg TID PO Last administered on 11/13/17 08: 34; Start 11/11/17 at 21:30; Stop 11/13/17 at 11:55; Status DC Albuterol Sulfate (Ventolin Neb Soln) 2.5 mg PRN Q4HRS PRN NEB SHORTNESS OF BREATH Last administered on 11/12/17at 15:41; Start 11/11/17 at 23:00 Metoprolol Tartrate (Lopressor) 50 mg BID PO ; Start 11/12/17 at 01:00; Stop at 01:00; Status DC Metoprolol Tartrate (Lopressor) 50 mg 1X ONCE PO Last administered on at 00:49; Start 11/12/17 at 01:00; Stop 11/12/17 at 01:01; Status DC Potassium Chloride (Klor-Con) 40 meq 1X ONCE PO Last administered on at 08:22; Start 11/12/17 at 08:00; Stop 11/12/17 at 08:01; Status DC Furosemide (Lasix) 40 mg DAILY PO Last administered on 11/14/17at 09:54; Start 11/13/17 at 09:00 Furosemide (Lasix) 40 mg 1X ONCE PO Last administered on 11/12/17at 12:10; Start 11/12/17 at 11:15; Stop 11/12/17 at 11:23; Status DC Potassium Chloride (Klor-Con) 20 meq DAILYWBKFT PO Last administered on at 09:54; Start 11/13/17 at 08:00 Potassium Chloride (Klor-Con) 40 meq 1X ONCE PO Last administered on at 12:11; Start 11/12/17 at 13:00; Stop 11/12/17 at 13:01; Status DC Insulin Human Lispro (HumaLOG) 3 units 1X ONCE SQ Last administered on at 12:35; Start 11/12/17 at 12:30; Stop 11/12/17 at 12:31; Status DC Multivitamins 10 ml/Thiamine HCl 100 mg/Folic Acid 1 mg/Sodium Chloride 1,011.2 ml @ 100 mls/ hr DAILY IV Last administered on 11/14/17at 10:13; Start at 14:00; Stop 11/16/17 at 19:07 Multivitamins (Thera M Plus) 1 tab DAILY PO ; Start 11/17/17 at 09:00 Folic Acid (Folic Acid) 1 mg DAILY PO ; Start 11/17/17 at 09:00 Thiamine HCl 100 mg/Dextrose 51 ml @ 100 mls/hr DAILY IV ; Start 11/13/17 at 09 :00; Stop 11/13/17 at 09:00; Status DC Lorazepam (Ativan) 2 mg Q6H PO Last administered on 11/13/17at 08:36; Start at 13:00; Stop 11/13/17 at 11:55; Status DC Lorazepam (Ativan) 4 mg PRN Q1HR PRN PO For CIWA 8-14; Start 11/12/17 at 13:15 Haloperidol Lactate (Haldol Inj) 5 mg PRN Q4HRS PRN IVP Hallucinatns,Confusn, Delirium; Start 11/12/17 at 13:15 Diphenhydramine HCl (Benadryl) 25 mg PRN Q15MIN PRN IVP EPS symptoms 2'Haldol admin; Start 11/12/17 at 13:15 Clonidine HCl (Catapres) 0.1 mg PRN Q1HR PRN PO SBP > 180 or DBP > 100, MRX3; Start 11/12/17 at 13:15 Lorazepam (Ativan) 2 mg PRN Q15MIN PRN IV ANXIETY / AGITATION; Start 11/12/17 at 13:15; Stop 11/14/17 at 08:02; Status DC Thiamine Mononitrate (Vitamin B-1) 100 mg DAILY PO ; Start 11/17/17 at 09:00 Albuterol/ Ipratropium (Duoneb) 3 ml RTQID NEB Last administered on 11/14/17at 08:45; Start 11/12/17 at 20:00 Insulin Human Lispro (HumaLOG) 12 units 1X ONCE SQ Last administered on at 17:10; Start 11/12/17 at 17:15; Stop 11/12/17 at 17:16; Status DC Insulin Glargine (Lantus) 25 units QHS SQ Last administered on 11/13/17at 21:10 ; Start 11/13/17 at 21:00 Insulin Human Lispro (HumaLOG) 10 units TIDWMEALS SQ Last administered on at 12:20; Start 11/13/17 at 09:30 Guaifenesin (Robitussin Dm) 10 ml PRN Q6HRS PRN PO COUGH; Start 11/13/17 at 09: 15 Hydralazine HCl (Apresoline) 50 mg PRN Q6HRS PRN PO ELEVATED BP, SEE COMMENTS; Start 11/13/17 at 13:15 Lactulose (Lactulose) 20 gm BID PO Last administered on 11/14/17at 09:56; Start 11/13/17 at 13:30 Nicotine Polacrilex (Nicorette Gum) 1 each PRN Q1HR PRN BC SMOKING CESSATION; Start 11/13/17 at 20:15 Prednisone (Prednisone) 30 mg DAILY PO ; Start 11/14/17 at 09:00 Active Scripts Active Reported Lantus Solostar (Insulin Glargine,Hum.rec.anlog) 100 Unit/1 Ml Insuln.pen 15 Unit SQ QHS Cyclobenzaprine Hcl 10 Mg Tablet 10 Mg PO TID Bupropion Xl (Bupropion Hcl) 150 Mg Tab.er.24h 150 Mg PO Promethazine Hcl 25 Mg Tablet 25 Mg PO TID PRN Ibuprofen 600 Mg Tablet 600 Mg PO PRN Q8HRS PRN Quetiapine Fumarate 100 Mg Tablet 100 Mg PO TID Metolazone 5 Mg Tablet 5 Mg PO DAILY Carvedilol 25 Mg Tablet 1 Tab PO BID Hydrochlorothiazide Tablet (Hydrochlorothiazide) 25 Mg Tablet 1.5 Tab PO DAILY Atorvastatin Calcium 40 Mg Tablet 1 Tab PO QHS Clopidogrel (Clopidogrel Bisulfate) 75 Mg Tablet 1 Tab PO DAILY Clonidine Hcl 0.1 Mg Tablet 0.1 Mg PO TID Lisinopril 20 Mg Tablet 40 Mg PO DAILY Vitals/I & O Vital Sign - Last 24 Hours 11/13/17 11/13/17 11/13/17 11/13/17 11:29 15:00 16:00 17:57 Temp 97.1 97.1 Pulse 64 64 Resp 20 B/P (MAP) 178/151 (160) 178/151 Pulse Ox 97 90 O2 Delivery Room Air Room Air 11/13/17 11/13/17 11/13/17 11/13/17 19:00 20:00 21:01 23:00 Temp 96.6 97.5 96.6 97.5 Pulse 74 74 75 Resp 20 20 B/P (MAP) 164/96 (118) 164/96 146/85 (105) Pulse Ox 100 96 O2 Delivery Room Air Room Air Room Air 11/14/17 11/14/17 11/14/17 11/14/17 03:04 07:00 08:47 09:53 Temp 96.4 98.0 96.4 98.0 Pulse 63 60 60 Resp 20 18 B/P (MAP) 146/95 (112) 131/80 (97) 131/80 Pulse Ox 96 94 97 O2 Delivery Room Air Room Air Room Air 11/14/17 11/14/17 09:55 09:55 Pulse 60 60 B/P (MAP) 131/80 131/80 Intake and Output 11/13/17 11/13/17 11/14/17 15:00 23:00 07:00 Intake Total 600 ml Output Total 0 ml Balance 600 ml 0 ml BOGDAN WITT MD Nov 14, 2017 11:16
[2017-11-14] MEDS: HYDROcodone/APAP 5/325MG 1 TAB TABLET PO PRN ×3 (13:15→22:45)
[2017-11-14] MEDS: ALBUTEROL SULFATE 2.5 MG/3 ML NEBU. NEB PRN (13:53)
--- NOTE | 2017-11-14 14:01 | PDOC ---
PROGRESS NOTES Assessment Problems Medical Problems: (1) Acute on chronic diastolic CHF (congestive heart failure) Status: Acute (2) COPD exacerbation Status: Acute (3) Hypokalemia Status: Acute Metabolic encephalopathy. Acute sleep deprivation x 2 nights per her boyfriend. [place] sleepiness on 11/13/17. Hyperglycemia. DM. HTN. HLD. COPD. Renal insufficiency. 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 Obesity. Elevated ammonia level. improved Plan Continue Plavix 75 md daily. Continue Lipitor HS. Hold on EEG, given the improvement. Subjective She feels better Objective Vital Signs Date Time Temp Pulse Resp B/P (MAP) Pulse Ox O2 Delivery O2 Flow Rate FiO2 11/14/17 13:56 100 Room Air 11/14/17 13:16 63 145/104 11/14/17 11:00 98.0 18 98.0 Intake and Output 11/14/17 07:00 Intake Total 600 ml Output Total 0 ml Balance 600 ml Intake Oral 600 ml Output Urine Total 0 ml # Voids 4 PHYSICAL EXAM Alert. Oriented to place and person, one day off on date. She names, repeats, and comprehends well. Her fianc says that she is acting normally. PERRL. EOMI. CN: no focal findings. Muscle tone: normal. Muscle strength: 5/5 DTR: 1+ Plantar reflex: etc. Gait: not examined in bed. Sensory exam: no abnormal findings. No cerebellar signs elicited. No asterixis noted Review of Relevant I have reviewed the following items lilliana (where applicable) has been applied. Labs Laboratory Tests Test 11/12/17 16:25 11/12/17 19:47 11/13/17 07:52 11/13/17 09:10 Glucose (Fingerstick) 374 mg/dL (70-99) 203 mg/dL (70-99) 302 mg/dL (70-99) White Blood Count 10.6 x10^3/uL (4.0-11.0) Red Blood Count 4.39 x10^6/uL (3.50-5.40) Hemoglobin 12.3 g/dL (12.0-15.5) Hematocrit 36.8 % (36.0-47.0) Mean Corpuscular Volume 84 fL (79-100) Mean Corpuscular Hemoglobin 28 pg (25-35) Mean Corpuscular Hemoglobin Concent 34 g/dL (31-37) Red Cell Distribution Width 14.3 % (11.5-14.5) Platelet Count 204 x10^3/uL (140-400) Neutrophils (%) (Auto) 89 % (31-73) Lymphocytes (%) (Auto) 8 % (24-48) Monocytes (%) (Auto) 3 % (0-9) Eosinophils (%) (Auto) 0 % (0-3) Basophils (%) (Auto) 0 % (0-3) Neutrophils # (Auto) 9.5 x10^3uL (1.8-7.7) Lymphocytes # (Auto) 0.9 x10^3/uL (1.0-4.8) Monocytes # (Auto) 0.3 x10^3/uL (0.0-1.1) Eosinophils # (Auto) 0.0 x10^3/uL (0.0-0.7) Basophils # (Auto) 0.0 x10^3/uL (0.0-0.2) Segmented Neutrophils % 94 % (35-66) Lymphocytes % 5 % (24-48) Monocytes % 1 % (0-10) Platelet Estimate Adequate (ADEQUATE) Sodium Level 136 mmol/L (136-145) Potassium Level 4.1 mmol/L (3.5-5.1) Chloride Level 103 mmol/L (98-107) Carbon Dioxide Level 22 mmol/L (21-32) Anion Gap 11 (6-14) Blood Urea Nitrogen 36 mg/dL (7-20) Creatinine 1.4 mg/dL (0.6-1.0) Estimated GFR (Cockcroft-Gault) 47.2 BUN/Creatinine Ratio 26 (6-20) Glucose Level 319 mg/dL (70-99) Hemoglobin A1c 7.8 % (4.8-5.6) Calcium Level 8.7 mg/dL (8.5-10.1) Magnesium Level 2.2 mg/dL (1.8-2.4) Total Bilirubin 0.2 mg/dL (0.2-1.0) Aspartate Amino Transf (AST/SGOT) 18 U/L (15-37) Alanine Aminotransferase (ALT/SGPT) 21 U/L (14-59) Alkaline Phosphatase 127 U/L (46-116) Total Protein 6.3 g/dL (6.4-8.2) Albumin 2.1 g/dL (3.4-5.0) Albumin/Globulin Ratio 0.5 (1.0-1.7) Vitamin B12 Level 319 pg/mL (247-911) Test 11/13/17 11:36 11/13/17 12:10 11/13/17 16:26 11/13/17 19:45 Glucose (Fingerstick) 199 mg/dL (70-99) 91 mg/dL (70-99) 255 mg/dL (70-99) Ammonia 50 mcmol/L (11-34) Test 11/13/17 20:13 11/14/17 00:27 11/14/17 06:15 11/14/17 07:26 Glucose (Fingerstick) 269 mg/dL (70-99) 134 mg/dL (70-99) Urine Collection Type Unknown Urine Color Yellow Urine Clarity Clear Urine pH 5.5 Urine Specific [place] 1.015 Urine Protein >=300 mg/dL (NEG-TRACE) Urine Glucose (UA) 250 mg/dL (NEG) Urine Ketones (Stick) Negative mg/dL (NEG) Urine Blood Trace (NEG) Urine Nitrite Negative (NEG) Urine Bilirubin Negative (NEG) Urine Urobilinogen Dipstick 0.2 mg/dL (0.2 mg/dL) Urine Leukocyte Esterase Negative (NEG) Urine RBC 1-2 /HPF (0-2) Urine WBC 1-4 /HPF (0-4) Urine Squamous Epithelial Cells Mod /LPF Urine Bacteria Few /HPF (0-FEW) Urine Hyaline Casts Few /HPF Urine Mucus Slight /LPF Urine Opiates Screen Neg (NEG) Urine Methadone Screen Neg (NEG) Urine Barbiturates Neg (NEG) Urine Phencyclidine Screen Neg (NEG) Urine Amphetamine/Methamphetamine Neg (NEG) Urine Benzodiazepines Screen Neg (NEG) Urine Cocaine Screen Neg (NEG) Urine Cannabinoids Screen Neg (NEG) Urine Ethyl Alcohol Neg (NEG) White Blood Count 8.1 x10^3/uL (4.0-11.0) Red Blood Count 4.07 x10^6/uL (3.50-5.40) Hemoglobin 11.2 g/dL (12.0-15.5) Hematocrit 33.7 % (36.0-47.0) Mean Corpuscular Volume 83 fL (79-100) Mean Corpuscular Hemoglobin 27 pg (25-35) Mean Corpuscular Hemoglobin Concent 33 g/dL (31-37) Red Cell Distribution Width 14.6 % (11.5-14.5) Platelet Count 208 x10^3/uL (140-400) Neutrophils (%) (Auto) 75 % (31-73) Lymphocytes (%) (Auto) 19 % (24-48) Monocytes (%) (Auto) 6 % (0-9) Eosinophils (%) (Auto) 0 % (0-3) Basophils (%) (Auto) 0 % (0-3) Neutrophils # (Auto) 6.1 x10^3uL (1.8-7.7) Lymphocytes # (Auto) 1.5 x10^3/uL (1.0-4.8) Monocytes # (Auto) 0.5 x10^3/uL (0.0-1.1) Eosinophils # (Auto) 0.0 x10^3/uL (0.0-0.7) Basophils # (Auto) 0.0 x10^3/uL (0.0-0.2) Sodium Level 140 mmol/L (136-145) Potassium Level 3.2 mmol/L (3.5-5.1) Chloride Level 106 mmol/L (98-107) Carbon Dioxide Level 27 mmol/L (21-32) Anion Gap 7 (6-14) Blood Urea Nitrogen 35 mg/dL (7-20) Creatinine 1.3 mg/dL (0.6-1.0) Estimated GFR (Cockcroft-Gault) 51.5 Glucose Level 157 mg/dL (70-99) Calcium Level 8.5 mg/dL (8.5-10.1) Ammonia 35 mcmol/L (11-34) Test 11/14/17 11:07 Glucose (Fingerstick) 181 mg/dL (70-99) Laboratory Tests Test 11/13/17 16:26 11/13/17 19:45 11/13/17 20:13 11/14/17 00:27 Glucose (Fingerstick) 91 mg/dL (70-99) 255 mg/dL (70-99) 269 mg/dL (70-99) Urine Collection Type Unknown Urine Color Yellow Urine Clarity Clear Urine pH 5.5 Urine Specific [place] 1.015 Urine Protein >=300 mg/dL (NEG-TRACE) Urine Glucose (UA) 250 mg/dL (NEG) Urine Ketones (Stick) Negative mg/dL (NEG) Urine Blood Trace (NEG) Urine Nitrite Negative (NEG) Urine Bilirubin Negative (NEG) Urine Urobilinogen Dipstick 0.2 mg/dL (0.2 mg/dL) Urine Leukocyte Esterase Negative (NEG) Urine RBC 1-2 /HPF (0-2) Urine WBC 1-4 /HPF (0-4) Urine Squamous Epithelial Cells Mod /LPF Urine Bacteria Few /HPF (0-FEW) Urine Hyaline Casts Few /HPF Urine Mucus Slight /LPF Urine Opiates Screen Neg (NEG) Urine Methadone Screen Neg (NEG) Urine Barbiturates Neg (NEG) Urine Phencyclidine Screen Neg (NEG) Urine Amphetamine/Methamphetamine Neg (NEG) Urine Benzodiazepines Screen Neg (NEG) Urine Cocaine Screen Neg (NEG) Urine Cannabinoids Screen Neg (NEG) Urine Ethyl Alcohol Neg (NEG) Test 11/14/17 06:15 11/14/17 07:26 11/14/17 11:07 White Blood Count 8.1 x10^3/uL (4.0-11.0) Red Blood Count 4.07 x10^6/uL (3.50-5.40) Hemoglobin 11.2 g/dL (12.0-15.5) Hematocrit 33.7 % (36.0-47.0) Mean Corpuscular Volume 83 fL (79-100) Mean Corpuscular Hemoglobin 27 pg (25-35) Mean Corpuscular Hemoglobin Concent 33 g/dL (31-37) Red Cell Distribution Width 14.6 % (11.5-14.5) Platelet Count 208 x10^3/uL (140-400) Neutrophils (%) (Auto) 75 % (31-73) Lymphocytes (%) (Auto) 19 % (24-48) Monocytes (%) (Auto) 6 % (0-9) Eosinophils (%) (Auto) 0 % (0-3) Basophils (%) (Auto) 0 % (0-3) Neutrophils # (Auto) 6.1 x10^3uL (1.8-7.7) Lymphocytes # (Auto) 1.5 x10^3/uL (1.0-4.8) Monocytes # (Auto) 0.5 x10^3/uL (0.0-1.1) Eosinophils # (Auto) 0.0 x10^3/uL (0.0-0.7) Basophils # (Auto) 0.0 x10^3/uL (0.0-0.2) Sodium Level 140 mmol/L (136-145) Potassium Level 3.2 mmol/L (3.5-5.1) Chloride Level 106 mmol/L (98-107) Carbon Dioxide Level 27 mmol/L (21-32) Anion Gap 7 (6-14) Blood Urea Nitrogen 35 mg/dL (7-20) Creatinine 1.3 mg/dL (0.6-1.0) Estimated GFR (Cockcroft-Gault) 51.5 Glucose Level 157 mg/dL (70-99) Calcium Level 8.5 mg/dL (8.5-10.1) Ammonia 35 mcmol/L (11-34) Glucose (Fingerstick) 134 mg/dL (70-99) 181 mg/dL (70-99) Medications Current Medications Albuterol/ Ipratropium (Duoneb) 6 ml 1X ONCE NEB Last administered on at 13:56; Start 11/11/17 at 13:15; Stop 11/11/17 at 13:18; Status DC Methylprednisolone Sodium Succinate (SOLU-Medrol 125MG VIAL) 125 mg 1X ONCE IV Last administered on 11/11/17at 13:35; Start 11/11/17 at 13:15; Stop 11/11/17 at 13:18; Status DC Potassium Chloride (Klor-Con) 40 meq 1X ONCE PO Last administered on at 15:07; Start 11/11/17 at 14:30; Stop 11/11/17 at 14:31; Status DC Furosemide (Lasix) 80 mg 1X ONCE IVP Last administered on 11/11/17at 15:07; Start 11/11/17 at 14:30; Stop 11/11/17 at 14:31; Status DC Fentanyl Citrate (Fentanyl 2ml Vial) 50 mcg PRN Q2HR PRN IV PAIN Last administered on 11/12/17at 12:28; Start 11/11/17 at 14:30; Stop 11/12/17 at 14:29 ; Status DC Albuterol/ Ipratropium (Duoneb) 3 ml RTQID NEB Last administered on 11/12/17at 11:33; Start 11/11/17 at 16:00; Stop 11/12/17 at 15:59; Status DC Potassium Chloride (Klor-Con) 40 meq 1X ONCE PO Last administered on at 20:36; Start 11/11/17 at 20:00; Stop 11/11/17 at 20:01; Status DC Magnesium Sulfate 50 ml @ 25 mls/hr 1X ONCE IV Last administered on 11/11/17at 17:35; Start 11/11/17 at 15:45; Stop 11/11/17 at 17:44; Status DC Methylprednisolone Sodium Succinate (SOLU-Medrol 40MG VIAL) 30 mg Q12HR IV Last administered on 11/13/17at 08:36; Start 11/11/17 at 21:30; Stop 11/14/17 at 07:59; Status DC Insulin Human Lispro (HumaLOG) 0-9 UNITS TIDACHC SQ Last administered on at 12:36; Start 11/12/17 at 07:30 Dextrose (Dextrose 50%-Water Syringe) 12.5 gm PRN Q15MIN PRN IV SEE COMMENTS; Start 11/11/17 at 21:15 Insulin Human Lispro (HumaLOG) 10 units 1X ONCE SQ Last administered on at 21:32; Start 11/11/17 at 21:30; Stop 11/11/17 at 21:31; Status DC Insulin Glargine (Lantus) 15 units QHS SQ Last administered on 11/12/17at 22:03 ; Start 11/11/17 at 21:30; Stop 11/13/17 at 09:09; Status DC Atorvastatin Calcium (Lipitor) 40 mg QHS PO Last administered on 11/13/17at 21: 01; Start 11/11/17 at 22:00 Bupropion HCl (Wellbutrin Xl) 150 mg DAILY PO Last administered on 11/13/17at 08 :33; Start 11/12/17 at 09:00; Stop 11/13/17 at 11:55; Status DC Clonidine HCl (Catapres) 0.1 mg TID PO Last administered on 11/14/17at 13:16; Start 11/11/17 at 22:00 Clopidogrel Bisulfate (Plavix) 75 mg DAILY PO Last administered on 11/14/17at 09 :52; Start 11/12/17 at 09:00 Cyclobenzaprine HCl (Flexeril) 10 mg TID PO Last administered on 11/13/17at 08: 33; Start 11/11/17 at 22:00; Stop 11/13/17 at 11:55; Status DC Hydrochlorothiazide (Hydrodiuril) 37.5 mg DAILY PO ; Start 11/12/17 at 09:00; Stop 11/12/17 at 09:00; Status DC Insulin Glargine (Lantus) 15 units QHS SQ ; Start 11/12/17 at 21:00; Status UNV Lisinopril (Prinivil) 40 mg DAILY PO Last administered on 11/14/17at 09:53; Start 11/12/17 at 09:00 Carvedilol (Coreg) 25 mg BIDWMEALS PO Last administered on 11/14/17at 09:55; Start 11/12/17 at 08:00 Ibuprofen (Motrin) 600 mg PRN Q8HRS PRN PO INFLAMMATION Last administered on at 09:56; Start 11/11/17 at 21:30 Metolazone (Zaroxolyn) 5 mg DAILY PO Last administered on 11/14/17at 09:53; Start 11/12/17 at 09:00 Promethazine HCl (Phenergan) 25 mg PRN TID PRN PO NAUSEA/VOMITING 1ST CHOICE; Start 11/11/17 at 21:30 Quetiapine Fumarate (SEROquel) 100 mg TID PO Last administered on 11/13/17at 08: 34; Start 11/11/17 at 21:30; Stop 11/13/17 at 11:55; Status DC Albuterol Sulfate (Ventolin Neb Soln) 2.5 mg PRN Q4HRS PRN NEB SHORTNESS OF BREATH Last administered on 11/14/17at 13:53; Start 11/11/17 at 23:00 Metoprolol Tartrate (Lopressor) 50 mg BID PO ; Start 11/12/17 at 01:00; Stop at 01:00; Status DC Metoprolol Tartrate (Lopressor) 50 mg 1X ONCE PO Last administered on at 00:49; Start 11/12/17 at 01:00; Stop 11/12/17 at 01:01; Status DC Potassium Chloride (Klor-Con) 40 meq 1X ONCE PO Last administered on at 08:22; Start 11/12/17 at 08:00; Stop 11/12/17 at 08:01; Status DC Furosemide (Lasix) 40 mg DAILY PO Last administered on 11/14/17at 09:54; Start 11/13/17 at 09:00 Furosemide (Lasix) 40 mg 1X ONCE PO Last administered on 11/12/17at 12:10; Start 11/12/17 at 11:15; Stop 11/12/17 at 11:23; Status DC Potassium Chloride (Klor-Con) 20 meq DAILYWBKFT PO Last administered on at 09:54; Start 11/13/17 at 08:00 Potassium Chloride (Klor-Con) 40 meq 1X ONCE PO Last administered on at 12:11; Start 11/12/17 at 13:00; Stop 11/12/17 at 13:01; Status DC Insulin Human Lispro (HumaLOG) 3 units 1X ONCE SQ Last administered on at 12:35; Start 11/12/17 at 12:30; Stop 11/12/17 at 12:31; Status DC Multivitamins 10 ml/Thiamine HCl 100 mg/Folic Acid 1 mg/Sodium Chloride 1,011.2 ml @ 100 mls/ hr DAILY IV Last administered on 11/14/17at 10:13; Start at 14:00; Stop 11/16/17 at 19:07 Multivitamins (Thera M Plus) 1 tab DAILY PO ; Start 11/17/17 at 09:00 Folic Acid (Folic Acid) 1 mg DAILY PO ; Start 11/17/17 at 09:00 Thiamine HCl 100 mg/Dextrose 51 ml @ 100 mls/hr DAILY IV ; Start 11/13/17 at 09 :00; Stop 11/13/17 at 09:00; Status DC Lorazepam (Ativan) 2 mg Q6H PO Last administered on 11/13/17at 08:36; Start at 13:00; Stop 11/13/17 at 11:55; Status DC Lorazepam (Ativan) 4 mg PRN Q1HR PRN PO For CIWA 8-14; Start 11/12/17 at 13:15 Haloperidol Lactate (Haldol Inj) 5 mg PRN Q4HRS PRN IVP Hallucinatns,Confusn, Delirium; Start 11/12/17 at 13:15 Diphenhydramine HCl (Benadryl) 25 mg PRN Q15MIN PRN IVP EPS symptoms 2'Haldol admin; Start 11/12/17 at 13:15 Clonidine HCl (Catapres) 0.1 mg PRN Q1HR PRN PO SBP > 180 or DBP > 100, MRX3; Start 11/12/17 at 13:15 Lorazepam (Ativan) 2 mg PRN Q15MIN PRN IV ANXIETY / AGITATION; Start 11/12/17 at 13:15; Stop 11/14/17 at 08:02; Status DC Thiamine Mononitrate (Vitamin B-1) 100 mg DAILY PO ; Start 11/17/17 at 09:00 Albuterol/ Ipratropium (Duoneb) 3 ml RTQID NEB Last administered on 11/14/17at 11:50; Start 11/12/17 at 20:00 Insulin Human Lispro (HumaLOG) 12 units 1X ONCE SQ Last administered on at 17:10; Start 11/12/17 at 17:15; Stop 11/12/17 at 17:16; Status DC Insulin Glargine (Lantus) 25 units QHS SQ Last administered on 11/13/17at 21:10 ; Start 11/13/17 at 21:00 Insulin Human Lispro (HumaLOG) 10 units TIDWMEALS SQ Last administered on at 12:37; Start 11/13/17 at 09:30 Guaifenesin (Robitussin Dm) 10 ml PRN Q6HRS PRN PO COUGH; Start 11/13/17 at 09: 15 Hydralazine HCl (Apresoline) 50 mg PRN Q6HRS PRN PO ELEVATED BP, SEE COMMENTS; Start 11/13/17 at 13:15 Lactulose (Lactulose) 20 gm BID PO Last administered on 11/14/17at 09:56; Start 11/13/17 at 13:30 Nicotine Polacrilex (Nicorette Gum) 1 each PRN Q1HR PRN BC SMOKING CESSATION; Start 11/13/17 at 20:15 Prednisone (Prednisone) 30 mg DAILY PO ; Start 11/14/17 at 09:00 Acetaminophen/ Hydrocodone Bitart (Lortab 5/325) 1 tab PRN Q4HRS PRN PO PAIN Last administered on 11/14/17at 13:15; Start 11/14/17 at 13:00 Active Scripts Active Reported Lantus Solostar (Insulin Glargine,Hum.rec.anlog) 100 Unit/1 Ml Insuln.pen 15 Unit SQ QHS Cyclobenzaprine Hcl 10 Mg Tablet 10 Mg PO TID Bupropion Xl (Bupropion Hcl) 150 Mg Tab.er.24h 150 Mg PO Promethazine Hcl 25 Mg Tablet 25 Mg PO TID PRN Ibuprofen 600 Mg Tablet 600 Mg PO PRN Q8HRS PRN Quetiapine Fumarate 100 Mg Tablet 100 Mg PO TID Metolazone 5 Mg Tablet 5 Mg PO DAILY Carvedilol 25 Mg Tablet 1 Tab PO BID Hydrochlorothiazide Tablet (Hydrochlorothiazide) 25 Mg Tablet 1.5 Tab PO DAILY Atorvastatin Calcium 40 Mg Tablet 1 Tab PO QHS Clopidogrel (Clopidogrel Bisulfate) 75 Mg Tablet 1 Tab PO DAILY Clonidine Hcl 0.1 Mg Tablet 0.1 Mg PO TID Lisinopril 20 Mg Tablet 40 Mg PO DAILY Vitals/I & O Vital Sign - Last 24 Hours 11/13/17 11/13/17 11/13/17 11/13/17 15:00 16:00 17:57 19:00 Temp 97.1 96.6 97.1 96.6 Pulse 64 64 74 Resp 20 20 B/P (MAP) 178/151 (160) 178/151 164/96 (118) Pulse Ox 90 100 O2 Delivery Room Air Room Air 11/13/17 11/13/17 11/13/17 11/14/17 20:00 21:01 23:00 03:04 Temp 97.5 96.4 97.5 96.4 Pulse 74 75 63 Resp 20 20 B/P (MAP) 164/96 146/85 (105) 146/95 (112) Pulse Ox 96 96 O2 Delivery Room Air Room Air Room Air 11/14/17 11/14/17 11/14/17/15/18 07:00 08:47 09:53 09:55 Temp 98.0 98.0 Pulse 60 60 60 Resp 18 B/P (MAP) 131/80 (97) 131/80 131/80 Pulse Ox 94 97 O2 Delivery Room Air Room Air 11/14/17 11/14/17 11/14/17 11/14/17 09:55 11:00 11:51 13:15 Temp 98.0 98.0 Pulse 60 63 Resp 18 B/P (MAP) 131/80 145/104 (118) Pulse Ox 98 97 O2 Delivery Room Air Room Air Room Air 11/14/17 11/14/17 13:16 13:56 Pulse 63 B/P (MAP) 145/104 Pulse Ox 100 O2 Delivery Room Air Intake and Output 11/13/17 11/13/17 11/14/17 15:00 23:00 07:00 Intake Total 600 ml Output Total 0 ml Balance 600 ml 0 ml MAKI WINKLER MD Nov 14, 2017 14:01
[2017-11-14 14:59] VITALS: BP 124/83
[2017-11-14 19:00] VITALS: BP 131/76
[2017-11-14] MEDS: INSULIN GLARGINE 300 UNITS/3 ML INSULN.PEN. SQ SCH (21:00)
[2017-11-14] MEDS: ATORVASTATIN CALCIUM 40 MG TABLET. PO SCH (22:21)
[2017-11-14 23:00] VITALS: BP 124/68
[2017-11-15] MEDS: QUEtiapine 100 MG TABLET. PO SCH ×4 (00:09→20:41)
[2017-11-15 02:44] VITALS: BP 130/85
[2017-11-15 07:00] VITALS: BP_SYST 140; BP_SYST 177; BP_DIAS 86; BP_DIAS 88
--- NOTE | 2017-11-15 07:28 | PDOC ---
PULMONARY PROGRESS NOTES Subjective sob better, has occ cough, no pain Vitals Vital Signs Date Time Temp Pulse Resp B/P (MAP) Pulse Ox O2 Delivery O2 Flow Rate FiO2 11/15/17 02:44 97.9 59 18 130/85 (100) 98 Room Air 97.9 11/14/17 20:00 2.0 ROS: No Nausea, No Chest Pain, No Abdominal Pain, No Increase Cough General: Alert HEENT: Other (nc at perrl nose clear shallow oropharynx. ) Lungs: Crackles Cardiovascular: S1, S2 Abdomen: Soft, Non-tender Neuro Exam: Alert Extremities: No Edema Skin: Warm Labs Laboratory Tests Test 11/13/17 07:52 11/13/17 09:10 11/13/17 11:36 11/13/17 12:10 Glucose (Fingerstick) 302 mg/dL (70-99) 199 mg/dL (70-99) White Blood Count 10.6 x10^3/uL (4.0-11.0) Red Blood Count 4.39 x10^6/uL (3.50-5.40) Hemoglobin 12.3 g/dL (12.0-15.5) Hematocrit 36.8 % (36.0-47.0) Mean Corpuscular Volume 84 fL (79-100) Mean Corpuscular Hemoglobin 28 pg (25-35) Mean Corpuscular Hemoglobin Concent 34 g/dL (31-37) Red Cell Distribution Width 14.3 % (11.5-14.5) Platelet Count 204 x10^3/uL (140-400) Neutrophils (%) (Auto) 89 % (31-73) Lymphocytes (%) (Auto) 8 % (24-48) Monocytes (%) (Auto) 3 % (0-9) Eosinophils (%) (Auto) 0 % (0-3) Basophils (%) (Auto) 0 % (0-3) Neutrophils # (Auto) 9.5 x10^3uL (1.8-7.7) Lymphocytes # (Auto) 0.9 x10^3/uL (1.0-4.8) Monocytes # (Auto) 0.3 x10^3/uL (0.0-1.1) Eosinophils # (Auto) 0.0 x10^3/uL (0.0-0.7) Basophils # (Auto) 0.0 x10^3/uL (0.0-0.2) Segmented Neutrophils % 94 % (35-66) Lymphocytes % 5 % (24-48) Monocytes % 1 % (0-10) Platelet Estimate Adequate (ADEQUATE) Sodium Level 136 mmol/L (136-145) Potassium Level 4.1 mmol/L (3.5-5.1) Chloride Level 103 mmol/L (98-107) Carbon Dioxide Level 22 mmol/L (21-32) Anion Gap 11 (6-14) Blood Urea Nitrogen 36 mg/dL (7-20) Creatinine 1.4 mg/dL (0.6-1.0) Estimated GFR (Cockcroft-Gault) 47.2 BUN/Creatinine Ratio 26 (6-20) Glucose Level 319 mg/dL (70-99) Hemoglobin A1c 7.8 % (4.8-5.6) Calcium Level 8.7 mg/dL (8.5-10.1) Magnesium Level 2.2 mg/dL (1.8-2.4) Total Bilirubin 0.2 mg/dL (0.2-1.0) Aspartate Amino Transf (AST/SGOT) 18 U/L (15-37) Alanine Aminotransferase (ALT/SGPT) 21 U/L (14-59) Alkaline Phosphatase 127 U/L (46-116) Total Protein 6.3 g/dL (6.4-8.2) Albumin 2.1 g/dL (3.4-5.0) Albumin/Globulin Ratio 0.5 (1.0-1.7) Vitamin B12 Level 319 pg/mL (247-911) Ammonia 50 mcmol/L (11-34) Test 11/13/17 16:26 11/13/17 19:45 11/13/17 20:13 11/14/17 00:27 Glucose (Fingerstick) 91 mg/dL (70-99) 255 mg/dL (70-99) 269 mg/dL (70-99) Urine Collection Type Unknown Urine Color Yellow Urine Clarity Clear Urine pH 5.5 Urine Specific [place] 1.015 Urine Protein >=300 mg/dL (NEG-TRACE) Urine Glucose (UA) 250 mg/dL (NEG) Urine Ketones (Stick) Negative mg/dL (NEG) Urine Blood Trace (NEG) Urine Nitrite Negative (NEG) Urine Bilirubin Negative (NEG) Urine Urobilinogen Dipstick 0.2 mg/dL (0.2 mg/dL) Urine Leukocyte Esterase Negative (NEG) Urine RBC 1-2 /HPF (0-2) Urine WBC 1-4 /HPF (0-4) Urine Squamous Epithelial Cells Mod /LPF Urine Bacteria Few /HPF (0-FEW) Urine Hyaline Casts Few /HPF Urine Mucus Slight /LPF Urine Opiates Screen Neg (NEG) Urine Methadone Screen Neg (NEG) Urine Barbiturates Neg (NEG) Urine Phencyclidine Screen Neg (NEG) Urine Amphetamine/Methamphetamine Neg (NEG) Urine Benzodiazepines Screen Neg (NEG) Urine Cocaine Screen Neg (NEG) Urine Cannabinoids Screen Neg (NEG) Urine Ethyl Alcohol Neg (NEG) Test 11/14/17 06:15 11/14/17 07:26 11/14/17 11:07 11/14/17 16:41 White Blood Count 8.1 x10^3/uL (4.0-11.0) Red Blood Count 4.07 x10^6/uL (3.50-5.40) Hemoglobin 11.2 g/dL (12.0-15.5) Hematocrit 33.7 % (36.0-47.0) Mean Corpuscular Volume 83 fL (79-100) Mean Corpuscular Hemoglobin 27 pg (25-35) Mean Corpuscular Hemoglobin Concent 33 g/dL (31-37) Red Cell Distribution Width 14.6 % (11.5-14.5) Platelet Count 208 x10^3/uL (140-400) Neutrophils (%) (Auto) 75 % (31-73) Lymphocytes (%) (Auto) 19 % (24-48) Monocytes (%) (Auto) 6 % (0-9) Eosinophils (%) (Auto) 0 % (0-3) Basophils (%) (Auto) 0 % (0-3) Neutrophils # (Auto) 6.1 x10^3uL (1.8-7.7) Lymphocytes # (Auto) 1.5 x10^3/uL (1.0-4.8) Monocytes # (Auto) 0.5 x10^3/uL (0.0-1.1) Eosinophils # (Auto) 0.0 x10^3/uL (0.0-0.7) Basophils # (Auto) 0.0 x10^3/uL (0.0-0.2) Sodium Level 140 mmol/L (136-145) Potassium Level 3.2 mmol/L (3.5-5.1) Chloride Level 106 mmol/L (98-107) Carbon Dioxide Level 27 mmol/L (21-32) Anion Gap 7 (6-14) Blood Urea Nitrogen 35 mg/dL (7-20) Creatinine 1.3 mg/dL (0.6-1.0) Estimated GFR (Cockcroft-Gault) 51.5 Glucose Level 157 mg/dL (70-99) Calcium Level 8.5 mg/dL (8.5-10.1) Ammonia 35 mcmol/L (11-34) Glucose (Fingerstick) 134 mg/dL (70-99) 181 mg/dL (70-99) 97 mg/dL (70-99) Test 11/14/17 20:54 Glucose (Fingerstick) 91 mg/dL (70-99) Laboratory Tests Test 11/14/17 07:26 11/14/17 11:07 11/14/17 16:41 11/14/17 20:54 Glucose (Fingerstick) 134 mg/dL (70-99) 181 mg/dL (70-99) 97 mg/dL (70-99) 91 mg/dL (70-99) Medications Active Scripts Medications Dose Route/Sig Max Daily Dose Days Date Category Lantus Solostar (Insulin Glargine,Hum.rec.anlog) 100 Unit/1 Ml Insuln.pen 15 Unit SQ QHS 11/11/17 Reported Cyclobenzaprine Hcl 10 Mg Tablet 10 Mg PO TID 11/11/17 Reported Bupropion Xl (Bupropion Hcl) 150 Mg Tab.er.24h 150 Mg PO 11/11/17 Reported Promethazine Hcl 25 Mg Tablet 25 Mg PO TID PRN 11/11/17 Reported Ibuprofen 600 Mg Tablet 600 Mg PO PRN Q8HRS PRN 11/11/17 Reported Quetiapine Fumarate 100 Mg Tablet 100 Mg PO TID 11/11/17 Reported Metolazone 5 Mg Tablet 5 Mg PO DAILY 07/11/16 Reported Carvedilol 25 Mg Tablet 1 Tab PO BID 04/15/15 Reported Hydrochlorothiazide Tablet (Hydrochlorothiazide) 25 Mg Tablet 1.5 Tab PO DAILY 04/15/15 Reported Atorvastatin Calcium 40 Mg Tablet 1 Tab PO QHS 04/15/15 Reported Clopidogrel (Clopidogrel Bisulfate) 75 Mg Tablet 1 Tab PO DAILY 04/15/15 Reported Clonidine Hcl 0.1 Mg Tablet 0.1 Mg PO TID 04/01/14 Reported Lisinopril 20 Mg Tablet 40 Mg PO DAILY 03/01/14 Reported Impression . IMPRESSION: 1. Acute respiratory failure secondary to fypib-yx-czwzcyv diastolic heart failure. 2. Acute exacerbation of chronic obstructive pulmonary disease. 3. Tobacco dependent. 4. Acute nonspecific bronchitis. 5. Hypertension. 6. Hypokalemia. 7. Chronic kidney disease/acute kidney injury. 8. Atypical chest pain. 9. ? fanny Plan . PRN BIPAP AVOID oversedation 1. Continue Lasix, keep I<O, monitor k, cr. 2. prednisone 30 mg daily w taper by 10 mg q 3d 3. bronchodilators 4. Follow Cardiology input. 5. Replace potassium and magnesium. 6. The patient instructed on the importance of discontinuing her tobacco use. 7. Discontinue all illicit drugs. 8. i do recommend sleep study as out pt discussed w pt and rn ROSEANN FOREMAN MD Nov 15, 2017 07:28
[2017-11-15] MEDS: IPRATRPIUM/ALBUTEROL 0.5/2.5MG 3 ML NEBU. NEB SCH ×4 (08:28→19:45)
[2017-11-15] MEDS: LACTULOSE 20 GM/30 ML SOLUTION. PO SCH ×2 (08:45→20:40)
[2017-11-15] MEDS: LISINOPRIL 20 MG TABLET PO SCH (08:47)
[2017-11-15] MEDS: metOLazone 2.5 MG TABLET PO SCH (08:47)
[2017-11-15] MEDS: predniSONE 10 MG TABLET PO SCH (08:47)
[2017-11-15] MEDS: FOLIC ACID 1 MG TABLET. PO SCH (08:48)
[2017-11-15] MEDS: HYDROcodone/APAP 5/325MG 1 TAB TABLET PO PRN ×3 (08:48→20:42)
[2017-11-15] MEDS: POTASSIUM CHLORIDE 20 MEQ TABLET.ER. PO SCH (08:48)
[2017-11-15] MEDS: THIAMINE 100 MG TABLET. PO SCH (08:48)
[2017-11-15] MEDS: MULTIVITAMIN with MINERAL TABLET. PO SCH (08:49)
[2017-11-15] MEDS: CARVEDILOL 12.5 MG TABLET. PO SCH ×2 (08:49→17:44)
[2017-11-15] MEDS: FUROSEMIDE 40 MG TABLET. PO SCH (08:50)
[2017-11-15] MEDS: cloNIDine HCL 0.1 MG TABLET PO SCH ×3 (08:50→20:41)
[2017-11-15] MEDS: INSULIN LISPRO 300 UNITS/3 ML INSULN.PEN. SQ SCH ×7 (08:53→21:00)
[2017-11-15] MEDS: CLOPIDOGREL BISULFATE 75 MG TABLET PO SCH (08:56)
[2017-11-15 11:00] VITALS: BP 131/76
[2017-11-15] MEDS ORDERED: THIA100T22 PO (12:07)
[2017-11-15] MEDS ORDERED: INSU100I13 SQ (12:07)
[2017-11-15] MEDS ORDERED: LACT20SO PO (12:07)
[2017-11-15] MEDS ORDERED: FURO40TA4 PO (12:07)
[2017-11-15] MEDS ORDERED: FOLI1TAB16 PO (12:07)
[2017-11-15] MEDS ORDERED: MULT1TAB90 PO (12:07)
[2017-11-15] MEDS ORDERED: INSU100I11 SQ (12:07)
[2017-11-15] MEDS ORDERED: HYDR-2758 PO (12:07)
--- NOTE | 2017-11-15 12:11 | PDOC3 ---
Discharge Summary Visit Information Date of Admission: Nov 11, 2017 Date of Discharge: Nov 15, 2017 Admitting Diagnosis Comment: Metabolic encephalopathy. Acute sleep deprivation x 2 nights per her boyfriend. [place] sleepiness on 11/13/17. Hyperglycemia. DM. HTN. HLD. COPD. Renal insufficiency. 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 Obesity. Elevated ammonia level. improved Final Diagnosis Problems Medical Problems: (1) Acute on chronic diastolic CHF (congestive heart failure) Status: Acute (2) COPD exacerbation Status: Acute (3) Hypokalemia Status: Acute Brief Hospital Course Allergies Allergies Coded Allergies Type Severity Reaction Last Updated Verified sulfamethoxazole Allergy Intermediate 06/09/16 Yes trimethoprim Allergy Intermediate 06/09/16 Yes Vital Signs Vital Signs Date Time Temp Pulse Resp B/P (MAP) Pulse Ox O2 Delivery O2 Flow Rate FiO2 11/15/17 09:48 16 Room Air 11/15/17 08:50 57 140/88 11/15/17 08:30 98 11/15/17 07:00 97.4 97.4 11/14/17 20:00 2.0 Lab Results Laboratory Tests Test 11/13/17 12:10 11/13/17 16:26 11/13/17 19:45 11/13/17 20:13 Ammonia 50 mcmol/L (11-34) Glucose (Fingerstick) 91 mg/dL (70-99) 255 mg/dL (70-99) 269 mg/dL (70-99) Test 11/14/17 00:27 11/14/17 06:15 11/14/17 07:26 11/14/17 11:07 Urine Collection Type Unknown Urine Color Yellow Urine Clarity Clear Urine pH 5.5 Urine Specific [place] 1.015 Urine Protein >=300 mg/dL (NEG-TRACE) Urine Glucose (UA) 250 mg/dL (NEG) Urine Ketones (Stick) Negative mg/dL (NEG) Urine Blood Trace (NEG) Urine Nitrite Negative (NEG) Urine Bilirubin Negative (NEG) Urine Urobilinogen Dipstick 0.2 mg/dL (0.2 mg/dL) Urine Leukocyte Esterase Negative (NEG) Urine RBC 1-2 /HPF (0-2) Urine WBC 1-4 /HPF (0-4) Urine Squamous Epithelial Cells Mod /LPF Urine Bacteria Few /HPF (0-FEW) Urine Hyaline Casts Few /HPF Urine Mucus Slight /LPF Urine Opiates Screen Neg (NEG) Urine Methadone Screen Neg (NEG) Urine Barbiturates Neg (NEG) Urine Phencyclidine Screen Neg (NEG) Urine Amphetamine/Methamphetamine Neg (NEG) Urine Benzodiazepines Screen Neg (NEG) Urine Cocaine Screen Neg (NEG) Urine Cannabinoids Screen Neg (NEG) Urine Ethyl Alcohol Neg (NEG) White Blood Count 8.1 x10^3/uL (4.0-11.0) Red Blood Count 4.07 x10^6/uL (3.50-5.40) Hemoglobin 11.2 g/dL (12.0-15.5) Hematocrit 33.7 % (36.0-47.0) Mean Corpuscular Volume 83 fL (79-100) Mean Corpuscular Hemoglobin 27 pg (25-35) Mean Corpuscular Hemoglobin Concent 33 g/dL (31-37) Red Cell Distribution Width 14.6 % (11.5-14.5) Platelet Count 208 x10^3/uL (140-400) Neutrophils (%) (Auto) 75 % (31-73) Lymphocytes (%) (Auto) 19 % (24-48) Monocytes (%) (Auto) 6 % (0-9) Eosinophils (%) (Auto) 0 % (0-3) Basophils (%) (Auto) 0 % (0-3) Neutrophils # (Auto) 6.1 x10^3uL (1.8-7.7) Lymphocytes # (Auto) 1.5 x10^3/uL (1.0-4.8) Monocytes # (Auto) 0.5 x10^3/uL (0.0-1.1) Eosinophils # (Auto) 0.0 x10^3/uL (0.0-0.7) Basophils # (Auto) 0.0 x10^3/uL (0.0-0.2) Sodium Level 140 mmol/L (136-145) Potassium Level 3.2 mmol/L (3.5-5.1) Chloride Level 106 mmol/L (98-107) Carbon Dioxide Level 27 mmol/L (21-32) Anion Gap 7 (6-14) Blood Urea Nitrogen 35 mg/dL (7-20) Creatinine 1.3 mg/dL (0.6-1.0) Estimated GFR (Cockcroft-Gault) 51.5 Glucose Level 157 mg/dL (70-99) Calcium Level 8.5 mg/dL (8.5-10.1) Ammonia 35 mcmol/L (11-34) Glucose (Fingerstick) 134 mg/dL (70-99) 181 mg/dL (70-99) Test 11/14/17 16:41 11/14/17 20:54 11/15/17 07:18 11/15/17 11:38 Glucose (Fingerstick) 97 mg/dL (70-99) 91 mg/dL (70-99) 215 mg/dL (70-99) 41 mg/dL (70-99) Laboratory Tests Test 11/14/17 16:41 11/14/17 20:54 11/15/17 07:18 11/15/17 11:38 Glucose (Fingerstick) 97 mg/dL (70-99) 91 mg/dL (70-99) 215 mg/dL (70-99) 41 mg/dL (70-99) Brief Hospital Course Ms. Pérez is a 57 old female admitted because of encephalopathy which is multifactorial from hypoglycemia, history of old strokes , narcotic dependence, mildly elevated ammonia, she has history of old occipital and left cerebellar infarcts. No PT needs at least no residuals from the previous stroke. Course remarkable for asking for too much narcotics. And some constipation. I'm doing a [place] enema today. Hopefully will be able to move bowels. PT OT still pending. I am discharging also on lactulose which we started here. Request for some narcotics to go home with, I only provided 10 pills. Consults performed, multiple Procedures performed imaging but no real procedures, Fleet enema Discharge time 32 mins. 50% discharge education about her narcotic use constipation narcotic bowel etc. Discharge Information Condition at Discharge: Improved, Stable Disposition/Orders: D/C to Home Scheduled Atorvastatin Calcium (Atorvastatin Calcium) 40 Mg Tablet, 1 TAB PO QHS, #90 Ref 3 (Reported) Entered as Reported by: MANSI BRYAN on 04/15/151548 Last Action: Continued on 11/11/172117 by PATRICIA ONEILL Carvedilol (Carvedilol) 25 Mg Tablet, 1 TAB PO BID, #180 Ref 1 (Reported) Entered as Reported by: MANSI BRYAN on 04/15/151548 Last Action: Converted on 11/11/172117 by PATRICIA ONEILL Clonidine Hcl (Clonidine Hcl) 0.1 Mg Tablet, 0.1 MG PO TID, (Reported) Entered as Reported by: MARIANA GANDHI on 04/01/14 1551 Last Action: Continued on 11/11/172117 by PATRICIA ONEILL Clopidogrel Bisulfate (Clopidogrel) 75 Mg Tablet, 1 TAB PO DAILY, #90 Ref 1 ( Reported) Entered as Reported by: MANSI BRYAN on 04/15/151548 Last Action: Continued on 11/11/172117 by PATRICIA ONEILL Cyclobenzaprine Hcl (Cyclobenzaprine Hcl) 10 Mg Tablet, 10 MG PO TID, (Reported) Entered as Reported by: NEFTALI ROY on 11/11/17 1512 Last Action: Continued on 11/11/172117 by PATRICIA ONEILL Folic Acid (Folic Acid) 1 Mg Tablet, 1 MG PO DAILY for 30 Days, #30 Prescribed by: BOGDAN WITT on 11/15/17 1207 Furosemide (Furosemide) 40 Mg Tablet, 40 MG PO DAILY for 30 Days, #30 Prescribed by: BOGDAN WITT on 11/15/17 1207 Hydrochlorothiazide (Hydrochlorothiazide Tablet ) 25 Mg Tablet, 1.5 TAB PO DAILY, #30 Ref 5 (Reported) Entered as Reported by: MANSI BRYAN on 04/15/151548 Last Action: Continued on 11/11/172117 by PATRICIA ONEILL Insulin Glargine,Hum.rec.anlog (Lantus Solostar) 100 Unit/1 Ml Insuln.pen, 15 UNIT SQ QHS, #15 Ref 3 (Reported) Entered as Reported by: SALLY HUNG on 11/11/17 1642 Last Action: Continued on 11/11/172117 by PATRICIA ONEILL Lactulose (Lactulose) 20 Gm/30 Ml Solution, 20 GM PO BID for 14 Days Prescribed by: BOGDAN WITT on 11/15/17 1207 Lisinopril (Lisinopril) 20 Mg Tablet, 40 MG PO DAILY for FOR HYPERTENSION, #30 Ref 0 (Reported) Entered as Reported by: ROBERT LE on 03/01/14 1509 Last Action: Continued on 11/11/172117 by PATRICIA ONEILL Metolazone (Metolazone) 5 Mg Tablet, 5 MG PO DAILY, #30 Ref 0 (Reported) Entered as Reported by: ALVIN HONG on 07/11/16956 Last Action: Converted on 11/11/172117 by PATRICIA ONEILL Multivits,Ca,Minerals/Iron/Fa (Thera-M Tablet) 1 Each Tablet, 1 TAB PO DAILY for 30 Days, #30 Prescribed by: BOGDAN WITT on 11/15/17 1207 Quetiapine Fumarate (Quetiapine Fumarate) 100 Mg Tablet, 100 MG PO TID, ( Reported) Entered as Reported by: NEFTALI ROY on 11/11/17 1503 Last Action: Converted on 11/11/172117 by PATRICIA ONEILL Thiamine Mononitrate (Vitamin B-1) 100 Mg Tablet, 100 MG PO DAILY for 30 Days, # 30 Prescribed by: BOGDAN WITT on 11/15/17 1207 Scheduled PRN Hydrocodone Bit/Acetaminophen (Hydrocodone-Apap 5-325 ) 1 Each Tablet, 1 TAB PO PRN Q4HRS PRN for PAIN, #15 Prescribed by: BOGDAN WITT on 11/15/17 1207 Ibuprofen (Ibuprofen) 600 Mg Tablet, 600 MG PO PRN Q8HRS PRN for INFLAMMATION, ( Reported) Entered as Reported by: NEFTALI ROY on 11/11/171505 Last Action: Converted on 11/11/172117 by PATRICIA ONEILL Promethazine Hcl (Promethazine Hcl) 25 Mg Tablet, 25 MG PO TID PRN for NAUSEA/ VOMITING, (Reported) Entered as Reported by: NEFTALI ROY on 11/11/171507 Last Action: Converted on 11/11/172117 by PATRICIA ONEILL Miscellaneous Medications Bupropion Hcl (Bupropion Xl) 150 Mg Tab.er.24h, 150 MG PO, (Reported) Entered as Reported by: NEFTALI ROY on 11/11/171508 Last Action: Continued on 11/11/172117 by PATRICIA ONEILL Discontinued Medications Albuterol Sulfate (Proair Respiclick) 90 Mcg Aer.pow.ba, 1 PUFF IH PRN Q6HRS PRN for SHORTNESS OF BREATH, #1 Discontinued Reason: NOT TAKING Prescribed by: Liliam Lewis APRN on 06/09/16 1725 Last Action: Discontinued on 11/11/17 1521 by Eryn Strickland RP Alprazolam (Xanax) 1 Mg Tablet, 1 MG PO BID PRN for ANXIETY / AGITATION, Ref 0 ( Reported) Discontinued Reason: DC Entered as Reported by: Joao Nicolas on 02/26/14 1406 Last Action: Discontinued on 11/11/17 1506 by NEFTALI ROY Alprazolam (Alprazolam) 1 Mg Tablet, 1 TAB PO BID, #60 (Reported) Discontinued Reason: DC Entered as Reported by: MANSI BRYAN on 04/15/15 1549 Last Action: Discontinued on 11/11/17 1506 by NEFTALI ROY Amlodipine Besylate (Amlodipine Besylate) 5 Mg Tablet, 5 MG PO DAILY, (Reported) Discontinued Reason: DC Entered as Reported by: MANSI BRYAN on 04/15/15 1549 Last Action: Discontinued on 11/11/17 1503 by NEFTALI ROY Amlodipine Besylate (Amlodipine Besylate) 5 Mg Tablet, 5 MG PO DAILY, (Reported) Discontinued Reason: DC Entered as Reported by: ALVIN HONG on 07/11/16 0957 Last Action: Discontinued on 11/11/17 1503 by NEFTALI ROY Amoxicillin/Potassium Clav (Augmentin 875-125 Tablet) 1 Each Tablet, 1 TAB PO BID, #20 Discontinued Reason: NOT TAKING Prescribed by: JESÚS HITCHCOCK APRN on 03/17/17 0816 Last Action: Discontinued on 11/11/17 1521 by Eryn Strickland RP Aspirin (Aspirin Ec) 81 Mg Tablet.dr, 81 MG PO DAILY, (Reported) Discontinued Reason: DC Entered as Reported by: ROBERT LE on 03/01/14 1509 Last Action: Discontinued on 11/11/17 1503 by NEFTALI ROY Atorvastatin Calcium (Atorvastatin Calcium) 80 Mg Tablet, 40 MG PO HS for FOR CHOLESTEROL, #30 Ref 0 (Reported) Discontinued Reason: DC Entered as Reported by: ROBERT LE on 03/01/14 1509 Last Action: Discontinued on 11/11/17 1512 by NEFTALI ROY Carvedilol (Coreg) 25 Mg Tablet, 25 MG PO BIDWMEALS, (Reported) Discontinued Reason: DC Entered as Reported by: Joao Nicolas on 02/26/14 1406 Last Action: Discontinued on 11/11/17 151 by NEFTALI ROY Clonidine Hcl (Clonidine Hcl) 0.1 Mg Tablet, 0.1 MG PO TID, (Reported) Discontinued Reason: DC Entered as Reported by: MANSI BRYAN on 04/15/15 1549 Last Action: Discontinued on 11/11/17 151 by NEFTALI ROY Clopidogrel Bisulfate (Clopidogrel) 75 Mg Tablet, 1 TAB PO DAILY, #90 Ref 1 ( Reported) Discontinued Reason: DC Entered as Reported by: AVLIN HONG on 07/11/16956 Last Action: Discontinued on 11/11/171511 by NEFTALI ROY Furosemide (Furosemide) 40 Mg Tablet, 40 MG PO BID, (Reported) Discontinued Reason: DC Entered as Reported by: Joao Nicolas on 02/26/14 1335 Last Action: Discontinued on 11/11/17 1506 by NEFTALI ROY Hydrocodone Bit/Acetaminophen (Hydrocodone-Apap 7.5-325 ) 1 Each Tablet, 1 TAB PO PRN Q8HRS PRN for PAIN, Ref 0 (Reported) Discontinued Reason: DC Entered as Reported by: ALVIN HONG on 07/11/1657 Last Action: Discontinued on 11/11/17 1503 by NEFTALI ROY Insulin Aspart (Novolog Flexpen) 100 Unit/1 Ml Insuln.pen, 10-16 UNIT SQ TIDAFTMEAL, (Reported) Discontinued Reason: DC Entered as Reported by: Joao Nicolas on 02/26/14 1406 Last Action: Discontinued on 11/11/17 150 by NEFTALI ROY Insulin Glargine,Hum.rec.anlog (Lantus Solostar) 100 Unit/1 Ml Insuln.pen, 10- 15 UNIT SQ QHS, #15 Ref 3 (Reported) Discontinued Reason: DC Entered as Reported by: Bird Wilkins on 04/01/14 1934 Last Action: Discontinued on 11/11/17 1506 by NEFTALI ROY Metformin Hcl (Metformin Hcl) 500 Mg Tablet, 1 TAB PO BID, #60 Ref 3 (Reported) Discontinued Reason: DC Entered as Reported by: MANSI BRYAN on 04/15/15 1549 Last Action: Discontinued on 11/11/17 1506 by NEFTALI RYO Oxycodone Hcl (Oxycodone Hcl) 10 Mg Tablet, 10 MG PO PRN Q6HRS PRN for PAIN, Ref 0 (Reported) Discontinued Reason: DC Entered as Reported by: MANSI BRYAN on 04/15/15 1549 Last Action: Discontinued on 11/11/17 1503 by NEFTALI ROY Potassium Chloride (Klor-Con M20) 20 Meq Tab.er.prt, 1 TAB PO DAILY, #90 Ref 1 ( Reported) Discontinued Reason: DC Entered as Reported by: ALVIN HONG on 07/11/1657 Last Action: Discontinued on 11/11/17 1506 by NEFTALI ROY Prednisone (Prednisone) 20 Mg Tablet, 40 MG PO DAILY for 7 Days, #14 Discontinued Reason: NOT TAKING Prescribed by: JESÚS HITCHCOCK APRN on 03/17/17 0816 Last Action: Discontinued on 11/11/17 1521 by Eryn Strickland [facility] Quetiapine Fumarate (Seroquel) 200 Mg Tablet, 1 TAB PO DAILY, #30 Ref 1 ( Reported) Discontinued Reason: Prescription changed Entered as Reported by: ALVIN HONG on 07/11/16 0957 BOGDAN WITT MD Nov 15, 2017 12:11
[2017-11-15] MEDS ORDERED: SODIUM PHOSPHATES 19/7GM 133 ML ENEMA. PR ONE (12:15)
--- NOTE | 2017-11-15 14:07 | PDOC ---
PROGRESS NOTES Assessment Problems Medical Problems: (1) Acute on chronic diastolic CHF (congestive heart failure) Status: Acute (2) COPD exacerbation Status: Acute (3) Hypokalemia Status: Acute Metabolic encephalopathy. Acute sleep deprivation x 2 nights per her boyfriend. Somnolent on 11/13/17. Hyperglycemia. DM. HTN. HLD. COPD. Renal insufficiency. 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 Obesity. Elevated ammonia level, improved Plan Continue Plavix 75 md daily. Continue Lipitor HS. Hold on EEG, given the improvement. X line okay for discharge Consider outpatient GI evaluation regarding abdominal complaints which are chronic Subjective She complains of abdominal bloating, at first says this has been going on for a week, then admits the symptom have spent present for several years Objective Vital Signs Date Time Temp Pulse Resp B/P (MAP) Pulse Ox O2 Delivery O2 Flow Rate FiO2 11/15/17 12:28 98 Room Air 11/15/17 11:00 97.8 59 18 131/76 (94) 97.8 11/14/17 20:00 2.0 Intake and Output 11/15/17 07:00 Intake Total 660 ml Balance 660 ml Intake Oral 660 ml # Voids 4 PHYSICAL EXAM Alert. Oriented to date, place and person. She names, repeats, and comprehends well. PERRL. EOMI. CN: no focal findings. Muscle tone: normal. Muscle strength: 5/5 DTR: 1+ Plantar reflex: etc. Gait: not examined in bed. Sensory exam: no abnormal findings. No cerebellar signs elicited. No asterixis noted Review of Relevant I have reviewed the following items lilliana (where applicable) has been applied. Labs Laboratory Tests Test 11/13/17 16:26 11/13/17 19:45 11/13/17 20:13 11/14/17 00:27 Glucose (Fingerstick) 91 mg/dL (70-99) 255 mg/dL (70-99) 269 mg/dL (70-99) Urine Collection Type Unknown Urine Color Yellow Urine Clarity Clear Urine pH 5.5 Urine Specific [place] 1.015 Urine Protein >=300 mg/dL (NEG-TRACE) Urine Glucose (UA) 250 mg/dL (NEG) Urine Ketones (Stick) Negative mg/dL (NEG) Urine Blood Trace (NEG) Urine Nitrite Negative (NEG) Urine Bilirubin Negative (NEG) Urine Urobilinogen Dipstick 0.2 mg/dL (0.2 mg/dL) Urine Leukocyte Esterase Negative (NEG) Urine RBC 1-2 /HPF (0-2) Urine WBC 1-4 /HPF (0-4) Urine Squamous Epithelial Cells Mod /LPF Urine Bacteria Few /HPF (0-FEW) Urine Hyaline Casts Few /HPF Urine Mucus Slight /LPF Urine Opiates Screen Neg (NEG) Urine Methadone Screen Neg (NEG) Urine Barbiturates Neg (NEG) Urine Phencyclidine Screen Neg (NEG) Urine Amphetamine/Methamphetamine Neg (NEG) Urine Benzodiazepines Screen Neg (NEG) Urine Cocaine Screen Neg (NEG) Urine Cannabinoids Screen Neg (NEG) Urine Ethyl Alcohol Neg (NEG) Test 11/14/17 06:15 11/14/17 07:26 11/14/17 11:07 11/14/17 16:41 White Blood Count 8.1 x10^3/uL (4.0-11.0) Red Blood Count 4.07 x10^6/uL (3.50-5.40) Hemoglobin 11.2 g/dL (12.0-15.5) Hematocrit 33.7 % (36.0-47.0) Mean Corpuscular Volume 83 fL (79-100) Mean Corpuscular Hemoglobin 27 pg (25-35) Mean Corpuscular Hemoglobin Concent 33 g/dL (31-37) Red Cell Distribution Width 14.6 % (11.5-14.5) Platelet Count 208 x10^3/uL (140-400) Neutrophils (%) (Auto) 75 % (31-73) Lymphocytes (%) (Auto) 19 % (24-48) Monocytes (%) (Auto) 6 % (0-9) Eosinophils (%) (Auto) 0 % (0-3) Basophils (%) (Auto) 0 % (0-3) Neutrophils # (Auto) 6.1 x10^3uL (1.8-7.7) Lymphocytes # (Auto) 1.5 x10^3/uL (1.0-4.8) Monocytes # (Auto) 0.5 x10^3/uL (0.0-1.1) Eosinophils # (Auto) 0.0 x10^3/uL (0.0-0.7) Basophils # (Auto) 0.0 x10^3/uL (0.0-0.2) Sodium Level 140 mmol/L (136-145) Potassium Level 3.2 mmol/L (3.5-5.1) Chloride Level 106 mmol/L (98-107) Carbon Dioxide Level 27 mmol/L (21-32) Anion Gap 7 (6-14) Blood Urea Nitrogen 35 mg/dL (7-20) Creatinine 1.3 mg/dL (0.6-1.0) Estimated GFR (Cockcroft-Gault) 51.5 Glucose Level 157 mg/dL (70-99) Calcium Level 8.5 mg/dL (8.5-10.1) Ammonia 35 mcmol/L (11-34) Glucose (Fingerstick) 134 mg/dL (70-99) 181 mg/dL (70-99) 97 mg/dL (70-99) Test 11/14/17 20:54 11/15/17 07:18 11/15/17 11:38 11/15/17 12:20 Glucose (Fingerstick) 91 mg/dL (70-99) 215 mg/dL (70-99) 41 mg/dL (70-99) 68 mg/dL (70-99) Laboratory Tests Test 11/14/17 16:41 11/14/17 20:54 11/15/17 07:18 11/15/17 11:38 Glucose (Fingerstick) 97 mg/dL (70-99) 91 mg/dL (70-99) 215 mg/dL (70-99) 41 mg/dL (70-99) Test 11/15/17 12:20 Glucose (Fingerstick) 68 mg/dL (70-99) Medications Current Medications Albuterol/ Ipratropium (Duoneb) 6 ml 1X ONCE NEB Last administered on at 13:56; Start 11/11/17 at 13:15; Stop 11/11/17 at 13:18; Status DC Methylprednisolone Sodium Succinate (SOLU-Medrol 125MG VIAL) 125 mg 1X ONCE IV Last administered on 11/11/17at 13:35; Start 11/11/17 at 13:15; Stop 11/11/17 at 13:18; Status DC Potassium Chloride (Klor-Con) 40 meq 1X ONCE PO Last administered on at 15:07; Start 11/11/17 at 14:30; Stop 11/11/17 at 14:31; Status DC Furosemide (Lasix) 80 mg 1X ONCE IVP Last administered on 11/11/17at 15:07; Start 11/11/17 at 14:30; Stop 11/11/17 at 14:31; Status DC Fentanyl Citrate (Fentanyl 2ml Vial) 50 mcg PRN Q2HR PRN IV PAIN Last administered on 11/12/17at 12:28; Start 11/11/17 at 14:30; Stop 11/12/17 at 14:29 ; Status DC Albuterol/ Ipratropium (Duoneb) 3 ml RTQID NEB Last administered on 11/12/17at 11:33; Start 11/11/17 at 16:00; Stop 11/12/17 at 15:59; Status DC Potassium Chloride (Klor-Con) 40 meq 1X ONCE PO Last administered on at 20:36; Start 11/11/17 at 20:00; Stop 11/11/17 at 20:01; Status DC Magnesium Sulfate 50 ml @ 25 mls/hr 1X ONCE IV Last administered on 11/11/17at 17:35; Start 11/11/17 at 15:45; Stop 11/11/17 at 17:44; Status DC Methylprednisolone Sodium Succinate (SOLU-Medrol 40MG VIAL) 30 mg Q12HR IV Last administered on 11/13/17at 08:36; Start 11/11/17 at 21:30; Stop 11/14/17 at 07:59; Status DC Insulin Human Lispro (HumaLOG) 0-9 UNITS TIDACHC SQ Last administered on at 08:53; Start 11/12/17 at 07:30 Dextrose (Dextrose 50%-Water Syringe) 12.5 gm PRN Q15MIN PRN IV SEE COMMENTS; Start 11/11/17 at 21:15 Insulin Human Lispro (HumaLOG) 10 units 1X ONCE SQ Last administered on at 21:32; Start 11/11/17 at 21:30; Stop 11/11/17 at 21:31; Status DC Insulin Glargine (Lantus) 15 units QHS SQ Last administered on 11/12/17at 22:03 ; Start 11/11/17 at 21:30; Stop 11/13/17 at 09:09; Status DC Atorvastatin Calcium (Lipitor) 40 mg QHS PO Last administered on 11/14/17at 22: 21; Start 11/11/17 at 22:00 Bupropion HCl (Wellbutrin Xl) 150 mg DAILY PO Last administered on 11/13/17at 08 :33; Start 11/12/17 at 09:00; Stop 11/13/17 at 11:55; Status DC Clonidine HCl (Catapres) 0.1 mg TID PO Last administered on 11/15/17at 08:50; Start 11/11/17 at 22:00 Clopidogrel Bisulfate (Plavix) 75 mg DAILY PO Last administered on 11/15/17 08 :56; Start 11/12/17 at 09:00 Cyclobenzaprine HCl (Flexeril) 10 mg TID PO Last administered on 11/13/17at 08: 33; Start 11/11/17 at 22:00; Stop 11/13/17 at 11:55; Status DC Hydrochlorothiazide (Hydrodiuril) 37.5 mg DAILY PO ; Start 11/12/17 at 09:00; Stop 11/12/17 at 09:00; Status DC Insulin Glargine (Lantus) 15 units QHS SQ ; Start 11/12/17 at 21:00; Status UNV Lisinopril (Prinivil) 40 mg DAILY PO Last administered on 11/15/17at 08:47; Start 11/12/17 at 09:00 Carvedilol (Coreg) 25 mg BIDWMEALS PO Last administered on 11/15/17at 08:49; Start 11/12/17 at 08:00 Ibuprofen (Motrin) 600 mg PRN Q8HRS PRN PO INFLAMMATION Last administered on 09:56; Start 11/11/17 at 21:30 Metolazone (Zaroxolyn) 5 mg DAILY PO Last administered on 11/15/17 08:47; Start 11/12/17 at 09:00 Promethazine HCl (Phenergan) 25 mg PRN TID PRN PO NAUSEA/VOMITING 1ST CHOICE; Start 11/11/17 at 21:30 Quetiapine Fumarate (SEROquel) 100 mg TID PO Last administered on 9/14/18at 08: 34; Start 11/11/17 at 21:30; Stop 11/13/17 at 11:55; Status DC Albuterol Sulfate (Ventolin Neb Soln) 2.5 mg PRN Q4HRS PRN NEB SHORTNESS OF BREATH Last administered on 11/14/17at 13:53; Start 11/11/17 at 23:00 Metoprolol Tartrate (Lopressor) 50 mg BID PO ; Start 11/12/17 at 01:00; Stop at 01:00; Status DC Metoprolol Tartrate (Lopressor) 50 mg 1X ONCE PO Last administered on at 00:49; Start 11/12/17 at 01:00; Stop 11/12/17 at 01:01; Status DC Potassium Chloride (Klor-Con) 40 meq 1X ONCE PO Last administered on at 08:22; Start 11/12/17 at 08:00; Stop 11/12/17 at 08:01; Status DC Furosemide (Lasix) 40 mg DAILY PO Last administered on 11/15/17at 08:50; Start 11/13/17 at 09:00 Furosemide (Lasix) 40 mg 1X ONCE PO Last administered on 11/12/17at 12:10; Start 11/12/17 at 11:15; Stop 11/12/17 at 11:23; Status DC Potassium Chloride (Klor-Con) 20 meq DAILYWBKFT PO Last administered on at 08:48; Start 11/13/17 at 08:00 Potassium Chloride (Klor-Con) 40 meq 1X ONCE PO Last administered on at 12:11; Start 11/12/17 at 13:00; Stop 11/12/17 at 13:01; Status DC Insulin Human Lispro (HumaLOG) 3 units 1X ONCE SQ Last administered on at 12:35; Start 11/12/17 at 12:30; Stop 11/12/17 at 12:31; Status DC Multivitamins 10 ml/Thiamine HCl 100 mg/Folic Acid 1 mg/Sodium Chloride 1,011.2 ml @ 100 mls/ hr DAILY IV Last administered on 11/14/17at 10:13; Start at 14:00; Stop 11/14/17 at 23:59; Status DC Multivitamins (Thera M Plus) 1 tab DAILY PO Last administered on 11/15/17at 08: 49; Start 11/15/17 at 09:00 Folic Acid (Folic Acid) 1 mg DAILY PO Last administered on 11/15/17at 08:48; Start 11/15/17 at 09:00 Thiamine HCl 100 mg/Dextrose 51 ml @ 100 mls/hr DAILY IV ; Start 11/13/17 at 09 :00; Stop 11/13/17 at 09:00; Status DC Lorazepam (Ativan) 2 mg Q6H PO Last administered on 11/13/17at 08:36; Start at 13:00; Stop 11/13/17 at 11:55; Status DC Lorazepam (Ativan) 4 mg PRN Q1HR PRN PO For CIWA 8-14; Start 11/12/17 at 13:15 Haloperidol Lactate (Haldol Inj) 5 mg PRN Q4HRS PRN IVP Hallucinatns,Confusn, Delirium; Start 11/12/17 at 13:15 Diphenhydramine HCl (Benadryl) 25 mg PRN Q15MIN PRN IVP EPS symptoms 2'Haldol admin; Start 11/12/17 at 13:15 Clonidine HCl (Catapres) 0.1 mg PRN Q1HR PRN PO SBP > 180 or DBP > 100, MRX3; Start 11/12/17 at 13:15 Lorazepam (Ativan) 2 mg PRN Q15MIN PRN IV ANXIETY / AGITATION; Start 11/12/17 at 13:15; Stop 11/14/17 at 08:02; Status DC Thiamine Mononitrate (Vitamin B-1) 100 mg DAILY PO Last administered on at 08:48; Start 11/15/17 at 09:00 Albuterol/ Ipratropium (Duoneb) 3 ml RTQID NEB Last administered on 11/15/17at 12:27; Start 11/12/17 at 20:00 Insulin Human Lispro (HumaLOG) 12 units 1X ONCE SQ Last administered on at 17:10; Start 11/12/17 at 17:15; Stop 11/12/17 at 17:16; Status DC Insulin Glargine (Lantus) 25 units QHS SQ Last administered on 11/13/17at 21:10 ; Start 11/13/17 at 21:00 Insulin Human Lispro (HumaLOG) 10 units TIDWMEALS SQ Last administered on at 08:53; Start 11/13/17 at 09:30 Guaifenesin (Robitussin Dm) 10 ml PRN Q6HRS PRN PO COUGH; Start 11/13/17 at 09: 15 Hydralazine HCl (Apresoline) 50 mg PRN Q6HRS PRN PO ELEVATED BP, SEE COMMENTS; Start 11/13/17 at 13:15 Lactulose (Lactulose) 20 gm BID PO Last administered on 11/15/17at 08:45; Start 11/13/17 at 13:30 Nicotine Polacrilex (Nicorette Gum) 1 each PRN Q1HR PRN BC SMOKING CESSATION Last administered on 11/14/17at 22:31; Start 11/13/17 at 20:15 Prednisone (Prednisone) 30 mg DAILY PO Last administered on 11/15/17at 08:47; Start 11/14/17 at 09:00 Acetaminophen/ Hydrocodone Bitart (Lortab 5/325) 1 tab PRN Q4HRS PRN PO PAIN Last administered on 11/15/17at 08:48; Start 11/14/17 at 13:00 Quetiapine Fumarate (SEROquel) 100 mg TID PO Last administered on 11/15/17at 08: 47; Start 11/14/17 at 23:45 Sodium Monofluorophosphate (Fleet Adult) 133 ml 1X ONCE [place] ; Start 11/15/17 at 12:15; Stop 11/15/17 at 12:16; Status DC Active Scripts Active Hydrocodone-Apap 5-325 (Hydrocodone Bit/Acetaminophen) 1 Each Tablet 1 Tab PO PRN Q4HRS PRN Vitamin B-1 (Thiamine Mononitrate) 100 Mg Tablet 100 Mg PO DAILY 30 Days Folic Acid 1 Mg Tablet 1 Mg PO DAILY 30 Days Thera-M Tablet (Multivits,Ca,Minerals/Iron/Fa) 1 Each Tablet 1 Tab PO DAILY 30 Days Furosemide 40 Mg Tablet 40 Mg PO DAILY 30 Days Lactulose 20 Gm/30 Ml Solution 20 Gm PO BID 14 Days Reported Lantus Solostar (Insulin Glargine,Hum.rec.anlog) 100 Unit/1 Ml Insuln.pen 15 Unit SQ QHS Cyclobenzaprine Hcl 10 Mg Tablet 10 Mg PO TID Bupropion Xl (Bupropion Hcl) 150 Mg Tab.er.24h 150 Mg PO Promethazine Hcl 25 Mg Tablet 25 Mg PO TID PRN Ibuprofen 600 Mg Tablet 600 Mg PO PRN Q8HRS PRN Quetiapine Fumarate 100 Mg Tablet 100 Mg PO TID Metolazone 5 Mg Tablet 5 Mg PO DAILY Carvedilol 25 Mg Tablet 1 Tab PO BID Hydrochlorothiazide Tablet (Hydrochlorothiazide) 25 Mg Tablet 1.5 Tab PO DAILY Atorvastatin Calcium 40 Mg Tablet 1 Tab PO QHS Clopidogrel (Clopidogrel Bisulfate) 75 Mg Tablet 1 Tab PO DAILY Clonidine Hcl 0.1 Mg Tablet 0.1 Mg PO TID Lisinopril 20 Mg Tablet 40 Mg PO DAILY Vitals/I & O Vital Sign - Last 24 Hours 11/14/17 11/14/17 11/14/17 11/14/17 14:59 16:01 16:57 17:03 Temp 97.9 97.9 Pulse 68 68 Resp 18 18 B/P (MAP) 124/83 (97) 124/83 Pulse Ox 98 98 O2 Delivery Room Air Room Air Room Air 11/14/17 11/14/17 11/14/17 11/14/17 19:00 19:59 20:00 22:23 Temp 97.5 97.5 Pulse 64 65 Resp 18 B/P (MAP) 131/76 (94) 124/64 Pulse Ox 99 O2 Delivery Room Air Room Air Room Air O2 Flow Rate 2.0 11/14/17 11/14/17 11/15/17 11/15/17 22:45 23:00 02:44 07:00 Temp 98.1 97.9 97.4 98.1 97.9 97.4 Pulse 64 59 57 Resp 18 18 18 B/P (MAP) 124/68 (86) 130/85 (100) 140/88 (105) Pulse Ox 96 98 99 O2 Delivery Room Air Room Air Room Air Room Air 11/15/17 11/15/17 11/15/17 11/15/17 08:30 08:47 08:48 08:49 Pulse 74 57 Resp 18 B/P (MAP) 177/86 140/88 Pulse Ox 98 O2 Delivery Room Air Room Air 11/15/17 11/15/17 11/15/17 11/15/17 08:50 09:48 11:00 12:28 Temp 97.8 97.8 Pulse 57 59 Resp 16 18 B/P (MAP) 140/88 131/76 (94) Pulse Ox 99 98 O2 Delivery Room Air Room Air Room Air Intake and Output 11/14/17 11/14/17 11/15/17 15:00 23:00 07:00 Intake Total 300 ml 360 ml 0 ml Balance 300 ml 360 ml 0 ml MAKI WINKLER MD Nov 15, 2017 14:07
[2017-11-15 15:00] VITALS: BP 131/79
[2017-11-15 19:00] VITALS: BP 126/83
[2017-11-15] MEDS: ATORVASTATIN CALCIUM 40 MG TABLET. PO SCH (20:40)
[2017-11-15] MEDS: INSULIN GLARGINE 300 UNITS/3 ML INSULN.PEN. SQ SCH (20:48)
[2017-11-15] MEDS ORDERED: INSULIN LISPRO 300 UNITS/3 ML INSULN.PEN. SQ ONE (21:30)
[2017-11-15 23:00] VITALS: BP 146/85
[2017-11-16 03:00] VITALS: BP 139/83
[2017-11-16 07:00] VITALS: BP 148/104
[2017-11-16] MEDS: IPRATRPIUM/ALBUTEROL 0.5/2.5MG 3 ML NEBU. NEB SCH ×4 (07:48→16:01)
--- NOTE | 2017-11-16 07:58 | DISCH ---
DISCHARGE WITH HOME HEALTH DISCHARGE INFORMATION: Final Diagnosis: Problems Medical Problems: (1) Acute on chronic diastolic CHF (congestive heart failure) Status: Acute (2) COPD exacerbation Status: Acute (3) Hypokalemia Status: Acute Condition on Discharge: Stable CODE STATUS: Code Status: Full HOME HEALTH: Face to Face: I certify this patient is under my care and that I, or a nurse practitioner or physician's programs assistant working with me, had a face to face encounter that meets the physician face to face encounter requirements with this patient on []. Medical Complications: COPD Physical Therapy For: Evalulation/Treatment Occupational Therapy For: Evaluation/Treatment Home Health Aide For: Self-care POST DISCHARGE ORDERS: Activity Instructions for Disc: Avoid exertion Weight Bearing Status after Di: No restrictions DIET AFTER DISCHARGE: Cardiac Wound/Incision Care: Other, see below CHECKS AFTER DISCHARGE: Checks after discharge: Check blood press - daily, Check blood sugar, ac/hs, Weigh Yourself Daily TREATMENT/EQUIPMENT ORDERS: Adaptive Equipment Issued: None CERTIFICATION STATEMENT: Certification Statement: Certification Statement: Based on the above finding, I certify that this patient is confined to the home and needs intermittent [facility] care, physical therapy and/or speech therapy, or continues to need occupational therapy.~ This patient is under my care, and I have initiated the establishment of the plan of care.~ This patient will be followed by myself or a community physician who will periodically review the plan of care. Home Meds Active Scripts Hydrocodone Bit/Acetaminophen (HYDROCODONE-APAP 5-325 ) 1 Each Tablet, 1 TAB PO PRN Q4HRS PRN for PAIN, #15 TAB Prov:BOGDAN WITT MD 11/15/17 Thiamine Mononitrate (VITAMIN B-1) 100 Mg Tablet, 100 MG PO DAILY for 30 Days, # 30 TAB Prov:BOGDAN WITT MD 11/15/17 Folic Acid (FOLIC ACID) 1 Mg Tablet, 1 MG PO DAILY for 30 Days, #30 TAB Prov:BOGDAN WITT MD 11/15/17 Multivits,Ca,Minerals/Iron/Fa (THERA-M TABLET) 1 Each Tablet, 1 TAB PO DAILY for 30 Days, #30 TAB Prov:BOGDAN WITT MD 11/15/17 Furosemide (FUROSEMIDE) 40 Mg Tablet, 40 MG PO DAILY for 30 Days, #30 TAB Prov:BOGDAN WITT Y 11/15/17 Lactulose (LACTULOSE) 20 Gm/30 Ml Solution, 20 GM PO BID for 14 Days, MISC Prov:BOGDAN WITT Y 11/15/17 Reported Medications Insulin Glargine,Hum.rec.anlog (LANTUS SOLOSTAR) 100 Unit/1 Ml Insuln.pen, 15 UNIT SQ QHS, #15 ML 3 Refills 11/11/17 Cyclobenzaprine Hcl (CYCLOBENZAPRINE HCL) 10 Mg Tablet, 10 MG PO TID, TAB 11/11/17 Bupropion Hcl (BUPROPION XL) 150 Mg Tab.er.24h, 150 MG PO, TAB.SR 11/11/17 Promethazine Hcl (PROMETHAZINE HCL) 25 Mg Tablet, 25 MG PO TID PRN for NAUSEA/ VOMITING, TAB 11/11/17 Ibuprofen (IBUPROFEN) 600 Mg Tablet, 600 MG PO PRN Q8HRS PRN for INFLAMMATION, TAB 11/11/17 Quetiapine Fumarate (QUETIAPINE FUMARATE) 100 Mg Tablet, 100 MG PO TID, TAB 11/11/17 Metolazone (METOLAZONE) 5 Mg Tablet, 5 MG PO DAILY, #30 TAB 0 Refills 07/11/16 Carvedilol (CARVEDILOL) 25 Mg Tablet, 1 TAB PO BID, #180 TAB 1 Refill 04/15/15 Hydrochlorothiazide (HYDROCHLOROTHIAZIDE TABLET ) 25 Mg Tablet, 1.5 TAB PO DAILY, #30 TAB 5 Refills 04/15/15 Atorvastatin Calcium (ATORVASTATIN CALCIUM) 40 Mg Tablet, 1 TAB PO QHS, #90 TAB 3 Refills 04/15/15 Clopidogrel Bisulfate (CLOPIDOGREL) 75 Mg Tablet, 1 TAB PO DAILY, #90 TAB 1 Refill 04/15/15 Clonidine Hcl (CLONIDINE HCL) 0.1 Mg Tablet, 0.1 MG PO TID, TAB 04/01/14 Lisinopril (LISINOPRIL) 20 Mg Tablet, 40 MG PO DAILY for FOR HYPERTENSION, #30 TAB 0 Refills 03/01/14 Discontinued Reported Medications Amlodipine Besylate (AMLODIPINE BESYLATE) 5 Mg Tablet, 5 MG PO DAILY, TAB 07/11/16 Hydrocodone Bit/Acetaminophen (HYDROCODONE-APAP 7.5-325 ) 1 Each Tablet, 1 TAB PO PRN Q8HRS PRN for PAIN, TAB 0 Refills 07/11/16 Clopidogrel Bisulfate (CLOPIDOGREL) 75 Mg Tablet, 1 TAB PO DAILY, #90 TAB 1 Refill 07/11/16 Quetiapine Fumarate (SEROQUEL) 200 Mg Tablet, 1 TAB PO DAILY, #30 TAB 1 Refill 07/11/16 Potassium Chloride (KLOR-CON M20) 20 Meq Tab.er.prt, 1 TAB PO DAILY, #90 TAB 1 Refill 07/11/16 Oxycodone Hcl (OXYCODONE HCL) 10 Mg Tablet, 10 MG PO PRN Q6HRS PRN for PAIN, TAB 0 Refills 04/15/15 Clonidine Hcl (CLONIDINE HCL) 0.1 Mg Tablet, 0.1 MG PO TID, TAB 04/15/15 Metformin Hcl (METFORMIN HCL) 500 Mg Tablet, 1 TAB PO BID, #60 TAB 3 Refills 04/15/15 Alprazolam (ALPRAZOLAM) 1 Mg Tablet, 1 TAB PO BID, #60 TAB 04/15/15 Amlodipine Besylate (AMLODIPINE BESYLATE) 5 Mg Tablet, 5 MG PO DAILY, TAB 04/15/15 Insulin Glargine,Hum.rec.anlog (LANTUS SOLOSTAR) 100 Unit/1 Ml Insuln.pen, 10- 15 UNIT SQ QHS, #15 ML 3 Refills 04/01/14 Aspirin (ASPIRIN EC) 81 Mg Tablet.dr, 81 MG PO DAILY 03/01/14 Atorvastatin Calcium (ATORVASTATIN CALCIUM) 80 Mg Tablet, 40 MG PO HS for FOR CHOLESTEROL, #30 TAB 0 Refills 03/01/14 Insulin Aspart (NOVOLOG FLEXPEN) 100 Unit/1 Ml Insuln.pen, 10-16 UNIT SQ TIDAFTMEAL, SYR 02/26/14 Carvedilol (COREG) 25 Mg Tablet, 25 MG PO BIDWMEALS, TAB 02/26/14 Alprazolam (XANAX) 1 Mg Tablet, 1 MG PO BID PRN for ANXIETY / AGITATION, TAB 0 Refills 02/26/14 Furosemide (FUROSEMIDE) 40 Mg Tablet, 40 MG PO BID, TAB 02/26/14 Discontinued Scripts Prednisone (PREDNISONE) 20 Mg Tablet, 40 MG PO DAILY for 7 Days, #14 TAB Prov:JESÚS HITCHCOCK APRN 03/17/17 Amoxicillin/Potassium Clav (AUGMENTIN 875-125 TABLET) 1 Each Tablet, 1 TAB PO BID, #20 TAB Prov:JESÚS HITCHCOCK KAI WHAKARURUHAU 03/17/17 Albuterol Sulfate (Proair Respiclick) 90 Mcg Aer.pow.ba, 1 PUFF IH PRN Q6HRS PRN for SHORTNESS OF BREATH, #1 INHALER Prov:MARGIE CAI APRN 06/09/16 BOGDAN WITT MD Nov 16, 2017 07:58
[2017-11-16] MEDS: LISINOPRIL 20 MG TABLET PO SCH (08:45)
[2017-11-16] MEDS: QUEtiapine 100 MG TABLET. PO SCH ×2 (08:46→15:01)
[2017-11-16] MEDS: POTASSIUM CHLORIDE 20 MEQ TABLET.ER. PO SCH (08:46)
[2017-11-16] MEDS: CLOPIDOGREL BISULFATE 75 MG TABLET PO SCH (08:46)
[2017-11-16] MEDS: metOLazone 2.5 MG TABLET PO SCH (08:46)
[2017-11-16] MEDS: cloNIDine HCL 0.1 MG TABLET PO SCH ×2 (08:46→15:02)
[2017-11-16] MEDS: FUROSEMIDE 40 MG TABLET. PO SCH (08:46)
[2017-11-16] MEDS: CARVEDILOL 12.5 MG TABLET. PO SCH ×2 (08:46→16:56)
[2017-11-16] MEDS: THIAMINE 100 MG TABLET. PO SCH (08:47)
[2017-11-16] MEDS: MULTIVITAMIN with MINERAL TABLET. PO SCH (08:47)
[2017-11-16] MEDS: predniSONE 10 MG TABLET PO SCH (08:47)
[2017-11-16] MEDS: LACTULOSE 20 GM/30 ML SOLUTION. PO SCH (08:47)
[2017-11-16] MEDS: HYDROcodone/APAP 5/325MG 1 TAB TABLET PO PRN ×3 (08:49→16:56)
[2017-11-16] MEDS: INSULIN LISPRO 300 UNITS/3 ML INSULN.PEN. SQ SCH ×7 (08:51→17:30)
[2017-11-16] MEDS: FOLIC ACID 1 MG TABLET. PO SCH (08:52)
--- NOTE | 2017-11-16 09:36 | PDOC ---
PROGRESS NOTES Chief Complaint Chief Complaint Acute on chronic systolic and diastolic heart failure, cardiomegaly chronic obstructive pulmonary disease exacerbation respiratory failure. 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 with no co-pay Rx on chart dw RN At bedside Vitals Vitals Vital Signs Date Time Temp Pulse Resp B/P (MAP) Pulse Ox O2 Delivery O2 Flow Rate FiO2 11/16/17 08:49 18 Room Air 11/16/17 08:46 69 148/104 11/16/17 07:50 93 11/16/17 07:00 98.1 98.1 11/15/17 16:23 2.0 Physical Exam General: Alert, Oriented X3, Cooperative, mild distress, Other Heart: Normal S1, Normal S2, No murmurs Lungs: Crackles Abdomen: Normal bowel sounds, Soft Extremities: No cyanosis, No edema, Normal pulses Skin: No rashes Labs LABS Laboratory Tests Test 11/15/17 11:38 11/15/17 12:20 11/15/17 15:01 11/15/17 20:38 Glucose (Fingerstick) 41 mg/dL (70-99) 68 mg/dL (70-99) 386 mg/dL (70-99) 416 mg/dL (70-99) Test 11/16/17 07:33 Glucose (Fingerstick) 339 mg/dL (70-99) Review of Systems Review of Systems constipated, the rest of ROS 14 point negative Assessment and Plan Assessmemt and Plan Problems Medical Problems: (1) Acute on chronic diastolic CHF (congestive heart failure) Status: Acute (2) COPD exacerbation Status: Acute (3) Hypokalemia Status: Acute Comment Review of Relevant I have reviewed the following items lilliana (where applicable) has been applied. Labs Laboratory Tests Test 11/14/17 11:07 11/14/17 16:41 11/14/17 20:54 11/15/17 07:18 Glucose (Fingerstick) 181 mg/dL (70-99) 97 mg/dL (70-99) 91 mg/dL (70-99) 215 mg/dL (70-99) Test 11/15/17 11:38 11/15/17 12:20 11/15/17 15:01 11/15/17 20:38 Glucose (Fingerstick) 41 mg/dL (70-99) 68 mg/dL (70-99) 386 mg/dL (70-99) 416 mg/dL (70-99) Test 11/16/17 07:33 Glucose (Fingerstick) 339 mg/dL (70-99) Laboratory Tests Test 11/15/17 11:38 11/15/17 12:20 11/15/17 15:01 11/15/17 20:38 Glucose (Fingerstick) 41 mg/dL (70-99) 68 mg/dL (70-99) 386 mg/dL (70-99) 416 mg/dL (70-99) Test 11/16/17 07:33 Glucose (Fingerstick) 339 mg/dL (70-99) Medications Current Medications Albuterol/ Ipratropium (Duoneb) 6 ml 1X ONCE NEB Last administered on at 13:56; Start 11/11/17 at 13:15; Stop 11/11/17 at 13:18; Status DC Methylprednisolone Sodium Succinate (SOLU-Medrol 125MG VIAL) 125 mg 1X ONCE IV Last administered on 11/11/17at 13:35; Start 11/11/17 at 13:15; Stop 11/11/17 at 13:18; Status DC Potassium Chloride (Klor-Con) 40 meq 1X ONCE PO Last administered on at 15:07; Start 11/11/17 at 14:30; Stop 11/11/17 at 14:31; Status DC Furosemide (Lasix) 80 mg 1X ONCE IVP Last administered on 11/11/17at 15:07; Start 11/11/17 at 14:30; Stop 11/11/17 at 14:31; Status DC Fentanyl Citrate (Fentanyl 2ml Vial) 50 mcg PRN Q2HR PRN IV PAIN Last administered on 11/12/17at 12:28; Start 11/11/17 at 14:30; Stop 11/12/17 at 14:29 ; Status DC Albuterol/ Ipratropium (Duoneb) 3 ml RTQID NEB Last administered on 11/12/17at 11:33; Start 11/11/17 at 16:00; Stop 11/12/17 at 15:59; Status DC Potassium Chloride (Klor-Con) 40 meq 1X ONCE PO Last administered on at 20:36; Start 11/11/17 at 20:00; Stop 11/11/17 at 20:01; Status DC Magnesium Sulfate 50 ml @ 25 mls/hr 1X ONCE IV Last administered on 11/11/17at 17:35; Start 11/11/17 at 15:45; Stop 11/11/17 at 17:44; Status DC Methylprednisolone Sodium Succinate (SOLU-Medrol 40MG VIAL) 30 mg Q12HR IV Last administered on 11/13/17at 08:36; Start 11/11/17 at 21:30; Stop 11/14/17 at 07:59; Status DC Insulin Human Lispro (HumaLOG) 0-9 UNITS TIDACHC SQ Last administered on at 08:51; Start 11/12/17 at 07:30 Dextrose (Dextrose 50%-Water Syringe) 12.5 gm PRN Q15MIN PRN IV SEE COMMENTS; Start 11/11/17 at 21:15 Insulin Human Lispro (HumaLOG) 10 units 1X ONCE SQ Last administered on at 21:32; Start 11/11/17 at 21:30; Stop 11/11/17 at 21:31; Status DC Insulin Glargine (Lantus) 15 units QHS SQ Last administered on 11/12/17at 22:03 ; Start 11/11/17 at 21:30; Stop 11/13/17 at 09:09; Status DC Atorvastatin Calcium (Lipitor) 40 mg QHS PO Last administered on 11/15/17at 20: 40; Start 11/11/17 at 22:00 Bupropion HCl (Wellbutrin Xl) 150 mg DAILY PO Last administered on 11/13/17at 08 :33; Start 11/12/17 at 09:00; Stop 11/13/17 at 11:55; Status DC Clonidine HCl (Catapres) 0.1 mg TID PO Last administered on 11/16/17at 08:46; Start 11/11/17 at 22:00 Clopidogrel Bisulfate (Plavix) 75 mg DAILY PO Last administered on 11/16/17at 08 :46; Start 11/12/17 at 09:00 Cyclobenzaprine HCl (Flexeril) 10 mg TID PO Last administered on 11/13/17at 08: 33; Start 11/11/17 at 22:00; Stop 11/13/17 at 11:55; Status DC Hydrochlorothiazide (Hydrodiuril) 37.5 mg DAILY PO ; Start 11/12/17 at 09:00; Stop 11/12/17 at 09:00; Status DC Insulin Glargine (Lantus) 15 units QHS SQ ; Start 11/12/17 at 21:00; Status UNV Lisinopril (Prinivil) 40 mg DAILY PO Last administered on 11/16/17at 08:45; Start 11/12/17 at 09:00 Carvedilol (Coreg) 25 mg BIDWMEALS PO Last administered on 11/16/17at 08:46; Start 11/12/17 at 08:00 Ibuprofen (Motrin) 600 mg PRN Q8HRS PRN PO INFLAMMATION Last administered on at 09:56; Start 11/11/17 at 21:30 Metolazone (Zaroxolyn) 5 mg DAILY PO Last administered on 11/16/17at 08:46; Start 11/12/17 at 09:00 Promethazine HCl (Phenergan) 25 mg PRN TID PRN PO NAUSEA/VOMITING 1ST CHOICE; Start 11/11/17 at 21:30 Quetiapine Fumarate (SEROquel) 100 mg TID PO Last administered on 11/13/17at 08: 34; Start 11/11/17 at 21:30; Stop 11/13/17 at 11:55; Status DC Albuterol Sulfate (Ventolin Neb Soln) 2.5 mg PRN Q4HRS PRN NEB SHORTNESS OF BREATH Last administered on 11/14/17at 13:53; Start 11/11/17 at 23:00 Metoprolol Tartrate (Lopressor) 50 mg BID PO ; Start 11/12/17 at 01:00; Stop at 01:00; Status DC Metoprolol Tartrate (Lopressor) 50 mg 1X ONCE PO Last administered on at 00:49; Start 11/12/17 at 01:00; Stop 11/12/17 at 01:01; Status DC Potassium Chloride (Klor-Con) 40 meq 1X ONCE PO Last administered on at 08:22; Start 11/12/17 at 08:00; Stop 11/12/17 at 08:01; Status DC Furosemide (Lasix) 40 mg DAILY PO Last administered on 11/16/17at 08:46; Start 11/13/17 at 09:00 Furosemide (Lasix) 40 mg 1X ONCE PO Last administered on 11/12/17at 12:10; Start 11/12/17 at 11:15; Stop 11/12/17 at 11:23; Status DC Potassium Chloride (Klor-Con) 20 meq DAILYWBKFT PO Last administered on at 08:46; Start 11/13/17 at 08:00 Potassium Chloride (Klor-Con) 40 meq 1X ONCE PO Last administered on at 12:11; Start 11/12/17 at 13:00; Stop 11/12/17 at 13:01; Status DC Insulin Human Lispro (HumaLOG) 3 units 1X ONCE SQ Last administered on at 12:35; Start 11/12/17 at 12:30; Stop 11/12/17 at 12:31; Status DC Multivitamins 10 ml/Thiamine HCl 100 mg/Folic Acid 1 mg/Sodium Chloride 1,011.2 ml @ 100 mls/ hr DAILY IV Last administered on 11/14/17at 10:13; Start at 14:00; Stop 11/14/17 at 23:59; Status DC Multivitamins (Thera M Plus) 1 tab DAILY PO Last administered on 11/16/17at 08: 47; Start 11/15/17 at 09:00 Folic Acid (Folic Acid) 1 mg DAILY PO Last administered on 11/16/17at 08:52; Start 11/15/17 at 09:00 Thiamine HCl 100 mg/Dextrose 51 ml @ 100 mls/hr DAILY IV ; Start 11/13/17 at 09 :00; Stop 11/13/17 at 09:00; Status DC Lorazepam (Ativan) 2 mg Q6H PO Last administered on 11/13/17at 08:36; Start at 13:00; Stop 11/13/17 at 11:55; Status DC Lorazepam (Ativan) 4 mg PRN Q1HR PRN PO For CIWA 8-14; Start 11/12/17 at 13:15 Haloperidol Lactate (Haldol Inj) 5 mg PRN Q4HRS PRN IVP Hallucinatns,Confusn, Delirium; Start 11/12/17 at 13:15 Diphenhydramine HCl (Benadryl) 25 mg PRN Q15MIN PRN IVP EPS symptoms 2'Haldol admin; Start 11/12/17 at 13:15 Clonidine HCl (Catapres) 0.1 mg PRN Q1HR PRN PO SBP > 180 or DBP > 100, MRX3; Start 11/12/17 at 13:15 Lorazepam (Ativan) 2 mg PRN Q15MIN PRN IV ANXIETY / AGITATION; Start 11/12/17 at 13:15; Stop 11/14/17 at 08:02; Status DC Thiamine Mononitrate (Vitamin B-1) 100 mg DAILY PO Last administered on at 08:47; Start 11/15/17 at 09:00 Albuterol/ Ipratropium (Duoneb) 3 ml RTQID NEB Last administered on 11/15/17at 19:45; Start 11/12/17 at 20:00 Insulin Human Lispro (HumaLOG) 12 units 1X ONCE SQ Last administered on at 17:10; Start 11/12/17 at 17:15; Stop 11/12/17 at 17:16; Status DC Insulin Glargine (Lantus) 25 units QHS SQ Last administered on 11/15/17at 20:48 ; Start 11/13/17 at 21:00 Insulin Human Lispro (HumaLOG) 10 units TIDWMEALS SQ Last administered on at 08:52; Start 11/13/17 at 09:30 Guaifenesin (Robitussin Dm) 10 ml PRN Q6HRS PRN PO COUGH Last administered on at 08:48; Start 11/13/17 at 09:15 Hydralazine HCl (Apresoline) 50 mg PRN Q6HRS PRN PO ELEVATED BP, SEE COMMENTS; Start 11/13/17 at 13:15 Lactulose (Lactulose) 20 gm BID PO Last administered on 11/16/17at 08:47; Start 11/13/17 at 13:30 Nicotine Polacrilex (Nicorette Gum) 1 each PRN Q1HR PRN BC SMOKING CESSATION Last administered on 11/14/17at 22:31; Start 11/13/17 at 20:15 Prednisone (Prednisone) 30 mg DAILY PO Last administered on 11/16/17at 08:47; Start 11/14/17 at 09:00 Acetaminophen/ Hydrocodone Bitart (Lortab 5/325) 1 tab PRN Q4HRS PRN PO PAIN Last administered on 11/16/17at 08:49; Start 11/14/17 at 13:00 Quetiapine Fumarate (SEROquel) 100 mg TID PO Last administered on 11/16/17at 08: 46; Start 11/14/17 at 23:45 Sodium Monofluorophosphate (Fleet Adult) 133 ml 1X ONCE MS Last administered on 11/15/17at 18:34; Start 11/15/17 at 12:15; Stop 11/15/17 at 12:16; Status DC Insulin Human Lispro (HumaLOG) 12 units 1X ONCE SQ Last administered on at 21:09; Start 11/15/17 at 21:30; Stop 11/15/17 at 21:31; Status DC Active Scripts Active Hydrocodone-Apap 5-325 (Hydrocodone Bit/Acetaminophen) 1 Each Tablet 1 Tab PO PRN Q4HRS PRN Vitamin B-1 (Thiamine Mononitrate) 100 Mg Tablet 100 Mg PO DAILY 30 Days Folic Acid 1 Mg Tablet 1 Mg PO DAILY 30 Days Thera-M Tablet (Multivits,Ca,Minerals/Iron/Fa) 1 Each Tablet 1 Tab PO DAILY 30 Days Furosemide 40 Mg Tablet 40 Mg PO DAILY 30 Days Lactulose 20 Gm/30 Ml Solution 20 Gm PO BID 14 Days Reported Lantus Solostar (Insulin Glargine,Hum.rec.anlog) 100 Unit/1 Ml Insuln.pen 15 Unit SQ QHS Cyclobenzaprine Hcl 10 Mg Tablet 10 Mg PO TID Bupropion Xl (Bupropion Hcl) 150 Mg Tab.er.24h 150 Mg PO Promethazine Hcl 25 Mg Tablet 25 Mg PO TID PRN Ibuprofen 600 Mg Tablet 600 Mg PO PRN Q8HRS PRN Quetiapine Fumarate 100 Mg Tablet 100 Mg PO TID Metolazone 5 Mg Tablet 5 Mg PO DAILY Carvedilol 25 Mg Tablet 1 Tab PO BID Hydrochlorothiazide Tablet (Hydrochlorothiazide) 25 Mg Tablet 1.5 Tab PO DAILY Atorvastatin Calcium 40 Mg Tablet 1 Tab PO QHS Clopidogrel (Clopidogrel Bisulfate) 75 Mg Tablet 1 Tab PO DAILY Clonidine Hcl 0.1 Mg Tablet 0.1 Mg PO TID Lisinopril 20 Mg Tablet 40 Mg PO DAILY Vitals/I & O Vital Sign - Last 24 Hours 11/15/17 11/15/17 11/15/17 11/15/17 11:00 12:28 15:00 15:23 Temp 97.8 97.5 97.8 97.5 Pulse 59 71 59 Resp 18 18 B/P (MAP) 131/76 (94) 131/79 (96) 131/76 Pulse Ox 99 98 98 O2 Delivery Room Air Room Air Room Air 11/15/17 11/15/17 11/15/17 11/15/17 15:23 16:23 17:44 19:00 Temp 97.5 97.5 Pulse 59 83 Resp 18 18 B/P (MAP) 131/76 126/83 (97) Pulse Ox 98 98 100 O2 Delivery Room Air Room Air O2 Flow Rate 2.0 2.0 11/15/17 11/15/17 11/15/17 11/15/17 19:46 20:30 20:41 20:42 Pulse 80 Resp 20 B/P (MAP) 126/80 Pulse Ox 93 O2 Delivery Room Air Room Air Room Air 11/15/17 11/15/17 11/16/17 11/16/17 21:42 23:00 03:00 07:00 Temp 97.7 98.4 98.1 97.7 98.4 98.1 Pulse 88 75 69 Resp 20 18 17 20 B/P (MAP) 146/85 (105) 139/83 (101) 148/104 (119) Pulse Ox 100 99 99 O2 Delivery Room Air Room Air Room Air Room Air 11/16/17 11/16/17 11/16/17 11/16/17 07:50 08:45 08:46 08:46 Pulse 69 69 69 B/P (MAP) 148/104 148/104 148/104 Pulse Ox 93 O2 Delivery Room Air 11/16/17 08:49 Resp 18 O2 Delivery Room Air Intake and Output 11/15/17 11/15/17 11/16/17 15:00 23:00 07:00 Intake Total 600 ml 1680 ml Balance 600 ml 1680 ml BOGDAN WITT MD Nov 16, 2017 09:36
[2017-11-16] MEDS ORDERED: METHYLNALTREXONE 12 MG/0.6 ML VIAL. SQ ONE (10:00)
--- NOTE | 2017-11-16 10:17 | RAD ---
EXAM: Supine AP view of the abdomen DATE: 11/16/2017 9:42 AM INDICATION: CONSTIPATION, DISTENDED COMPARISON: No Prior FINDINGS: No abnormal small or large bowel dilatation. Moderate to large volume colonic stool content most prominent in the cecum and ascending colon. No abnormal soft tissue mass effect. No suspicious calcifications are seen. Evaluation for free intraperitoneal gas is limited on this supine exam. IMPRESSION: 1. No evidence for bowel obstruction. 2. Moderate to large volume colonic stool content. Electronically signed by: Jorden Sue MD (11/16/2017 10:14 AM) [id number]
[2017-11-16 11:00] VITALS: BP 138/91
--- NOTE | 2017-11-16 11:39 | PDOC ---
PULMONARY PROGRESS NOTES Subjective sob better, has occ cough, no pain Vitals Vital Signs Date Time Temp Pulse Resp B/P (MAP) Pulse Ox O2 Delivery O2 Flow Rate FiO2 11/16/17 11:25 96 Room Air 11/16/17 10:16 2.0 11/16/17 08:49 18 11/16/17 08:46 69 148/104 11/16/17 07:00 98.1 98.1 ROS: No Nausea, No Chest Pain, No Abdominal Pain, No Increase Cough General: Alert, No acute distress HEENT: Other (nc at perrl nose clear shallow oropharynx. ) Lungs: Clear Cardiovascular: S1, S2 Abdomen: Soft, Non-tender Neuro Exam: Alert Extremities: No Edema Skin: Warm Labs Laboratory Tests Test 11/14/17 16:41 11/14/17 20:54 11/15/17 07:18 11/15/17 11:38 Glucose (Fingerstick) 97 mg/dL (70-99) 91 mg/dL (70-99) 215 mg/dL (70-99) 41 mg/dL (70-99) Test 11/15/17 12:20 11/15/17 15:01 11/15/17 20:38 11/16/17 07:33 Glucose (Fingerstick) 68 mg/dL (70-99) 386 mg/dL (70-99) 416 mg/dL (70-99) 339 mg/dL (70-99) Test 11/16/17 10:59 Glucose (Fingerstick) 79 mg/dL (70-99) Laboratory Tests Test 11/15/17 11:38 11/15/17 12:20 11/15/17 15:01 11/15/17 20:38 Glucose (Fingerstick) 41 mg/dL (70-99) 68 mg/dL (70-99) 386 mg/dL (70-99) 416 mg/dL (70-99) Test 11/16/17 07:33 11/16/17 10:59 Glucose (Fingerstick) 339 mg/dL (70-99) 79 mg/dL (70-99) Medications Active Scripts Medications Dose Route/Sig Max Daily Dose Days Date Category Lantus Solostar (Insulin Glargine,Hum.rec.anlog) 100 Unit/1 Ml Insuln.pen 15 Unit SQ QHS 11/11/17 Reported Cyclobenzaprine Hcl 10 Mg Tablet 10 Mg PO TID 11/11/17 Reported Bupropion Xl (Bupropion Hcl) 150 Mg Tab.er.24h 150 Mg PO 11/11/17 Reported Promethazine Hcl 25 Mg Tablet 25 Mg PO TID PRN 11/11/17 Reported Ibuprofen 600 Mg Tablet 600 Mg PO PRN Q8HRS PRN 11/11/17 Reported Quetiapine Fumarate 100 Mg Tablet 100 Mg PO TID 11/11/17 Reported Metolazone 5 Mg Tablet 5 Mg PO DAILY 07/11/16 Reported Carvedilol 25 Mg Tablet 1 Tab PO BID 04/15/15 Reported Hydrochlorothiazide Tablet (Hydrochlorothiazide) 25 Mg Tablet 1.5 Tab PO DAILY 04/15/15 Reported Atorvastatin Calcium 40 Mg Tablet 1 Tab PO QHS 04/15/15 Reported Clopidogrel (Clopidogrel Bisulfate) 75 Mg Tablet 1 Tab PO DAILY 04/15/15 Reported Clonidine Hcl 0.1 Mg Tablet 0.1 Mg PO TID 04/01/14 Reported Lisinopril 20 Mg Tablet 40 Mg PO DAILY 03/01/14 Reported Impression . 1. Acute respiratory failure secondary to [id number] diastolic heart failure. resolved by CXR 2. Acute exacerbation of chronic obstructive pulmonary disease. 3. Tobacco dependent. 4. Acute nonspecific bronchitis. 5. Hypertension. 6. Hypokalemia. 7. Chronic kidney disease/acute kidney injury. 8. Atypical chest pain. 9. ? fanny 10. ? Right mid lung nodule Plan . PRN BIPAP AVOID oversedation 1. Continue Lasix, keep I<O, monitor k, cr. 2. prednisone taper 3. bronchodilators 4. Follow Cardiology input. 5. Replace potassium and magnesium. 6. The patient instructed on the importance of discontinuing her tobacco use. 7. Discontinue all illicit drugs. 8. i do recommend sleep study as out pt 9. ct chest to r/o any right mid lung nodule discussed w pt and rn DRAKE SIMMONS MD Nov 16, 2017 11:39
--- NOTE | 2017-11-16 13:48 | PDOC ---
PROGRESS NOTES Assessment Assessment Metabolic encephalopathy. Acute sleep deprivation x 2 nights per her boyfriend. [place] sleepiness on 11/13/17. Hyperglycemia. DM. HTN. HLD. COPD. Renal insufficiency. 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 Mild elevation of ammonia level. Obesity. RECOMMENDATIONS/PLAN: Continue Plavix 75 md daily. Continue Lipitor HS. Treat medical diseases. GI consulted. Weight reduction,. OT/PT. HCT: No acute findings. HISTORY OF THE PRESENT ILLNESS: 57-y-old AA female patient with above medical diseases was admitted on 11/11 due to respiratory distress/failure, decreased 02 saturation. Her boyfriend stated that she has not sleep had normal sleep for 2 days since hospitalizes and he believed some of her medications kept her awake. She felt sleep on 11/13 after received some sedative meds. No focalized motor or sensory deficits noted. She is in her baseline normal cognitive function state on 11/16/17. PAST MEDICAL HISTORY Cardiovascular: CAD (PCI/ANISHA to LAD), HTN, LA, Hyperlipidemia Pulmonary: COPD CENTRAL NERVOUS SYSTEM: CVA GI: No pertinent hx Heme/Onc: No pertinent hx Hepatobiliary: No pertinent hx Psych: No pertinent hx Musculoskeletal: No pain Rheumatologic: No pertinent hx Infectious disease: No pertinent hx ENT: No pertinent hx Renal/: No pertinent hx Endocrine: Diabetes PAST SURGICAL HISTORY Hysterectomy FAMILY HISTORY Diabetes, Heart Disease, Hypertension SOCIAL HISTORY Smoke: 2 packs per day (+ cigars) ALLERGIES Coded Allergies: Sulfamethoxazole (Verified Allergy, Intermediate, 06/09/16) Trimethoprim (Verified Allergy, Intermediate, 06/09/16) MEDICATIONS: Refer to MAR REVIEW OF SYSTEMS: Constitutional: Obesity. Head: No traumatic brain or head injury. Skin: No edema, or rash. Ear: No infection. Eyes: No vision loss or color blindness. Nose: No bleeding or purulent discharges. Hearing: No hearing decrease. Neck: No injury. Breast: No history of cancer, masses,or discharges. Cardiac: CAD, HTN, HLD. Pulmonary: COPD. GI: No GI ulcer, GI bleeding. Urinary/genital: UTI. Endocrinologic: Diabetes Mellitus, obesity. Skeletomuscular: No muscular atrophy, deformity. Neurological: see HP. Psychiatric: Denies drug use/abuse. Otherwise, not [id number] review of systems. PHYSICAL EXAMINATION: General appearance is sleepiness. HEENT: Normocephalic and nontraumatic. Eyes, nose, ears, and throat are unremarkable. Neck is supple. No lymphadenopathy. No crepitus. Cardiovascular: S1, S2, regular rate and rhythm. Pulmonary: Clear to auscultation bilaterally. Abdomen: Bowel sounds are positive. Abdomen is soft, nontender, and nondistended. Extremities: No rash, lesions, or edema. No restriction of range of motion NEUROLOGICAL EXAMINATION: Sleepiness, but arousable. Not know if she is oriented to time, but she knows place and person. PERRL. EOMI. CN: no focal findings. Muscle tone: within normal. Muscle strength: 5- DTR: 1+ due to obesity. Plantar reflex: Flexor response bilaterally Gait: not examined in bed. Sensory exam: no abnormal findings. No cerebellar signs elicited. F-T-N test fine. Objective Objective Vital Signs Date Time Temp Pulse Resp B/P (MAP) Pulse Ox O2 Delivery O2 Flow Rate FiO2 11/16/17 12:53 18 Room Air 11/16/17 11:25 96 11/16/17 11:00 98.0 67 138/91 (107) 98.0 11/16/17 10:16 2.0 Intake and Output 11/16/17 07:00 Intake Total 2280 ml Balance 2280 ml Intake Oral 2280 ml # Voids 10 Vitals Signs Vitals VS - Last 72 Hours, by Label Date Time Temp Pulse Resp B/P (MAP) Pulse Ox O2 Delivery O2 Flow Rate FiO2 11/16/17 12:53 18 Room Air 11/16/17 11:25 96 Room Air 11/16/17 11:00 98.0 67 20 138/91 (107) 99 Room Air 98.0 11/16/17 10:16 93 Room Air 2.0 11/16/17 08:49 18 Room Air 11/16/17 08:46 69 148/104 11/16/17 08:46 69 148/104 11/16/17 08:45 69 148/104 11/16/17 07:50 93 Room Air 11/16/17 07:00 98.1 69 20 148/104 (119) 99 Room Air 98.1 11/16/17 03:00 98.4 75 17 139/83 (101) 99 Room Air 98.4 11/15/17 23:00 97.7 88 18 146/85 (105) 100 Room Air 97.7 11/15/17 21:42 20 11/15/17 20:42 20 Room Air 11/15/17 20:41 80 126/80 11/15/17 20:30 Room Air 11/15/17 19:46 93 Room Air 11/15/17 19:00 97.5 83 18 126/83 (97) 100 Room Air 97.5 11/15/17 17:44 59 131/76 11/15/17 15:23 18 98 Room Air 2.0 11/15/17 15:23 59 131/76 11/15/17 15:00 97.5 71 18 131/79 (96) 98 Room Air 97.5 11/15/17 12:28 98 Room Air 11/15/17 11:00 97.8 59 18 131/76 (94) 99 Room Air 97.8 11/15/17 08:50 57 140/88 11/15/17 08:49 57 140/88 11/15/17 08:48 18 Room Air 11/15/17 08:47 74 177/86 11/15/17 08:30 98 Room Air 11/15/17 08:00 Room Air 11/15/17 07:00 97.4 57 18 140/88 (105) 99 Room Air 97.4 Laboratory Laboratory Laboratory Tests Test 11/15/17 15:01 11/15/17 20:38 11/16/17 07:33 11/16/17 10:59 Glucose (Fingerstick) 386 mg/dL (70-99) 416 mg/dL (70-99) 339 mg/dL (70-99) 79 mg/dL (70-99) Medication Medications Current Medications Insulin Human Lispro (HumaLOG) 12 units 1X ONCE SQ Last administered on at 21:09; Start 11/15/17 at 21:30; Stop 11/15/17 at 21:31; Status DC Methylnaltrexone [place] (Relistor) 12 mg 1X ONCE SQ Last administered on 11/16at 10:17; Start 11/16/17 at 10:00; Stop 11/16/17 at 10:01; Status DC Comment Review of Relevant I have reviewed the following items lilliana (where applicable) has been applied. ROLA OLIVER MD Nov 16, 2017 13:48
[2017-11-16 15:00] VITALS: BP 149/74
--- NOTE | 2017-11-16 16:11 | RAD ---
CT CHEST WO CONTRAST Indication: Right lung nodule Technique: Noncontrast CT imaging was performed of the chest, multiplanar reconstruction images submitted. One or more of the following individualized dose reduction techniques were utilized for this examination: 1. Automated exposure control 2. Adjustment of the mA and/or kV according to patient size 3. Use of iterative reconstruction technique. Contrast: None Comparison: None Findings: There is some motion degradation There is 1.4 cm calcified right lower lobe nodule. There is trace pericardial effusion. There is no significant pleural fluid. There is no pneumothorax. There is coronary calcification. Thoracic aortic caliber is within normal limits. No significantly enlarged nodes are identified, some subcentimeter mediastinal nodes. There is linear density of the lingula and left lower lobe more likely due to atelectasis. There are some calcified right hilar nodes. Poorly evaluated, there is again partially calcified liver lesion. Heart is somewhat enlarged. IMPRESSION: 1. There is calcified right lower lobe pulmonary nodule/granuloma. There is some linear density of the lingula and left lower lobe more likely due to atelectasis. 2. There is again partially calcified liver lesion, poorly evaluated on this exam. Electronically signed by: Dominguez Chase MD (11/16/2017 4:08 PM) [id number]
[2017-11-16 16:56] VITALS: BP 149/74
== END 2017-11-16 18:30 | disposition home health service (06) | DRG 291 ==
LOC: ER 13:09 → 5 NORTH 14:30 → 5 SOUTH 11-13 06:44
PROVIDERS: ADMIT Internal Medicine; ATTEND Internal Medicine
PROC: 5A09357 Assistance with Respiratory Ventilation, Less than 24 Consecutive Hours, Continuous Positive Airway Pressure (ICD-10-PCS; principal; 2017-11-11)
DX: I13.0 Hypertensive heart and chronic kidney disease with heart failure and stage 1 through stage 4 chronic kidney disease, or unspecified chronic kidney disease (principal); J96.00 Acute respiratory failure, unspecified whether with hypoxia or hypercapnia; I50.43 Acute on chronic combined systolic (congestive) and diastolic (congestive) heart failure; G93.41 Metabolic encephalopathy; N17.9 Acute kidney failure, unspecified; J44.1 Chronic obstructive pulmonary disease with (acute) exacerbation; E44.0 Moderate protein-calorie malnutrition; J44.0 Chronic obstructive pulmonary disease with (acute) lower respiratory infection; F11.20 Opioid dependence, uncomplicated; I25.10 Atherosclerotic heart disease of native coronary artery without angina pectoris; E11.65 Type 2 diabetes mellitus with hyperglycemia; E11.22 Type 2 diabetes mellitus with diabetic chronic kidney disease; F12.90 Cannabis use, unspecified, uncomplicated; E87.6 Hypokalemia; F17.210 Nicotine dependence, cigarettes, uncomplicated; F17.290 Nicotine dependence, other tobacco product, uncomplicated; N18.3 Chronic kidney disease, stage 3 (moderate); E78.5 Hyperlipidemia, unspecified; F10.10 Alcohol abuse, uncomplicated; J20.9 Acute bronchitis, unspecified; E66.9 Obesity, unspecified; D57.3 Sickle-cell trait; E83.42 Hypomagnesemia; F41.9 Anxiety disorder, unspecified; K59.00 Constipation, unspecified; E11.649 Type 2 diabetes mellitus with hypoglycemia without coma; Z88.1 Allergy status to other antibiotic agents; Z72.820 Sleep deprivation; Z86.73 Personal history of transient ischemic attack (TIA), and cerebral infarction without residual deficits; I25.2 Old myocardial infarction; Z90.710 Acquired absence of both cervix and uterus; Z95.5 Presence of coronary angioplasty implant and graft; Z91.19 Patient's noncompliance with other medical treatment and regimen; Z83.3 Family history of diabetes mellitus; Z68.33 Body mass index [BMI] 33.0-33.9, adult; Z79.02 Long term (current) use of antithrombotics/antiplatelets; Z79.4 Long term (current) use of insulin; Z82.49 Family history of ischemic heart disease and other diseases of the circulatory system; Z91.11 Patient's noncompliance with dietary regimen; Z88.2 Allergy status to sulfonamides
CPT/HCPCS: 36415; 36600; 70450; 71045; 71250; 74018; 80048; 80053; 80061; 80307; 81001; 82140; 82607; 82805; 82962; 83036; 83735; 83880; 84443; 84484; 85007; 85025; 93005; 93306; 94640; 94660; 94760; 96374; 96375; 99406; J1815; J1940; J2212; J2920; J2930; J3010; J3475; J7030; J7512; J7613; J7620; 97530; 97535; 99291-25; G0479

== ENCOUNTER 2019-09-08 14:44 | Emergency (ER) | payer MEDICARE ==
[2018-03-27 14:58] VITALS: BP 131/84
[~2019-09-08] VITALS: Ht 165.1 cm; Wt 70.5 kg
[~2019-09-08 14:44] MED LIST changes: +ALBU2.5V8 NEB; +AMLO5TAB10 PO; -AMLO5TAB7 PO; +AZIT250T6 PO; +BUPR150T6 PO; +CYCL10TA2 PO; +FOLI1TAB16 PO; +GLYB5TAB3 PO; +HYDR-2145 PO; +HYDR-2761 PO; -HYDR-2762 PO; +HYDR-2765 PO; -HYDR25TA9 PO; +IBUP-1007 PO; +IBUP-1060 PO; +INSU100I11 SQ; +LACT1CAP19 PO; +LACT20SO PO; -LINA145C PO; +LINZESS145 MCG PO; +LISI1TAB19 PO; -LISI1TAB5 PO; +MULT1TAB90 PO; +PROM25TA10 PO; +QUET100T PO; +THIA100T22 PO
[2019-09-08] MEDS ORDERED: NAPR-695 PO (16:50)
[2019-09-08] MEDS ORDERED: PENI500T PO (16:50)
[2019-09-08] MEDS ORDERED: CHLO15MO2 SWSP (16:50)
--- NOTE | 2019-09-08 16:52 | PHYS DOC ---
Past Medical History Past Medical History: Bronchitis, CAD, CHF, COPD, CVA, Diabetes-Type II, High Cholesterol, Hypertension, Seizure Additional Past Medical Histor: Enlarged heart Past Surgical History: Angioplasty, Hysterectomy Additional Past Surgical Histo: Broken (SPIRAL) RIGHT LEG; heart stent Smoking Status: Current Some Day Smoker Alcohol Use: Occasionally Drug Use: Marijuana General Adult EDM: Chief Complaint: DENTAL PROBLEM HPI: HPI: Patient is a 59 year old AA female who presents to the emergency department with complaints of front upper dental pain for the last week. She reports a history of dental caries and states she needs to see dentist to have her teeth fixed. She denies any injury or trauma to her teeth. Patient also complains of bilateral leg cramps. She states that this started after a fall that was suffered 4 months ago. Patient denies any difficulty with ambulation states that her legs just cramp and that it seems to be worse at night. She denies any fever, cough, nausea, vomiting, diarrhea, abdominal pain, rash, or sore throat. She currently rates her pain a 10 out of 10 on the pain scale, she has tried taking hydrocodone for relief of her dental pain with no relief of symptoms, she denies any radiation of the pain or alleviating factors. Review of Systems: Review of Systems: Complete review of systems negative unless documented in the HPI Heart Score: Risk Factors: Risk Factors: DM, Current or recent (<one month) smoker, HTN, HLP, family history of CAD, obesity. Risk Scores: Score 0 - 3: 2.5% MACE over next 6 weeks - Discharge Home Score 4 - 6: 20.3% MACE over next 6 weeks - Admit for Clinical Observation Score 7 - 10: 72.7% MACE over next 6 weeks - Early Invasive Strategies Allergies: Allergies: Allergies Coded Allergies Type Severity Reaction Last Updated Verified sulfamethoxazole Allergy Intermediate 06/09/16 Yes trimethoprim Allergy Intermediate 06/09/16 Yes Physical Exam: PE: Constitutional: Well developed, well nourished, no acute distress, non-toxic appearance. [] HENT: Normocephalic, atraumatic, bilateral external ears normal, nose normal; diffuse dental decay present with several missing teeth, gingival erythema and edema of the upper gingiva present consistent with gingivitis. No visible or palpable dental abscess [] Eyes: PERRLA, EOMI, conjunctiva normal, no discharge. [] Neck: Normal range of motion, supple, no stridor. [] Cardiovascular:Heart rate regular rhythm Lungs & Thorax: Respirations even and unlabored, no retractions, no respiratory distress Skin: Warm, dry, no erythema, no rash. [] Extremities: BLE: No bony tenderness, no crepitus, no cyanosis, ROM intact, no edema. [] Neurologic: Alert and oriented X 3, no focal deficits noted. [] Psychologic: Affect normal, judgement normal, mood normal. [] Current Patient Data: Vital Signs: Vital Signs Date Time Temp Pulse Resp B/P (MAP) Pulse Ox O2 Delivery O2 Flow Rate FiO2 09/08/19 14:56 97.6 65 12 128/68 (88) 95 Room Air 97.6 EKG: EKG: [] Radiology/Procedures: Radiology/Procedures: [] Course & Med Decision Making: Course & Med Decision Making Pertinent Labs and Imaging studies reviewed. (See chart for details) Patient is a 59-year-old female who presented to the emergency department with complaints of dental pain and a dental infection. She also complained of cramps in both of her legs that is worse at night for several months. I will prescribe the patient Pen-Vee K, Peridex, and naproxen for the relief of the dental infection and the dental pain. I advised the patient that I do not order narcotics for dental pain. Recommended that she follows up with her primary care doctor for further evaluation of her chronic leg pain, she is a diabetic and needs to follow-up with her doctor on a routine basis. Patient verbalized an understanding of home care, medications, follow-up, and return to ED instructions and was in agreement with the plan of care. [] Dragon Disclaimer: Dragon Disclaimer: This electronic medical record was generated, in whole or in part, using a voice recognition dictation system. Departure Departure Impression: Primary Impression: Infected dental caries Additional Impressions: Dentalgia Bilateral leg cramps Acute gingivitis Disposition: HOME, SELF-CARE Condition: STABLE Referrals: NO PCP (PCP) Patient Instructions: Dental Caries, Gingivitis, [place], Leg Cramps Additional Instructions: Follow-up with your primary care doctor for further evaluation of your chronic leg cramps. Fill prescription(s) and use as directed. Follow up with dentist using the referral list provided. Return to the ER if symptoms worsen. Scripts Naproxen (NAPROXEN) 375 Mg Tablet 1 TAB PO BID for 10 Days, #20 TAB 0 Refills Prov: JAMIE OLIVEIRA APRN 09/08/19 Chlorhexidine Gluconate (PERIDEX) 15 Ml Mouthwash 15 ML SWSP BID for 10 Days, #1 BOT 0 Refills [place] your teeth before use of this medication and rinse thoroughly after using the medication as it may stain your teeth. Prov: JAMIE OLIVEIRA APRN 09/08/19 Penicillin V Potassium (PENICILLIN V POTASSIUM) 500 Mg Tablet 1 TAB PO QID for 10 Days, #40 TAB 0 Refills Prov: JAMIE OLIVEIRA APRN 09/08/19 Justicifation of Admission Dx: Justifications for Admission: Justification of Admission Dx: N/A JAMIE OLIVEIRA APRN Sep 08, 2019 16:51
== END 2019-09-08 17:08 | disposition home or self-care (01) ==
LOC: ER 14:44
DX: K04.7 Periapical abscess without sinus (principal); K05.00 Acute gingivitis, plaque induced; R25.2 Cramp and spasm; J44.9 Chronic obstructive pulmonary disease, unspecified; I25.10 Atherosclerotic heart disease of native coronary artery without angina pectoris; E78.00 Pure hypercholesterolemia, unspecified; I11.0 Hypertensive heart disease with heart failure; I50.9 Heart failure, unspecified; F17.200 Nicotine dependence, unspecified, uncomplicated; Z86.73 Personal history of transient ischemic attack (TIA), and cerebral infarction without residual deficits; Z95.5 Presence of coronary angioplasty implant and graft; Z88.1 Allergy status to other antibiotic agents; Z88.2 Allergy status to sulfonamides
CPT/HCPCS: 99283

== ENCOUNTER 2021-02-07 12:54 | Emergency (ER) | payer MEDICARE, OTHER ==
[~2021-02-07] VITALS: Ht 165.1 cm; Wt 65.4 kg
[~2021-02-07 12:54] MED LIST changes: +AMLO-186 PO; -AMLO5TAB10 PO; -ASPI-612 PO; +ASPI-886 PO; +BUPR150T21 PO; -BUPR150T6 PO; +CHLO15MO2 SWSP; +CYCL10TA19 PO; -CYCL10TA2 PO; -LISI-334 PO; -LISI1TAB19 PO; +LISI1TAB37 PO; +LISI20TA18 PO; -MULT1TAB90 PO; +MULT1TAB92 PO; +NAPR-695 PO; +PENI500T PO; +POTA-121 PO; -QUET100T PO; +QUET100T2 PO
[2021-02-07 13:28] LABS: BILIRUBIN,URINE NEGATIVE (NEG); CLARITY,URINE CLEAR; NITRITE,URINE NEGATIVE (NEG); PH,URINE 5.5 (<5.0-8.0); PROTEIN,URINE 100 mg/dL (NEG-TRACE); UROBILINOGEN,URINE 0.2 mg/dL (0.2 mg/dL)
[2021-02-07 13:42] LABS: COLOR,URINE STRAW
[2021-02-07 13:45] LABS: BACTERIA,URINE 0 /HPF (0-FEW); RBC,URINE 0 /HPF (0-2); YEAST,URINE PRESENT /HPF
--- NOTE | 2021-02-07 13:57 | PHYS DOC ---
Past Medical History Past Medical History: Bronchitis, CAD, CHF, COPD, CVA, Diabetes-Type II, High Cholesterol, Hypertension, Seizure Additional Past Medical Histor: Enlarged heart Past Surgical History: Angioplasty, Hysterectomy Additional Past Surgical Histo: Broken (SPIRAL) RIGHT LEG; heart stent Smoking Status: Current Some Day Smoker Alcohol Use: Occasionally Drug Use: Marijuana General Adult EDM: Chief Complaint: PAIN ON URINATION HPI: HPI: Patient is a 60-year-old female who presents emergency department concerning increased urinary frequency with minor burning with urination, also has feelings of urinary pressure. Patient denies vaginal discharge, denies vaginal bleeding, denies vaginal itching, denies STI concerns, denies rashes or lesions to her vagina. Patient denies seeing blood in her urine or her stool. Patient denies reports mild suprapubic area intermittent pressure that she cannot describe as a pain. Patient is unable to describe a pain level as she states she does not really hurt. Patient denies recent fever or chills, denies chest pains, chest palpitations, shortness of breath, nasal or chest congestion. Patient denies headaches. Patient's mother at bedside reports patient lives with her full-time since a CVA proximately 1 year ago with memory and cognitive deficits. Patient's mother reports the patient has a history of4 chronic bronchitis, CAD, CHF, COPD, CVA, DM type II, hypercholesterol, hypertension, and seizures. Reports a surgical history of angioplasty with stent placement years ago, hy sterectomy 20 years ago. The patient does not have menstrual cycles since hysterectomy for mother statement. Patient is seen at [facility] clinic. Reports taking her daughter to see the [facility] clinic last month with this chief complaint however reports the physician clinic did not address her urinary symptoms. Patient's mother reports taken her daughter to emergency room twice this week but did not stay for evaluation or treatment related to lengthy stay. Patient's mother reports blood sugars have been under control and consistently runs in the 280 range. Reports a fingerstick blood sugar this morning of 288 prior to taking her diabetic medications. Patient's mother denies the patient having a recent DKA history since blood sugars have been under control. Patient denies other physical complaints or physical concerns. Review of Systems: Review of Systems: 14 body systems of review of systems have been reviewed. See HPI for pertinent positives and negative responses, otherwise all other systems are negative, nonpertinent or noncontributory. Constitutional: Negative except as outlined in HPI above. Skin: Negative except as outlined in HPI above. Eyes: Negative except as outlined in HPI above. HENT: Negative except as outlined in HPI above. Respiratory: Negative except as outlined in HPI above. Cardiovascular: Negative except as outlined in HPI above. GI: Negative except as outlined in HPI above. : Negative except as outlined in HPI above. Musculoskeletal: Negative except as outlined in HPI above. Integument: Negative except as outlined in HPI above. Neurologic: Negative except as outlined in HPI above. Endocrine: Negative except as outlined in HPI above. Lymphatic: Negative except as outlined in HPI above. Psychiatric: Negative except as outlined in HPI above. Heart Score: C/O Chest Pain: No Risk Factors: Risk Factors: DM, Current or recent (<one month) smoker, HTN, HLP, family history of CAD, obesity. Risk Scores: Score 0 - 3: 2.5% MACE over next 6 weeks - Discharge Home Score 4 - 6: 20.3% MACE over next 6 weeks - Admit for Clinical Observation Score 7 - 10: 72.7% MACE over next 6 weeks - Early Invasive Strategies Current Medications: Reported medications by patient's mother: Spironolactone, 40 mg lisinopril, Keppra, amlodipine, lovastatin, Jardiance, 2 types of insulins. Allergies: Allergies: Allergies Coded Allergies Type Severity Reaction Last Updated Verified sulfamethoxazole Allergy Intermediate 06/09/16 Yes trimethoprim Allergy Intermediate 06/09/16 Yes Physical Exam: PE: Constitutional: Well developed, well nourished, no acute distress, non-toxic appearance. 60-year-old female in no apparent distress. HENT: Normocephalic, atraumatic. Oropharynx moist, pink, no deep tissue infectious process appreciated, bilateral TMs intact, no drainage, within normal limits, patient speaking in normal voice tones, no lymphadenopathy of the head or neck. Eyes: Conjunctiva normal, no discharge. PERRLA. Neck: Normal range of motion, no stridor. Cardiovascular: No cyanosis appreciated, distal cap refill less than 2 seconds. Regular rate and rhythm auscultation. Lungs & Thorax: Patient is in no respiratory distress, no audible adventitious lung sounds appreciated. Normal work of breathing, no adventitious lung sounds appreciated per auscultation all lung [place] Abdomen: Nontender, no abnormalities noted. No discoloration of the skin of the abdomen. Normal bowel sounds all 4 quadrants. Skin: Warm, dry, no erythema, no rash. Back: No tenderness, no deformities. Extremities: No tenderness, no cyanosis, no clubbing, ROM intact, no edema. Neurologic: Alert and oriented X 3, normal motor function, normal sensory function, no focal deficits noted. Psychologic: Affect normal, judgement normal, mood normal. Patient unable to recall recent events, patient's mother at bedside reports this is at baseline for patient. Current Patient Data: Labs: Laboratory Tests Test 02/07/21 13:00 Urine Collection Type Unknown Urine Color Straw Urine Clarity Clear Urine pH 5.5 Urine Specific [place] 1.020 Urine Protein 100 mg/dL Urine Glucose (UA) >=1000 mg/dL Urine Ketones (Stick) Negative mg/dL Urine Blood Negative Urine Nitrite Negative Urine Bilirubin Negative Urine Urobilinogen Dipstick 0.2 mg/dL Urine Leukocyte Esterase Negative Urine RBC 0 /HPF Urine WBC 1-4 /HPF Urine Squamous Epithelial Cells Mod /LPF Urine Bacteria 0 /HPF Urine Yeast Present /HPF Vital Signs: Vital Signs Date Time Temp Pulse Resp B/P (MAP) Pulse Ox O2 Delivery O2 Flow Rate FiO2 02/07/21 12:57 98.6 67 18 137/100 (112) 95 Room Air 98.6 EKG: EKG: [] Radiology/Procedures: Radiology/Procedures: [] Course & Med Decision Making: Course & Med Decision Making Pertinent Labs and Imaging studies reviewed. (See chart for details) 60-year-old female, vital signs reviewed, presents to the emergency department concerning UTI type signs and symptoms for the past month. Physical examination unremarkable however patient's explanation of events and chief complaint of increased urinary frequency will send urine sample for urinalysis assay to lab. Discussed with patient and patient's mother at bedside ED planning of investigating urine for infection, will review with patient and patient's mother when urinalysis assay has resulted, patient and patient's mother amenable to ED planning. Urinalysis assay concerning for yeast cystitis, glucosuria without urine ketones. ED planning will start Diflucan 200 mg twice daily x2 weeks regimen for urinalysis assay findings. Discussed ED work-up and patient case with ED attending physician Dr. Barbosa who is agreeable with Diflucan regimen however recommended starting patient on prophylaxis cefdinir dosing 300 mg twice daily x7 days as patient is high risk for bacterial UTI infection related to health history. Discussed urinalysis assay findings with patient and patient's mother, discussed ED planning to discharge treatment plan to home with prescription of Diflucan 200 mg twice daily for 14 days, cefdinir 300 mg twice daily for 7 days, will give first dose in ED prior to discharge, discussed side effects of medications, strict completion of medications as directed, keep [facility] appointment this coming month for reevaluation of urinary findings. Return to ER precautions and concerns. Patient and patient's mother gave verbal understanding of and are amenable to ED discharge planning. Discussed with the patient all findings and diagnostic testing as well as the need to follow-up with their primary care provider for further evaluation and treatment or return to the ED if any new or worsening symptoms. Strict return precautions were also discussed at length, the patient voiced understanding and agreement with the discharge planning. The patient was nontoxic in appearance, in no apparent distress, and hemodynamically stable at the time of disposition. Dragon Disclaimer: DragZerve Disclaimer: This electronic medical record was generated, in whole or in part, using a voice recognition dictation system. Departure Departure Impression: Primary Impression: Yeast UTI Additional Impressions: Abnormal finding on urinalysis Abnormal urination Disposition: HOME / SELF CARE / HOMELESS Condition: GOOD Referrals: NO PCP (PCP) Patient Instructions: Urinary Frequency, Urinary Tract Infection Additional Instructions: You were seen today in the emergency department for urinary tract infection type signs and symptoms, you gave a urine sample which was studied in the lab and found to have yeast. As we discussed, I am placing you on 2 medications, 1 is an antifungal fluconazole which you will take twice a day for 2 weeks, the second medication is cefdinir which you will take twice a day for 7 days. As with all antifungal and antibiotic medications, please take as directed until completed. You may experience some mild stomach discomfort with looser than normal stools, this is a normal side effect of taking antibiotics and antifungals for urinary tract infections. Your first dosing of these medications were given today in the emergency department. I have sent your prescriptions to the [facility] pharmacy of your choice. Please keep your upcoming appointment with your primary care physician at the [facility] clinic. Return to the emergency department for worsening symptoms or other concerns. Thank you for visiting our Emergency Department. It was a pleasure taking care of you today in the emergency department and we appreciate you trusting us with your care. If any additional problems come up don't hesitate to return to visit us. Please follow up with your primary care provider so they can plan additional care if needed and know about the problem that you had. If symptoms worsen come back to the Emergency Department. Any concerning symptoms that start such as chest pain, shortness of air, weakness or numbness on one side of the body, running high fevers or any other concerning symptoms return to the ER. EMERGENCY DEPARTMENT GENERAL DISCHARGE INSTRUCTIONS Thank you for coming to [facility] Emergency Department (ED) today and trusting us with you care. We trust that you had a positive experience in our Emergency Department. If you wish to speak to the department management, you may call the Director at [phone]. YOUR FOLLOW UP INSTRUCTIONS ARE FOLLOWS: 1. Do you have a private Doctor? If you do not have a private doctor, please ask for a resource list of physicians or clinics that may be able to assist you with follow up care. 2. The Emergency Physicain has interpreted your x-rays. The X-Ray specialist will also review them. If there is a change in the findings, you will be notified in 48 hours when at all possible. 3. A lab test or culture has been done, your results will be reviewed and you will be notified if you need a change in treatment. ADDITIONAL INSTRUCTIONS AND INFORMATION: 1. Your care today has been supervised by a physician who is specially trained in emergency care. Many problems require more than one evaluation for a complete diagnosis and treatment. We recommend that you schedule your follow up appointment as recommended to ensure complete treatment of you illness or injury. If you are unable to obtain follow up care and continue to have a problem, or if your condition worsens, we recommend that you return to the ED. 2. We are not able to safely determine your condition over the phone nor are we able to give sound medical advice over the phone. For these safety reasons, if you call for medical advice we will ask you to come to the ED for further evaluation. 3. If you have any questions regarding these discharge instructions please call the ED at [phone]. SAFETY INFORMATION: In the interest of safety, wellness, and injury prevention; we encourage you to wear your sealbelt, if you smoke; quite smoking, and we encourage family to use a protective helmet for bicycling and other sporting events that present an increased risk for head injury. IF YOUR SYMPTOMS WORSEN OR NEW SYMPTOMS DEVELOP, OR YOU HAVE CONCERNS ABOUT YOUR CONDITION; OR IF YOUR CONDITION WORSENS WHILE YOU ARE WAITING FOR YOUR FOLLOW UP APPOINTMENT; EITHER CONTACT YOUR PRIMARY CARE DOCTOR, THE PHYSICIAN WHOSE NAME AND NUMBER YOU WERE GIVEN, OR RETURN TO THE ED IMMEDIATELY. Scripts Fluconazole (DIFLUCAN) 200 Mg Tablet 1 TAB PO BID for yeast cystitis for 14 Days, #28 TAB 0 Refills Take 1 tablet twice a day for 14 days. Prov: HERMILO SWAN APRN 02/07/21 Cefdinir (CEFDINIR) 300 Mg Capsule 1 CAP PO BID for uti, #14 CAP 0 Refills Prov: HERMILO SWAN APRN 02/07/21 HERMILO SWAN APRN Feb 07, 2021 13:57
[2021-02-07] MEDS ORDERED: CEFDINIR 300 MG CAPSULE PO STA (14:04)
[2021-02-07] MEDS ORDERED: FLUCONAZOLE 100 MG TABLET. PO ONE (14:15)
[2021-02-07] MEDS ORDERED: CEFD300C PO (14:23)
[2021-02-07] MEDS ORDERED: FLUC200T PO (14:23)
[2021-02-07 14:47] VITALS: BP 136/94
== END 2021-02-07 14:34 | disposition home or self-care (01) ==
LOC: ER 12:54
DX: B37.49 Other urogenital candidiasis (principal); R82.998 Other abnormal findings in urine; R39.198 Other difficulties with micturition; I25.10 Atherosclerotic heart disease of native coronary artery without angina pectoris; I11.0 Hypertensive heart disease with heart failure; I50.9 Heart failure, unspecified; J44.9 Chronic obstructive pulmonary disease, unspecified; E11.9 Type 2 diabetes mellitus without complications; E78.00 Pure hypercholesterolemia, unspecified; F17.200 Nicotine dependence, unspecified, uncomplicated; Z86.73 Personal history of transient ischemic attack (TIA), and cerebral infarction without residual deficits; Z88.1 Allergy status to other antibiotic agents; Z88.2 Allergy status to sulfonamides
CPT/HCPCS: 81001; 99283